=== PATIENT | female | born 1935 | race Caucasian/White ===

== ENCOUNTER 2017-05-03 15:22 | Emergency (ER) | payer MEDICARE, OTHER ==
--- NOTE | 2017-05-03 15:25 | EDM.PDOC ---
ED HPI GENERAL MEDICAL PROBLEM - General Chief Complaint: Lower Extremity Injury/Pain Stated Complaint: fall at [facility], lacerations, hematoma Time Seen by Provider: 05/03/17 15:25 Source of Information: Reports: Patient, EMS, Old Records ([facility] EMR. No paper hospital chart available.). Denies: EMS Notes Reviewed (Not available at time of dictation) History Limitations: Reports: No Limitations - History of Present Illness INITIAL COMMENTS - FREE TEXT/NARRATIVE: The patient was brought to the emergency room via ambulance with cloth sander accompaniment with a dressing placed over the right knee with the staff at [facility] already putting a dressing on her left hand. No other treatment in route. The patient was seen out of [facility] in [place] at about 15:00 hours today when she tripped outside resulting in a minor right-sided head contusion, left hand condition, and right knee contusion with secondary large prepatellar laceration. No history of foreign body, eye irritation, paresthesias, neurological deficits, change in mental status, headaches, visual changes, or other complaints or injuries. The patient did bend her glasses at the above accident. Patient thought she had a tetanus booster 5 years ago, however records from [facility] indicate that last TdAP was given on 06/07/00. The patient denies any chest pain/pressure, heart flutter, dizziness, orthostasis, orthopnea , diaphoresis, paresthesias, recent decreased exercise tolerance, or any other anginal-type symptoms. No recent history of abdominal pain, heartburn, nausea, diarrhea, melena, gross hematochezia, or any food intolerance, including fatty foods, etc.. The patient also denies any recent fever, cough, wheezing, dyspnea , etc.. The majority of her discomfort is in her right knee, which she rates at 2/10, with the patient able to ambulate on the knee at the scene and she does use a cane. The patient is a somewhat poor historian Onset: Today, Sudden Onset Date: 05/03/17 Onset Time: 15:00 Duration: Constant Location: Reports: Head, Upper Extremity, Left, Lower Extremity, Right. 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 Denies: Spinal Immobilization Right Anterior Knee Pain Score (Numeric/FACES): 2 - Related Data Allergies Allergy/AdvReac Type Severity Reaction Status Date / Time MARCOS Inhibitors Allergy Unknown unknown Verified 05/03/17 16:57 budesonide [From Pulmicort] Allergy Unknown unknown Verified 05/03/17 16:57 gabapentin Allergy Unknown Diarrhea Verified 05/03/17 16:58 Sulfa (Sulfonamide Allergy Unknown unknown Verified 05/03/17 16:57 Antibiotics) ketorolac [From Toradol] Allergy Rash Verified 05/03/17 16:58 Home Meds: Home Meds Albuterol/Ipratropium [DuoNeb 3.0-0.5 MG/3 ML] 1 applic INH QID 05/03/17 [ History] Budesonide/Formoterol Fumarate [Symbicort 160-4.5 Mcg Inhaler] 2 puff IH BID [History] Fish Oil/[place]-3 Fatty Acids [Fish Oil 1,000 MG] 1 gm PO DAILY 05/03/17 [History ] Furosemide 20 mg PO DAILY 05/03/17 [History] Insulin Detemir [Levemir] 26 unit SUBCUT DAILY 05/03/17 [History] Metoprolol Tartrate 25 mg PO BID 05/03/17 [History] Multivit, Iron, Min #5, Fa [Strovite Forte Caplet] 1 each PO DAILY 05/03/17 [ History] Simvastatin 40 mg PO DAILY 05/03/17 [History] amLODIPine [Norvasc] 5 mg PO DAILY 05/03/17 [History] methylPREDNISolone Acetate [Depo-Medrol] 80 mg IM ASDIRECTED 05/03/17 [History] Past Medical History HEENT History: Reports: Hard of Hearing, Impaired Vision, Other (See Below) Other HEENT History: Patient wears glasses. Mild bilateral presbycusis Cardiovascular History: Reports: CAD, Cardiomyopathy, Heart Failure, High Cholesterol, Hypertension, PVD, Other (See Below) Other Cardiovascular History: Cardiomegaly by chest x-ray with history of CHF and chronic dependent edema Respiratory History: Reports: COPD, Pulmonary Fibrosis Musculoskeletal History: Reports: Back Pain, Chronic, Fracture, Neck Pain, Chronic, Osteoarthritis, Osteoporosis, Other (See Below) Other Musculoskeletal History: Scoliosis with history of vertebral body compression fractures Neurological History: Reports: Neuropathy, Diabetic, Neuropathy, Peripheral Endocrine/Metabolic History: Reports: Diabetes, Type II, IDDM - Past Imaging History Past Imaging History: Reports: MRI (Lumbar spine on 11/04/13) Social & Family History - Tobacco Use Smoking Status *Q: Never Smoker Tobacco Use Within Last Twelve Months: No Used Tobacco, but Quit: No Smoking Cessation Information Provided To Patient: No Second Hand Smoke Exposure: No Second Hand Smoke Education Provided: No - Living Situation & Occupation Living situation: Reports: , with Family Occupation: Retired (Retired [employer] ) Review of Systems - Review of Systems Review Of Systems: ROS reveals no pertinent complaints other than HPI. ED EXAM, GENERAL - Physical Exam Exam: See Below Exam Limited By: No Limitations General Appearance: Alert, WD/WN, No Apparent Distress Eye Exam: Bilateral Eye: EOMI, Normal Fundi, Normal Inspection (Patient wearing glasses, no nystagmus), PERRL Ears: Normal External Exam, Normal Canal, Normal TMs, Hearing Loss (Mild bilateral presbycusis). No: Hearing Grossly Normal Nose: Normal Inspection, Normal Mucosa, No Blood Throat/Mouth: Normal Inspection, Normal Lips, Normal Teeth, Normal Gums, Normal Oropharynx, Normal Voice, No Airway Compromise. No: Dysphagia, Perioral Cyanosis Head: Normocephalic, Facial Swelling (The centimeter area of mild to moderate ecchymosis and swelling in the right superior periorbital region with no crepitation, formerly, sinus fracture, or significant localized tenderness). No : Facial Tenderness, Sinus Tenderness Neck: Normal Inspection, Supple, Non-Tender, Full Range of Motion, Carotid Bruit (Mild bilateral carotid bruits). No: Lymphadenopathy (L), Lymphadenopathy (R), Thyromegaly Respiratory/Chest: No Respiratory Distress, Lungs Clear, Normal Breath Sounds, No Accessory Muscle Use, Chest Non-Tender. No: Pleural Rub, Retractions Cardiovascular: Normal Peripheral Pulses, Regular Rate, Rhythm, No JVD, No Murmur, No Rub. No: No Edema (Stable by history lymphedema of the lower extremities), Gallop/S3, Gallop/S4, Friction Rub Peripheral Pulses: 2+: Radial (L), Radial (R) GI/Abdominal: Normal Bowel Sounds, Soft, Non-Tender, No Organomegaly, No Distention, No Abnormal Bruit, No Mass, Pelvis Stable, Other (Obese). No: Guarding (Female) Exam: Deferred Rectal (Female) Exam: Deferred Back Exam: Full Range of Motion, Other (Scoliosis noted). No: CVA Tenderness (L ), CVA Tenderness (R), Muscle Spasm, Paraspinal Tenderness, Vertebral Tenderness Extremities: Normal Capillary Refill, Pedal Edema (Stable by history mild lymphedema of the lower extremities with knee-high TREVOR hose in place), Joint Swelling (Mild right knee effusion), Arm Pain (0.25 cm in length superficial laceration over the extensor surface fourth finger PIP joint not requiring laceration repair. No joint instability or sign of fracture), Leg Pain (Minimal right knee pain mostly secondary to laceration with no joint instability by limited exam. No evidence of foreign body. Large 12 cm in length somewhat irregular laceration over the prepatellar region), Other (Moderate osteoarthritic and rheumatoid changes). No: Lowell's Sign Neurological: Alert, Oriented, CN II-XII Intact, Normal Cognition, Normal Gait, Normal Reflexes, No Motor/Sensory Deficits Psychiatric: Normal Affect, Normal Mood Skin Exam: Normal Color, No Rash, Ecchymosis (Ecchymosis surrounding laceration site with additional 34 centimeter possibly old area of mild ecchymosis over the distal lateral right femur), Wound/Incision (As above). No: Petechiae Lymphatic: No Adenopathy ED TRAUMA EXTREMITY PROCEDURES - Laceration/Wound Repair Right Middle Anterior Knee Lac/Wound Length In cm: 12 Appearance: Subcutaneous, Irregular, Clean Distal NVT: Neuro & Vascular Intact, No Tendon Injury Anesthetic Type: Local Local Anesthesia - Lidocaine (Xylocaine): 1% Plain Local Anesthetic Volume: Other (20 ml) Skin Prep: Providone-Iodine (Betadine) Saline Irrigation (cc's): 0 Exploration/Debridement/Repair: Wound Explored, In a Bloodless Field, Explored to Base, No Foreign Material Found Closed With: Sutures Suture Size: 4-0 # of Sutures: 20 Suture Type: Nylon, Interrupted, Simple Sterile Dressing Applied: Nurse Tetanus Status Addressed: Yes Complications: No - Splinting Right Lower Extremity Pre-Procedure NV Status: Normal Post-Procedure NV Status: Normal Splint Material: Other (As below) Splint Design: Knee Immobilizer Applied & Form Fitted By: Provider Provider Post-Splint Application NV Check: NV Status Normal, Good Position Complications: No Course - Vital Signs Last Recorded V/S: Last Vital Signs Temp 37.1 C 05/03/17 15:40 Pulse 83 05/03/17 16:54 Resp 18 05/03/17 15:40 BP 161/85 H 05/03/17 16:54 Pulse Ox 99 05/03/17 16:54 Vital Signs - 24 hr 05/03/17 05/03/17 05/03/17 15:40 16:00 16:15 Temperature [ 37.1 C Oral] Pulse, 81 81 80 Peripheral [ Left Pulse Oximetry] Respiratory 18 Rate Blood Pressure 179/79 H 165/82 H 162/80 H [Right Upper Arm] O2 Sat by Pulse 98 99 98 Oximetry 05/03/17 16:54 Temperature [ Oral] Pulse, 83 Peripheral [ Left Pulse Oximetry] Respiratory Rate Blood Pressure 161/85 H [Right Upper Arm] O2 Sat by Pulse 99 Oximetry - Orders/Labs/Meds Orders: Active Orders 24 hr Category Date Time Status Vaccines to be Administered [RC] PER UNIT ROUTINE Care 05/03/17 15:27 Active Knee 3V Rt [CR] Stat Exams 05/03/17 18:25 Ordered Durable Medical Equipment for Discharge [DME for Oth 05/03/17 18:38 Ordered Discharge] [COMM] Routine Obtain Past Medical Record [OM.PC] Routine Oth 05/03/17 15:26 Active Labs: None Meds: Medications Discontinued Medications Generic Name Dose Route Start Last Admin Trade Name Freq PRN Reason Stop Dose Admin Diphtheria/Tetanus/Acell Pertussis 0.5 ml 05/03/17 15:27 Adacel IM 05/03/17 15:28 .ONCE ONE Lidocaine HCl 5 ml 05/03/17 15:27 05/03/17 18:11 Xylocaine-Mpf 1% INJECT 05/03/17 15:28 5 ml ONETIME ONE Administration Lidocaine HCl 5 ml 05/03/17 15:28 05/03/17 18:11 Xylocaine-Mpf 1% INJECT 05/03/17 15:29 5 ml ONETIME ONE Administration Lidocaine HCl 5 ml 05/03/17 15:28 05/03/17 18:11 Xylocaine-Mpf 1% INJECT 05/03/17 15:29 5 ml ONETIME ONE Administration Lidocaine HCl 5 ml 05/03/17 15:28 05/03/17 18:11 Xylocaine-Mpf 1% INJECT 05/03/17 15:29 5 ml ONETIME ONE Administration Neomycin/Polymyxin/Bacitracin 1 each 05/03/17 15:27 05/03/17 18:11 Triple Antibiotic Oint TOP 05/03/17 15:28 1 each ONETIME ONE Administration - Radiology Interpretation Free Text/Narrative:: X-rays of the right knee, 2 views, shows evidence of moderate to severe osteoarthritis and osteoporosis with no evidence of patellar/other fracture, foreign body, dislocation, etc. etc. 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 transplanted heart: [place] heart Associated angina: without angina Qualified Code(s): I25.10 - Atherosclerotic heart disease of [place] coronary artery without angina pectoris - Discharge Information Instructions: Laceration Care, Adult, Contusion, [id number], Stitches, Joy, or Adhesive Wound Closure, [id number] Forms: ED Department Discharge Additional Instructions: 1. Followup with your regular provider in 10-14 days as directed for reevaluation and removal of 20 stitches from your right knee. 2. Tylenol 650 mg by mouth every 4 hours when necessary as directed. 3. Activity as tolerated with continuation of strict fall precautions 4. Antibacterial soap wash/soak with subsequent antibacterial dressing such as Neosporin, etc. as directed 2 times per day until the wound or laceration site completely heals. Keep the area clean and dry with activity restrictions as discussed. 5. BenGay or equivalent, heating pad, and/or ice packs as directed. 6. Use knee immobilizer at all times with exception of bathing and wound care until otherwise directed 7. Continue to have your regular providers watch your blood pressures closely - Problem List & Annotations (1) Laceration SNOMED Code(s): 662515169 Code(s): LBA3597 - Status: Acute Priority: High Onset Date: 05/03/17 Annotation/Comment:: Excellent results with laceration repair. DTaP given. Activity restrictions and wound care were extensively discussed with the patient and her . The patient was placed in a knee immobilizer. Some delay in laceration repair without sequelae secondary to multiple patients in the emergency room (2) Multiple contusions SNOMED Code(s): 882760890 Code(s): T07.XXXA - UNSPECIFIED MULTIPLE INJURIES, INITIAL ENCOUNTER Status : Acute Priority: High Onset Date: 05/03/17 Annotation/Comment:: Otherwise multiple minor contusions as above. Symptomatically as per discharge instructions (3) Right knee pain SNOMED Code(s): 22810363 Code(s): M25.561 - PAIN IN RIGHT KNEE Status: Acute Priority: High Onset Date: 05/03/17 Annotation/Comment:: Majority of knee pain secondary to laceration. Treatment as above. Patient does have a cane at home Qualifiers: Chronicity: acute Qualified Code(s): M25.561 - Pain in right knee (4) Hypertension SNOMED Code(s): 05205669 Code(s): I10 - ESSENTIAL (PRIMARY) HYPERTENSION Status: Chronic Priority : Medium Annotation/Comment:: Her blood pressures were somewhat elevated during emergency room care. Continue to observe closely by regular providers Qualifiers: Hypertension type: essential hypertension Qualified Code(s): I10 - Essential (primary) hypertension (5) COPD (chronic obstructive pulmonary disease) SNOMED Code(s): 64858703 Code(s): J44.9 - CHRONIC OBSTRUCTIVE PULMONARY DISEASE, UNSPECIFIED Status : Chronic Priority: Medium Annotation/Comment:: Stable by history with no recent fever or bronchitic type symptoms Qualifiers: COPD type: emphysema Emphysema type: panlobular Qualified Code(s): J43.1 - Panlobular emphysema (6) Coronary artery disease SNOMED Code(s): 81507241 Code(s): I25.10 - ATHSCL HEART DISEASE OF [place] CORONARY ARTERY W/O ANG PCTRS Status: Chronic Priority: Medium Annotation/Comment:: Stable by history with no recent chest pain or anginal type symptoms Qualifiers: Coronary Disease-Associated Artery/Lesion type: [place] artery [place] vs. 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 Status: Chronic Priority: Medium Annotation/Comment:: Stable by patient history with history of diabetic neuropathy (8) Osteoarthritis SNOMED Code(s): 196093100 Code(s): M19.90 - UNSPECIFIED OSTEOARTHRITIS, UNSPECIFIED SITE Status: Chronic Priority: Medium Annotation/Comment:: Otherwise stable by history Qualifiers: Osteoarthritis location: multiple joints Osteoarthritis type: primary Qualified Code(s): M15.0 - Primary generalized (osteo)arthritis - Problem List Review Problem List Initiated/Reviewed/Updated: Yes - My Orders Last 24 Hours: My Active Orders 05/03/17 15:26 Obtain Past Medical Record [OM.PC] Routine 05/03/17 15:27 Vaccines to be Administered [RC] PER UNIT ROUTINE 05/03/17 18:25 Knee 3V Rt [CR] Stat 05/03/17 18:38 Durable Medical Equipment for Discharge [DME for Discharge] [COMM] Routine - Assessment/Plan Last 24 Hours: My Active Orders 05/03/17 15:26 Obtain Past Medical Record [OM.PC] Routine 05/03/17 15:27 Vaccines to be Administered [RC] PER UNIT ROUTINE 05/03/17 18:25 Knee 3V Rt [CR] Stat 05/03/17 18:38 Durable Medical Equipment for Discharge [DME for Discharge] [COMM] Routine Assessment:: As above Plan: As above. Extensive precautions were given to the patient and her , who are in agreement with the treatment plan. See Patient Instructions for further treatment and plan.
[2017-05-03] MEDS ORDERED: Bacitracin/Neomycin/Polymyxin B Oint 0.9 GM U/D Packet TOP ONE (15:27)
[2017-05-03] MEDS ORDERED: Diphtheria,Pertussis(Acell),Tetanus Vaccine 0.5 ML SDV IM ONE (15:27)
== END 2017-05-03 19:50 | disposition home or self-care (01) ==
LOC: LL.ED 15:22
DX: S81.011A Laceration without foreign body, right knee, initial encounter (principal); S61.215A Laceration without foreign body of left ring finger without damage to nail, initial encounter; S70.11XA Contusion of right thigh, initial encounter; E11.9 Type 2 diabetes mellitus without complications; I11.0 Hypertensive heart disease with heart failure; I50.9 Heart failure, unspecified; J43.1 Panlobular emphysema; I25.10 Atherosclerotic heart disease of native coronary artery without angina pectoris; M15.0 Primary generalized (osteo)arthritis; E78.00 Pure hypercholesterolemia, unspecified; Z88.2 Allergy status to sulfonamides; Z88.6 Allergy status to analgesic agent; Z88.8 Allergy status to other drugs, medicaments and biological substances; Z79.4 Long term (current) use of insulin; Z23 Encounter for immunization; W01.0XXA Fall on same level from slipping, tripping and stumbling without subsequent striking against object, initial encounter
CPT/HCPCS: 12004; 73560-RT; 90471; 90715; 99283; 99284

== ENCOUNTER 2017-05-14 12:09 | Inpatient (IN) | payer MEDICARE, OTHER ==
[2017-05-14 12:30] LABS: CHLORIDE,CL 104 mmol/L (98-107); SODIUM,NA 138 mmol/L (136-145)
[2017-05-14] MEDS ORDERED: Acetaminophen/HYDROcodone 325-5 MG Tab PO PRN (13:00)
[2017-05-14] MEDS ORDERED: Albuterol 90 MCG/6.7 GM Inhaler INH PRN (13:14)
[2017-05-14] MEDS ORDERED: Furosemide 40 MG/4 ML VIAL IVPUSH STA (13:20)
[2017-05-14] MEDS ORDERED: Furosemide 40 MG/4 ML VIAL IVPUSH ONE (14:00)
[2017-05-14] MEDS: Albuterol/Ipratropium 3.0-0.5 MG/3 ML Neb Soln INH PRN ×2 (14:45→19:20)
[2017-05-14] MEDS: Enoxaparin 40 MG/0.4 ML Syringe SUBCUT SCH (14:45)
[2017-05-14] MEDS: Sodium Chloride 0.9% 10 ML Syringe FLUSH PRN ×2 (14:46→16:11)
[2017-05-14] MEDS ORDERED: Sodium Chloride 0.9% 250 ML IV SCH ×4 (15:45→17:00)
[2017-05-14] MEDS ORDERED: Albuterol 8 GM Inhaler INH PRN (15:52)
[2017-05-14] MEDS ORDERED: Iopamidol 755 Mg/ML 100 ML Bottle IVPUSH ONE (16:00)
--- NOTE | 2017-05-14 16:32 | PCM.HP ---
H&P History of Present Illness - General Date of Service: 05/14/17 Admit Problem/Dx: Admission Diagnosis/Problem Admission Diagnosis/Problem Cellulitis Source of Information: Patient, EMS Notes Reviewed History Limitations: Reports: No Limitations - History of Present Illness Initial Comments - Free Text/Narative: 05/14/2017 Patient fell outside of [facility] on 05/03/2017 seen in the ER and had stitches placed to her right knee, comes in for follow up at the clinic with significant edema and redness to the right LE. Patient states stopping her Lasix about one month ago. She spends a majority of the day sitting in the recliner. Denies any shortness of breath or chest pain, pain to the RLE about 04/21. Onset of Symptoms: Reports: Gradual Location: Reports: Upper Extremity, Right Quality: Reports: Ache Improves with: Reports: Rest Worsens with: Reports: Movement Context: Reports: Trauma Associated Symptoms: Reports: Malaise, Weakness - Related Data Allergies/Adverse Reactions: Allergies Allergy/AdvReac Type Severity Reaction Status Date / Time MARCOS Inhibitors Allergy Unknown unknown Verified 05/14/17 12:41 budesonide [From Pulmicort] Allergy Unknown unknown Verified 05/14/17 12:41 gabapentin Allergy Unknown Diarrhea Verified 05/14/17 12:41 Sulfa (Sulfonamide Allergy Unknown unknown Verified 05/14/17 12:41 Antibiotics) ketorolac [From Toradol] Allergy Rash Verified 05/14/17 12:41 Home Medications: Home Meds Albuterol/Ipratropium [DuoNeb 3.0-0.5 MG/3 ML] 1 applic INH Q4HR PRN 05/03/17 [ History] Budesonide/Formoterol Fumarate [Symbicort 160-4.5 Mcg Inhaler] 2 puff IH BID [History] Fish Oil/[place]-3 Fatty Acids [Fish Oil 1,000 MG] 1 gm PO DAILY 05/03/17 [History ] Insulin Detemir [Levemir] 26 unit SUBCUT DAILY 05/03/17 [History] Metoprolol Tartrate 25 mg PO BID 05/03/17 [History] Multivit, Iron, Min #5, Fa [Strovite Forte Caplet] 1 each PO DAILY 05/03/17 [ History] Simvastatin 20 mg PO BEDTIME 05/03/17 [History] amLODIPine [Norvasc] 5 mg PO DAILY 05/03/17 [History] Albuterol [Proventil HFA] 1 - 2 puff INH Q4HR PRN 05/14/17 [History] Past Medical History HEENT History: Reports: Hard of Hearing, Impaired Vision, Other (See Below) Other HEENT History: Patient wears glasses. Mild bilateral presbycusis Cardiovascular History: Reports: CAD, Cardiomyopathy, Heart Failure, High Cholesterol, Hypertension, PVD, Other (See Below) Other Cardiovascular History: Cardiomegaly by chest x-ray with history of CHF and chronic dependent edema Respiratory History: Reports: COPD, Pulmonary Fibrosis Musculoskeletal History: Reports: Back Pain, Chronic, Fracture, Neck Pain, Chronic, Osteoarthritis, Osteoporosis, Other (See Below) Other Musculoskeletal History: Scoliosis with history of vertebral body compression fractures Neurological History: Reports: Neuropathy, Diabetic, Neuropathy, Peripheral Endocrine/Metabolic History: Reports: Diabetes, Type II, IDDM - Past Surgical History Other HEENT Surgeries/Procedures: cataract surgery, both eyes Other Musculoskeletal Surgeries/Procedures:: denies surgical history - Past Imaging History Past Imaging History: Reports: MRI (Lumbar spine on 11/04/13) Social & Family History - Tobacco Use Smoking Status *Q: Never Smoker Used Tobacco, but Quit: No Second Hand Smoke Exposure: No - Living Situation & Occupation Living situation: Reports: , with Family Occupation: Retired (Retired [employer] ) H&P Review of Systems - Review of Systems: Review Of Systems: See Below General: Reports: Fatigue HEENT: Reports: No Symptoms Pulmonary: Reports: Other (COPD wears oxygen at night and throughout the day at times) Cardiovascular: Reports: No Symptoms Gastrointestinal: Reports: No Symptoms Genitourinary: Reports: No Symptoms Musculoskeletal: Reports: Joint Swelling Skin: Reports: Erythema (RLE) Psychiatric: Reports: No Symptoms Neurological: Reports: No Symptoms Hematologic/Lymphatic: Reports: No Symptoms Immunologic: Reports: No Symptoms Exam - Exam Exam: See Below - Vital Signs Vital Signs: Last Vital Signs Temp 97.7 F 05/14/17 16:00 Pulse 89 05/14/17 16:00 Resp 20 05/14/17 12:36 BP 136/57 L 05/14/17 16:00 Pulse Ox 100 05/14/17 16:00 Weight: 162 lb - Exam Quality Assessment: Supplemental Oxygen, DVT Prophylaxis, Skin Breakdown General: Alert, Oriented, Cooperative HEENT: Conjunctiva Clear, EACs Clear, EOMI, Hearing Intact, Mucosa Moist & Erma Neck: Supple, Trachea Midline Lungs: Normal Respiratory Effort, Decreased Breath Sounds Cardiovascular: Regular Rate, Regular Rhythm, Systolic Murmur GI/Abdominal Exam: Normal Bowel Sounds, Soft, Non-Tender, No Organomegaly, No Distention Extremities: Other (negative seng's sign to LE bilat, 4+edeam noted to right LE , 2+noted to left LE, ) Peripheral Pulses: 1+: Dorsalis Pedis (L), Dorsalis Pedis (R) Skin: Other (Right LE erythematous into the right groin area, small amount of drainage noted over the right knee incision area) Neurological: Cranial Nerves Intact, Reflexes Equal Bilateral Neuro Extensive - Mental Status: Alert, Oriented x3, Normal Mood/Affect, Normal Cognition, Memory Intact Psychiatric: Alert, Normal Affect, Normal Mood - Patient Data Lab Results Last 24 hrs: Laboratory Results - last 24 hr 05/14/17 05/14/17 05/14/17 Range/Units 12:00 13:20 13:20 D-Dimer, Quantitative (0-400) ng/mL Sodium 138 (136-145) mmol/L Potassium 4.8 (3.5-5.1) mmol/L Chloride 104 (98-107) mmol/L Carbon Dioxide 28.8 (21.0-32.0) mmol/L BUN 43 H (7-18) mg/dL Creatinine 1.30 H (0.51-1.17) mg/dL Est Cr Clr Drug Dosing TNP Estimated GFR (MDRD) 39 mL/min Glucose 208 H (74-106) mg/dL Calcium 9.1 (8.5-10.1) mg/dL Total Bilirubin 0.4 (0.2-1.0) mg/dL AST 24 (15-37) U/L ALT 42 (12-78) U/L Alkaline Phosphatase 124 H (46-116) IU/L C-Reactive Protein 2.0 H (<=0.9) mg/dL NT-Pro-B Natriuret Pep 285 H (0-125) pg/mL Total Protein 6.9 (6.4-8.2) g/dL Albumin 3.2 L (3.4-5.0) g/dL TSH, Ultra Sensitive 23.388 H (0.358-3.740) mIU/mL 05/14/17 Range/Units 13:58 D-Dimer, Quantitative 1150 H (0-400) ng/mL Sodium (136-145) mmol/L Potassium (3.5-5.1) mmol/L Chloride (98-107) mmol/L Carbon Dioxide (21.0-32.0) mmol/L BUN (7-18) mg/dL Creatinine (0.51-1.17) mg/dL Est Cr Clr Drug Dosing Estimated GFR (MDRD) mL/min Glucose (74-106) mg/dL Calcium (8.5-10.1) mg/dL Total Bilirubin (0.2-1.0) mg/dL AST (15-37) U/L ALT (12-78) U/L Alkaline Phosphatase (46-116) IU/L C-Reactive Protein (<=0.9) mg/dL NT-Pro-B Natriuret Pep (0-125) pg/mL Total Protein (6.4-8.2) g/dL Albumin (3.4-5.0) g/dL TSH, Ultra Sensitive (0.358-3.740) mIU/mL Result Diagrams: 05/14/17 12:00 *Q Meaningful Use (ADM) - VTE *Q VTE Mechanical Contraindications *Q: At Risk for Falls - VTE Risk Assess *Q Each Risk Factor Represents 3 Points: Age 75 Years or Greater Total Score 3 Point Risk Factors: 3 - Problem List (1) Cellulitis SNOMED Code(s): 925519948 ICD Code: L03.90 - CELLULITIS, UNSPECIFIED Status: Acute Current Visit: Yes Qualifiers: Site of cellulitis: extremity Site of cellulitis of extremity: lower extremity Laterality: right Qualified Code(s): L03.115 - Cellulitis of right lower limb (2) CKD (chronic kidney disease) SNOMED Code(s): 362717963 ICD Code: N18.9 - CHRONIC KIDNEY DISEASE, UNSPECIFIED Status: Acute Current Visit: Yes Qualifiers: Chronic kidney disease stage: unspecified stage Qualified Code(s): N18.9 - Chronic kidney disease, unspecified (3) Diabetes mellitus SNOMED Code(s): 77325122 ICD Code: E11.9 - TYPE 2 DIABETES MELLITUS WITHOUT COMPLICATIONS Status: Acute Current Visit: Yes Qualifiers: Diabetes mellitus type: type 2 Diabetes mellitus complication status: with kidney complications Diabetes mellitus complication detail: with chronic kidney disease Chronic kidney disease stage: unspecified stage (4) Congestive heart failure (CHF) SNOMED Code(s): 56125833 ICD Code: I50.9 - HEART FAILURE, UNSPECIFIED Status: Acute Current Visit : Yes Qualifiers: Heart failure type: unspecified Heart failure chronicity: chronic Qualified Code(s): I50.9 - Heart failure, unspecified (5) COPD (chronic obstructive pulmonary disease) SNOMED Code(s): 99413749 ICD Code: J44.9 - CHRONIC OBSTRUCTIVE PULMONARY DISEASE, UNSPECIFIED Status : Chronic Priority: Medium Current Visit: No Qualifiers: COPD type: emphysema Emphysema type: panlobular Qualified Code(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 DIRECTED Care 05/14/17 13:04 Active Up With Assistance [RC] DAILY Care 05/14/17 13:00 Active VTE/DVT Education [RC] PER UNIT ROUTINE Care 05/14/17 13:00 Active Vital Signs [RC] Q4HR Care 05/14/17 13:00 Active Consult to Case Management [CONS] Routine Cons 05/14/17 13:00 Active PT Evaluation and Treatment [CONS] Routine Cons 05/14/17 13:00 Active Pharmacy Consult [Consult to Pharmacy] [CONS] Routine Cons 05/14/17 13:13 Active [employer] [employer] Diet [DIET] Diet 05/14/17 Dinner Active CTA Chest W WO Contrast [Ang Chest] [CT] Stat Exams 05/14/17 15:18 Ordered Chest 2V [CR] Routine Exams 05/14/17 13:00 Taken Extremity Non Vascular Lt [US] Routine Exams 05/15/17 08:00 Ordered Extremity Non Vascular Rt [US] Routine Exams 05/15/17 08:00 Ordered C-REACTIVE PROTEIN [CHEM] DAILY Lab 05/15/17 05:11 Ordered C-REACTIVE PROTEIN [CHEM] DAILY Lab 05/16/17 05:11 Ordered C-REACTIVE PROTEIN [CHEM] DAILY Lab 05/17/17 05:11 Ordered C-REACTIVE PROTEIN [CHEM] DAILY Lab 05/18/17 05:11 Ordered CBC WITH AUTO DIFF [HEME] DAILY Lab 05/15/17 05:11 Ordered CBC WITH AUTO DIFF [HEME] DAILY Lab 05/16/17 05:11 Ordered CBC WITH AUTO DIFF [HEME] DAILY Lab 05/17/17 05:11 Ordered CBC WITH AUTO DIFF [HEME] DAILY Lab 05/18/17 05:11 Ordered COMPREHENSIVE METABOLIC PN,CMP [CHEM] DAILY Lab 05/15/17 05:11 Ordered COMPREHENSIVE METABOLIC PN,CMP [CHEM] DAILY Lab 05/16/17 05:11 Ordered COMPREHENSIVE METABOLIC PN,CMP [CHEM] DAILY Lab 05/17/17 05:11 Ordered COMPREHENSIVE METABOLIC PN,CMP [CHEM] DAILY Lab 05/18/17 05:11 Ordered CULTURE BLOOD [BC] Stat Lab 05/14/17 13:20 Received CULTURE BLOOD [BC] Stat Lab 05/14/17 13:50 Received CULTURE WOUND [RM] Routine Lab 05/14/17 12:00 Received VANCOMYCIN TROUGH [CHEM] Routine Lab 05/16/17 13:30 Ordered Acetaminophen [Tylenol] Med 05/14/17 13:00 Active 650 mg PO Q4H PRN Acetaminophen/HYDROcodone [[place] 325-5 MG] Med 05/14/17 13:00 Active 1 tab PO Q4H PRN Albuterol [Ventolin HFA] Med 05/14/17 15:52 Active 1 gm INH Q4HR PRN Albuterol/Ipratropium [DuoNeb 3.0-0.5 MG/3 ML] Med 05/14/17 13:14 Active 3 ml INH Q4HR PRN Ampicillin/Sulbactam Na [Unasyn] 3 gm Med 05/14/17 16:00 Active Sodium Chloride 0.9% [Normal Saline] 100 ml IV Q6H Enoxaparin [Lovenox] Med 05/14/17 14:00 Active 40 mg SUBCUT DAILY Furosemide [Lasix] Med 05/15/17 08:00 Active 40 mg IVPUSH DAILY Insulin Detemir [Levemir] Med 05/15/17 08:00 Active 26 unit SUBCUT DAILY Levothyroxine Med 05/15/17 07:30 Active 25 mcg PO ACBREAKFAST Metoprolol Tartrate [Lopressor] Med 05/14/17 18:00 Active 25 mg PO BID Mometasone/Formoterol [Dulera 200-5 MCG] Med 05/14/17 18:00 Active 2 puff IH BID Multivitamins [Tab-A-Stanley] Med 05/15/17 08:00 Active 1 tab PO DAILY Simvastatin [Zocor] Med 05/14/17 20:00 Active 20 mg PO BEDTIME Sodium Chloride 0.9% [Normal Saline] 250 ml Med 05/14/17 15:45 Ordered IV .BOLUS Sodium Chloride 0.9% [Normal Saline] 250 ml Med 05/14/17 17:00 Ordered IV ASDIRECTED Sodium Chloride 0.9% [Saline Flush] Med 05/14/17 13:00 Active 10 ml FLUSH ASDIRECTED PRN Vancomycin 1 gm Med 05/14/17 14:00 Active Sodium Chloride 0.9% [Normal Saline] 250 ml IV Q24H amLODIPine [Norvasc] Med 05/15/17 08:00 Active 5 mg PO DAILY Blood Culture x2 Reflex Set [OM.PC] Stat Oth 05/14/17 13:00 Ordered Peripheral IV Insertion Adult [OM.PC] Routine Oth 05/14/17 13:00 Ordered Resuscitation Status Routine Resus Stat 05/14/17 13:00 Ordered Medication Orders Acetaminophen (Tylenol) 650 mg PO Q4H PRN PRN Reason: Pain (Mild 1-3)/fever Hydrocodone Bitart/Acetaminophen ([place] 325-5 Mg) 1 tab PO Q4H PRN PRN Reason: Pain (moderate 4-6) Albuterol (Ventolin Hfa) 1 gm INH Q4HR PRN PRN Reason: Shortness of Breath Albuterol/Ipratropium (Duoneb 3.0-0.5 Mg/3 Ml) 3 ml INH Q4HR PRN PRN Reason: Shortness of Breath Last Admin: 05/14/17 14:45 Dose: 3 ml Amlodipine Besylate (Norvasc) 5 mg PO DAILY [facility] Enoxaparin Sodium (Lovenox) 40 mg SUBCUT DAILY [facility] Last Admin: 05/14/17 14:45 Dose: 40 mg Furosemide (Lasix) 40 mg IVPUSH DAILY [facility] Ampicillin Sodium/Sulbactam (Sodium 3 gm/ Sodium Chloride) 100 mls @ 100 mls/ hr IV Q6H MAURICIO Vancomycin HCl 1 gm/ Sodium (Chloride) 250 mls @ 165 mls/hr IV Q24H [facility] Last Admin: 05/14/17 14:42 Dose: 165 mls/hr Sodium Chloride (Normal Saline) 250 mls @ 250 mls/hr IV .BOLUS MAURICIO Sodium Chloride (Normal Saline) 250 mls @ 50 mls/hr IV ASDIRECTED [facility] Insulin Detemir (Levemir) 26 unit SUBCUT DAILY [facility] Levothyroxine Sodium (Levothyroxine) 25 mcg PO ACBREAKFAST [facility] Metoprolol Tartrate (Lopressor) 25 mg PO BID [facility] Mometasone Furoate/Formoterol Fumar ([place]ulera 200-5 Mcg) 2 puff IH BID [facility] Multivitamins/Minerals/Vitamin C (Tab-A-Stanley) 1 tab PO DAILY [facility] Simvastatin (Zocor) 20 mg PO BEDTIME [facility] Sodium Chloride (Saline Flush) 10 ml FLUSH ASDIRECTED PRN PRN Reason: Keep Vein Open Last Admin: 05/14/17 16:11 Dose: 10 ml Admin: 05/14/17 14:46 Dose: 10 ml Assessment/Plan Comment:: 05/14/2017 Patient is admitted to inpatient for IV antibiotic treatment of cellulitis to right lower leg after a fall. Patient needing IV lasix for significant lower extremity , monitoring kidney function due to patient's elevated Cr. Elevated D Dimer, rule out DVT/PE and further monitoring of kidney function. Repeat labs in the morning. Patient is hypotensive, will give IV fluids and monitor blood pressures. Patient is NO CODE. Patient agrees to plan of care. Kalee Edwards,JUNIOR DATABASE ADMINISTRATOR
[2017-05-14] MEDS ORDERED: Non-Formulary Medication 1 Each (Budesonide/Formoterol Fumarate [Symbicort 160-4.5 Mcg Inh IH SCH (18:00)
[2017-05-14] MEDS: Ampicillin/Sulbactam Na 3 GM in Sodium Chloride 0.9% 100 ML IV SCH ×2 (18:08→22:38)
[2017-05-14] MEDS: Formoterol/Mometasone 200-5 MCG 8.8 GM Inhaler IH SCH (18:09)
[2017-05-14] MEDS: Metoprolol Tartrate 25 MG Tab PO SCH (18:09)
[2017-05-14] MEDS: Simvastatin 20 MG Tab PO SCH (19:19)
[2017-05-14] MEDS: Acetaminophen 325 MG Tab PO PRN (19:20)
[2017-05-14] MEDS: Sodium Chloride 0.9% 10 ML Syringe FLUSH SCH (20:29)
[2017-05-15] MEDS: Albuterol/Ipratropium 3.0-0.5 MG/3 ML Neb Soln INH PRN ×3 (02:01→18:59)
[2017-05-15] MEDS: Ampicillin/Sulbactam Na 3 GM in Sodium Chloride 0.9% 100 ML IV SCH ×4 (04:21→23:45)
[2017-05-15] MEDS: Acetaminophen 325 MG Tab PO PRN (04:21)
[2017-05-15] MEDS: Sodium Chloride 0.9% 10 ML Syringe FLUSH PRN ×13 (04:22→23:46)
[2017-05-15] MEDS ORDERED: Levothyroxine 25 MCG Tab PO SCH (07:30)
[2017-05-15] MEDS ORDERED: Multivitamin Tab PO SCH (08:00)
[2017-05-15] MEDS ORDERED: Furosemide 40 MG/4 ML VIAL IVPUSH SCH (08:00)
[2017-05-15] MEDS ORDERED: amLODIPine 5 MG Tab PO SCH (08:00)
[2017-05-15] MEDS: Metoprolol Tartrate 25 MG Tab PO SCH ×2 (08:11→17:37)
[2017-05-15] MEDS: Enoxaparin 40 MG/0.4 ML Syringe SUBCUT SCH (08:12)
[2017-05-15] MEDS: Sodium Chloride 0.9% 10 ML Syringe FLUSH SCH ×2 (08:13→19:10)
[2017-05-15] MEDS: Formoterol/Mometasone 200-5 MCG 8.8 GM Inhaler IH SCH ×2 (08:13→17:38)
[2017-05-15] MEDS: Insulin Detemir 100 Units/ML 3 ML Pen SUBCUT SCH (08:15)
[2017-05-15] MEDS: Simvastatin 20 MG Tab PO SCH (18:59)
--- NOTE | 2017-05-15 19:48 | PCM.PN ---
- General Info Date of Service: 05/15/17 Admission Dx/Problem (Free Text): Admission Diagnosis/Problem Admission Diagnosis/Problem Cellulitis Functional Status: Reports: Pain Controlled - Review of Systems General: Reports: No Symptoms HEENT: Reports: No Symptoms Pulmonary: Reports: Shortness of Breath (chronic), Cough (chronic) Cardiovascular: Reports: No Symptoms Gastrointestinal: Reports: No Symptoms Genitourinary: Reports: No Symptoms Musculoskeletal: Reports: Hand Pain (right hand and swelling also) Skin: Reports: Bruising (bilateral missael-orbital, bilateral LE), Other (wound right knee, yellow drainage, starting to dehiesce) Neurological: Reports: Other (rremor) Psychiatric: Reports: No Symptoms - Patient Data Vitals - Most Recent: Last Vital Signs Temp 97.4 F 05/15/17 16:00 Pulse 90 05/15/17 17:37 Resp 18 05/15/17 16:00 BP 138/64 05/15/17 17:37 Pulse Ox 95 05/15/17 16:00 Weight - Most Recent: 160 lb I&O - Last 24 Hours: Intake & Output 05/15/17 05/15/17 05/15/17 06:59 14:59 22:59 Intake Total 615 500 470 Output Total 350 1000 375 Balance 265 -500 95 Lab Results Last 24 Hours: Laboratory Results - last 24 hr 05/15/17 05/15/17 05/15/17 Range/Units 07:10 07:10 07:21 WBC 6.9 (4.0-10.2) K/uL RBC 3.78 (3.77-5.09) M/uL Hgb 11.5 L D (11.7-15.5) g/dL Hct 35.8 (34.0-46.0) % MCV 94.7 (84.0-98.0) fL MCH 30.4 (28.2-33.3) pg MCHC 32.1 (31.7-36.0) g/dL RDW 14.9 H (11.2-14.1) % Plt Count 310 (150-350) K/uL Neut % (Auto) 74.7 (45.0-80.0) % Lymph % (Auto) 13.5 (10.0-50.0) % [place] % (Auto) 10.7 (2.0-14.0) % Eos % (Auto) 0.7 (0.0-5.0) % Baso % (Auto) 0.4 (0.0-2.0) % Neut # (Auto) 5.18 (1.40-7.00) K/uL Lymph # (Auto) 0.94 (0.50-3.50) K/uL [place] # (Auto) 0.74 (0.00-1.00) K/uL Eos # (Auto) 0.05 (0.00-0.50) K/uL Baso # (Auto) 0.03 (0.00-0.20) K/uL Sodium 140 (136-145) mmol/L Potassium 4.4 (3.5-5.1) mmol/L Chloride 105 (98-107) mmol/L Carbon Dioxide 26.9 (21.0-32.0) mmol/L BUN 38 H (7-18) mg/dL Creatinine 1.27 H (0.51-1.17) mg/dL Est Cr Clr Drug Dosing 26.08 mL/min Estimated GFR (MDRD) 40 mL/min Glucose 183 H (74-106) mg/dL POC Glucose 156 H (65-110) mg/dl Calcium 8.5 (8.5-10.1) mg/dL Total Bilirubin 0.4 (0.2-1.0) mg/dL AST 19 (15-37) U/L ALT 33 (12-78) U/L Alkaline Phosphatase 105 (46-116) IU/L C-Reactive Protein 4.4 H (<=0.9) mg/dL Total Protein 5.9 L (6.4-8.2) g/dL Albumin 2.6 L (3.4-5.0) g/dL 05/15/17 05/15/17 Range/Units 12:27 17:27 WBC (4.0-10.2) K/uL RBC (3.77-5.09) M/uL Hgb (11.7-15.5) g/dL Hct (34.0-46.0) % MCV (84.0-98.0) fL MCH (28.2-33.3) pg MCHC (31.7-36.0) g/dL RDW (11.2-14.1) % Plt Count (150-350) K/uL Neut % (Auto) (45.0-80.0) % Lymph % (Auto) (10.0-50.0) % [place] % (Auto) (2.0-14.0) % Eos % (Auto) (0.0-5.0) % Baso % (Auto) (0.0-2.0) % Neut # (Auto) (1.40-7.00) K/uL Lymph # (Auto) (0.50-3.50) K/uL [place] # (Auto) (0.00-1.00) K/uL Eos # (Auto) (0.00-0.50) K/uL Baso # (Auto) (0.00-0.20) K/uL Sodium (136-145) mmol/L Potassium (3.5-5.1) mmol/L Chloride (98-107) mmol/L Carbon Dioxide (21.0-32.0) mmol/L BUN (7-18) mg/dL Creatinine (0.51-1.17) mg/dL Est Cr Clr Drug Dosing mL/min Estimated GFR (MDRD) mL/min Glucose (74-106) mg/dL POC Glucose 72 117 H (65-110) mg/dl Calcium (8.5-10.1) mg/dL Total Bilirubin (0.2-1.0) mg/dL AST (15-37) U/L ALT (12-78) U/L Alkaline Phosphatase (46-116) IU/L C-Reactive Protein (<=0.9) mg/dL Total Protein (6.4-8.2) g/dL Albumin (3.4-5.0) g/dL Shyam Results Last 24 Hours: Microbiology 05/14/17 13:50 Aerobic Blood Culture - Preliminary Blood - Venous - Lab Draw NO GROWTH AFTER 1 DAY Anaerobic Blood Culture - Preliminary NO GROWTH AFTER 1 DAY 05/14/17 13:20 Aerobic Blood Culture - Preliminary Blood - Venous NO GROWTH AFTER 1 DAY Anaerobic Blood Culture - Preliminary NO GROWTH AFTER 1 DAY Med Orders - Current: Current Medications Acetaminophen (Tylenol) 650 mg PO Q4H PRN PRN Reason: Pain (Mild 1-3)/fever Last Admin: 05/15/17 04:21 Dose: 650 mg Hydrocodone Bitart/Acetaminophen ([place] 325-5 Mg) 1 tab PO Q4H PRN PRN Reason: Pain (moderate 4-6) Albuterol (Ventolin Hfa) 1 gm INH Q4HR PRN PRN Reason: Shortness of Breath Albuterol/Ipratropium (Duoneb 3.0-0.5 Mg/3 Ml) 3 ml INH Q4HR PRN PRN Reason: Shortness of Breath Last Admin: 05/15/17 18:59 Dose: 3 ml Amlodipine Besylate (Norvasc) 5 mg PO DAILY [facility] Last Admin: 05/15/17 08:12 Dose: 5 mg Enoxaparin Sodium (Lovenox) 40 mg SUBCUT DAILY [facility] Last Admin: 05/15/17 08:12 Dose: 40 mg Furosemide (Lasix) 40 mg IVPUSH BIDDIURETIC [facility] Ampicillin Sodium/Sulbactam (Sodium 3 gm/ Sodium Chloride) 100 mls @ 100 mls/ hr IV Q6H [facility] Last Admin: 05/15/17 17:37 Dose: 100 mls/hr Vancomycin HCl 1 gm/ Sodium (Chloride) 250 mls @ 165 mls/hr IV Q24H [facility] Last Admin: 05/15/17 14:07 Dose: 165 mls/hr Sodium Chloride (Normal Saline) 250 mls @ 250 mls/hr IV .BOLUS [facility] Last Admin: 05/14/17 16:56 Dose: 250 mls/hr Sodium Chloride (Normal Saline) 250 mls @ 50 mls/hr IV ASDIRECTED [facility] Last Admin: 05/14/17 18:11 Dose: 50 mls/hr Insulin Detemir (Levemir) 26 unit SUBCUT DAILY [facility] Last Admin: 05/15/17 08:15 Dose: 26 unit Levothyroxine Sodium (Synthroid) 50 mcg PO ACBREAKFAST [facility] Methylprednisolone Sodium Succinate (Solu-Medrol) 40 mg IVPUSH ONETIME ONE Stop: 05/15/17 20:01 Metoprolol Tartrate (Lopressor) 25 mg PO BID [facility] Last Admin: 05/15/17 17:37 Dose: 25 mg Mometasone Furoate/Formoterol Fumar (Dulera 200-5 Mcg) 2 puff IH BID [facility] Last Admin: 05/15/17 17:38 Dose: 2 puff Multivitamins/Minerals/Vitamin C (Tab-A-Stanley) 1 tab PO DAILY [facility] Last Admin: 05/15/17 08:12 Dose: 1 tab Simvastatin (Zocor) 20 mg PO BEDTIME [facility] Last Admin: 05/15/17 18:59 Dose: 20 mg Sodium Chloride (Saline Flush) 10 ml FLUSH ASDIRECTED PRN PRN Reason: Keep Vein Open Last Admin: 05/15/17 19:10 Dose: 10 ml Sodium Chloride (Saline Flush) 10 ml FLUSH Q12HR [facility] Last Admin: 05/15/17 19:10 Dose: Not Given Discontinued Medications Albuterol (Proventil Hfa) 1 puff INH Q4HR PRN PRN Reason: Shortness of Breath Furosemide (Lasix) 40 mg IVPUSH NOW STA Stop: 05/14/17 13:21 Last Admin: 05/14/17 14:37 Dose: Not Given Furosemide (Lasix) 40 mg IVPUSH NOW ONE Stop: 05/14/17 14:01 Last Admin: 05/14/17 14:45 Dose: 40 mg Furosemide (Lasix) 40 mg IVPUSH DAILY [facility] Last Admin: 05/15/17 08:13 Dose: 40 mg Sodium Chloride (Normal Saline) 250 mls @ 250 mls/hr IV .BOLUS MAURICIO Sodium Chloride (Normal Saline) 250 mls @ 50 mls/hr IV ASDIRECTED [facility] Iopamidol (Isovue-370 (76%)) 100 ml IVPUSH ONETIME ONE Stop: 05/14/17 16:01 Last Admin: 05/14/17 16:11 Dose: 100 ml Levothyroxine Sodium (Levothyroxine) 25 mcg PO ACBREAKFAST [facility] Last Admin: 05/15/17 08:10 Dose: 25 mcg Non-Formulary Medication (Budesonide/Formoterol Fumarate [Symbicort 160-4.5 Mcg Inhaler]) 2 puff IH BID MAURICIO - Exam Quality Assessment: Supplemental Oxygen, Central Line/PICC (right UE), DVT Prophylaxis General: Alert, Cooperative HEENT: Mucous Membr. Moist/[place] Neck: Trachea Midline, No JVD Lungs: Normal Respiratory Effort, Decreased Breath Sounds Cardiovascular: Regular Rate, Regular Rhythm GI/Abdominal Exam: Soft, Non-Tender, No Distention (Female) Exam: Deferred Back Exam: Normal Inspection Extremities: Pedal Edema (right foot 4+, right leg 3+), Other (BLE marked swelling, redness R>L and eccymonsis) Skin: Ecchymosis Wound/Incisions: Drainage (right knee), Erythema Improving (still quite impressive R>L LE) Neurological: No New Focal Deficit Psy/Mental Status: Alert, Normal Affect, Normal Mood - Problem List & Annotations (1) Posttraumatic wound infection SNOMED Code(s): 281485613 Code(s): T14.8XXA - OTHER INJURY OF UNSPECIFIED BODY REGION, INITIAL ENCOUNTER; L08.9 - LOCAL INFECTION OF THE SKIN AND SUBCUTANEOUS TISSUE, UNSP Status: Acute Priority: High Current Visit: Yes (2) CKD (chronic kidney disease) SNOMED Code(s): 036935129 Code(s): N18.9 - CHRONIC KIDNEY DISEASE, UNSPECIFIED Status: Acute Current Visit: Yes Qualifiers: Chronic kidney disease stage: unspecified stage Qualified Code(s): N18.9 - Chronic kidney disease, unspecified (3) Cellulitis SNOMED Code(s): 490905479 Code(s): L03.90 - CELLULITIS, UNSPECIFIED Status: Acute Current Visit: Yes Qualifiers: Site of cellulitis: extremity Site of cellulitis of extremity: lower extremity Laterality: right Qualified Code(s): L03.115 - Cellulitis of right lower limb (4) Congestive heart failure (CHF) SNOMED Code(s): 82678516 Code(s): I50.9 - HEART FAILURE, UNSPECIFIED Status: Acute Current Visit: Yes Qualifiers: Heart failure type: unspecified Heart failure chronicity: chronic Qualified Code(s): I50.9 - Heart failure, unspecified (5) Diabetes mellitus SNOMED Code(s): 04378180 Code(s): E11.9 - TYPE 2 DIABETES MELLITUS WITHOUT COMPLICATIONS Status: Acute Current Visit: Yes Qualifiers: Diabetes mellitus type: type 2 Diabetes mellitus complication status: with kidney complications Diabetes mellitus complication detail: with chronic kidney disease Chronic kidney disease stage: unspecified stage (6) Laceration SNOMED Code(s): 727727767 Code(s): OVP8053 - Status: Acute Priority: High Current Visit: No Onset Date: 05/03/17 Annotation/Comment:: Excellent results with laceration repair. DTaP given. Activity restrictions and wound care were extensively discussed with the patient and her . The patient was placed in a knee immobilizer. Some delay in laceration repair without sequelae secondary to multiple patients in the emergency room (7) Multiple contusions SNOMED Code(s): 522867048 Code(s): T07.XXXA - UNSPECIFIED MULTIPLE INJURIES, INITIAL ENCOUNTER Status : Acute Priority: High Current Visit: No Onset Date: 05/03/17 Annotation /Comment:: Otherwise multiple minor contusions as above. Symptomatically as per discharge instructions (8) Right knee pain SNOMED Code(s): 12330214 Code(s): M25.561 - PAIN IN RIGHT KNEE Status: Acute Priority: High Current Visit: No Onset Date: 05/03/17 Qualifiers: Chronicity: acute Qualified Code(s): M25.561 - Pain in right knee Annotation/Comment:: Majority of knee pain secondary to laceration. Treatment as above. Patient does have a cane at home (9) COPD (chronic obstructive pulmonary disease) SNOMED Code(s): 37460593 Code(s): J44.9 - CHRONIC OBSTRUCTIVE PULMONARY DISEASE, UNSPECIFIED Status : Chronic Priority: Medium Current Visit: No Qualifiers: COPD type: emphysema Emphysema type: panlobular Qualified Code(s): J43.1 - Panlobular emphysema (10) Coronary artery disease SNOMED Code(s): 35435241 Code(s): I25.10 - ATHSCL HEART DISEASE OF [place] CORONARY ARTERY W/O ANG PCTRS Status: Chronic Priority: Medium Current Visit: No Qualifiers: Coronary Disease-Associated Artery/Lesion type: [place] artery [place] vs. transplanted heart: [place] heart Associated angina: without angina Qualified Code(s): I25.10 - Atherosclerotic heart disease of [place] coronary artery without angina pectoris Annotation/Comment:: Stable by history with no recent chest pain or anginal type symptoms (11) Hypertension SNOMED Code(s): 52459373 Code(s): I10 - ESSENTIAL (PRIMARY) HYPERTENSION Status: Chronic Priority : Medium Current Visit: No Qualifiers: Hypertension type: essential hypertension Qualified Code(s): I10 - Essential (primary) hypertension Annotation/Comment:: Her blood pressures were somewhat elevated during emergency room care. Continue to observe closely by regular providers (12) IDDM (insulin dependent diabetes mellitus) SNOMED Code(s): 82139189 Code(s): E11.9 - TYPE 2 DIABETES MELLITUS WITHOUT COMPLICATIONS; Z79.4 - CARE HOME (CURRENT) USE OF INSULIN Status: Chronic Priority: Medium Current Visit: No Annotation/Comment:: Stable by patient history with history of diabetic neuropathy (13) Osteoarthritis SNOMED Code(s): 434235351 Code(s): M19.90 - UNSPECIFIED OSTEOARTHRITIS, UNSPECIFIED SITE Status: Chronic Priority: Medium Current Visit: No Qualifiers: Osteoarthritis location: multiple joints Osteoarthritis type: primary Qualified Code(s): M15.0 - Primary generalized (osteo)arthritis Annotation/Comment:: Otherwise stable by history - Problem List Review Problem List Initiated/Reviewed/Updated: Yes - My Orders Last 24 Hours: My Active Orders 05/14/17 20:00 Sodium Chloride 0.9% [Saline Flush] 10 ml FLUSH Q12HR 05/15/17 19:37 Communication Order [RC] ROUTINE 05/15/17 20:00 Wound Care [RC] Q12HR Mupirocin Oint [Bactroban Oint] See Dose Instructions TOP Q12HR methylPREDNISolone Sod Succ [Solu-MEDROL] 40 mg IVPUSH ONETIME ONE 05/16/17 05:11 BLOOD GAS VENOUS [BG] Routine SEDIMENTATION RATE AUTO [HEME] Routine 05/16/17 07:30 Levothyroxine [Synthroid] 50 mcg PO ACBREAKFAST 05/16/17 08:00 Furosemide [Lasix] 40 mg IVPUSH BIDDIURETIC - Plan Plan:: 05/14/2017 Patient is admitted to inpatient for IV antibiotic treatment of cellulitis to right lower leg after a fall. Patient needing IV lasix for significant lower extremity , monitoring kidney function due to patient's elevated Cr. Elevated D Dimer, rule out DVT/PE and further monitoring of kidney function. Repeat labs in the morning. Patient is hypotensive, will give IV fluids and monitor blood pressures. Patient is NO CODE. Patient agrees to plan of care. Kalee Edwards CNP 05/15/2017 Sheets Mariano SHERMAN Venous doppler scans negative for DVT. PICC line inserted. RLE impressive redness and edema but actually improved. Wound right knee is starting to dehiesce and significant yellow drainage. Kidney function stable. Continue IV antibiotics, C&S is pending. Increase IV lasix. Right hand swollen and painful. She says this is recurrent. One dose of solu-medrol ordered for inflammatory arthritis.
[2017-05-15] MEDS ORDERED: methylPREDNISolone Sodium Succinate 40 MG/1 ML SDV IVPUSH ONE (20:00)
[2017-05-15] MEDS: Mupirocin Oint 22 GM Tube TOP SCH (21:13)
[2017-05-16] MEDS: Ampicillin/Sulbactam Na 3 GM in Sodium Chloride 0.9% 100 ML IV SCH ×3 (05:06→22:03)
[2017-05-16] MEDS: Sodium Chloride 0.9% 10 ML Syringe FLUSH PRN ×5 (05:06→23:13)
[2017-05-16 07:28] LABS: O2 DELIVERY DEVICE NASAL CANNULA
[2017-05-16 07:43] LABS: BASE EXCESS VENOUS 2 mmol/L ((-2)-3); BICARBONATE,VENOUS 27 mmol/L (23-28); O2 SATURATION VENOUS 81 %; PCO2 VENOUS 45 mmHG (41-51); PH,VENOUS 7.39 (7.31-7.41); PO2 VENOUS 47 mmHG
[2017-05-16] MEDS: amLODIPine 5 MG Tab PO SCH (08:09)
[2017-05-16] MEDS: Levothyroxine 50 MCG Tab PO SCH (08:09)
[2017-05-16] MEDS: Metoprolol Tartrate 25 MG Tab PO SCH ×2 (08:09→17:22)
[2017-05-16] MEDS: Furosemide 40 MG/4 ML VIAL IVPUSH SCH ×2 (08:10→11:16)
[2017-05-16] MEDS: Enoxaparin 40 MG/0.4 ML Syringe SUBCUT SCH (08:10)
[2017-05-16] MEDS: Sodium Chloride 0.9% 10 ML Syringe FLUSH SCH ×2 (08:11→19:52)
[2017-05-16] MEDS: Formoterol/Mometasone 200-5 MCG 8.8 GM Inhaler IH SCH ×2 (08:19→17:22)
[2017-05-16] MEDS: Insulin Detemir 100 Units/ML 3 ML Pen SUBCUT SCH (08:19)
[2017-05-16] MEDS: Mupirocin Oint 22 GM Tube TOP SCH ×2 (08:20→19:53)
[2017-05-16] MEDS: Albuterol/Ipratropium 3.0-0.5 MG/3 ML Neb Soln INH PRN ×2 (08:36→20:16)
[2017-05-16] MEDS: Multivitamin Tab PO SCH (11:16)
[2017-05-16] MEDS ORDERED: Insulin Aspart 100 Units/ML 3 ML Pen SUBCUT ONE ×3 (11:34→18:15)
[2017-05-16] MEDS ORDERED: Insulin Isophane NPH, Human 100 Units/ML 3 ML Pen SUBCUT ONE ×3 (12:00→19:45)
[2017-05-16] MEDS: Simvastatin 20 MG Tab PO SCH (19:52)
--- NOTE | 2017-05-16 22:56 | PCM.PN ---
- General Info Date of Service: 05/16/17 Admission Dx/Problem (Free Text): Admission Diagnosis/Problem Admission Diagnosis/Problem Cellulitis Functional Status: Reports: Pain Controlled, Ambulating - Review of Systems General: Reports: No Symptoms HEENT: Reports: No Symptoms Pulmonary: Reports: Shortness of Breath (chronic) Cardiovascular: Reports: No Symptoms Gastrointestinal: Reports: No Symptoms Genitourinary: Reports: No Symptoms Musculoskeletal: Reports: Hand Pain (right, improved today) Skin: Reports: Bruising Neurological: Reports: No Symptoms Psychiatric: Reports: No Symptoms - Patient Data Vitals - Most Recent: Last Vital Signs Temp 97.7 F 05/16/17 20:00 Pulse 78 05/16/17 20:00 Resp 15 05/16/17 20:00 BP 142/78 H 05/16/17 20:00 Pulse Ox 96 05/16/17 20:00 Weight - Most Recent: 158 lb 12.783 oz I&O - Last 24 Hours: Intake & Output 05/16/17 05/16/17 05/16/17 06:59 14:59 22:59 Intake Total 250 720 279 Output Total 200 600 400 Balance 50 120 -121 Lab Results Last 24 Hours: Laboratory Results - last 24 hr 05/16/17 05/16/17 05/16/17 Range/Units 07:15 07:15 07:15 WBC 6.5 (4.0-10.2) K/uL RBC 3.71 L (3.77-5.09) M/uL Hgb 11.1 L (11.7-15.5) g/dL Hct 35.4 (34.0-46.0) % MCV 95.4 (84.0-98.0) fL MCH 29.9 (28.2-33.3) pg MCHC 31.4 L (31.7-36.0) g/dL RDW 14.9 H (11.2-14.1) % Plt Count 296 (150-350) K/uL Neut % (Auto) 91.3 H (45.0-80.0) % Lymph % (Auto) 7.6 L (10.0-50.0) % [place] % (Auto) 0.8 L (2.0-14.0) % Eos % (Auto) 0.0 (0.0-5.0) % Baso % (Auto) 0.3 (0.0-2.0) % Neut # (Auto) 5.90 (1.40-7.00) K/uL Lymph # (Auto) 0.49 L (0.50-3.50) K/uL [place] # (Auto) 0.05 (0.00-1.00) K/uL Eos # (Auto) 0.00 (0.00-0.50) K/uL Baso # (Auto) 0.02 (0.00-0.20) K/uL ESR 44 H (0-30) mm/hr VBG pH 7.39 (7.31-7.41) VBG pCO2 45 (41-51) mmHG VBG pO2 47 mmHG VBG HCO3 27 (23-28) mmol/L VBG Total CO2 28 mmol/L VBG O2 Saturation 81 % VBG Base Excess 2 ((-2)-3) mmol/L O2 Delivery Device Nasal cannula Sodium 142 (136-145) mmol/L Potassium 4.8 (3.5-5.1) mmol/L Chloride 107 (98-107) mmol/L Carbon Dioxide 27.5 (21.0-32.0) mmol/L BUN 37 H (7-18) mg/dL Creatinine 1.46 H (0.51-1.17) mg/dL Est Cr Clr Drug Dosing 22.69 mL/min Estimated GFR (MDRD) 34 mL/min Glucose 274 H* (74-106) mg/dL POC Glucose (65-110) mg/dl Uric Acid 8.3 H (2.6-7.2) mg/dL Calcium 8.4 L (8.5-10.1) mg/dL Phosphorus 3.5 (2.6-4.7) mg/dL Total Bilirubin 0.3 (0.2-1.0) mg/dL AST 17 (15-37) U/L ALT 28 (12-78) U/L Alkaline Phosphatase 97 (46-116) IU/L Creatine Kinase 38 (26-308) U/L C-Reactive Protein 3.2 H (<=0.9) mg/dL Total Protein 5.8 L (6.4-8.2) g/dL Albumin 2.4 L (3.4-5.0) g/dL Vancomycin Trough (10-20) ug/mL 05/16/17 05/16/17 05/16/17 Range/Units 07:22 11:18 13:40 WBC (4.0-10.2) K/uL RBC (3.77-5.09) M/uL Hgb (11.7-15.5) g/dL Hct (34.0-46.0) % MCV (84.0-98.0) fL MCH (28.2-33.3) pg MCHC (31.7-36.0) g/dL RDW (11.2-14.1) % Plt Count (150-350) K/uL Neut % (Auto) (45.0-80.0) % Lymph % (Auto) (10.0-50.0) % [place] % (Auto) (2.0-14.0) % Eos % (Auto) (0.0-5.0) % Baso % (Auto) (0.0-2.0) % Neut # (Auto) (1.40-7.00) K/uL Lymph # (Auto) (0.50-3.50) K/uL [place] # (Auto) (0.00-1.00) K/uL Eos # (Auto) (0.00-0.50) K/uL Baso # (Auto) (0.00-0.20) K/uL ESR (0-30) mm/hr VBG pH (7.31-7.41) VBG pCO2 (41-51) mmHG VBG pO2 mmHG VBG HCO3 (23-28) mmol/L VBG Total CO2 mmol/L VBG O2 Saturation % VBG Base Excess ((-2)-3) mmol/L O2 Delivery Device Sodium (136-145) mmol/L Potassium (3.5-5.1) mmol/L Chloride (98-107) mmol/L Carbon Dioxide (21.0-32.0) mmol/L BUN (7-18) mg/dL Creatinine (0.51-1.17) mg/dL Est Cr Clr Drug Dosing mL/min Estimated GFR (MDRD) mL/min Glucose (74-106) mg/dL POC Glucose 263 H* 465 H* (65-110) mg/dl Uric Acid (2.6-7.2) mg/dL Calcium (8.5-10.1) mg/dL Phosphorus (2.6-4.7) mg/dL Total Bilirubin (0.2-1.0) mg/dL AST (15-37) U/L ALT (12-78) U/L Alkaline Phosphatase (46-116) IU/L Creatine Kinase (26-308) U/L C-Reactive Protein (<=0.9) mg/dL Total Protein (6.4-8.2) g/dL Albumin (3.4-5.0) g/dL Vancomycin Trough 15.1 (10-20) ug/mL 05/16/17 05/16/17 Range/Units 17:21 19:52 WBC (4.0-10.2) K/uL RBC (3.77-5.09) M/uL Hgb (11.7-15.5) g/dL Hct (34.0-46.0) % MCV (84.0-98.0) fL MCH (28.2-33.3) pg MCHC (31.7-36.0) g/dL RDW (11.2-14.1) % Plt Count (150-350) K/uL Neut % (Auto) (45.0-80.0) % Lymph % (Auto) (10.0-50.0) % [place] % (Auto) (2.0-14.0) % Eos % (Auto) (0.0-5.0) % Baso % (Auto) (0.0-2.0) % Neut # (Auto) (1.40-7.00) K/uL Lymph # (Auto) (0.50-3.50) K/uL [place] # (Auto) (0.00-1.00) K/uL Eos # (Auto) (0.00-0.50) K/uL Baso # (Auto) (0.00-0.20) K/uL ESR (0-30) mm/hr VBG pH (7.31-7.41) VBG pCO2 (41-51) mmHG VBG pO2 mmHG VBG HCO3 (23-28) mmol/L VBG Total CO2 mmol/L VBG O2 Saturation % VBG Base Excess ((-2)-3) mmol/L O2 Delivery Device Sodium (136-145) mmol/L Potassium (3.5-5.1) mmol/L Chloride (98-107) mmol/L Carbon Dioxide (21.0-32.0) mmol/L BUN (7-18) mg/dL Creatinine (0.51-1.17) mg/dL Est Cr Clr Drug Dosing mL/min Estimated GFR (MDRD) mL/min Glucose (74-106) mg/dL POC Glucose 331 H* 375 H* (65-110) mg/dl Uric Acid (2.6-7.2) mg/dL Calcium (8.5-10.1) mg/dL Phosphorus (2.6-4.7) mg/dL Total Bilirubin (0.2-1.0) mg/dL AST (15-37) U/L ALT (12-78) U/L Alkaline Phosphatase (46-116) IU/L Creatine Kinase (26-308) U/L C-Reactive Protein (<=0.9) mg/dL Total Protein (6.4-8.2) g/dL Albumin (3.4-5.0) g/dL Vancomycin Trough (10-20) ug/mL Shyam Results Last 24 Hours: Microbiology 05/14/17 13:50 Aerobic Blood Culture - Preliminary Blood - Venous - Lab Draw NO GROWTH AFTER 2 DAYS Anaerobic Blood Culture - Preliminary NO GROWTH AFTER 2 DAYS 05/14/17 13:20 Aerobic Blood Culture - Preliminary Blood - Venous NO GROWTH AFTER 2 DAYS Anaerobic Blood Culture - Preliminary NO GROWTH AFTER 2 DAYS 05/14/17 12:00 Wound Culture - Final Knee, Right Normal Hal[place] Med Orders - Current: Current Medications Acetaminophen (Tylenol) 650 mg PO Q4H PRN PRN Reason: Pain (Mild 1-3)/fever Last Admin: 05/15/17 04:21 Dose: 650 mg Hydrocodone Bitart/Acetaminophen ([place] 325-5 Mg) 1 tab PO Q4H PRN PRN Reason: Pain (moderate 4-6) Albuterol (Ventolin Hfa) 1 gm INH Q4HR PRN PRN Reason: Shortness of Breath Albuterol/Ipratropium (Duoneb 3.0-0.5 Mg/3 Ml) 3 ml INH Q4HR PRN PRN Reason: Shortness of Breath Last Admin: 05/16/17 20:16 Dose: 3 ml Amlodipine Besylate (Norvasc) 2.5 mg PO DAILY [facility] Last Admin: 05/16/17 08:09 Dose: 2.5 mg Enoxaparin Sodium (Lovenox) 40 mg SUBCUT DAILY [facility] Last Admin: 05/16/17 08:10 Dose: 40 mg Furosemide (Lasix) 40 mg IVPUSH BIDDIURETIC [facility] Last Admin: 05/16/17 11:16 Dose: 40 mg Vancomycin HCl 1 gm/ Sodium (Chloride) 250 mls @ 165 mls/hr IV Q24H [facility] Last Admin: 05/16/17 14:47 Dose: 165 mls/hr Sodium Chloride (Normal Saline) 250 mls @ 250 mls/hr IV .BOLUS [facility] Last Admin: 05/14/17 16:56 Dose: 250 mls/hr Sodium Chloride (Normal Saline) 250 mls @ 50 mls/hr IV ASDIRECTED [facility] Last Admin: 05/14/17 18:11 Dose: 50 mls/hr Ampicillin Sodium/Sulbactam (Sodium 3 gm/ Sodium Chloride) 100 mls @ 100 mls/ hr IV Q12H [facility] Last Admin: 05/16/17 22:03 Dose: 100 mls/hr Insulin Detemir (Levemir) 26 unit SUBCUT DAILY [facility] Last Admin: 05/16/17 08:19 Dose: 26 unit Levothyroxine Sodium (Synthroid) 50 mcg PO ACBREAKFAST [facility] Last Admin: 05/16/17 08:09 Dose: 50 mcg Metoprolol Tartrate (Lopressor) 25 mg PO BID [facility] Last Admin: 05/16/17 17:22 Dose: 25 mg Mometasone Furoate/Formoterol Fumar (Dulera 200-5 Mcg) 2 puff IH BID [facility] Last Admin: 05/16/17 17:22 Dose: 2 puff Multivitamins/Minerals/Vitamin C (Tab-A-Stanley) 1 tab PO DAILY@1200 [facility] Last Admin: 05/16/17 11:16 Dose: 1 tab Mupirocin (Bactroban Oint) 0 gm TOP Q12HR [facility] Last Admin: 05/16/17 19:53 Dose: 1 applic Simvastatin (Zocor) 20 mg PO BEDTIME [facility] Last Admin: 05/16/17 19:52 Dose: 20 mg Sodium Chloride (Saline Flush) 10 ml FLUSH ASDIRECTED PRN PRN Reason: Keep Vein Open Last Admin: 05/16/17 22:05 Dose: 10 ml Sodium Chloride (Saline Flush) 10 ml FLUSH Q12HR [facility] Last Admin: 05/16/17 19:52 Dose: 10 ml Discontinued Medications Albuterol (Proventil Hfa) 1 puff INH Q4HR PRN PRN Reason: Shortness of Breath Amlodipine Besylate (Norvasc) 5 mg PO DAILY [facility] Last Admin: 05/15/17 08:12 Dose: 5 mg Furosemide (Lasix) 40 mg IVPUSH NOW STA Stop: 05/14/17 13:21 Last Admin: 05/14/17 14:37 Dose: Not Given Furosemide (Lasix) 40 mg IVPUSH NOW ONE Stop: 05/14/17 14:01 Last Admin: 05/14/17 14:45 Dose: 40 mg Furosemide (Lasix) 40 mg IVPUSH DAILY [facility] Last Admin: 05/15/17 08:13 Dose: 40 mg Ampicillin Sodium/Sulbactam (Sodium 3 gm/ Sodium Chloride) 100 mls @ 100 mls/ hr IV Q6H [facility] Last Admin: 05/16/17 10:08 Dose: 100 mls/hr Sodium Chloride (Normal Saline) 250 mls @ 250 mls/hr IV .BOLUS [facility] Sodium Chloride (Normal Saline) 250 mls @ 50 mls/hr IV ASDIRECTED [facility] Insulin Aspart (Novolog) 6 unit SUBCUT ONETIME ONE Stop: 05/16/17 11:35 Last Admin: 05/16/17 12:29 Dose: Not Given Insulin Aspart (Novolog) 8 unit SUBCUT ONETIME ONE; Protocol Stop: 05/16/17 11:46 Last Admin: 05/16/17 11:50 Dose: 8 unit Insulin Aspart (Novolog) 6 unit SUBCUT ONETIME ONE; Protocol Stop: 05/16/17 18:16 Last Admin: 05/16/17 19:48 Dose: 6 unit Insulin Human NPH (Humulin N) 20 unit SUBCUT ONETIME ONE Stop: 05/16/17 19:46 Insulin Human NPH (Humulin N) 10 unit SUBCUT ONETIME ONE Stop: 05/16/17 19:46 Insulin Human NPH (Humulin N) 20 unit SUBCUT ONETIME ONE Stop: 05/16/17 12:01 Last Admin: 05/16/17 11:53 Dose: 20 unit Iopamidol (Isovue-370 (76%)) 100 ml IVPUSH ONETIME ONE Stop: 05/14/17 16:01 Last Admin: 05/14/17 16:11 Dose: 100 ml Levothyroxine Sodium (Levothyroxine) 25 mcg PO ACBREAKFAST MAURICIO Last Admin: 05/15/17 08:10 Dose: 25 mcg Methylprednisolone Sodium Succinate (Solu-Medrol) 40 mg IVPUSH ONETIME ONE Stop: 05/15/17 20:01 Last Admin: 05/15/17 21:14 Dose: 40 mg Multivitamins/Minerals/Vitamin C (Tab-A-Stanley) 1 tab PO DAILY MAURICIO Last Admin: 05/15/17 08:12 Dose: 1 tab Non-Formulary Medication (Budesonide/Formoterol Fumarate [Symbicort 160-4.5 Mcg Inhaler]) 2 puff IH BID MAURICIO - Exam Quality Assessment: Supplemental Oxygen, DVT Prophylaxis General: Alert, Cooperative, No Acute Distress HEENT: Mucous Membr. Moist/[place] Neck: Trachea Midline, No JVD Lungs: Normal Respiratory Effort, Decreased Breath Sounds Cardiovascular: Regular Rate, Regular Rhythm GI/Abdominal Exam: Soft, Non-Tender, No Distention (Female) Exam: Deferred Back Exam: Normal Inspection Extremities: Pedal Edema (4+), Other (eccymosis BLE) Skin: Ecchymosis (face, bilateral legs) Wound/Incisions: Drainage, Erythema Improving, Other (right knee wound dehissing ) Neurological: No New Focal Deficit Psy/Mental Status: Alert, Normal Affect, Normal Mood - Problem List & Annotations (1) Posttraumatic wound infection SNOMED Code(s): 798693891 Code(s): T14.8XXA - OTHER INJURY OF UNSPECIFIED BODY REGION, INITIAL ENCOUNTER; L08.9 - LOCAL INFECTION OF THE SKIN AND SUBCUTANEOUS TISSUE, UNSP Status: Acute Priority: High Current Visit: Yes (2) CKD (chronic kidney disease) SNOMED Code(s): 994918764 Code(s): N18.9 - CHRONIC KIDNEY DISEASE, UNSPECIFIED Status: Acute Current Visit: Yes Qualifiers: Chronic kidney disease stage: unspecified stage Qualified Code(s): N18.9 - Chronic kidney disease, unspecified (3) Cellulitis SNOMED Code(s): 304007133 Code(s): L03.90 - CELLULITIS, UNSPECIFIED Status: Acute Current Visit: Yes Qualifiers: Site of cellulitis: extremity Site of cellulitis of extremity: lower extremity Laterality: right Qualified Code(s): L03.115 - Cellulitis of right lower limb (4) Congestive heart failure (CHF) SNOMED Code(s): 00286810 Code(s): I50.9 - HEART FAILURE, UNSPECIFIED Status: Acute Current Visit: Yes Qualifiers: Heart failure type: unspecified Heart failure chronicity: chronic Qualified Code(s): I50.9 - Heart failure, unspecified (5) Diabetes mellitus SNOMED Code(s): 22399345 Code(s): E11.9 - TYPE 2 DIABETES MELLITUS WITHOUT COMPLICATIONS Status: Acute Current Visit: Yes Qualifiers: Diabetes mellitus type: type 2 Diabetes mellitus complication status: with kidney complications Diabetes mellitus complication detail: with chronic kidney disease Chronic kidney disease stage: unspecified stage (6) Laceration SNOMED Code(s): 115908779 Code(s): VNU6617 - Status: Acute Priority: High Current Visit: No Onset Date: 05/03/17 Annotation/Comment:: Excellent results with laceration repair. DTaP given. Activity restrictions and wound care were extensively discussed with the patient and her . The patient was placed in a knee immobilizer. Some delay in laceration repair without sequelae secondary to multiple patients in the emergency room (7) Multiple contusions SNOMED Code(s): 887004550 Code(s): T07.XXXA - UNSPECIFIED MULTIPLE INJURIES, INITIAL ENCOUNTER Status : Acute Priority: High Current Visit: No Onset Date: 05/03/17 Annotation /Comment:: Otherwise multiple minor contusions as above. Symptomatically as per discharge instructions (8) Right knee pain SNOMED Code(s): 94881707 Code(s): M25.561 - PAIN IN RIGHT KNEE Status: Acute Priority: High Current Visit: No Onset Date: 05/03/17 Qualifiers: Chronicity: acute Qualified Code(s): M25.561 - Pain in right knee Annotation/Comment:: Majority of knee pain secondary to laceration. Treatment as above. Patient does have a cane at home (9) COPD (chronic obstructive pulmonary disease) SNOMED Code(s): 63906142 Code(s): J44.9 - CHRONIC OBSTRUCTIVE PULMONARY DISEASE, UNSPECIFIED Status : Chronic Priority: Medium Current Visit: No Qualifiers: COPD type: emphysema Emphysema type: panlobular Qualified Code(s): J43.1 - Panlobular emphysema (10) Coronary artery disease SNOMED Code(s): 76446521 Code(s): I25.10 - ATHSCL HEART DISEASE OF [place] CORONARY ARTERY W/O ANG PCTRS Status: Chronic Priority: Medium Current Visit: No Qualifiers: Coronary Disease-Associated Artery/Lesion type: [place] artery [place] vs. transplanted heart: [place] heart Associated angina: without angina Qualified Code(s): I25.10 - Atherosclerotic heart disease of [place] coronary artery without angina pectoris Annotation/Comment:: Stable by history with no recent chest pain or anginal type symptoms (11) Hypertension SNOMED Code(s): 90115689 Code(s): I10 - ESSENTIAL (PRIMARY) HYPERTENSION Status: Chronic Priority : Medium Current Visit: No Qualifiers: Hypertension type: essential hypertension Qualified Code(s): I10 - Essential (primary) hypertension Annotation/Comment:: Her blood pressures were somewhat elevated during emergency room care. 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 Status: Chronic Priority: Medium Current Visit: No Annotation/Comment:: Stable by patient history with history of diabetic neuropathy (13) Osteoarthritis SNOMED Code(s): 136665093 Code(s): M19.90 - UNSPECIFIED OSTEOARTHRITIS, UNSPECIFIED SITE Status: Chronic Priority: Medium Current Visit: No Qualifiers: Osteoarthritis location: multiple joints Osteoarthritis type: primary Qualified Code(s): M15.0 - Primary generalized (osteo)arthritis Annotation/Comment:: Otherwise stable by history - Problem List Review Problem List Initiated/Reviewed/Updated: Yes - My Orders Last 24 Hours: My Active Orders 05/16/17 07:30 Levothyroxine [Synthroid] 50 mcg PO ACBREAKFAST 05/16/17 08:00 Furosemide [Lasix] 40 mg IVPUSH BIDDIURETIC amLODIPine [Norvasc] 2.5 mg PO DAILY 05/16/17 12:00 Multivitamins [Tab-A-Stanley] 1 tab PO DAILY@1200 05/16/17 17:08 CULTURE WOUND + SMEAR [RM] Routine 05/18/17 13:30 VANCOMYCIN TROUGH [CHEM] Routine - Plan Plan:: 05/14/2017 Patient is admitted to inpatient for IV antibiotic treatment of cellulitis to right lower leg after a fall. Patient needing IV lasix for significant lower extremity , monitoring kidney function due to patient's elevated Cr. Elevated D Dimer, rule out DVT/PE and further monitoring of kidney function. Repeat labs in the morning. Patient is hypotensive, will give IV fluids and monitor blood pressures. Patient is NO CODE. Patient agrees to plan of care. Kalee Edwards,CRYPTOLOGIC SUPERVISOR 05/15/2017 Rosie Quintana MD Venous doppler scans negative for DVT. PICC line inserted. RLE impressive redness and edema but actually improved. Wound right knee is starting to dehiesce and significant yellow drainage. Kidney function stable. Continue IV antibiotics, C&S is pending. Increase IV lasix. Right hand swollen and painful. She says this is recurrent. One dose of solu-medrol ordered for inflammatory arthritis. 05/16/17 Rosie Quintana MD Wound right knee with continued yellow drainage and dehissing. Redness of the right leg is decreasing. Kidney function continues to decrease. Antibiotic doses adjusted. C&S normal halina. Will re-culture. Right hand swelling has decreased and less pain in hand after solumedrol. Blood sugars markedly elevated and insulins adjusted.
[2017-05-17] MEDS: Levothyroxine 50 MCG Tab PO SCH (07:33)
[2017-05-17] MEDS: Metoprolol Tartrate 25 MG Tab PO SCH ×2 (07:33→19:58)
[2017-05-17] MEDS: amLODIPine 5 MG Tab PO SCH (07:34)
[2017-05-17] MEDS: Enoxaparin 40 MG/0.4 ML Syringe SUBCUT SCH (07:35)
[2017-05-17] MEDS: Insulin Detemir 100 Units/ML 3 ML Pen SUBCUT SCH (07:35)
[2017-05-17] MEDS: Furosemide 40 MG/4 ML VIAL IVPUSH SCH ×2 (07:35→12:12)
[2017-05-17] MEDS: Mupirocin Oint 22 GM Tube TOP SCH ×2 (07:36→19:58)
[2017-05-17] MEDS: Formoterol/Mometasone 200-5 MCG 8.8 GM Inhaler IH SCH ×2 (07:36→17:16)
[2017-05-17] MEDS: Sodium Chloride 0.9% 10 ML Syringe FLUSH SCH ×2 (07:39→22:39)
[2017-05-17] MEDS: Sodium Chloride 0.9% 10 ML Syringe FLUSH PRN ×3 (10:30→13:58)
[2017-05-17] MEDS: Ampicillin/Sulbactam Na 3 GM in Sodium Chloride 0.9% 100 ML IV SCH ×2 (10:30→22:39)
[2017-05-17] MEDS: Multivitamin Tab PO SCH (12:12)
[2017-05-17] MEDS: Albuterol/Ipratropium 3.0-0.5 MG/3 ML Neb Soln INH PRN ×2 (12:17→23:49)
[2017-05-17] MEDS: Simvastatin 20 MG Tab PO SCH (19:58)
--- NOTE | 2017-05-17 23:43 | PCM.PN ---
- General Info Date of Service: 05/17/17 Admission Dx/Problem (Free Text): Admission Diagnosis/Problem Admission Diagnosis/Problem Cellulitis Functional Status: Reports: Pain Controlled, Tolerating Diet, Ambulating - Review of Systems General: Reports: Weakness HEENT: Reports: No Symptoms, Other (eccymosis bilateral periorbital R>L) Pulmonary: Reports: Shortness of Breath, Cough Cardiovascular: Reports: No Symptoms Gastrointestinal: Reports: No Symptoms Genitourinary: Reports: No Symptoms Musculoskeletal: Reports: Hand Pain, Joint Swelling (right hand and fingers) Skin: Reports: Bruising Neurological: Reports: Weakness Psychiatric: Reports: No Symptoms - Patient Data Vitals - Most Recent: Last Vital Signs Temp 98.0 F 05/17/17 19:05 Pulse 83 05/17/17 19:58 Resp 18 05/17/17 19:05 BP 152/66 H 05/17/17 19:58 Pulse Ox 97 05/17/17 19:05 Weight - Most Recent: 159 lb 12.8 oz I&O - Last 24 Hours: Intake & Output 05/17/17 05/17/17 05/18/17 14:59 22:59 06:59 Intake Total 480 220 Output Total 400 1050 Balance 80 -830 Lab Results Last 24 Hours: Laboratory Results - last 24 hr 05/17/17 05/17/17 05/17/17 Range/Units 07:50 07:50 07:58 WBC 9.7 (4.0-10.2) K/uL RBC 3.80 (3.77-5.09) M/uL Hgb 11.3 L (11.7-15.5) g/dL Hct 36.3 (34.0-46.0) % MCV 95.5 (84.0-98.0) fL MCH 29.7 (28.2-33.3) pg MCHC 31.1 L (31.7-36.0) g/dL RDW 14.9 H (11.2-14.1) % Plt Count 329 (150-350) K/uL Neut % (Auto) 74.7 (45.0-80.0) % Lymph % (Auto) 16.0 (10.0-50.0) % [place] % (Auto) 8.6 (2.0-14.0) % Eos % (Auto) 0.3 (0.0-5.0) % Baso % (Auto) 0.4 (0.0-2.0) % Neut # (Auto) 7.27 H (1.40-7.00) K/uL Lymph # (Auto) 1.56 (0.50-3.50) K/uL [place] # (Auto) 0.84 (0.00-1.00) K/uL Eos # (Auto) 0.03 (0.00-0.50) K/uL Baso # (Auto) 0.04 (0.00-0.20) K/uL Sodium 142 (136-145) mmol/L Potassium 4.3 (3.5-5.1) mmol/L Chloride 105 (98-107) mmol/L Carbon Dioxide 29.7 (21.0-32.0) mmol/L BUN 45 H (7-18) mg/dL Creatinine 1.73 H (0.51-1.17) mg/dL Est Cr Clr Drug Dosing 18.98 mL/min Estimated GFR (MDRD) 28 mL/min Glucose 163 H (74-106) mg/dL POC Glucose 161 H (65-110) mg/dl Calcium 8.3 L (8.5-10.1) mg/dL Total Bilirubin 0.4 (0.2-1.0) mg/dL AST 23 (15-37) U/L ALT 32 (12-78) U/L Alkaline Phosphatase 100 (46-116) IU/L C-Reactive Protein 1.7 H (<=0.9) mg/dL Total Protein 6.2 L (6.4-8.2) g/dL Albumin 2.7 L (3.4-5.0) g/dL 05/17/17 05/17/17 Range/Units 12:43 17:14 WBC (4.0-10.2) K/uL RBC (3.77-5.09) M/uL Hgb (11.7-15.5) g/dL Hct (34.0-46.0) % MCV (84.0-98.0) fL MCH (28.2-33.3) pg MCHC (31.7-36.0) g/dL RDW (11.2-14.1) % Plt Count (150-350) K/uL Neut % (Auto) (45.0-80.0) % Lymph % (Auto) (10.0-50.0) % [place] % (Auto) (2.0-14.0) % Eos % (Auto) (0.0-5.0) % Baso % (Auto) (0.0-2.0) % Neut # (Auto) (1.40-7.00) K/uL Lymph # (Auto) (0.50-3.50) K/uL [place] # (Auto) (0.00-1.00) K/uL Eos # (Auto) (0.00-0.50) K/uL Baso # (Auto) (0.00-0.20) K/uL Sodium (136-145) mmol/L Potassium (3.5-5.1) mmol/L Chloride (98-107) mmol/L Carbon Dioxide (21.0-32.0) mmol/L BUN (7-18) mg/dL Creatinine (0.51-1.17) mg/dL Est Cr Clr Drug Dosing mL/min Estimated GFR (MDRD) mL/min Glucose (74-106) mg/dL POC Glucose 231 H 200 H (65-110) mg/dl Calcium (8.5-10.1) mg/dL Total Bilirubin (0.2-1.0) mg/dL AST (15-37) U/L ALT (12-78) U/L Alkaline Phosphatase (46-116) IU/L C-Reactive Protein (<=0.9) mg/dL Total Protein (6.4-8.2) g/dL Albumin (3.4-5.0) g/dL Shyam Results Last 24 Hours: Microbiology 05/14/17 13:50 Aerobic Blood Culture - Preliminary Blood - Venous - Lab Draw NO GROWTH AFTER 3 DAYS Anaerobic Blood Culture - Preliminary NO GROWTH AFTER 3 DAYS 05/14/17 13:20 Aerobic Blood Culture - Preliminary Blood - Venous NO GROWTH AFTER 3 DAYS Anaerobic Blood Culture - Preliminary NO GROWTH AFTER 3 DAYS 05/16/17 17:08 Gram Stain - Final Knee, Right Wound Culture - Preliminary NO GROWTH AFTER 1 DAY Med Orders - Current: Current Medications Acetaminophen (Tylenol) 650 mg PO Q4H PRN PRN Reason: Pain (Mild 1-3)/fever Last Admin: 05/15/17 04:21 Dose: 650 mg Hydrocodone Bitart/Acetaminophen (Yeso 325-5 Mg) 1 tab PO Q4H PRN PRN Reason: Pain (moderate 4-6) Albuterol (Ventolin Hfa) 1 gm INH Q4HR PRN PRN Reason: Shortness of Breath Albuterol/Ipratropium (Duoneb 3.0-0.5 Mg/3 Ml) 3 ml INH Q4HR PRN PRN Reason: Shortness of Breath Last Admin: 05/17/17 12:17 Dose: 3 ml Amlodipine Besylate (Norvasc) 2.5 mg PO DAILY [facility] Last Admin: 05/17/17 07:34 Dose: 2.5 mg Enoxaparin Sodium (Lovenox) 30 mg SUBCUT DAILY [facility] Furosemide (Lasix) 40 mg IVPUSH DAILY [facility] Vancomycin HCl 1 gm/ Sodium (Chloride) 250 mls @ 165 mls/hr IV Q24H [facility] Last Admin: 05/17/17 13:54 Dose: 165 mls/hr Sodium Chloride (Normal Saline) 250 mls @ 250 mls/hr IV .BOLUS [facility] Last Admin: 05/14/17 16:56 Dose: 250 mls/hr Sodium Chloride (Normal Saline) 250 mls @ 50 mls/hr IV ASDIRECTED [facility] Last Admin: 05/14/17 18:11 Dose: 50 mls/hr Ampicillin Sodium/Sulbactam (Sodium 3 gm/ Sodium Chloride) 100 mls @ 100 mls/ hr IV Q12H [facility] Last Admin: 05/17/17 22:39 Dose: 100 mls/hr Insulin Detemir (Levemir) 26 unit SUBCUT DAILY [facility] Last Admin: 05/17/17 07:35 Dose: 26 unit Levothyroxine Sodium (Synthroid) 50 mcg PO ACBREAKFAST [facility] Last Admin: 05/17/17 07:33 Dose: 50 mcg Metoprolol Tartrate (Lopressor) 25 mg PO Q12HR [facility] Last Admin: 05/17/17 19:58 Dose: 25 mg Mometasone Furoate/Formoterol Fumar (Dulera 200-5 Mcg) 2 puff IH BID [facility] Last Admin: 05/17/17 17:16 Dose: 2 puff Multivitamins/Minerals/Vitamin C (Tab-A-Stanley) 1 tab PO DAILY@1200 [facility] Last Admin: 05/17/17 12:12 Dose: 1 tab Mupirocin (Bactroban Oint) 0 gm TOP Q12HR [facility] Last Admin: 05/17/17 19:58 Dose: 1 applic Simvastatin (Zocor) 20 mg PO BEDTIME [facility] Last Admin: 05/17/17 19:58 Dose: 20 mg Sodium Chloride (Saline Flush) 10 ml FLUSH ASDIRECTED PRN PRN Reason: Keep Vein Open Last Admin: 05/17/17 13:58 Dose: 10 ml Sodium Chloride (Saline Flush) 10 ml FLUSH Q12HR [facility] Last Admin: 05/17/17 22:39 Dose: 10 ml Discontinued Medications Albuterol (Proventil Hfa) 1 puff INH Q4HR PRN PRN Reason: Shortness of Breath Amlodipine Besylate (Norvasc) 5 mg PO DAILY [facility] Last Admin: 05/15/17 08:12 Dose: 5 mg Enoxaparin Sodium (Lovenox) 40 mg SUBCUT DAILY [facility] Last Admin: 05/17/17 07:35 Dose: 40 mg Furosemide (Lasix) 40 mg IVPUSH NOW STA Stop: 05/14/17 13:21 Last Admin: 05/14/17 14:37 Dose: Not Given Furosemide (Lasix) 40 mg IVPUSH NOW ONE Stop: 05/14/17 14:01 Last Admin: 05/14/17 14:45 Dose: 40 mg Furosemide (Lasix) 40 mg IVPUSH DAILY [facility] Last Admin: 05/15/17 08:13 Dose: 40 mg Furosemide (Lasix) 40 mg IVPUSH BIDDIURETIC [facility] Last Admin: 05/17/17 12:12 Dose: 40 mg Ampicillin Sodium/Sulbactam (Sodium 3 gm/ Sodium Chloride) 100 mls @ 100 mls/ hr IV Q6H [facility] Last Admin: 05/16/17 10:08 Dose: 100 mls/hr Sodium Chloride (Normal Saline) 250 mls @ 250 mls/hr IV .BOLUS [facility] Sodium Chloride (Normal Saline) 250 mls @ 50 mls/hr IV ASDIRECTED [facility] Insulin Aspart (Novolog) 6 unit SUBCUT ONETIME ONE Stop: 05/16/17 11:35 Last Admin: 05/16/17 12:29 Dose: Not Given Insulin Aspart (Novolog) 8 unit SUBCUT ONETIME ONE; Protocol Stop: 05/16/17 11:46 Last Admin: 05/16/17 11:50 Dose: 8 unit Insulin Aspart (Novolog) 6 unit SUBCUT ONETIME ONE; Protocol Stop: 05/16/17 18:16 Last Admin: 05/16/17 19:48 Dose: 6 unit Insulin Human NPH (Humulin N) 20 unit SUBCUT ONETIME ONE Stop: 05/16/17 19:46 Insulin Human NPH (Humulin N) 10 unit SUBCUT ONETIME ONE Stop: 05/16/17 19:46 Insulin Human NPH (Humulin N) 20 unit SUBCUT ONETIME ONE Stop: 05/16/17 12:01 Last Admin: 05/16/17 11:53 Dose: 20 unit Iopamidol (Isovue-370 (76%)) 100 ml IVPUSH ONETIME ONE Stop: 05/14/17 16:01 Last Admin: 05/14/17 16:11 Dose: 100 ml Levothyroxine Sodium (Levothyroxine) 25 mcg PO ACBREAKFAST [facility] Last Admin: 05/15/17 08:10 Dose: 25 mcg Methylprednisolone Sodium Succinate (Solu-Medrol) 40 mg IVPUSH ONETIME ONE Stop: 05/15/17 20:01 Last Admin: 05/15/17 21:14 Dose: 40 mg Metoprolol Tartrate (Lopressor) 25 mg PO BID [facility] Last Admin: 05/16/17 17:22 Dose: 25 mg Multivitamins/Minerals/Vitamin C (Tab-A-Stanley) 1 tab PO DAILY [facility] Last Admin: 05/15/17 08:12 Dose: 1 tab Non-Formulary Medication (Budesonide/Formoterol Fumarate [Symbicort 160-4.5 Mcg Inhaler]) 2 puff IH BID [facility] - Exam Quality Assessment: Supplemental Oxygen, Central Line/PICC General: Alert, Cooperative, Mild Distress HEENT: Mucous Membr. Moist/[place] Neck: Trachea Midline, No JVD Lungs: Normal Respiratory Effort, Decreased Breath Sounds, Rhonchi Cardiovascular: Regular Rate, Regular Rhythm, Murmurs GI/Abdominal Exam: Soft, Non-Tender, No Distention (Female) Exam: Deferred Back Exam: Normal Inspection Extremities: Pedal Edema, Increased Warmth (improving), Redness (improving) Skin: Warm, Dry, Intact, Ecchymosis Wound/Incisions: Drainage, Erythema Improving, Other (right knee) Neurological: No New Focal Deficit Psy/Mental Status: Alert, Normal Affect, Normal Mood - Problem List & Annotations (1) Posttraumatic wound infection SNOMED Code(s): 357136291 Code(s): T14.8XXA - OTHER INJURY OF UNSPECIFIED BODY REGION, INITIAL ENCOUNTER; L08.9 - LOCAL INFECTION OF THE SKIN AND SUBCUTANEOUS TISSUE, UNSP Status: Acute Priority: High Current Visit: Yes (2) CKD (chronic kidney disease) SNOMED Code(s): 302975336 Code(s): N18.9 - CHRONIC KIDNEY DISEASE, UNSPECIFIED Status: Acute Current Visit: Yes Qualifiers: Chronic kidney disease stage: unspecified stage Qualified Code(s): N18.9 - Chronic kidney disease, unspecified (3) Cellulitis SNOMED Code(s): 531263617 Code(s): L03.90 - CELLULITIS, UNSPECIFIED Status: Acute Current Visit: Yes Qualifiers: Site of cellulitis: extremity Site of cellulitis of extremity: lower extremity Laterality: right Qualified Code(s): L03.115 - Cellulitis of right lower limb (4) Congestive heart failure (CHF) SNOMED Code(s): 51595399 Code(s): I50.9 - HEART FAILURE, UNSPECIFIED Status: Acute Current Visit: Yes Qualifiers: Heart failure type: unspecified Heart failure chronicity: chronic Qualified Code(s): I50.9 - Heart failure, unspecified (5) Diabetes mellitus SNOMED Code(s): 57855744 Code(s): E11.9 - TYPE 2 DIABETES MELLITUS WITHOUT COMPLICATIONS Status: Acute Current Visit: Yes Qualifiers: Diabetes mellitus type: type 2 Diabetes mellitus complication status: with kidney complications Diabetes mellitus complication detail: with chronic kidney disease Chronic kidney disease stage: unspecified stage (6) Laceration SNOMED Code(s): 643913271 Code(s): PCP7915 - Status: Acute Priority: High Current Visit: No Onset Date: 05/03/17 Annotation/Comment:: Excellent results with laceration repair. DTaP given. Activity restrictions and wound care were extensively discussed with the patient and her . The patient was placed in a knee immobilizer. Some delay in laceration repair without sequelae secondary to multiple patients in the emergency room (7) Multiple contusions SNOMED Code(s): 312537357 Code(s): T07.XXXA - UNSPECIFIED MULTIPLE INJURIES, INITIAL ENCOUNTER Status : Acute Priority: High Current Visit: No Onset Date: 05/03/17 Annotation /Comment:: Otherwise multiple minor contusions as above. Symptomatically as per discharge instructions (8) Right knee pain SNOMED Code(s): 06342828 Code(s): M25.561 - PAIN IN RIGHT KNEE Status: Acute Priority: High Current Visit: No Onset Date: 05/03/17 Qualifiers: Chronicity: acute Qualified Code(s): M25.561 - Pain in right knee Annotation/Comment:: Majority of knee pain secondary to laceration. Treatment as above. Patient does have a cane at home (9) COPD (chronic obstructive pulmonary disease) SNOMED Code(s): 07008827 Code(s): J44.9 - CHRONIC OBSTRUCTIVE PULMONARY DISEASE, UNSPECIFIED Status : Chronic Priority: Medium Current Visit: No Qualifiers: COPD type: emphysema Emphysema type: panlobular Qualified Code(s): J43.1 - Panlobular emphysema (10) Coronary artery disease SNOMED Code(s): 76549680 Code(s): I25.10 - ATHSCL HEART DISEASE OF [place] CORONARY ARTERY W/O ANG PCTRS Status: Chronic Priority: Medium Current Visit: No Qualifiers: Coronary Disease-Associated Artery/Lesion type: [place] artery [place] vs. transplanted heart: [place] heart Associated angina: without angina Qualified Code(s): I25.10 - Atherosclerotic heart disease of [place] coronary artery without angina pectoris Annotation/Comment:: Stable by history with no recent chest pain or anginal type symptoms (11) Hypertension SNOMED Code(s): 08639310 Code(s): I10 - ESSENTIAL (PRIMARY) HYPERTENSION Status: Chronic Priority : Medium Current Visit: No Qualifiers: Hypertension type: essential hypertension Qualified Code(s): I10 - Essential (primary) hypertension Annotation/Comment:: Her blood pressures were somewhat elevated during emergency room care. Continue to observe closely by regular providers (12) IDDM (insulin dependent diabetes mellitus) SNOMED Code(s): 53420446 Code(s): E11.9 - TYPE 2 DIABETES MELLITUS WITHOUT COMPLICATIONS; Z79.4 - RESIDENTIAL (CURRENT) USE OF INSULIN Status: Chronic Priority: Medium Current Visit: No Annotation/Comment:: Stable by patient history with history of diabetic neuropathy (13) Osteoarthritis SNOMED Code(s): 498880043 Code(s): M19.90 - UNSPECIFIED OSTEOARTHRITIS, UNSPECIFIED SITE Status: Chronic Priority: Medium Current Visit: No Qualifiers: Osteoarthritis location: multiple joints Osteoarthritis type: primary Qualified Code(s): M15.0 - Primary generalized (osteo)arthritis Annotation/Comment:: Otherwise stable by history - Problem List Review Problem List Initiated/Reviewed/Updated: Yes - My Orders Last 24 Hours: My Active Orders 05/17/17 08:00 Metoprolol Tartrate [Lopressor] 25 mg PO Q12HR 05/18/17 08:00 Enoxaparin [Lovenox] 30 mg SUBCUT DAILY Furosemide [Lasix] 40 mg IVPUSH DAILY 05/18/17 13:30 VANCOMYCIN TROUGH [CHEM] Routine - Plan Plan:: 05/14/2017 Patient is admitted to inpatient for IV antibiotic treatment of cellulitis to right lower leg after a fall. Patient needing IV lasix for significant lower extremity , monitoring kidney function due to patient's elevated Cr. Elevated D Dimer, rule out DVT/PE and further monitoring of kidney function. Repeat labs in the morning. Patient is hypotensive, will give IV fluids and monitor blood pressures. Patient is NO CODE. Patient agrees to plan of care. Kalee Edwards,SKIN [employer]VER 05/15/2017 Rosie Quintana MD Venous doppler scans negative for DVT. PICC line inserted. RLE impressive redness and edema but actually improved. Wound right knee is starting to dehiesce and significant yellow drainage. Kidney function stable. Continue IV antibiotics, C&S is pending. Increase IV lasix. Right hand swollen and painful. She says this is recurrent. One dose of solu-medrol ordered for inflammatory arthritis. 05/16/17 Rosie Quintana MD Wound right knee with continued yellow drainage and dehissing. Redness of the right leg is decreasing. Kidney function continues to decrease. Antibiotic doses adjusted. C&S normal halina. Will re-culture. Right hand swelling has decreased and less pain in hand after solumedrol. Blood sugars markedly elevated and insulins adjusted. 05/17/17 Rosie Quintana MD Wound right knee continues to improve. Less drainage, less redness, less swelling. Continue IV antibiotics and awaiting 2nd culture results.
[2017-05-18] MEDS ORDERED: Enoxaparin 30 MG/0.3 ML Syringe SUBCUT SCH (08:00)
[2017-05-18] MEDS ORDERED: Furosemide 40 MG/4 ML VIAL IVPUSH SCH (08:00)
[2017-05-18] MEDS: Levothyroxine 50 MCG Tab PO SCH (08:59)
[2017-05-18] MEDS: Formoterol/Mometasone 200-5 MCG 8.8 GM Inhaler IH SCH (08:59)
[2017-05-18] MEDS: amLODIPine 5 MG Tab PO SCH (09:00)
[2017-05-18] MEDS: Metoprolol Tartrate 25 MG Tab PO SCH (09:00)
[2017-05-18] MEDS: Sodium Chloride 0.9% 10 ML Syringe FLUSH SCH (09:01)
[2017-05-18] MEDS: Mupirocin Oint 22 GM Tube TOP SCH (09:01)
[2017-05-18] MEDS: Insulin Detemir 100 Units/ML 3 ML Pen SUBCUT SCH (09:11)
[2017-05-18] MEDS: Ampicillin/Sulbactam Na 3 GM in Sodium Chloride 0.9% 100 ML IV SCH (09:12)
[2017-05-18] MEDS: Albuterol/Ipratropium 3.0-0.5 MG/3 ML Neb Soln INH PRN (09:25)
[2017-05-18] MEDS: Multivitamin Tab PO SCH (11:47)
--- NOTE | 2017-05-18 23:55 | PCM.PN ---
- General Info Date of Service: 05/18/17 Admission Dx/Problem (Free Text): Admission Diagnosis/Problem Admission Diagnosis/Problem Cellulitis Functional Status: Reports: Pain Controlled - Review of Systems General: Reports: No Symptoms HEENT: Reports: No Symptoms Pulmonary: Reports: Shortness of Breath, Cough Cardiovascular: Reports: No Symptoms Gastrointestinal: Reports: No Symptoms Genitourinary: Reports: No Symptoms Musculoskeletal: Reports: No Symptoms Skin: Reports: Bruising Neurological: Reports: Weakness Psychiatric: Reports: No Symptoms - Patient Data Vitals - Most Recent: Last Vital Signs Temp 97.3 F 05/18/17 11:26 Pulse 71 05/18/17 11:26 Resp 17 05/18/17 11:26 BP 144/76 H 05/18/17 11:26 Pulse Ox 98 05/18/17 11:26 Weight - Most Recent: 157 lb 4.8 oz I&O - Last 24 Hours: Intake & Output 05/18/17 05/18/17 05/19/17 14:59 22:59 06:59 Intake Total 240 Balance 240 Lab Results Last 24 Hours: Laboratory Results - last 24 hr 05/18/17 05/18/17 Range/Units 07:17 11:02 POC Glucose 179 H 279 H* (65-110) mg/dl Shyam Results Last 24 Hours: Microbiology 05/14/17 13:50 Aerobic Blood Culture - Preliminary Blood - Venous - Lab Draw NO GROWTH AFTER 4 DAYS Anaerobic Blood Culture - Preliminary NO GROWTH AFTER 4 DAYS 05/14/17 13:20 Aerobic Blood Culture - Preliminary Blood - Venous NO GROWTH AFTER 4 DAYS Anaerobic Blood Culture - Preliminary NO GROWTH AFTER 4 DAYS Med Orders - Current: Current Medications Discontinued Medications Acetaminophen (Tylenol) 650 mg PO Q4H PRN PRN Reason: Pain (Mild 1-3)/fever Last Admin: 05/15/17 04:21 Dose: 650 mg Hydrocodone Bitart/Acetaminophen ([place] 325-5 Mg) 1 tab PO Q4H PRN PRN Reason: Pain (moderate 4-6) Albuterol (Proventil Hfa) 1 puff INH Q4HR PRN PRN Reason: Shortness of Breath Albuterol (Ventolin Hfa) 1 gm INH Q4HR PRN PRN Reason: Shortness of Breath Albuterol/Ipratropium (Duoneb 3.0-0.5 Mg/3 Ml) 3 ml INH Q4HR PRN PRN Reason: Shortness of Breath Last Admin: 05/18/17 09:25 Dose: 3 ml Amlodipine Besylate (Norvasc) 5 mg PO DAILY [facility] Last Admin: 05/15/17 08:12 Dose: 5 mg Amlodipine Besylate (Norvasc) 2.5 mg PO DAILY [facility] Last Admin: 05/18/17 09:00 Dose: 2.5 mg Enoxaparin Sodium (Lovenox) 40 mg SUBCUT DAILY [facility] Last Admin: 05/17/17 07:35 Dose: 40 mg Enoxaparin Sodium (Lovenox) 30 mg SUBCUT DAILY [facility] Last Admin: 05/18/17 09:00 Dose: 30 mg Furosemide (Lasix) 40 mg IVPUSH NOW STA Stop: 05/14/17 13:21 Last Admin: 05/14/17 14:37 Dose: Not Given Furosemide (Lasix) 40 mg IVPUSH NOW ONE Stop: 05/14/17 14:01 Last Admin: 05/14/17 14:45 Dose: 40 mg Furosemide (Lasix) 40 mg IVPUSH DAILY [facility] Last Admin: 05/15/17 08:13 Dose: 40 mg Furosemide (Lasix) 40 mg IVPUSH BIDDIURETIC [facility] Last Admin: 05/17/17 12:12 Dose: 40 mg Furosemide (Lasix) 40 mg IVPUSH DAILY [facility] Last Admin: 05/18/17 08:59 Dose: 40 mg Ampicillin Sodium/Sulbactam (Sodium 3 gm/ Sodium Chloride) 100 mls @ 100 mls/ hr IV Q6H [facility] Last Admin: 05/16/17 10:08 Dose: 100 mls/hr Vancomycin HCl 1 gm/ Sodium (Chloride) 250 mls @ 165 mls/hr IV Q24H [facility] Last Admin: 05/17/17 13:54 Dose: 165 mls/hr Sodium Chloride (Normal Saline) 250 mls @ 250 mls/hr IV .BOLUS [facility] Sodium Chloride (Normal Saline) 250 mls @ 50 mls/hr IV ASDIRECTED [facility] Sodium Chloride (Normal Saline) 250 mls @ 250 mls/hr IV .BOLUS [facility] Last Admin: 05/14/17 16:56 Dose: 250 mls/hr Sodium Chloride (Normal Saline) 250 mls @ 50 mls/hr IV ASDIRECTED [facility] Last Admin: 05/14/17 18:11 Dose: 50 mls/hr Ampicillin Sodium/Sulbactam (Sodium 3 gm/ Sodium Chloride) 100 mls @ 100 mls/ hr IV Q12H [facility] Last Admin: 05/18/17 09:12 Dose: 100 mls/hr Insulin Aspart (Novolog) 6 unit SUBCUT ONETIME ONE Stop: 05/16/17 11:35 Last Admin: 05/16/17 12:29 Dose: Not Given Insulin Aspart (Novolog) 8 unit SUBCUT ONETIME ONE; Protocol Stop: 05/16/17 11:46 Last Admin: 05/16/17 11:50 Dose: 8 unit Insulin Aspart (Novolog) 6 unit SUBCUT ONETIME ONE; Protocol Stop: 05/16/17 18:16 Last Admin: 05/16/17 19:48 Dose: 6 unit Insulin Detemir (Levemir) 26 unit SUBCUT DAILY [facility] Last Admin: 05/18/17 09:11 Dose: 26 unit Insulin Human NPH (Humulin N) 20 unit SUBCUT ONETIME ONE Stop: 05/16/17 19:46 Insulin Human NPH (Humulin N) 10 unit SUBCUT ONETIME ONE Stop: 05/16/17 19:46 Insulin Human NPH (Humulin N) 20 unit SUBCUT ONETIME ONE Stop: 05/16/17 12:01 Last Admin: 05/16/17 11:53 Dose: 20 unit Iopamidol (Isovue-370 (76%)) 100 ml IVPUSH ONETIME ONE Stop: 05/14/17 16:01 Last Admin: 05/14/17 16:11 Dose: 100 ml Levothyroxine Sodium (Levothyroxine) 25 mcg PO ACBREAKFAST [facility] Last Admin: 05/15/17 08:10 Dose: 25 mcg Levothyroxine Sodium (Synthroid) 50 mcg PO ACBREAKFAST [facility] Last Admin: 05/18/17 08:59 Dose: 50 mcg Methylprednisolone Sodium Succinate (Solu-Medrol) 40 mg IVPUSH ONETIME ONE Stop: 05/15/17 20:01 Last Admin: 05/15/17 21:14 Dose: 40 mg Metoprolol Tartrate (Lopressor) 25 mg PO BID [facility] Last Admin: 05/16/17 17:22 Dose: 25 mg Metoprolol Tartrate (Lopressor) 25 mg PO Q12HR [facility] Last Admin: 05/18/17 09:00 Dose: 25 mg Mometasone Furoate/Formoterol Fumar (Dulera 200-5 Mcg) 2 puff IH BID [facility] Last Admin: 05/18/17 08:59 Dose: 2 puff Multivitamins/Minerals/Vitamin C (Tab-A-Stanley) 1 tab PO DAILY [facility] Last Admin: 05/15/17 08:12 Dose: 1 tab Multivitamins/Minerals/Vitamin C (Tab-A-Stanley) 1 tab PO DAILY@1200 [facility] Last Admin: 05/18/17 11:47 Dose: 1 tab Mupirocin (Bactroban Oint) 0 gm TOP Q12HR [facility] Last Admin: 05/18/17 09:01 Dose: 1 applic Non-Formulary Medication (Budesonide/Formoterol Fumarate [Symbicort 160-4.5 Mcg Inhaler]) 2 puff IH BID [facility] Simvastatin (Zocor) 20 mg PO BEDTIME [facility] Last Admin: 05/17/17 19:58 Dose: 20 mg Sodium Chloride (Saline Flush) 10 ml FLUSH ASDIRECTED PRN PRN Reason: Keep Vein Open Last Admin: 05/17/17 13:58 Dose: 10 ml Sodium Chloride (Saline Flush) 10 ml FLUSH Q12HR [facility] Last Admin: 05/18/17 09:01 Dose: 10 ml - Exam Quality Assessment: Supplemental Oxygen, Central Line/PICC General: Alert, Oriented HEENT: Pupils Equal, Pupils Reactive, Mucous Membr. Moist/[place] Neck: Trachea Midline, No JVD Lungs: Normal Respiratory Effort, Decreased Breath Sounds Cardiovascular: Regular Rate, Regular Rhythm GI/Abdominal Exam: Soft, Non-Tender, No Distention (Female) Exam: Deferred Back Exam: Normal Inspection Extremities: Pedal Edema, Redness Skin: Warm, Dry, Intact, Ecchymosis Wound/Incisions: Healing Well, No Drainage, Erythema Improving Neurological: No New Focal Deficit Psy/Mental Status: Alert, Normal Affect, Normal Mood - Problem List & Annotations (1) Posttraumatic wound infection SNOMED Code(s): 061803359 Code(s): T14.8XXA - OTHER INJURY OF UNSPECIFIED BODY REGION, INITIAL ENCOUNTER; L08.9 - LOCAL INFECTION OF THE SKIN AND SUBCUTANEOUS TISSUE, UNSP Status: Acute Priority: High (2) CKD (chronic kidney disease) SNOMED Code(s): 151002644 Code(s): N18.9 - CHRONIC KIDNEY DISEASE, UNSPECIFIED Status: Acute Qualifiers: Chronic kidney disease stage: unspecified stage Qualified Code(s): N18.9 - Chronic kidney disease, unspecified (3) Cellulitis SNOMED Code(s): 011640062 Code(s): L03.90 - CELLULITIS, UNSPECIFIED Status: Acute Qualifiers: Site of cellulitis: extremity Site of cellulitis of extremity: lower extremity Laterality: right Qualified Code(s): L03.115 - Cellulitis of right lower limb (4) Congestive heart failure (CHF) SNOMED Code(s): 87905003 Code(s): I50.9 - HEART FAILURE, UNSPECIFIED Status: Acute Qualifiers: Heart failure type: unspecified Heart failure chronicity: chronic Qualified Code(s): I50.9 - Heart failure, unspecified (5) Diabetes mellitus SNOMED Code(s): 49091660 Code(s): E11.9 - TYPE 2 DIABETES MELLITUS WITHOUT COMPLICATIONS Status: Acute Qualifiers: Diabetes mellitus type: type 2 Diabetes mellitus complication status: with kidney complications Diabetes mellitus complication detail: with chronic kidney disease Chronic kidney disease stage: unspecified stage (6) Laceration SNOMED Code(s): 367203669 Code(s): TRG6901 - Status: Acute Priority: High Onset Date: 05/03/17 Annotation/Comment:: Excellent results with laceration repair. DTaP given. Activity restrictions and wound care were extensively discussed with the patient and her . The patient was placed in a knee immobilizer. Some delay in laceration repair without sequelae secondary to multiple patients in the emergency room (7) Multiple contusions SNOMED Code(s): 101701731 Code(s): T07.XXXA - UNSPECIFIED MULTIPLE INJURIES, INITIAL ENCOUNTER Status : Acute Priority: High Onset Date: 05/03/17 Annotation/Comment:: Otherwise multiple minor contusions as above. Symptomatically as per discharge instructions (8) Right knee pain SNOMED Code(s): 07025724 Code(s): M25.561 - PAIN IN RIGHT KNEE Status: Acute Priority: High Onset Date: 05/03/17 Qualifiers: Chronicity: acute Qualified Code(s): M25.561 - Pain in right knee Annotation/Comment:: Majority of knee pain secondary to laceration. Treatment as above. Patient does have a cane at home (9) COPD (chronic obstructive pulmonary disease) SNOMED Code(s): 66972576 Code(s): J44.9 - CHRONIC OBSTRUCTIVE PULMONARY DISEASE, UNSPECIFIED Status : Chronic Priority: Medium Qualifiers: COPD type: emphysema Emphysema type: panlobular Qualified Code(s): J43.1 - Panlobular emphysema (10) Coronary artery disease SNOMED Code(s): 89295861 Code(s): I25.10 - ATHSCL HEART DISEASE OF [place] CORONARY ARTERY W/O ANG PCTRS Status: Chronic Priority: Medium Qualifiers: Coronary Disease-Associated Artery/Lesion type: [place] artery [place] vs. transplanted heart: [place] heart Associated angina: without angina Qualified Code(s): I25.10 - Atherosclerotic heart disease of [place] coronary artery without angina pectoris Annotation/Comment:: Stable by history with no recent chest pain or anginal type symptoms (11) Hypertension SNOMED Code(s): 61224624 Code(s): I10 - ESSENTIAL (PRIMARY) HYPERTENSION Status: Chronic Priority : Medium Qualifiers: Hypertension type: essential hypertension Qualified Code(s): I10 - Essential (primary) hypertension Annotation/Comment:: Her blood pressures were somewhat elevated during emergency room care. Continue to observe closely by regular providers (12) IDDM (insulin dependent diabetes mellitus) SNOMED Code(s): 27588415 Code(s): E11.9 - TYPE 2 DIABETES MELLITUS WITHOUT COMPLICATIONS; Z79.4 - MCC (CURRENT) USE OF INSULIN Status: Chronic Priority: Medium Annotation/Comment:: Stable by patient history with history of diabetic neuropathy (13) Osteoarthritis SNOMED Code(s): 047354026 Code(s): M19.90 - UNSPECIFIED OSTEOARTHRITIS, UNSPECIFIED SITE Status: Chronic Priority: Medium Qualifiers: Osteoarthritis location: multiple joints Osteoarthritis type: primary Qualified Code(s): M15.0 - Primary generalized (osteo)arthritis Annotation/Comment:: Otherwise stable by history - Problem List Review Problem List Initiated/Reviewed/Updated: Yes - My Orders Last 24 Hours: My Active Orders 05/18/17 13:33 Ready for Discharge [RC] PER UNIT ROUTINE - Plan Plan:: 05/14/2017 Patient is admitted to inpatient for IV antibiotic treatment of cellulitis to right lower leg after a fall. Patient needing IV lasix for significant lower extremity , monitoring kidney function due to patient's elevated Cr. Elevated D Dimer, rule out DVT/PE and further monitoring of kidney function. Repeat labs in the morning. Patient is hypotensive, will give IV fluids and monitor blood pressures. Patient is NO CODE. Patient agrees to plan of care. Kaleechelsie Edwards,[employer]ER 05/15/2017 Rosie Quintana MD Venous doppler scans negative for DVT. PICC line inserted. RLE impressive redness and edema but actually improved. Wound right knee is starting to dehiesce and significant yellow drainage. Kidney function stable. Continue IV antibiotics, C&S is pending. Increase IV lasix. Right hand swollen and painful. She says this is recurrent. One dose of solu-medrol ordered for inflammatory arthritis. 05/16/17 Rosie Quintana MD Wound right knee with continued yellow drainage and dehissing. Redness of the right leg is decreasing. Kidney function continues to decrease. Antibiotic doses adjusted. C&S normal halina. Will re-culture. Right hand swelling has decreased and less pain in hand after solumedrol. Blood sugars markedly elevated and insulins adjusted. 05/17/17 Rosie Quintana MD Wound right knee continues to improve. Less drainage, less redness, less swelling. Continue IV antibiotics and awaiting 2nd culture results. 05/18/17 Rosie Quintana MD Improving. Stable for transfer into swing bed to continue IV antibiotics, IV lasix, PT-OT.
--- NOTE | 2017-05-18 23:56 | PCM.DCSUM1 ---
Discharge Summary - Discharge Data Discharge Date: 05/18/17 Discharge Disposition: DC/Tfer W/I Hosp To [facility] Condition: Good - Discharge Diagnosis/Problem(s) (1) Posttraumatic wound infection SNOMED Code(s): 290859309 ICD Code: T14.8XXA - OTHER INJURY OF UNSPECIFIED BODY REGION, INITIAL ENCOUNTER; L08.9 - LOCAL INFECTION OF THE SKIN AND SUBCUTANEOUS TISSUE, UNSP Status: Acute Priority: High (2) CKD (chronic kidney disease) SNOMED Code(s): 840893478 ICD Code: N18.9 - CHRONIC KIDNEY DISEASE, UNSPECIFIED Status: Acute Qualifiers: Chronic kidney disease stage: unspecified stage Qualified Code(s): N18.9 - Chronic kidney disease, unspecified (3) Cellulitis SNOMED Code(s): 484785626 ICD Code: L03.90 - CELLULITIS, UNSPECIFIED Status: Acute Qualifiers: Site of cellulitis: extremity Site of cellulitis of extremity: lower extremity Laterality: right Qualified Code(s): L03.115 - Cellulitis of right lower limb (4) Congestive heart failure (CHF) SNOMED Code(s): 06980128 ICD Code: I50.9 - HEART FAILURE, UNSPECIFIED Status: Acute Qualifiers: Heart failure type: unspecified Heart failure chronicity: chronic Qualified Code(s): I50.9 - Heart failure, unspecified (5) Diabetes mellitus SNOMED Code(s): 84080947 ICD Code: E11.9 - TYPE 2 DIABETES MELLITUS WITHOUT COMPLICATIONS Status: Acute Qualifiers: Diabetes mellitus type: type 2 Diabetes mellitus complication status: with kidney complications Diabetes mellitus complication detail: with chronic kidney disease Chronic kidney disease stage: unspecified stage (6) Laceration SNOMED Code(s): 546752371 ICD Code: [id number] - Status: Acute Priority: High Onset Date: 05/03/17 Problem Details: Excellent results with laceration repair. DTaP given. Activity restrictions and wound care were extensively discussed with the patient and her . The patient was placed in a knee immobilizer. Some delay in laceration repair without sequelae secondary to multiple patients in the emergency room (7) Multiple contusions SNOMED Code(s): 420865511 ICD Code: T07.XXXA - UNSPECIFIED MULTIPLE INJURIES, INITIAL ENCOUNTER Status: Acute Priority: High Onset Date: 05/03/17 Problem Details: Otherwise multiple minor contusions as above. Symptomatically as per discharge instructions (8) Right knee pain SNOMED Code(s): 45764749 ICD Code: M25.561 - PAIN IN RIGHT KNEE Status: Acute Priority: High Onset Date: 05/03/17 Problem Details: Majority of knee pain secondary to laceration. Treatment as above. 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 transplanted heart: [place] heart Associated angina: without angina Qualified Code(s): I25.10 - Atherosclerotic heart disease of [place] coronary artery without angina pectoris (11) Hypertension SNOMED Code(s): 35698220 ICD Code: I10 - ESSENTIAL (PRIMARY) HYPERTENSION Status: Chronic Priority : Medium Problem Details: Her blood pressures were somewhat elevated during emergency room care. Continue to observe closely by regular providers Qualifiers: Hypertension type: essential hypertension Qualified Code(s): I10 - Essential (primary) hypertension (12) IDDM (insulin dependent diabetes mellitus) SNOMED Code(s): 99799845 ICD Code: E11.9 - TYPE 2 DIABETES MELLITUS WITHOUT COMPLICATIONS; Z79.4 - [facility] (CURRENT) USE OF INSULIN Status: Chronic Priority: Medium Problem Details: Stable by patient history with history of diabetic neuropathy (13) Osteoarthritis SNOMED Code(s): 932231217 ICD Code: M19.90 - UNSPECIFIED OSTEOARTHRITIS, UNSPECIFIED SITE Status: Chronic Priority: Medium Problem Details: Otherwise stable by history Qualifiers: Osteoarthritis location: multiple joints Osteoarthritis type: primary Qualified Code(s): M15.0 - Primary generalized (osteo)arthritis - Patient Summary/Data Consults: Consultations 05/14/17 13:00 Consult to Case Management [CONS] Routine PT Evaluation and Treatment [CONS] Routine 05/14/17 13:13 Pharmacy Consult [Consult to Pharmacy] [CONS] Routine - Discharge Plan Home Medications: Home Meds Albuterol/Ipratropium [DuoNeb 3.0-0.5 MG/3 ML] 1 applic INH Q4HR PRN 05/03/17 [ History] Budesonide/Formoterol Fumarate [Symbicort 160-4.5 Mcg Inhaler] 2 puff IH BID [History] Fish Oil/[place]-3 Fatty Acids [Fish Oil 1,000 MG] 1 gm PO DAILY 05/03/17 [History ] Insulin Detemir [Levemir] 26 unit SUBCUT DAILY 05/03/17 [History] Metoprolol Tartrate 25 mg PO BID 05/03/17 [History] Multivit, Iron, Min #5, Fa [Strovite Forte Caplet] 1 each PO DAILY 05/03/17 [ History] Simvastatin 20 mg PO BEDTIME 05/03/17 [History] amLODIPine [Norvasc] 5 mg PO DAILY 05/03/17 [History] Albuterol [Proventil HFA] 1 - 2 puff INH Q4HR PRN 05/14/17 [History] Patient Handouts: Cellulitis, Adult, Ampicillin; Sulbactam injection, PICC Insertion, Vancomycin injection - Discharge Summary/Plan Comment DC Time >30 min.: No - Patient Data Vitals - Most Recent: Last Vital Signs Temp 97.3 F 05/18/17 11:26 Pulse 71 05/18/17 11:26 Resp 17 05/18/17 11:26 BP 144/76 H 05/18/17 11:26 Pulse Ox 98 05/18/17 11:26 Weight - Most Recent: 157 lb 4.8 oz I&O - Last 24 hours: Intake & Output 05/18/17 05/18/17 05/19/17 14:59 22:59 06:59 Intake Total 240 Balance 240 Lab Results - Last 24 hrs: Laboratory Results - last 24 hr 05/18/17 05/18/17 Range/Units 07:17 11:02 POC Glucose 179 H 279 H* (65-110) mg/dl MIN Results - Last 24 hrs: Microbiology 05/14/17 13:50 Aerobic Blood Culture - Preliminary Blood - Venous - Lab Draw NO GROWTH AFTER 4 DAYS Anaerobic Blood Culture - Preliminary NO GROWTH AFTER 4 DAYS 05/14/17 13:20 Aerobic Blood Culture - Preliminary Blood - Venous NO GROWTH AFTER 4 DAYS Anaerobic Blood Culture - Preliminary NO GROWTH AFTER 4 DAYS Med Orders - Current: Current Medications Discontinued Medications Acetaminophen (Tylenol) 650 mg PO Q4H PRN PRN Reason: Pain (Mild 1-3)/fever Last Admin: 05/15/17 04:21 Dose: 650 mg Hydrocodone Bitart/Acetaminophen ([place] 325-5 Mg) 1 tab PO Q4H PRN PRN Reason: Pain (moderate 4-6) Albuterol (Proventil Hfa) 1 puff INH Q4HR PRN PRN Reason: Shortness of Breath Albuterol (Ventolin Hfa) 1 gm INH Q4HR PRN PRN Reason: Shortness of Breath Albuterol/Ipratropium (Duoneb 3.0-0.5 Mg/3 Ml) 3 ml INH Q4HR PRN PRN Reason: Shortness of Breath Last Admin: 05/18/17 09:25 Dose: 3 ml Amlodipine Besylate (Norvasc) 5 mg PO DAILY [facility] Last Admin: 05/15/17 08:12 Dose: 5 mg Amlodipine Besylate (Norvasc) 2.5 mg PO DAILY [facility] Last Admin: 05/18/17 09:00 Dose: 2.5 mg Enoxaparin Sodium (Lovenox) 40 mg SUBCUT DAILY [facility] Last Admin: 05/17/17 07:35 Dose: 40 mg Enoxaparin Sodium (Lovenox) 30 mg SUBCUT DAILY [facility] Last Admin: 05/18/17 09:00 Dose: 30 mg Furosemide (Lasix) 40 mg IVPUSH NOW STA Stop: 05/14/17 13:21 Last Admin: 05/14/17 14:37 Dose: Not Given Furosemide (Lasix) 40 mg IVPUSH NOW ONE Stop: 05/14/17 14:01 Last Admin: 05/14/17 14:45 Dose: 40 mg Furosemide (Lasix) 40 mg IVPUSH DAILY [facility] Last Admin: 05/15/17 08:13 Dose: 40 mg Furosemide (Lasix) 40 mg IVPUSH BIDDIURETIC [facility] Last Admin: 05/17/17 12:12 Dose: 40 mg Furosemide (Lasix) 40 mg IVPUSH DAILY [facility] Last Admin: 05/18/17 08:59 Dose: 40 mg Ampicillin Sodium/Sulbactam (Sodium 3 gm/ Sodium Chloride) 100 mls @ 100 mls/ hr IV Q6H [facility] Last Admin: 05/16/17 10:08 Dose: 100 mls/hr Vancomycin HCl 1 gm/ Sodium (Chloride) 250 mls @ 165 mls/hr IV Q24H [facility] Last Admin: 05/17/17 13:54 Dose: 165 mls/hr Sodium Chloride (Normal Saline) 250 mls @ 250 mls/hr IV .BOLUS [facility] Sodium Chloride (Normal Saline) 250 mls @ 50 mls/hr IV ASDIRECTED [facility] Sodium Chloride (Normal Saline) 250 mls @ 250 mls/hr IV .BOLUS [facility] Last Admin: 05/14/17 16:56 Dose: 250 mls/hr Sodium Chloride (Normal Saline) 250 mls @ 50 mls/hr IV ASDIRECTED [facility] Last Admin: 05/14/17 18:11 Dose: 50 mls/hr Ampicillin Sodium/Sulbactam (Sodium 3 gm/ Sodium Chloride) 100 mls @ 100 mls/ hr IV Q12H [facility] Last Admin: 05/18/17 09:12 Dose: 100 mls/hr Insulin Aspart (Novolog) 6 unit SUBCUT ONETIME ONE Stop: 05/16/17 11:35 Last Admin: 05/16/17 12:29 Dose: Not Given Insulin Aspart (Novolog) 8 unit SUBCUT ONETIME ONE; Protocol Stop: 05/16/17 11:46 Last Admin: 05/16/17 11:50 Dose: 8 unit Insulin Aspart (Novolog) 6 unit SUBCUT ONETIME ONE; Protocol Stop: 05/16/17 18:16 Last Admin: 05/16/17 19:48 Dose: 6 unit Insulin Detemir (Levemir) 26 unit SUBCUT DAILY [facility] Last Admin: 05/18/17 09:11 Dose: 26 unit Insulin Human NPH (Humulin N) 20 unit SUBCUT ONETIME ONE Stop: 05/16/17 19:46 Insulin Human NPH (Humulin N) 10 unit SUBCUT ONETIME ONE Stop: 05/16/17 19:46 Insulin Human NPH (Humulin N) 20 unit SUBCUT ONETIME ONE Stop: 05/16/17 12:01 Last Admin: 05/16/17 11:53 Dose: 20 unit Iopamidol (Isovue-370 (76%)) 100 ml IVPUSH ONETIME ONE Stop: 05/14/17 16:01 Last Admin: 05/14/17 16:11 Dose: 100 ml Levothyroxine Sodium (Levothyroxine) 25 mcg PO ACBREAKFAST [facility] Last Admin: 05/15/17 08:10 Dose: 25 mcg Levothyroxine Sodium (Synthroid) 50 mcg PO ACBREAKFAST [facility] Last Admin: 05/18/17 08:59 Dose: 50 mcg Methylprednisolone Sodium Succinate (Solu-Medrol) 40 mg IVPUSH ONETIME ONE Stop: 05/15/17 20:01 Last Admin: 05/15/17 21:14 Dose: 40 mg Metoprolol Tartrate (Lopressor) 25 mg PO BID [facility] Last Admin: 05/16/17 17:22 Dose: 25 mg Metoprolol Tartrate (Lopressor) 25 mg PO Q12HR [facility] Last Admin: 05/18/17 09:00 Dose: 25 mg Mometasone Furoate/Formoterol Fumar (Dulera 200-5 Mcg) 2 puff IH BID [facility] Last Admin: 05/18/17 08:59 Dose: 2 puff Multivitamins/Minerals/Vitamin C (Tab-A-[place]) 1 tab PO DAILY [facility] Last Admin: 05/15/17 08:12 Dose: 1 tab Multivitamins/Minerals/Vitamin C (Tab-A-[place]) 1 tab PO DAILY@1200 [facility] Last Admin: 05/18/17 11:47 Dose: 1 tab Mupirocin (Bactroban Oint) 0 gm TOP Q12HR [facility] Last Admin: 05/18/17 09:01 Dose: 1 applic Non-Formulary Medication (Budesonide/Formoterol Fumarate [Symbicort 160-4.5 Mcg Inhaler]) 2 puff IH BID [facility] Simvastatin (Zocor) 20 mg PO BEDTIME [facility] Last Admin: 05/17/17 19:58 Dose: 20 mg Sodium Chloride (Saline Flush) 10 ml FLUSH ASDIRECTED PRN PRN Reason: Keep Vein Open Last Admin: 05/17/17 13:58 Dose: 10 ml Sodium Chloride (Saline Flush) 10 ml FLUSH Q12HR [facility] Last Admin: 05/18/17 09:01 Dose: 10 ml *Q Meaningful Use (DIS) - VTE *Q VTE Mechanical Contraindications *Q: At Risk for Falls
== END 2017-05-18 13:35 | disposition swing bed (61) | DRG 863 ==
LOC: LL.MS 12:33
PROVIDERS: ADMIT Nurse Practitioner Family; ATTEND Family Medicine
DX: T81.4XXA Infection following a procedure, initial encounter (principal); L03.113 Cellulitis of right upper limb; I42.9 Cardiomyopathy, unspecified; I13.0 Hypertensive heart and chronic kidney disease with heart failure and stage 1 through stage 4 chronic kidney disease, or unspecified chronic kidney disease; T81.31XA Disruption of external operation (surgical) wound, not elsewhere classified, initial encounter; Z66 Do not resuscitate; J43.1 Panlobular emphysema; Y83.8 Other surgical procedures as the cause of abnormal reaction of the patient, or of later complication, without mention of misadventure at the time of the procedure; I25.10 Atherosclerotic heart disease of native coronary artery without angina pectoris; M15.9 Polyosteoarthritis, unspecified; M25.561 Pain in right knee; R53.81 Other malaise; R53.1 Weakness; H91.90 Unspecified hearing loss, unspecified ear; H54.7 Unspecified visual loss; H91.13 Presbycusis, bilateral; E78.00 Pure hypercholesterolemia, unspecified; J84.10 Pulmonary fibrosis, unspecified; G89.29 Other chronic pain; M81.0 Age-related osteoporosis without current pathological fracture; M41.9 Scoliosis, unspecified; E11.42 Type 2 diabetes mellitus with diabetic polyneuropathy; E11.22 Type 2 diabetes mellitus with diabetic chronic kidney disease; N18.9 Chronic kidney disease, unspecified; I50.9 Heart failure, unspecified; R01.1 Cardiac murmur, unspecified; I95.9 Hypotension, unspecified; M79.89 Other specified soft tissue disorders; Z88.2 Allergy status to sulfonamides; Z99.81 Dependence on supplemental oxygen; Z88.8 Allergy status to other drugs, medicaments and biological substances; Z79.4 Long term (current) use of insulin; Z79.899 Other long term (current) drug therapy
CPT/HCPCS: 36415; 36569; 71046; 71275; 80053; 80202; 82550; 82803; 82962; 83880; 84100; 84443; 84550; 85025; 85379; 85652; 86140; 87040; 87070; 87205; 93970; 94640; 94664; A9270-GY; J0295; J1650; J1815; J1815-GY; J1940; J2920; J3370; J7050; Q9967

== ENCOUNTER 2017-05-18 13:20 | Inpatient (IN) | payer MEDICARE, OTHER ==
[2017-05-18] MEDS ORDERED: Sodium Chloride 0.9% 10 ML Syringe FLUSH PRN (13:34)
[2017-05-18] MEDS ORDERED: Sodium Chloride 0.9% 250 ML IV SCH ×2 (13:34)
[2017-05-18] MEDS ORDERED: Albuterol 8 GM Inhaler INH PRN (13:34)
[2017-05-18] MEDS ORDERED: Acetaminophen 325 MG Tab PO PRN (14:00)
[2017-05-18 14:02] LABS: CHLORIDE,CL 103 mmol/L (98-107); SODIUM,NA 143 mmol/L (136-145)
[2017-05-18] MEDS: Albuterol/Ipratropium 3.0-0.5 MG/3 ML Neb Soln INH PRN (16:58)
[2017-05-18] MEDS: Formoterol/Mometasone 200-5 MCG 8.8 GM Inhaler IH SCH (16:59)
[2017-05-18] MEDS: Simvastatin 20 MG Tab PO SCH (20:05)
[2017-05-18] MEDS: Metoprolol Tartrate 25 MG Tab PO SCH (20:05)
[2017-05-18] MEDS: Mupirocin Oint 22 GM Tube TOP SCH (20:05)
[2017-05-18] MEDS: Sodium Chloride 0.9% 10 ML Syringe FLUSH SCH (20:06)
[2017-05-18] MEDS: Ampicillin/Sulbactam Na 3 GM in Sodium Chloride 0.9% 100 ML IV SCH (21:23)
--- NOTE | 2017-05-18 23:46 | PCM.HP ---
H&P History of Present Illness - General Date of Service: 05/18/17 Admit Problem/Dx: Admission Diagnosis/Problem Admission Diagnosis/Problem Cellulitis Source of Information: Patient, Old Records History Limitations: Reports: No Limitations - History of Present Illness Location: Reports: Lower Extremity, Right Context: Reports: Trauma (fall at [employer]) Associated Symptoms: Reports: Weakness - Related Data Allergies/Adverse Reactions: Allergies Allergy/AdvReac Type Severity Reaction Status Date / Time MARCOS Inhibitors Allergy Unknown unknown Verified 05/14/17 12:41 budesonide [From Pulmicort] Allergy Unknown unknown Verified 05/14/17 12:41 gabapentin Allergy Unknown Diarrhea Verified 05/14/17 12:41 Sulfa (Sulfonamide Allergy Unknown unknown Verified 05/14/17 12:41 Antibiotics) ketorolac [From Toradol] Allergy Rash Verified 05/14/17 12:41 Home Medications: Home Meds Albuterol/Ipratropium [DuoNeb 3.0-0.5 MG/3 ML] 1 applic INH Q4HR PRN 05/03/17 [ History] Budesonide/Formoterol Fumarate [Symbicort 160-4.5 Mcg Inhaler] 2 puff IH BID [History] Fish Oil/[place]-3 Fatty Acids [Fish Oil 1,000 MG] 1 gm PO DAILY 05/03/17 [History ] Insulin Detemir [Levemir] 26 unit SUBCUT DAILY 05/03/17 [History] Metoprolol Tartrate 25 mg PO BID 05/03/17 [History] Multivit, Iron, Min #5, Fa [Strovite Forte Caplet] 1 each PO DAILY 05/03/17 [ History] Simvastatin 20 mg PO BEDTIME 05/03/17 [History] amLODIPine [Norvasc] 5 mg PO DAILY 05/03/17 [History] Albuterol [Proventil HFA] 1 - 2 puff INH Q4HR PRN 05/14/17 [History] Past Medical History HEENT History: Reports: Hard of Hearing, Impaired Vision, Other (See Below) Other HEENT History: Patient wears glasses. Mild bilateral presbycusis Cardiovascular History: Reports: CAD, Cardiomyopathy, Heart Failure, High Cholesterol, Hypertension, PVD, Other (See Below) Other Cardiovascular History: Cardiomegaly by chest x-ray with history of CHF and chronic dependent edema Respiratory History: Reports: COPD, Pulmonary Fibrosis Musculoskeletal History: Reports: Back Pain, Chronic, Fracture, Neck Pain, Chronic, Osteoarthritis, Osteoporosis, Other (See Below) Other Musculoskeletal History: Scoliosis with history of vertebral body compression fractures Neurological History: Reports: Neuropathy, Diabetic, Neuropathy, Peripheral Endocrine/Metabolic History: Reports: Diabetes, Type II, IDDM - Past Surgical History Other HEENT Surgeries/Procedures: cataract surgery, both eyes Other Musculoskeletal Surgeries/Procedures:: denies surgical history - Past Imaging History Past Imaging History: Reports: MRI (Lumbar spine on 11/04/13) Social & Family History - Tobacco Use Smoking Status *Q: Never Smoker Used Tobacco, but Quit: No Second Hand Smoke Exposure: No - Caffeine Use Caffeine Use: Reports: Coffee - Recreational Drug Use Recreational Drug Use: No - Living Situation & Occupation Living situation: Reports: , with Family Occupation: Retired (Retired [employer] ) H&P Review of Systems - Review of Systems: Review Of Systems: See Below General: Reports: No Symptoms HEENT: Reports: No Symptoms Pulmonary: Reports: No Symptoms Cardiovascular: Reports: No Symptoms Gastrointestinal: Reports: No Symptoms Genitourinary: Reports: No Symptoms Musculoskeletal: Reports: No Symptoms, Joint Swelling (right hand) Skin: Reports: Bruising, Wound Psychiatric: Reports: No Symptoms Neurological: Reports: No Symptoms Hematologic/Lymphatic: Reports: No Symptoms Immunologic: Reports: No Symptoms Exam - Exam Exam: See Below - Vital Signs Vital Signs: Last Vital Signs Temp 98 F 05/18/17 20:00 Pulse 77 05/18/17 20:05 Resp 20 05/18/17 20:00 BP 144/79 H 05/18/17 20:05 Pulse Ox 97 05/18/17 20:00 Weight: 157 lb 4.8 oz - Exam Quality Assessment: Supplemental Oxygen, Central Line/PICC General: Alert, Cooperative HEENT: Mucosa Moist & [place], Pupils Equal, Pupils Reactive Neck: Trachea Midline Lungs: Normal Respiratory Effort, Decreased Breath Sounds Cardiovascular: Regular Rate, Regular Rhythm GI/Abdominal Exam: Soft, Non-Tender, No Distention (Female) Exam: Deferred Rectal (Female) Exam: Deferred Back Exam: Normal Inspection Extremities: Pedal Edema (bilateral R>L improving) Skin: Ecchymosis Neurological: Normal Speech Neuro Extensive - Mental Status: Alert, Normal Mood/Affect, Normal Cognition Neuro Extensive - Motor, Sensory, Reflexes: Normal Gait Psychiatric: Alert, Normal Affect, Normal Mood - Patient Data Lab Results Last 24 hrs: Laboratory Results - last 24 hr 05/18/17 05/18/17 05/18/17 Range/Units 13:40 13:40 17:10 WBC 8.5 (4.0-10.2) K/uL RBC 3.85 (3.77-5.09) M/uL Hgb 11.6 L (11.7-15.5) g/dL Hct 37.3 (34.0-46.0) % MCV 96.9 (84.0-98.0) fL MCH 30.1 (28.2-33.3) pg MCHC 31.1 L (31.7-36.0) g/dL RDW 14.9 H (11.2-14.1) % Plt Count 301 (150-350) K/uL Neut % (Auto) 76.6 (45.0-80.0) % Lymph % (Auto) 13.6 (10.0-50.0) % [place] % (Auto) 8.4 (2.0-14.0) % Eos % (Auto) 0.9 (0.0-5.0) % Baso % (Auto) 0.5 (0.0-2.0) % Neut # (Auto) 6.54 (1.40-7.00) K/uL Lymph # (Auto) 1.16 (0.50-3.50) K/uL [place] # (Auto) 0.72 (0.00-1.00) K/uL Eos # (Auto) 0.08 (0.00-0.50) K/uL Baso # (Auto) 0.04 (0.00-0.20) K/uL Sodium 143 (136-145) mmol/L Potassium 3.7 (3.5-5.1) mmol/L Chloride 103 (98-107) mmol/L Carbon Dioxide 32.1 H (21.0-32.0) mmol/L BUN 43 H (7-18) mg/dL Creatinine 1.83 H (0.51-1.17) mg/dL Est Cr Clr Drug Dosing TNP Estimated GFR (MDRD) 26 mL/min Glucose 374 H* (74-106) mg/dL POC Glucose 325 H* (65-110) mg/dl Calcium 8.2 L (8.5-10.1) mg/dL Total Bilirubin 0.3 (0.2-1.0) mg/dL AST 46 H (15-37) U/L ALT 60 (12-78) U/L Alkaline Phosphatase 109 (46-116) IU/L C-Reactive Protein 0.5 (<=0.9) mg/dL Total Protein 6.2 L (6.4-8.2) g/dL Albumin 2.7 L (3.4-5.0) g/dL Vancomycin Trough 25.3 H (10-20) ug/mL Result Diagrams: 05/18/17 13:40 05/18/17 13:40 *Q Meaningful Use (ADM) - VTE *Q VTE Mechanical Contraindications *Q: Bilateral Lower Edema - Problem List (1) Wound dehiscence SNOMED Code(s): 494962647 ICD Code: T81.30XA - DISRUPTION OF WOUND, UNSPECIFIED, INITIAL ENCOUNTER Status: Acute Priority: High Current Visit: Yes (2) CKD (chronic kidney disease) SNOMED Code(s): 087875634 ICD Code: N18.9 - CHRONIC KIDNEY DISEASE, UNSPECIFIED Status: Acute Current Visit: No Qualifiers: Chronic kidney disease stage: unspecified stage Qualified Code(s): N18.9 - Chronic kidney disease, unspecified (3) Cellulitis SNOMED Code(s): 015691090 ICD Code: L03.90 - CELLULITIS, UNSPECIFIED Status: Acute Current Visit: No Qualifiers: Site of cellulitis: extremity Site of cellulitis of extremity: lower extremity Laterality: right Qualified Code(s): L03.115 - Cellulitis of right lower limb (4) Congestive heart failure (CHF) SNOMED Code(s): 96196259 ICD Code: I50.9 - HEART FAILURE, UNSPECIFIED Status: Acute Current Visit : No Qualifiers: Heart failure type: unspecified Heart failure chronicity: chronic Qualified Code(s): I50.9 - Heart failure, unspecified (5) Diabetes mellitus SNOMED Code(s): 04396309 ICD Code: E11.9 - TYPE 2 DIABETES MELLITUS WITHOUT COMPLICATIONS Status: Acute Current Visit: No Qualifiers: Diabetes mellitus type: type 2 Diabetes mellitus complication status: with kidney complications Diabetes mellitus complication detail: with chronic kidney disease Chronic kidney disease stage: unspecified stage (6) Laceration SNOMED Code(s): 779319945 ICD Code: [id number] - Status: Acute Priority: High Current Visit: No Onset Date: 05/03/17 Problem Details: Excellent results with laceration repair. DTaP given. Activity restrictions and wound care were extensively discussed with the patient and her . The patient was placed in a knee immobilizer. Some delay in laceration repair without sequelae secondary to multiple patients in the emergency room (7) Multiple contusions SNOMED Code(s): 823443261 ICD Code: T07.XXXA - UNSPECIFIED MULTIPLE INJURIES, INITIAL ENCOUNTER Status: Acute Priority: High Current Visit: No Onset Date: 05/03/17 Problem Details: Otherwise multiple minor contusions as above. Symptomatically as per discharge instructions (8) Posttraumatic wound infection SNOMED Code(s): 615573360 ICD Code: T14.8XXA - OTHER INJURY OF UNSPECIFIED BODY REGION, INITIAL ENCOUNTER; L08.9 - LOCAL INFECTION OF THE SKIN AND SUBCUTANEOUS TISSUE, UNSP Status: Acute Priority: High Current Visit: No (9) COPD (chronic obstructive pulmonary disease) SNOMED Code(s): 66648479 ICD Code: J44.9 - CHRONIC OBSTRUCTIVE PULMONARY DISEASE, UNSPECIFIED Status : Chronic Priority: Medium Current Visit: No Qualifiers: COPD type: emphysema Emphysema type: panlobular Qualified Code(s): J43.1 - Panlobular emphysema (10) Coronary artery disease SNOMED Code(s): 71137317 ICD Code: I25.10 - ATHSCL HEART DISEASE OF [place] CORONARY ARTERY W/O ANG PCTRS Status: Chronic Priority: Medium Current Visit: No Problem Details : Stable by history with no recent chest pain or anginal type symptoms Qualifiers: Coronary Disease-Associated Artery/Lesion type: [place] artery [place] vs. transplanted heart: [place] heart Associated angina: without angina Qualified Code(s): I25.10 - Atherosclerotic heart disease of [place] coronary artery without angina pectoris (11) Hypertension SNOMED Code(s): 73963504 ICD Code: I10 - ESSENTIAL (PRIMARY) HYPERTENSION Status: Chronic Priority : Medium Current Visit: No Problem Details: Her blood pressures were somewhat elevated during emergency room care. Continue to observe closely by regular providers Qualifiers: Hypertension type: essential hypertension Qualified Code(s): I10 - Essential (primary) hypertension (12) IDDM (insulin dependent diabetes mellitus) SNOMED Code(s): 24480926 ICD Code: E11.9 - TYPE 2 DIABETES MELLITUS WITHOUT COMPLICATIONS; Z79.4 - QUESTIONED DOCUMENTS EXAMINER (CURRENT) USE OF INSULIN Status: Chronic Priority: Medium Current Visit: No Problem Details: Stable by patient history with history of diabetic neuropathy (13) Osteoarthritis SNOMED Code(s): 157255518 ICD Code: M19.90 - UNSPECIFIED OSTEOARTHRITIS, UNSPECIFIED SITE Status: Chronic Priority: Medium Current Visit: No Problem Details: Otherwise stable by history Qualifiers: Osteoarthritis location: multiple joints Osteoarthritis type: primary Qualified Code(s): M15.0 - Primary generalized (osteo)arthritis Problem List Initiated/Reviewed/Updated: Yes Orders Last 24hrs: Active Orders 24 hr Category Date Time Status Admission Status [Patient Status] [ADT] Routine ADT 05/18/17 13:40 Active Blood Glucose Check, Bedside [RC] TIDMEALS Care 05/18/17 13:34 Active Communication Order [RC] ROUTINE Care 05/18/17 13:34 Active Communication Order [RC] ROUTINE Care 05/18/17 13:45 Active Height and Weight [RC] DAILY Care 05/18/17 13:34 Active Intake and Output [RC] QSHIFT Care 05/18/17 13:34 Active May Shower [RC] ASDIRECTED Care 05/18/17 13:34 Active Oxygen Therapy [RC] PRN Care 05/18/17 13:34 Active Peripheral IV Care [RC] . DIRECTED Care 05/18/17 13:34 Active RT Aerosol Therapy [RC] .PRN Care 05/18/17 13:34 Active RT Post Treatment Assessment [RC] Click to Edit Care 05/18/17 13:34 Active RT Pre-Treatment Assessment [RC] Click to Edit Care 05/18/17 13:34 Active Up With Assistance [RC] ASDIRECTED Care 05/18/17 13:34 Active VTE/DVT Education [RC] .PRN Care 05/18/17 13:34 Active Wound Care [RC] Q12HR Care 05/18/17 13:34 Active Consult to Case Management [CONS] Routine Cons 05/18/17 13:34 Active Consult to Occupational Therapy [OT Evaluation and Cons 05/18/17 13:42 Active Treatment] [CONS] Routine PT Evaluation and Treatment [CONS] Routine Cons 05/18/17 13:34 Active Pharmacy Consult [Consult to Pharmacy] [CONS] Routine Cons 05/18/17 13:34 Active [employer] Diet [DIET] Diet 05/18/17 Dinner Active BASIC METABOLIC PANEL,BMP [CHEM] Routine Lab 05/19/17 13:30 Ordered CRP [C-REACTIVE PROTEIN] [CHEM] Routine Lab 05/19/17 13:30 Ordered VANCOMYCIN RANDOM [CHEM] Routine Lab 05/19/17 13:30 Ordered Acetaminophen [Tylenol] Med 05/18/17 14:00 Active 650 mg PO Q4H PRN Acetaminophen/HYDROcodone [[place] 325-5 MG] Med 05/18/17 14:00 Active 1 tab PO Q4H PRN Albuterol [Ventolin HFA] Med 05/18/17 13:34 Active 1 gm INH Q4HR PRN Albuterol/Ipratropium [DuoNeb 3.0-0.5 MG/3 ML] Med 05/18/17 13:34 Active 3 ml INH Q4HR PRN Ampicillin/Sulbactam Na [Unasyn] 3 gm Med 05/18/17 22:00 Active Sodium Chloride 0.9% [Normal Saline] 100 ml IV Q12H Enoxaparin [Lovenox] Med 05/19/17 08:00 Active 30 mg SUBCUT DAILY Furosemide [Lasix] Med 05/19/17 08:00 Active 40 mg IVPUSH DAILY Insulin Detemir [Levemir] Med 05/19/17 08:00 Active 26 unit SUBCUT DAILY Levothyroxine [Synthroid] Med 05/19/17 07:30 Active 50 mcg PO ACBREAKFAST Metoprolol Tartrate [Lopressor] Med 05/18/17 20:00 Active 25 mg PO Q12HR Mometasone/Formoterol [Dulera 200-5 MCG] Med 05/18/17 18:00 Active 2 puff IH BID Multivitamins [Tab-A-[place]] Med 05/19/17 12:00 Active 1 tab PO DAILY@1200 Mupirocin Oint [Bactroban Oint] Med 05/18/17 20:00 Active See Dose Instructions TOP Q12HR Simvastatin [Zocor] Med 05/18/17 20:00 Active 20 mg PO BEDTIME Sodium Chloride 0.9% [Saline Flush] Med 05/18/17 13:34 Active 10 ml FLUSH ASDIRECTED PRN Sodium Chloride 0.9% [Saline Flush] Med 05/18/17 20:00 Active 10 ml FLUSH Q12HR Vancomycin 1 gm Med 05/18/17 14:00 Pending Sodium Chloride 0.9% [Normal Saline] 250 ml IV Q24H amLODIPine [Norvasc] Med 05/19/17 08:00 Active 2.5 mg PO DAILY Peripheral IV Insertion Adult [OM.PC] Routine Oth 05/18/17 13:34 Ordered Code Status [Resuscitation Status] Routine Resus Stat 05/18/17 13:38 Ordered Medication Orders Acetaminophen (Tylenol) 650 mg PO Q4H PRN PRN Reason: Pain (Mild 1-3)/fever Hydrocodone Bitart/Acetaminophen ([place] 325-5 Mg) 1 tab PO Q4H PRN PRN Reason: Pain (moderate 4-6) Albuterol (Ventolin Hfa) 1 gm INH Q4HR PRN PRN Reason: Shortness of Breath Albuterol/Ipratropium (Duoneb 3.0-0.5 Mg/3 Ml) 3 ml INH Q4HR PRN PRN Reason: Shortness of Breath Last Admin: 05/18/17 16:58 Dose: 3 ml Amlodipine Besylate (Norvasc) 2.5 mg PO DAILY [facility] Enoxaparin Sodium (Lovenox) 30 mg SUBCUT DAILY [facility] Furosemide (Lasix) 40 mg IVPUSH DAILY [facility] Ampicillin Sodium/Sulbactam (Sodium 3 gm/ Sodium Chloride) 100 mls @ 100 mls/ hr IV Q12H [facility] Last Admin: 05/18/17 21:23 Dose: 100 mls/hr Vancomycin HCl 1 gm/ Sodium (Chloride) 250 mls @ 165 mls/hr IV Q24H [facility] Insulin Detemir (Levemir) 26 unit SUBCUT DAILY [facility] Levothyroxine Sodium (Synthroid) 50 mcg PO ACBREAKFAST [facility] Metoprolol Tartrate (Lopressor) 25 mg PO Q12HR [facility] Last Admin: 05/18/17 20:05 Dose: 25 mg Mometasone Furoate/Formoterol Fumar (Dulera 200-5 Mcg) 2 puff IH BID [facility] Last Admin: 05/18/17 16:59 Dose: 2 puff Multivitamins/Minerals/Vitamin C (Tab-A-[place]) 1 tab PO DAILY@1200 [facility] Mupirocin (Bactroban Oint) 0 gm TOP Q12HR [facility] Last Admin: 05/18/17 20:05 Dose: 1 dose Simvastatin (Zocor) 20 mg PO BEDTIME [facility] Last Admin: 05/18/17 20:05 Dose: 20 mg Sodium Chloride (Saline Flush) 10 ml FLUSH Q12HR [facility] Last Admin: 05/18/17 20:06 Dose: 10 ml Sodium Chloride (Saline Flush) 10 ml FLUSH ASDIRECTED PRN PRN Reason: Keep Vein Open Assessment/Plan Comment:: 05/18/17 Rosie Quintana MD Leg edema, right wound improving. Stable for transfer into swing bed for continued IV antibiotics, IV lasix, PT-OT.
[2017-05-19] MEDS: amLODIPine 5 MG Tab PO SCH (07:57)
[2017-05-19] MEDS: Metoprolol Tartrate 25 MG Tab PO SCH ×2 (08:00→20:17)
[2017-05-19] MEDS: Furosemide 40 MG/4 ML VIAL IVPUSH SCH (08:00)
[2017-05-19] MEDS: Mupirocin Oint 22 GM Tube TOP SCH ×2 (08:01→20:18)
[2017-05-19] MEDS: Formoterol/Mometasone 200-5 MCG 8.8 GM Inhaler IH SCH ×2 (08:02→18:20)
[2017-05-19] MEDS: Insulin Detemir 100 Units/ML 3 ML Pen SUBCUT SCH (08:03)
[2017-05-19] MEDS: Enoxaparin 30 MG/0.3 ML Syringe SUBCUT SCH (08:05)
[2017-05-19] MEDS: Sodium Chloride 0.9% 10 ML Syringe FLUSH SCH ×2 (08:24→21:54)
[2017-05-19] MEDS: Levothyroxine 50 MCG Tab PO SCH (08:29)
[2017-05-19] MEDS: Ampicillin/Sulbactam Na 3 GM in Sodium Chloride 0.9% 100 ML IV SCH ×2 (10:31→21:54)
[2017-05-19] MEDS: Multivitamin Tab PO SCH (11:22)
[2017-05-19] MEDS: Albuterol/Ipratropium 3.0-0.5 MG/3 ML Neb Soln INH PRN (13:19)
[2017-05-19] MEDS: Sodium Chloride 0.9% 10 ML Syringe FLUSH PRN ×2 (15:11→17:00)
[2017-05-19] MEDS: Simvastatin 20 MG Tab PO SCH (20:17)
[2017-05-20] MEDS: Levothyroxine 50 MCG Tab PO SCH (07:21)
[2017-05-20] MEDS: amLODIPine 5 MG Tab PO SCH (07:21)
[2017-05-20] MEDS: Metoprolol Tartrate 25 MG Tab PO SCH ×2 (07:21→20:30)
[2017-05-20] MEDS: Sodium Chloride 0.9% 10 ML Syringe FLUSH SCH ×2 (07:22→20:30)
[2017-05-20] MEDS: Furosemide 40 MG/4 ML VIAL IVPUSH SCH (07:22)
[2017-05-20] MEDS: Enoxaparin 30 MG/0.3 ML Syringe SUBCUT SCH (07:22)
[2017-05-20] MEDS: Formoterol/Mometasone 200-5 MCG 8.8 GM Inhaler IH SCH ×2 (07:23→17:50)
[2017-05-20] MEDS: Mupirocin Oint 22 GM Tube TOP SCH ×2 (07:23→20:31)
[2017-05-20] MEDS: Insulin Detemir 100 Units/ML 3 ML Pen SUBCUT SCH (07:23)
[2017-05-20] MEDS: Ampicillin/Sulbactam Na 3 GM in Sodium Chloride 0.9% 100 ML IV SCH ×2 (10:39→21:48)
[2017-05-20] MEDS: Sodium Chloride 0.9% 10 ML Syringe FLUSH PRN ×2 (10:40→11:41)
[2017-05-20] MEDS: Albuterol/Ipratropium 3.0-0.5 MG/3 ML Neb Soln INH PRN (10:43)
[2017-05-20] MEDS: Multivitamin Tab PO SCH (11:38)
[2017-05-20] MEDS: Simvastatin 20 MG Tab PO SCH (20:30)
[2017-05-21] MEDS: Metoprolol Tartrate 25 MG Tab PO SCH ×2 (08:00→20:23)
[2017-05-21] MEDS: Formoterol/Mometasone 200-5 MCG 8.8 GM Inhaler IH SCH ×2 (08:01→17:43)
[2017-05-21] MEDS: Sodium Chloride 0.9% 10 ML Syringe FLUSH SCH ×2 (08:01→20:24)
[2017-05-21] MEDS: Furosemide 40 MG/4 ML VIAL IVPUSH SCH (08:01)
[2017-05-21] MEDS: Levothyroxine 50 MCG Tab PO SCH (08:02)
[2017-05-21] MEDS: amLODIPine 5 MG Tab PO SCH (08:02)
[2017-05-21] MEDS: Mupirocin Oint 22 GM Tube TOP SCH ×2 (08:03→20:23)
[2017-05-21] MEDS: Enoxaparin 30 MG/0.3 ML Syringe SUBCUT SCH (08:05)
[2017-05-21] MEDS: Insulin Detemir 100 Units/ML 3 ML Pen SUBCUT SCH (08:05)
[2017-05-21] MEDS: Ampicillin/Sulbactam Na 3 GM in Sodium Chloride 0.9% 100 ML IV SCH ×2 (10:59→22:25)
[2017-05-21] MEDS: Sodium Chloride 0.9% 10 ML Syringe FLUSH PRN ×4 (10:59→22:25)
[2017-05-21] MEDS: Multivitamin Tab PO SCH (11:30)
[2017-05-21] MEDS: Albuterol/Ipratropium 3.0-0.5 MG/3 ML Neb Soln INH PRN (14:07)
[2017-05-21] MEDS: Simvastatin 20 MG Tab PO SCH (20:24)
[2017-05-21] MEDS: Acetaminophen/HYDROcodone 325-5 MG Tab PO PRN (23:01)
[2017-05-22] MEDS: Insulin Detemir 100 Units/ML 3 ML Pen SUBCUT SCH (07:22)
[2017-05-22] MEDS: Furosemide 40 MG/4 ML VIAL IVPUSH SCH (07:23)
[2017-05-22] MEDS: amLODIPine 5 MG Tab PO SCH (07:23)
[2017-05-22] MEDS: Levothyroxine 50 MCG Tab PO SCH (07:23)
[2017-05-22] MEDS: Metoprolol Tartrate 25 MG Tab PO SCH ×2 (07:24→21:14)
[2017-05-22] MEDS: Sodium Chloride 0.9% 10 ML Syringe FLUSH SCH ×2 (07:25→21:15)
[2017-05-22] MEDS: Formoterol/Mometasone 200-5 MCG 8.8 GM Inhaler IH SCH ×2 (07:25→17:04)
[2017-05-22] MEDS: Sodium Chloride 0.9% 10 ML Syringe FLUSH PRN ×2 (07:26→11:37)
[2017-05-22] MEDS: Mupirocin Oint 22 GM Tube TOP SCH ×2 (07:31→21:16)
[2017-05-22] MEDS: Ampicillin/Sulbactam Na 3 GM in Sodium Chloride 0.9% 100 ML IV SCH ×2 (10:14→21:17)
[2017-05-22] MEDS: Multivitamin Tab PO SCH (11:03)
[2017-05-22] MEDS: Simvastatin 20 MG Tab PO SCH (21:13)
[2017-05-23] MEDS: amLODIPine 5 MG Tab PO SCH (07:47)
[2017-05-23] MEDS: Levothyroxine 50 MCG Tab PO SCH (07:48)
[2017-05-23] MEDS: Metoprolol Tartrate 25 MG Tab PO SCH ×2 (07:48→19:08)
[2017-05-23] MEDS: Insulin Detemir 100 Units/ML 3 ML Pen SUBCUT SCH (07:49)
[2017-05-23] MEDS: Mupirocin Oint 22 GM Tube TOP SCH ×2 (07:50→19:07)
[2017-05-23] MEDS: Formoterol/Mometasone 200-5 MCG 8.8 GM Inhaler IH SCH ×2 (07:50→17:00)
[2017-05-23] MEDS: Sodium Chloride 0.9% 10 ML Syringe FLUSH SCH ×2 (07:51→19:08)
[2017-05-23] MEDS: Furosemide 40 MG/4 ML VIAL IVPUSH SCH (07:51)
[2017-05-23] MEDS: Ampicillin/Sulbactam Na 3 GM in Sodium Chloride 0.9% 100 ML IV SCH ×2 (11:09→21:43)
[2017-05-23] MEDS: Multivitamin Tab PO SCH (11:09)
[2017-05-23] MEDS: Sodium Chloride 0.9% 10 ML Syringe FLUSH PRN ×3 (11:10→21:43)
[2017-05-23] MEDS: Simvastatin 20 MG Tab PO SCH (19:08)
[2017-05-23] MEDS: Albuterol/Ipratropium 3.0-0.5 MG/3 ML Neb Soln INH PRN (22:44)
[2017-05-24] MEDS: Metoprolol Tartrate 25 MG Tab PO SCH ×2 (07:48→20:04)
[2017-05-24] MEDS: amLODIPine 5 MG Tab PO SCH (07:49)
[2017-05-24] MEDS: Levothyroxine 50 MCG Tab PO SCH (07:49)
[2017-05-24] MEDS: Mupirocin Oint 22 GM Tube TOP SCH ×2 (07:49→20:05)
[2017-05-24] MEDS: Formoterol/Mometasone 200-5 MCG 8.8 GM Inhaler IH SCH ×2 (07:49→17:49)
[2017-05-24] MEDS: Insulin Detemir 100 Units/ML 3 ML Pen SUBCUT SCH (07:50)
[2017-05-24] MEDS: Furosemide 40 MG/4 ML VIAL IVPUSH SCH (07:50)
[2017-05-24] MEDS: Sodium Chloride 0.9% 10 ML Syringe FLUSH SCH ×2 (07:51→20:05)
[2017-05-24] MEDS: Ampicillin/Sulbactam Na 3 GM in Sodium Chloride 0.9% 100 ML IV SCH ×2 (09:56→21:38)
[2017-05-24] MEDS: Sodium Chloride 0.9% 10 ML Syringe FLUSH PRN ×2 (09:57→21:38)
[2017-05-24] MEDS: Multivitamin Tab PO SCH (11:21)
[2017-05-24] MEDS: Simvastatin 20 MG Tab PO SCH (20:05)
[2017-05-24] MEDS: Albuterol/Ipratropium 3.0-0.5 MG/3 ML Neb Soln INH PRN (20:11)
[2017-05-25] MEDS: Mupirocin Oint 22 GM Tube TOP SCH ×2 (07:20→20:27)
[2017-05-25] MEDS: Formoterol/Mometasone 200-5 MCG 8.8 GM Inhaler IH SCH ×2 (07:20→17:13)
[2017-05-25] MEDS: Levothyroxine 50 MCG Tab PO SCH (07:21)
[2017-05-25] MEDS: Furosemide 40 MG/4 ML VIAL IVPUSH SCH ×2 (07:23→12:26)
[2017-05-25] MEDS: Metoprolol Tartrate 25 MG Tab PO SCH ×2 (07:27→20:32)
[2017-05-25] MEDS: amLODIPine 5 MG Tab PO SCH (07:28)
[2017-05-25] MEDS: Insulin Detemir 100 Units/ML 3 ML Pen SUBCUT SCH (07:29)
[2017-05-25] MEDS: Sodium Chloride 0.9% 10 ML Syringe FLUSH SCH ×2 (07:33→20:29)
[2017-05-25] MEDS: Multivitamin Tab PO SCH (11:03)
[2017-05-25] MEDS: Sodium Chloride 0.9% 10 ML Syringe FLUSH PRN ×7 (11:03→22:34)
[2017-05-25] MEDS: Ampicillin/Sulbactam Na 3 GM in Sodium Chloride 0.9% 100 ML IV SCH ×2 (11:03→21:28)
[2017-05-25] MEDS: Simvastatin 20 MG Tab PO SCH (20:28)
--- NOTE | 2017-05-25 23:17 | PCM.SN ---
- Free Text/Narrative Note: 05/25/17 Rosie Quintana MD Wound still with drainage and dehiscence. Need to extend antibiotics. Also increased ankle edema so increase IV lasix. Still need close monitoring of kidney status due to CKD.
[2017-05-26] MEDS: Furosemide 40 MG/4 ML VIAL IVPUSH SCH ×2 (07:58→11:23)
[2017-05-26] MEDS: Levothyroxine 50 MCG Tab PO SCH (07:59)
[2017-05-26] MEDS: Metoprolol Tartrate 25 MG Tab PO SCH ×2 (07:59→20:26)
[2017-05-26] MEDS: Sodium Chloride 0.9% 10 ML Syringe FLUSH SCH ×2 (08:00→20:28)
[2017-05-26] MEDS: Formoterol/Mometasone 200-5 MCG 8.8 GM Inhaler IH SCH ×2 (08:00→17:25)
[2017-05-26] MEDS: Mupirocin Oint 22 GM Tube TOP SCH ×2 (08:00→20:27)
[2017-05-26] MEDS: amLODIPine 5 MG Tab PO SCH (08:02)
[2017-05-26] MEDS: Insulin Detemir 100 Units/ML 3 ML Pen SUBCUT SCH (08:02)
[2017-05-26] MEDS: Sodium Chloride 0.9% 10 ML Syringe FLUSH PRN ×6 (08:05→22:18)
[2017-05-26] MEDS: Ampicillin/Sulbactam Na 3 GM in Sodium Chloride 0.9% 100 ML IV SCH ×2 (09:41→22:18)
--- NOTE | 2017-05-26 11:00 | PCM.PN ---
- General Info Date of Service: 05/26/17 Admission Dx/Problem (Free Text): Admission Diagnosis/Problem Admission Diagnosis/Problem Cellulitis Functional Status: Reports: Pain Controlled, Tolerating Diet - Review of Systems General: Reports: Weakness HEENT: Reports: No Symptoms Pulmonary: Reports: No Symptoms Cardiovascular: Reports: No Symptoms Gastrointestinal: Reports: No Symptoms Genitourinary: Reports: No Symptoms Musculoskeletal: Reports: Joint Swelling (right knee) Skin: Reports: No Symptoms Neurological: Reports: No Symptoms Psychiatric: Reports: No Symptoms - Patient Data Vitals - Most Recent: Last Vital Signs Temp 97.9 F 05/26/17 08:00 Pulse 84 05/26/17 08:00 Resp 15 05/25/17 08:00 BP 119/76 05/26/17 08:00 Pulse Ox 95 05/26/17 08:00 Weight - Most Recent: 146 lb 1.6 oz I&O - Last 24 Hours: Intake & Output 05/25/17 05/26/17 05/26/17 22:59 06:59 14:59 Intake Total 345 240 Output Total 600 700 Balance -255 -460 Lab Results Last 24 Hours: Laboratory Results - last 24 hr 05/25/17 05/25/17 05/26/17 Range/Units 11:22 16:35 07:34 POC Glucose 298 H* 239 H 191 H (65-110) mg/dl Med Orders - Current: Current Medications Acetaminophen (Tylenol) 650 mg PO Q4H PRN PRN Reason: Pain (Mild 1-3)/fever Hydrocodone Bitart/Acetaminophen ([place] 325-5 Mg) 1 tab PO Q4H PRN PRN Reason: Pain (moderate 4-6) Last Admin: 05/21/17 23:01 Dose: 1 tab Albuterol (Ventolin Hfa) 1 gm INH Q4HR PRN PRN Reason: Shortness of Breath Albuterol/Ipratropium (Duoneb 3.0-0.5 Mg/3 Ml) 3 ml INH Q4HR PRN PRN Reason: Shortness of Breath Last Admin: 05/24/17 20:11 Dose: 3 ml Amlodipine Besylate (Norvasc) 2.5 mg PO DAILY [facility] Last Admin: 05/26/17 08:02 Dose: 2.5 mg Furosemide (Lasix) 40 mg IVPUSH BIDDIURETIC [facility] Last Admin: 05/26/17 07:58 Dose: 40 mg Ampicillin Sodium/Sulbactam (Sodium 3 gm/ Sodium Chloride) 100 mls @ 100 mls/ hr IV Q12H [facility] Stop: 05/28/17 22:01 Last Admin: 05/26/17 09:41 Dose: 100 mls/hr Vancomycin HCl 1 gm/ Sodium (Chloride) 250 mls @ 165 mls/hr IV Q48H [facility] Last Admin: 05/25/17 14:49 Dose: 165 mls/hr Insulin Detemir (Levemir) 26 unit SUBCUT DAILY [facility] Last Admin: 05/26/17 08:02 Dose: 26 units Levothyroxine Sodium (Synthroid) 50 mcg PO ACBREAKFAST [facility] Last Admin: 05/26/17 07:59 Dose: 50 mcg Metoprolol Tartrate (Lopressor) 25 mg PO Q12HR [facility] Last Admin: 05/26/17 07:59 Dose: 25 mg Mometasone Furoate/Formoterol Fumar (Dulera 200-5 Mcg) 2 puff IH BID [facility] Last Admin: 05/26/17 08:00 Dose: 2 puff Multivitamins/Minerals/Vitamin C (Tab-A-[place]) 1 tab PO DAILY@1200 [facility] Last Admin: 05/25/17 11:03 Dose: 1 tab Mupirocin (Bactroban Oint) 0 gm TOP Q12HR [facility] Last Admin: 05/26/17 08:00 Dose: 1 applic Simvastatin (Zocor) 20 mg PO BEDTIME [facility] Last Admin: 05/25/17 20:28 Dose: 20 mg Sodium Chloride (Saline Flush) 10 ml FLUSH Q12HR [facility] Last Admin: 05/26/17 08:00 Dose: 10 ml Sodium Chloride (Saline Flush) 10 ml FLUSH ASDIRECTED PRN PRN Reason: Keep Vein Open Last Admin: 05/26/17 10:47 Dose: 10 ml Discontinued Medications Enoxaparin Sodium (Lovenox) 30 mg SUBCUT DAILY [facility] Last Admin: 05/21/17 08:05 Dose: 30 mg Furosemide (Lasix) 40 mg IVPUSH DAILY [facility] Last Admin: 05/25/17 07:23 Dose: 40 mg Vancomycin HCl 1 gm/ Sodium (Chloride) 250 mls @ 165 mls/hr IV Q48H [facility] Last Admin: 05/19/17 15:21 Dose: Not Given Sodium Chloride (Saline Flush) 10 ml FLUSH ASDIRECTED PRN PRN Reason: Keep Vein Open - Exam Quality Assessment: Supplemental Oxygen, Skin Breakdown General: Alert, Oriented, Cooperative HEENT: Pupils Equal, Pupils Reactive, EOMI, Mucous Membr. Moist/[place] Neck: Supple Lungs: Decreased Breath Sounds Cardiovascular: Regular Rate, Regular Rhythm, Murmurs GI/Abdominal Exam: Normal Bowel Sounds, Soft Back Exam: Normal Inspection Extremities: Normal Inspection Peripheral Pulses: 1+: Dorsalis Pedis (L), Dorsalis Pedis (R) Skin: Warm, Dry, Intact Wound/Incisions: Healing Well, No Drainage Neurological: No New Focal Deficit Psy/Mental Status: Alert, Normal Affect, Normal Mood - Problem List Review Problem List Initiated/Reviewed/Updated: Yes - Plan Plan:: 05/18/17 Rosie Quintana MD Leg edema, right wound improving. Stable for transfer into swing bed for continued IV antibiotics, IV lasix, PT-OT. 05/26/2017 Patient is getting stronger, still receiving IV antibiotics due to cellulitis in the right leg. Right leg is still red and swollen, incision site on right knee debrided the eschar area with scalpel at the bedside. Patient tolerated well, nurse redressed the right knee incision area. Patient continues to need swingbed for IV antibiotics. Kalee Edwards,CHAIRMAN & CHIEF EXECUTIVE OFFICER
[2017-05-26] MEDS: Multivitamin Tab PO SCH (11:23)
[2017-05-26] MEDS: Simvastatin 20 MG Tab PO SCH (20:27)
[2017-05-27] MEDS: Levothyroxine 50 MCG Tab PO SCH (07:45)
[2017-05-27] MEDS: Formoterol/Mometasone 200-5 MCG 8.8 GM Inhaler IH SCH ×2 (07:45→17:53)
[2017-05-27] MEDS: amLODIPine 5 MG Tab PO SCH (07:45)
[2017-05-27] MEDS: Mupirocin Oint 22 GM Tube TOP SCH ×2 (07:46→20:46)
[2017-05-27] MEDS: Metoprolol Tartrate 25 MG Tab PO SCH ×2 (07:46→20:44)
[2017-05-27] MEDS: Furosemide 40 MG/4 ML VIAL IVPUSH SCH ×2 (07:47→11:21)
[2017-05-27] MEDS: Insulin Detemir 100 Units/ML 3 ML Pen SUBCUT SCH (07:48)
[2017-05-27] MEDS: Sodium Chloride 0.9% 10 ML Syringe FLUSH SCH ×2 (07:50→22:07)
[2017-05-27] MEDS: Sodium Chloride 0.9% 10 ML Syringe FLUSH PRN ×7 (07:50→22:11)
--- NOTE | 2017-05-27 08:45 | PCM.SN ---
- Free Text/Narrative Note: 05/27/2017 Blood sugars reviewed, patient is on Levemir and states she did use some Novolog with her meals at home at noon and sometimes breakfast time. Patient has been running high blood sugars around 1600 in 250 to 290 range. Will start Novolog 4 units with noon meal and monitor blood sugars. Ordered hgb Alc for the morning and bedtime accu check for tonight. Kalee Edwards,FEED MILL SUPERVISOR
[2017-05-27] MEDS: Ampicillin/Sulbactam Na 3 GM in Sodium Chloride 0.9% 100 ML IV SCH ×2 (09:22→22:06)
[2017-05-27] MEDS: Insulin Aspart 100 Units/ML 3 ML Pen SUBCUT SCH (11:20)
[2017-05-27] MEDS: Multivitamin Tab PO SCH (11:21)
[2017-05-27] MEDS: Albuterol/Ipratropium 3.0-0.5 MG/3 ML Neb Soln INH PRN (14:10)
[2017-05-27] MEDS: Simvastatin 20 MG Tab PO SCH (20:44)
[2017-05-27] MEDS: Acetaminophen/HYDROcodone 325-5 MG Tab PO PRN (22:57)
[2017-05-28] MEDS: Levothyroxine 50 MCG Tab PO SCH (08:17)
[2017-05-28] MEDS: Metoprolol Tartrate 25 MG Tab PO SCH ×2 (08:17→20:15)
[2017-05-28] MEDS: amLODIPine 5 MG Tab PO SCH (08:18)
[2017-05-28] MEDS: Mupirocin Oint 22 GM Tube TOP SCH ×2 (08:18→20:15)
[2017-05-28] MEDS: Formoterol/Mometasone 200-5 MCG 8.8 GM Inhaler IH SCH ×2 (08:19→18:47)
[2017-05-28] MEDS: Furosemide 40 MG/4 ML VIAL IVPUSH SCH ×2 (08:19→12:26)
[2017-05-28] MEDS: Insulin Detemir 100 Units/ML 3 ML Pen SUBCUT SCH (08:19)
[2017-05-28] MEDS: Sodium Chloride 0.9% 10 ML Syringe FLUSH SCH ×2 (08:20→20:18)
[2017-05-28] MEDS: Ampicillin/Sulbactam Na 3 GM in Sodium Chloride 0.9% 100 ML IV SCH ×2 (11:04→21:34)
[2017-05-28] MEDS: Sodium Chloride 0.9% 10 ML Syringe FLUSH PRN ×3 (11:04→21:34)
[2017-05-28] MEDS: Insulin Aspart 100 Units/ML 3 ML Pen SUBCUT SCH (12:26)
[2017-05-28] MEDS: Multivitamin Tab PO SCH (12:26)
[2017-05-28] MEDS: Albuterol/Ipratropium 3.0-0.5 MG/3 ML Neb Soln INH PRN (20:14)
[2017-05-28] MEDS: Simvastatin 20 MG Tab PO SCH (20:15)
[2017-05-29] MEDS: Metoprolol Tartrate 25 MG Tab PO SCH ×2 (07:12→21:11)
[2017-05-29] MEDS: Levothyroxine 50 MCG Tab PO SCH (07:12)
[2017-05-29] MEDS: Acetaminophen/HYDROcodone 325-5 MG Tab PO PRN (07:12)
[2017-05-29] MEDS: amLODIPine 5 MG Tab PO SCH (07:12)
[2017-05-29] MEDS: Insulin Detemir 100 Units/ML 3 ML Pen SUBCUT SCH (07:13)
[2017-05-29] MEDS: Furosemide 40 MG/4 ML VIAL IVPUSH SCH ×2 (07:14→11:28)
[2017-05-29] MEDS: Formoterol/Mometasone 200-5 MCG 8.8 GM Inhaler IH SCH ×2 (07:14→17:24)
[2017-05-29] MEDS: Mupirocin Oint 22 GM Tube TOP SCH ×2 (07:15→21:10)
[2017-05-29] MEDS: Sodium Chloride 0.9% 10 ML Syringe FLUSH SCH ×2 (07:15→21:12)
[2017-05-29] MEDS: Insulin Aspart 100 Units/ML 3 ML Pen SUBCUT SCH (11:28)
[2017-05-29] MEDS: Multivitamin Tab PO SCH (11:29)
[2017-05-29] MEDS: Sodium Chloride 0.9% 10 ML Syringe FLUSH PRN ×3 (11:30→21:12)
--- NOTE | 2017-05-29 18:51 | PCM.PN ---
- General Info Date of Service: 05/29/17 Admission Dx/Problem (Free Text): Admission Diagnosis/Problem Admission Diagnosis/Problem Cellulitis Functional Status: Reports: Pain Controlled, Ambulating - Review of Systems General: Reports: No Symptoms HEENT: Reports: No Symptoms Pulmonary: Reports: Shortness of Breath (chronic) Cardiovascular: Reports: No Symptoms Gastrointestinal: Reports: No Symptoms Genitourinary: Reports: No Symptoms Musculoskeletal: Reports: No Symptoms Skin: Reports: No Symptoms, Bruising (face, bilateral LE), Other (wound right knee) Neurological: Reports: No Symptoms Psychiatric: Reports: No Symptoms - Patient Data Vitals - Most Recent: Last Vital Signs Temp 98.2 F 05/29/17 08:00 Pulse 100 05/29/17 08:00 Resp 17 05/29/17 08:00 BP 114/83 05/29/17 08:00 Pulse Ox 94 L 05/29/17 08:00 Weight - Most Recent: 144 lb I&O - Last 24 Hours: Intake & Output 05/29/17 05/29/17 05/29/17 06:59 14:59 22:59 Intake Total 100 840 Output Total 1100 1100 Balance -1000 -260 Lab Results Last 24 Hours: Laboratory Results - last 24 hr 05/28/17 05/29/17 05/29/17 Range/Units 23:06 07:11 10:52 POC Glucose 245 H 194 H 295 H* (65-110) mg/dl 05/29/17 Range/Units 16:33 POC Glucose 217 H (65-110) mg/dl Med Orders - Current: Current Medications Acetaminophen (Tylenol) 650 mg PO Q4H PRN PRN Reason: Pain (Mild 1-3)/fever Hydrocodone Bitart/Acetaminophen ([place] 325-5 Mg) 1 tab PO Q4H PRN PRN Reason: Pain (moderate 4-6) Last Admin: 05/29/17 07:12 Dose: 1 tab Albuterol (Ventolin Hfa) 1 gm INH Q4HR PRN PRN Reason: Shortness of Breath Albuterol/Ipratropium (Duoneb 3.0-0.5 Mg/3 Ml) 3 ml INH Q4HR PRN PRN Reason: Shortness of Breath Last Admin: 05/28/17 20:14 Dose: 3 ml Amlodipine Besylate (Norvasc) 2.5 mg PO DAILY [facility] Last Admin: 05/29/17 07:12 Dose: 2.5 mg Furosemide (Lasix) 40 mg IVPUSH BIDDIURETIC [facility] Last Admin: 05/29/17 11:28 Dose: 40 mg Vancomycin HCl 1 gm/ Sodium (Chloride) 250 mls @ 165 mls/hr IV Q48H [facility] Last Admin: 05/29/17 13:22 Dose: 165 mls/hr Insulin Aspart (Novolog) 4 unit SUBCUT DAILY@1200 [facility] Last Admin: 05/29/17 11:28 Dose: 4 units Insulin Detemir (Levemir) 26 unit SUBCUT DAILY [facility] Last Admin: 05/29/17 07:13 Dose: 26 units Levothyroxine Sodium (Synthroid) 50 mcg PO ACBREAKFAST [facility] Last Admin: 05/29/17 07:12 Dose: 50 mcg Metoprolol Tartrate (Lopressor) 25 mg PO Q12HR [facility] Last Admin: 05/29/17 07:12 Dose: 25 mg Mometasone Furoate/Formoterol Fumar (Dulera 200-5 Mcg) 2 puff IH BID [facility] Last Admin: 05/29/17 17:24 Dose: 2 puff Multivitamins/Minerals/Vitamin C (Tab-A-Stanley) 1 tab PO DAILY@1200 [facility] Last Admin: 05/29/17 11:29 Dose: 1 tab Mupirocin (Bactroban Oint) 0 gm TOP Q12HR [facility] Last Admin: 05/29/17 07:15 Dose: 1 applic Simvastatin (Zocor) 20 mg PO BEDTIME [facility] Last Admin: 05/28/17 20:15 Dose: 20 mg Sodium Chloride (Saline Flush) 10 ml FLUSH Q12HR [facility] Last Admin: 05/29/17 07:15 Dose: 10 ml Sodium Chloride (Saline Flush) 10 ml FLUSH ASDIRECTED PRN PRN Reason: Keep Vein Open Last Admin: 05/29/17 13:23 Dose: 10 ml Discontinued Medications Enoxaparin Sodium (Lovenox) 30 mg SUBCUT DAILY [facility] Last Admin: 05/21/17 08:05 Dose: 30 mg Furosemide (Lasix) 40 mg IVPUSH DAILY [facility] Last Admin: 05/25/17 07:23 Dose: 40 mg Ampicillin Sodium/Sulbactam (Sodium 3 gm/ Sodium Chloride) 100 mls @ 100 mls/ hr IV Q12H [facility] Stop: 05/28/17 22:01 Last Admin: 05/28/17 21:34 Dose: 100 mls/hr Vancomycin HCl 1 gm/ Sodium (Chloride) 250 mls @ 165 mls/hr IV Q48H [facility] Last Admin: 05/19/17 15:21 Dose: Not Given Sodium Chloride (Saline Flush) 10 ml FLUSH ASDIRECTED PRN PRN Reason: Keep Vein Open - Exam Quality Assessment: Supplemental Oxygen General: Alert, Cooperative, No Acute Distress HEENT: Pupils Equal, Pupils Reactive, EOMI, Mucous Membr. Moist/[place] Neck: Trachea Midline, No JVD Lungs: Normal Respiratory Effort, Decreased Breath Sounds Cardiovascular: Regular Rate, Regular Rhythm GI/Abdominal Exam: Soft, Non-Tender, No Distention (Female) Exam: Deferred Back Exam: Normal Inspection Extremities: Non-Tender, Pedal Edema (L>R but markedly improved) Skin: Warm, Dry, Intact, Ecchymosis Wound/Incisions: Healing Well, No Drainage, Erythema Improving, Other (edges still laterally, mild redness surrounding wound but improved) Neurological: No New Focal Deficit - Problem List & Annotations (1) Wound dehiscence SNOMED Code(s): 618153895 Code(s): T81.30XA - DISRUPTION OF WOUND, UNSPECIFIED, INITIAL ENCOUNTER Status: Acute Priority: High Current Visit: Yes (2) CKD (chronic kidney disease) SNOMED Code(s): 144292049 Code(s): N18.9 - CHRONIC KIDNEY DISEASE, UNSPECIFIED Status: Acute Current Visit: No Qualifiers: Chronic kidney disease stage: unspecified stage Qualified Code(s): N18.9 - Chronic kidney disease, unspecified (3) Cellulitis SNOMED Code(s): 103115688 Code(s): L03.90 - CELLULITIS, UNSPECIFIED Status: Acute Current Visit: No Qualifiers: Site of cellulitis: extremity Site of cellulitis of extremity: lower extremity Laterality: right Qualified Code(s): L03.115 - Cellulitis of right lower limb (4) Congestive heart failure (CHF) SNOMED Code(s): 85233440 Code(s): I50.9 - HEART FAILURE, UNSPECIFIED Status: Acute Current Visit: No Qualifiers: Heart failure type: unspecified Heart failure chronicity: chronic Qualified Code(s): I50.9 - Heart failure, unspecified (5) Diabetes mellitus SNOMED Code(s): 58862948 Code(s): E11.9 - TYPE 2 DIABETES MELLITUS WITHOUT COMPLICATIONS Status: Acute Current Visit: No Qualifiers: Diabetes mellitus type: type 2 Diabetes mellitus complication status: with kidney complications Diabetes mellitus complication detail: with chronic kidney disease Chronic kidney disease stage: unspecified stage (6) Laceration SNOMED Code(s): 910882956 Code(s): XFG5101 - Status: Acute Priority: High Current Visit: No Onset Date: 05/03/17 Annotation/Comment:: Excellent results with laceration repair. DTaP given. Activity restrictions and wound care were extensively discussed with the patient and her . The patient was placed in a knee immobilizer. Some delay in laceration repair without sequelae secondary to multiple patients in the emergency room (7) Multiple contusions SNOMED Code(s): 406897299 Code(s): T07.XXXA - UNSPECIFIED MULTIPLE INJURIES, INITIAL ENCOUNTER Status : Acute Priority: High Current Visit: No Onset Date: 05/03/17 Annotation /Comment:: Otherwise multiple minor contusions as above. Symptomatically as per discharge instructions (8) Posttraumatic wound infection SNOMED Code(s): 096480714 Code(s): T14.8XXA - OTHER INJURY OF UNSPECIFIED BODY REGION, INITIAL ENCOUNTER; L08.9 - LOCAL INFECTION OF THE SKIN AND SUBCUTANEOUS TISSUE, UNSP Status: Acute Priority: High Current Visit: No (9) COPD (chronic obstructive pulmonary disease) SNOMED Code(s): 21668596 Code(s): J44.9 - CHRONIC OBSTRUCTIVE PULMONARY DISEASE, UNSPECIFIED Status : Chronic Priority: Medium Current Visit: No Qualifiers: COPD type: emphysema Emphysema type: panlobular Qualified Code(s): J43.1 - Panlobular emphysema (10) Coronary artery disease SNOMED Code(s): 40040603 Code(s): I25.10 - ATHSCL HEART DISEASE OF [place] CORONARY ARTERY W/O ANG PCTRS Status: Chronic Priority: Medium Current Visit: No Qualifiers: Coronary Disease-Associated Artery/Lesion type: [place] artery [place] vs. transplanted heart: [place] heart Associated angina: without angina Qualified Code(s): I25.10 - Atherosclerotic heart disease of [place] coronary artery without angina pectoris Annotation/Comment:: Stable by history with no recent chest pain or anginal type symptoms (11) Hypertension SNOMED Code(s): 42765836 Code(s): I10 - ESSENTIAL (PRIMARY) HYPERTENSION Status: Chronic Priority : Medium Current Visit: No Qualifiers: Hypertension type: essential hypertension Qualified Code(s): I10 - Essential (primary) hypertension Annotation/Comment:: Her blood pressures were somewhat elevated during emergency room care. Continue to observe closely by regular providers (12) IDDM (insulin dependent diabetes mellitus) SNOMED Code(s): 25336673 Code(s): E11.9 - TYPE 2 DIABETES MELLITUS WITHOUT COMPLICATIONS; Z79.4 - TRANSITION MGR (CURRENT) USE OF INSULIN Status: Chronic Priority: Medium Current Visit: No Annotation/Comment:: Stable by patient history with history of diabetic neuropathy (13) Osteoarthritis SNOMED Code(s): 868411235 Code(s): M19.90 - UNSPECIFIED OSTEOARTHRITIS, UNSPECIFIED SITE Status: Chronic Priority: Medium Current Visit: No Qualifiers: Osteoarthritis location: multiple joints Osteoarthritis type: primary Qualified Code(s): M15.0 - Primary generalized (osteo)arthritis Annotation/Comment:: Otherwise stable by history (14) Palliative care patient SNOMED Code(s): 198315115 Code(s): Z51.5 - ENCOUNTER FOR PALLIATIVE CARE Status: Acute Priority: High Current Visit: Yes (15) Comfort measures only status SNOMED Code(s): 20847007735805 Code(s): Z51.5 - ENCOUNTER FOR PALLIATIVE CARE Status: Acute Priority: High Current Visit: Yes - Problem List Review Problem List Initiated/Reviewed/Updated: Yes - Plan Plan:: 05/18/17 Rosie Quintana MD Leg edema, right wound improving. Stable for transfer into swing bed for continued IV antibiotics, IV lasix, PT-OT. 05/26/2017 Patient is getting stronger, still receiving IV antibiotics due to cellulitis in the right leg. Right leg is still red and swollen, incision site on right knee debrided the eschar area with scalpel at the bedside. Patient tolerated well, nurse redressed the right knee incision area. Patient continues to need swingbed for IV antibiotics. Kalee Edwards,HVAC TECHNICIAN 05/29/17 Rosie Quintana MD Wound right knee healing well. Edges laterally at both ends still not approximated but healing. No drainage at this time. Healed well in the middle of wound. Receiving IV vancomycin at this time. Discharge plans discussed including discussion on home health and options.
[2017-05-29] MEDS: Simvastatin 20 MG Tab PO SCH (21:11)
[2017-05-30] MEDS: Albuterol/Ipratropium 3.0-0.5 MG/3 ML Neb Soln INH PRN (08:17)
[2017-05-30] MEDS: Levothyroxine 50 MCG Tab PO SCH (08:18)
[2017-05-30] MEDS: Mupirocin Oint 22 GM Tube TOP SCH (08:18)
[2017-05-30] MEDS: Furosemide 40 MG/4 ML VIAL IVPUSH SCH ×2 (08:19→11:26)
[2017-05-30] MEDS: Insulin Detemir 100 Units/ML 3 ML Pen SUBCUT SCH (08:19)
[2017-05-30] MEDS: Formoterol/Mometasone 200-5 MCG 8.8 GM Inhaler IH SCH (08:19)
[2017-05-30] MEDS: Metoprolol Tartrate 25 MG Tab PO SCH (08:21)
[2017-05-30] MEDS: amLODIPine 5 MG Tab PO SCH (08:23)
[2017-05-30] MEDS: Sodium Chloride 0.9% 10 ML Syringe FLUSH SCH (08:25)
[2017-05-30] MEDS: Sodium Chloride 0.9% 10 ML Syringe FLUSH PRN ×6 (08:32→11:39)
[2017-05-30] MEDS ORDERED: methylPREDNISolone Sodium Succinate 40 MG/1 ML SDV IVPUSH ONE (09:00)
[2017-05-30] MEDS: Insulin Aspart 100 Units/ML 3 ML Pen SUBCUT SCH (11:27)
[2017-05-30] MEDS: Multivitamin Tab PO SCH (11:28)
--- NOTE | 2017-05-30 15:33 | PCM.PN ---
- General Info Date of Service: 05/30/17 Admission Dx/Problem (Free Text): Admission Diagnosis/Problem Admission Diagnosis/Problem Cellulitis Functional Status: Reports: Pain Controlled, Tolerating Diet, Ambulating - Review of Systems General: Reports: Other (over night right elbow swelled up and red and hot) HEENT: Reports: No Symptoms Pulmonary: Reports: Shortness of Breath (chronic) Cardiovascular: Reports: No Symptoms Gastrointestinal: Reports: No Symptoms Genitourinary: Reports: No Symptoms Musculoskeletal: Reports: Joint Swelling (right elbow) Skin: Reports: No Symptoms Neurological: Reports: No Symptoms Psychiatric: Reports: No Symptoms - Patient Data Vitals - Most Recent: Last Vital Signs Temp 98.7 F 05/30/17 08:00 Pulse 97 05/30/17 08:21 Resp 16 05/30/17 08:00 BP 124/68 05/30/17 08:23 Pulse Ox 90 L 05/30/17 08:00 Weight - Most Recent: 144 lb I&O - Last 24 Hours: Intake & Output 05/30/17 05/30/17 05/30/17 06:59 14:59 22:59 Intake Total 100 840 Output Total 200 800 Balance -100 40 Lab Results Last 24 Hours: Laboratory Results - last 24 hr 05/29/17 05/29/17 05/30/17 Range/Units 16:33 23:59 07:10 WBC 10.7 H (4.0-10.2) K/uL RBC 3.28 L (3.77-5.09) M/uL Hgb 9.8 L (11.7-15.5) g/dL Hct 31.8 L (34.0-46.0) % MCV 97.0 (84.0-98.0) fL MCH 29.9 (28.2-33.3) pg MCHC 30.8 L (31.7-36.0) g/dL RDW 14.9 H (11.2-14.1) % Plt Count 328 (150-350) K/uL Neut % (Auto) 73.4 (45.0-80.0) % Lymph % (Auto) 12.6 (10.0-50.0) % [place] % (Auto) 12.5 (2.0-14.0) % Eos % (Auto) 0.6 (0.0-5.0) % Baso % (Auto) 0.9 (0.0-2.0) % Neut # (Auto) 7.82 H (1.40-7.00) K/uL Lymph # (Auto) 1.34 (0.50-3.50) K/uL [place] # (Auto) 1.33 H (0.00-1.00) K/uL Eos # (Auto) 0.06 (0.00-0.50) K/uL Baso # (Auto) 0.10 (0.00-0.20) K/uL Sodium (136-145) mmol/L Potassium (3.5-5.1) mmol/L Chloride (98-107) mmol/L Carbon Dioxide (21.0-32.0) mmol/L BUN (7-18) mg/dL Creatinine (0.51-1.17) mg/dL Est Cr Clr Drug Dosing mL/min Estimated GFR (MDRD) mL/min Glucose (74-106) mg/dL POC Glucose 217 H 195 H (65-110) mg/dl Calcium (8.5-10.1) mg/dL Total Bilirubin (0.2-1.0) mg/dL AST (15-37) U/L ALT (12-78) U/L Alkaline Phosphatase (46-116) IU/L C-Reactive Protein (<=0.9) mg/dL Total Protein (6.4-8.2) g/dL Albumin (3.4-5.0) g/dL 05/30/17 05/30/17 05/30/17 Range/Units 07:10 07:15 11:06 WBC (4.0-10.2) K/uL RBC (3.77-5.09) M/uL Hgb (11.7-15.5) g/dL Hct (34.0-46.0) % MCV (84.0-98.0) fL MCH (28.2-33.3) pg MCHC (31.7-36.0) g/dL RDW (11.2-14.1) % Plt Count (150-350) K/uL Neut % (Auto) (45.0-80.0) % Lymph % (Auto) (10.0-50.0) % [place] % (Auto) (2.0-14.0) % Eos % (Auto) (0.0-5.0) % Baso % (Auto) (0.0-2.0) % Neut # (Auto) (1.40-7.00) K/uL Lymph # (Auto) (0.50-3.50) K/uL [place] # (Auto) (0.00-1.00) K/uL Eos # (Auto) (0.00-0.50) K/uL Baso # (Auto) (0.00-0.20) K/uL Sodium 140 (136-145) mmol/L Potassium 3.5 (3.5-5.1) mmol/L Chloride 102 (98-107) mmol/L Carbon Dioxide 33.8 H (21.0-32.0) mmol/L BUN 39 H (7-18) mg/dL Creatinine 1.47 H (0.51-1.17) mg/dL Est Cr Clr Drug Dosing 21.52 mL/min Estimated GFR (MDRD) 34 mL/min Glucose 194 H (74-106) mg/dL POC Glucose 176 H 285 H* (65-110) mg/dl Calcium 8.8 (8.5-10.1) mg/dL Total Bilirubin 0.4 (0.2-1.0) mg/dL AST 13 L (15-37) U/L ALT 20 (12-78) U/L Alkaline Phosphatase 87 (46-116) IU/L C-Reactive Protein 12.4 H (<=0.9) mg/dL Total Protein 6.1 L (6.4-8.2) g/dL Albumin 2.2 L (3.4-5.0) g/dL Med Orders - Current: Current Medications Acetaminophen (Tylenol) 650 mg PO Q4H PRN PRN Reason: Pain (Mild 1-3)/fever Hydrocodone Bitart/Acetaminophen ([place] 325-5 Mg) 1 tab PO Q4H PRN PRN Reason: Pain (moderate 4-6) Last Admin: 05/29/17 07:12 Dose: 1 tab Albuterol (Ventolin Hfa) 1 gm INH Q4HR PRN PRN Reason: Shortness of Breath Albuterol/Ipratropium (Duoneb 3.0-0.5 Mg/3 Ml) 3 ml INH Q4HR PRN PRN Reason: Shortness of Breath Last Admin: 05/30/17 08:17 Dose: 3 ml Amlodipine Besylate (Norvasc) 2.5 mg PO DAILY [facility] Last Admin: 05/30/17 08:23 Dose: 2.5 mg Furosemide (Lasix) 40 mg IVPUSH BIDDIURETIC [facility] Last Admin: 05/30/17 11:26 Dose: 40 mg Vancomycin HCl 1 gm/ Sodium (Chloride) 250 mls @ 165 mls/hr IV Q48H [facility] Last Admin: 05/29/17 13:22 Dose: 165 mls/hr Insulin Aspart (Novolog) 4 unit SUBCUT DAILY@1200 [facility] Last Admin: 05/30/17 11:27 Dose: 4 units Insulin Detemir (Levemir) 26 unit SUBCUT DAILY [facility] Last Admin: 05/30/17 08:19 Dose: 26 units Levothyroxine Sodium (Synthroid) 50 mcg PO ACBREAKFAST [facility] Last Admin: 05/30/17 08:18 Dose: 50 mcg Metoprolol Tartrate (Lopressor) 25 mg PO Q12HR [facility] Last Admin: 05/30/17 08:21 Dose: 25 mg Mometasone Furoate/Formoterol Fumar (Dulera 200-5 Mcg) 2 puff IH BID [facility] Last Admin: 05/30/17 08:19 Dose: 2 puff Multivitamins/Minerals/Vitamin C (Tab-A-Stanley) 1 tab PO DAILY@1200 [facility] Last Admin: 05/30/17 11:28 Dose: 1 tab Mupirocin (Bactroban Oint) 0 gm TOP Q12HR [facility] Last Admin: 05/30/17 08:18 Dose: 1 applic Simvastatin (Zocor) 20 mg PO BEDTIME [facility] Last Admin: 05/29/17 21:11 Dose: 20 mg Sodium Chloride (Saline Flush) 10 ml FLUSH Q12HR [facility] Last Admin: 05/30/17 08:25 Dose: 10 ml Sodium Chloride (Saline Flush) 10 ml FLUSH ASDIRECTED PRN PRN Reason: Keep Vein Open Last Admin: 05/30/17 11:39 Dose: 10 ml Discontinued Medications Enoxaparin Sodium (Lovenox) 30 mg SUBCUT DAILY [facility] Last Admin: 05/21/17 08:05 Dose: 30 mg Furosemide (Lasix) 40 mg IVPUSH DAILY [facility] Last Admin: 05/25/17 07:23 Dose: 40 mg Ampicillin Sodium/Sulbactam (Sodium 3 gm/ Sodium Chloride) 100 mls @ 100 mls/ hr IV Q12H [facility] Stop: 05/28/17 22:01 Last Admin: 05/28/17 21:34 Dose: 100 mls/hr Vancomycin HCl 1 gm/ Sodium (Chloride) 250 mls @ 165 mls/hr IV Q48H [facility] Last Admin: 05/19/17 15:21 Dose: Not Given Methylprednisolone Sodium Succinate (Solu-Medrol) 40 mg IVPUSH ONETIME ONE Stop: 05/30/17 09:01 Last Admin: 05/30/17 10:00 Dose: 40 mg Sodium Chloride (Saline Flush) 10 ml FLUSH ASDIRECTED PRN PRN Reason: Keep Vein Open - Exam Quality Assessment: Supplemental Oxygen General: Alert, Cooperative, No Acute Distress HEENT: Pupils Equal, Pupils Reactive, EOMI, Mucous Membr. Moist/[place] Neck: Trachea Midline, No JVD Lungs: Normal Respiratory Effort, Decreased Breath Sounds Cardiovascular: Regular Rate, Regular Rhythm GI/Abdominal Exam: Soft, Non-Tender, No Distention (Female) Exam: Deferred Back Exam: Normal Inspection Extremities: Non-Tender, Pedal Edema (L>R marked improvement), Joint Swelling ( right elbow swollen, red, hot) Skin: Warm, Dry, Intact, Ecchymosis Wound/Incisions: Healing Well, Drainage (scant), Erythema Improving Neurological: No New Focal Deficit Psy/Mental Status: Alert, Normal Affect, Normal Mood - Problem List & Annotations (1) Wound dehiscence SNOMED Code(s): 613635030 Code(s): T81.30XA - DISRUPTION OF WOUND, UNSPECIFIED, INITIAL ENCOUNTER Status: Acute Priority: High Current Visit: Yes (2) CKD (chronic kidney disease) SNOMED Code(s): 293065210 Code(s): N18.9 - CHRONIC KIDNEY DISEASE, UNSPECIFIED Status: Acute Current Visit: No Qualifiers: Chronic kidney disease stage: unspecified stage Qualified Code(s): N18.9 - Chronic kidney disease, unspecified (3) Cellulitis SNOMED Code(s): 766368383 Code(s): L03.90 - CELLULITIS, UNSPECIFIED Status: Acute Current Visit: No Qualifiers: Site of cellulitis: extremity Site of cellulitis of extremity: lower extremity Laterality: right Qualified Code(s): L03.115 - Cellulitis of right lower limb (4) Congestive heart failure (CHF) SNOMED Code(s): 41625863 Code(s): I50.9 - HEART FAILURE, UNSPECIFIED Status: Acute Current Visit: No Qualifiers: Heart failure type: unspecified Heart failure chronicity: chronic Qualified Code(s): I50.9 - Heart failure, unspecified (5) Diabetes mellitus SNOMED Code(s): 85971535 Code(s): E11.9 - TYPE 2 DIABETES MELLITUS WITHOUT COMPLICATIONS Status: Acute Current Visit: No Qualifiers: Diabetes mellitus type: type 2 Diabetes mellitus complication status: with kidney complications Diabetes mellitus complication detail: with chronic kidney disease Chronic kidney disease stage: unspecified stage (6) Laceration SNOMED Code(s): 868926591 Code(s): ZDY0335 - Status: Acute Priority: High Current Visit: No Onset Date: 05/03/17 Annotation/Comment:: Excellent results with laceration repair. DTaP given. Activity restrictions and wound care were extensively discussed with the patient and her . The patient was placed in a knee immobilizer. Some delay in laceration repair without sequelae secondary to multiple patients in the emergency room (7) Multiple contusions SNOMED Code(s): 345163049 Code(s): T07.XXXA - UNSPECIFIED MULTIPLE INJURIES, INITIAL ENCOUNTER Status : Acute Priority: High Current Visit: No Onset Date: 05/03/17 Annotation /Comment:: Otherwise multiple minor contusions as above. Symptomatically as per discharge instructions (8) Posttraumatic wound infection SNOMED Code(s): 114427655 Code(s): T14.8XXA - OTHER INJURY OF UNSPECIFIED BODY REGION, INITIAL ENCOUNTER; L08.9 - LOCAL INFECTION OF THE SKIN AND SUBCUTANEOUS TISSUE, UNSP Status: Acute Priority: High Current Visit: No (9) COPD (chronic obstructive pulmonary disease) SNOMED Code(s): 77371370 Code(s): J44.9 - CHRONIC OBSTRUCTIVE PULMONARY DISEASE, UNSPECIFIED Status : Chronic Priority: Medium Current Visit: No Qualifiers: COPD type: emphysema Emphysema type: panlobular Qualified Code(s): J43.1 - Panlobular emphysema (10) Coronary artery disease SNOMED Code(s): 97506082 Code(s): I25.10 - ATHSCL HEART DISEASE OF [place] CORONARY ARTERY W/O ANG PCTRS Status: Chronic Priority: Medium Current Visit: No Qualifiers: Coronary Disease-Associated Artery/Lesion type: [place] artery [place] vs. transplanted heart: [place] heart Associated angina: without angina Qualified Code(s): I25.10 - Atherosclerotic heart disease of [place] coronary artery without angina pectoris Annotation/Comment:: Stable by history with no recent chest pain or anginal type symptoms (11) Hypertension SNOMED Code(s): 15949425 Code(s): I10 - ESSENTIAL (PRIMARY) HYPERTENSION Status: Chronic Priority : Medium Current Visit: No Qualifiers: Hypertension type: essential hypertension Qualified Code(s): I10 - Essential (primary) hypertension Annotation/Comment:: Her blood pressures were somewhat elevated during emergency room care. Continue to observe closely by regular providers (12) IDDM (insulin dependent diabetes mellitus) SNOMED Code(s): 61466156 Code(s): E11.9 - TYPE 2 DIABETES MELLITUS WITHOUT COMPLICATIONS; Z79.4 - SENIOR LIVING (CURRENT) USE OF INSULIN Status: Chronic Priority: Medium Current Visit: No Annotation/Comment:: Stable by patient history with history of diabetic neuropathy (13) Osteoarthritis SNOMED Code(s): 662514826 Code(s): M19.90 - UNSPECIFIED OSTEOARTHRITIS, UNSPECIFIED SITE Status: Chronic Priority: Medium Current Visit: No Qualifiers: Osteoarthritis location: multiple joints Osteoarthritis type: primary Qualified Code(s): M15.0 - Primary generalized (osteo)arthritis Annotation/Comment:: Otherwise stable by history (14) Palliative care patient SNOMED Code(s): 030169585 Code(s): Z51.5 - ENCOUNTER FOR PALLIATIVE CARE Status: Acute Priority: High Current Visit: Yes (15) Comfort measures only status SNOMED Code(s): 31018132734969 Code(s): Z51.5 - ENCOUNTER FOR PALLIATIVE CARE Status: Acute Priority: High Current Visit: Yes (16) Olecranon bursitis, right elbow SNOMED Code(s): 088774967 Code(s): M70.21 - OLECRANON BURSITIS, RIGHT ELBOW Status: Acute Priority : High Current Visit: Yes - Problem List Review Problem List Initiated/Reviewed/Updated: Yes - My Orders Last 24 Hours: My Active Orders 05/30/17 09:00 Chest 2V [CR] Routine 05/30/17 15:07 Central Line PICC Discontinue [OM.PC] Routine 05/30/17 15:23 Ready for Discharge [RC] PER UNIT ROUTINE - Plan Plan:: 05/18/17 Rosie Quintana MD Leg edema, right wound improving. Stable for transfer into swing bed for continued IV antibiotics, IV lasix, PT-OT. 05/26/2017 Patient is getting stronger, still receiving IV antibiotics due to cellulitis in the right leg. Right leg is still red and swollen, incision site on right knee debrided the eschar area with scalpel at the bedside. Patient tolerated well, nurse redressed the right knee incision area. Patient continues to need swingbed for IV antibiotics. Kalee Edwards,ENVIRONMENTAL EMERGENCIES ASSISTANT 05/29/17 Rosie Quintana MD Wound right knee healing well. Edges laterally at both ends still not approximated but healing. No drainage at this time. Healed well in the middle of wound. Receiving IV vancomycin at this time. Discharge plans discussed including discussion on home health and options. 05/30/17 Rosie Quintana MD Last night developed red hot swollen right elbow-- over the olecranon. IV solumedrol and elbow swelling redness warmth is already slightly improved. She denies pain. Also O2 sats 88% on RA did increase to ~95% on her oxygen. Right knee continues to heal. She has home oxygen set up for her known emphysema. She does want to go home. Will treat right olecranon bursitis with oral prednisone.
--- NOTE | 2017-05-30 15:36 | PCM.DCSUM1 ---
Discharge Summary - Discharge Data Discharge Date: 05/30/17 Discharge Disposition: Home, W Home Health Agency 06 Condition: Good - Discharge Diagnosis/Problem(s) (1) Wound dehiscence SNOMED Code(s): 097460459 ICD Code: T81.30XA - DISRUPTION OF WOUND, UNSPECIFIED, INITIAL ENCOUNTER Status: Acute Priority: High Current Visit: Yes (2) CKD (chronic kidney disease) SNOMED Code(s): 945138946 ICD Code: N18.9 - CHRONIC KIDNEY DISEASE, UNSPECIFIED Status: Acute Current Visit: No Qualifiers: Chronic kidney disease stage: unspecified stage Qualified Code(s): N18.9 - Chronic kidney disease, unspecified (3) Cellulitis SNOMED Code(s): 152237766 ICD Code: L03.90 - CELLULITIS, UNSPECIFIED Status: Acute Current Visit: No Qualifiers: Site of cellulitis: extremity Site of cellulitis of extremity: lower extremity Laterality: right Qualified Code(s): L03.115 - Cellulitis of right lower limb (4) Congestive heart failure (CHF) SNOMED Code(s): 80484795 ICD Code: I50.9 - HEART FAILURE, UNSPECIFIED Status: Acute Current Visit : No Qualifiers: Heart failure type: unspecified Heart failure chronicity: chronic Qualified Code(s): I50.9 - Heart failure, unspecified (5) Diabetes mellitus SNOMED Code(s): 16161155 ICD Code: E11.9 - TYPE 2 DIABETES MELLITUS WITHOUT COMPLICATIONS Status: Acute Current Visit: No Qualifiers: Diabetes mellitus type: type 2 Diabetes mellitus complication status: with kidney complications Diabetes mellitus complication detail: with chronic kidney disease Chronic kidney disease stage: unspecified stage (6) Laceration SNOMED Code(s): 629233518 ICD Code: [id number] - Status: Acute Priority: High Current Visit: No Onset Date: 05/03/17 Problem Details: Excellent results with laceration repair. DTaP given. Activity restrictions and wound care were extensively discussed with the patient and her . The patient was placed in a knee immobilizer. Some delay in laceration repair without sequelae secondary to multiple patients in the emergency room (7) Multiple contusions SNOMED Code(s): 026426415 ICD Code: T07.XXXA - UNSPECIFIED MULTIPLE INJURIES, INITIAL ENCOUNTER Status: Acute Priority: High Current Visit: No Onset Date: 05/03/17 Problem Details: Otherwise multiple minor contusions as above. Symptomatically as per discharge instructions (8) Posttraumatic wound infection SNOMED Code(s): 885568723 ICD Code: T14.8XXA - OTHER INJURY OF UNSPECIFIED BODY REGION, INITIAL ENCOUNTER; L08.9 - LOCAL INFECTION OF THE SKIN AND SUBCUTANEOUS TISSUE, UNSP Status: Acute Priority: High Current Visit: No (9) COPD (chronic obstructive pulmonary disease) SNOMED Code(s): 09728421 ICD Code: J44.9 - CHRONIC OBSTRUCTIVE PULMONARY DISEASE, UNSPECIFIED Status : Chronic Priority: Medium Current Visit: No Qualifiers: COPD type: emphysema Emphysema type: panlobular Qualified Code(s): J43.1 - Panlobular emphysema (10) Coronary artery disease SNOMED Code(s): 91263339 ICD Code: I25.10 - ATHSCL HEART DISEASE OF [place] CORONARY ARTERY W/O ANG PCTRS Status: Chronic Priority: Medium Current Visit: No Problem Details : Stable by history with no recent chest pain or anginal type symptoms Qualifiers: Coronary Disease-Associated Artery/Lesion type: [place] artery [place] vs. transplanted heart: [place] heart Associated angina: without angina Qualified Code(s): I25.10 - Atherosclerotic heart disease of [place] coronary artery without angina pectoris (11) Hypertension SNOMED Code(s): 46035227 ICD Code: I10 - ESSENTIAL (PRIMARY) HYPERTENSION Status: Chronic Priority : Medium Current Visit: No Problem Details: Her blood pressures were somewhat elevated during emergency room care. Continue to observe closely by regular providers Qualifiers: Hypertension type: essential hypertension Qualified Code(s): I10 - Essential (primary) hypertension (12) IDDM (insulin dependent diabetes mellitus) SNOMED Code(s): 81475595 ICD Code: E11.9 - TYPE 2 DIABETES MELLITUS WITHOUT COMPLICATIONS; Z79.4 - BOTTOM BLEACHER (CURRENT) USE OF INSULIN Status: Chronic Priority: Medium Current Visit: No Problem Details: Stable by patient history with history of diabetic neuropathy (13) Osteoarthritis SNOMED Code(s): 514921718 ICD Code: M19.90 - UNSPECIFIED OSTEOARTHRITIS, UNSPECIFIED SITE Status: Chronic Priority: Medium Current Visit: No Problem Details: Otherwise stable by history Qualifiers: Osteoarthritis location: multiple joints Osteoarthritis type: primary Qualified Code(s): M15.0 - Primary generalized (osteo)arthritis (14) Palliative care patient SNOMED Code(s): 700583399 ICD Code: Z51.5 - ENCOUNTER FOR PALLIATIVE CARE Status: Acute Priority: High Current Visit: Yes (15) Comfort measures only status SNOMED Code(s): 58999694962870 ICD Code: Z51.5 - ENCOUNTER FOR PALLIATIVE CARE Status: Acute Priority: High Current Visit: Yes (16) Olecranon bursitis, right elbow SNOMED Code(s): 873367502 ICD Code: M70.21 - OLECRANON BURSITIS, RIGHT ELBOW Status: Acute Priority : High Current Visit: Yes (17) Hypothyroidism SNOMED Code(s): 29711736 ICD Code: E03.9 - HYPOTHYROIDISM, UNSPECIFIED Status: Acute Priority: High Current Visit: Yes Qualifiers: Hypothyroidism type: acquired Qualified Code(s): E03.9 - Hypothyroidism, unspecified - Patient Summary/Data Consults: Consultations 05/18/17 13:34 Consult to Case Management [CONS] Routine PT Evaluation and Treatment [CONS] Routine Pharmacy Consult [Consult to Pharmacy] [CONS] Routine 05/18/17 13:42 Consult to Occupational Therapy [OT Evaluation and Treatment] [CONS] Routine - Patient Instructions Diet: Diabetic Diet Activity: As Tolerated Driving: Do Not Drive Showering/Bathing: May Shower Wound/Incision Care: Change Dressing Daily (Home health nurse will change dressing daily.) Notify Provider of: Fever, Increased Pain, Swelling and Redness, Drainage Other/Special Instructions: Use home O2 as you have been doing. Follow up at [facility] as needed. You will need a TSH blood test in 2-3 months. - Discharge Plan Prescriptions/Med Rec: Bumetanide [Bumex] 1 mg PO BID@0800,1200 #180 tab Levothyroxine [Synthroid] 50 mcg PO ACBREAKFAST #90 tablet Mupirocin Oint [Bactroban Oint] 1 serving TOP DAILY #1 tube Prednisone [IJD: predniSONE] 20 mg PO WITHBREAKFAST #5 tab Home Medications: Home Meds Albuterol/Ipratropium [DuoNeb 3.0-0.5 MG/3 ML] 1 applic INH Q4HR PRN 05/03/17 [ History] Budesonide/Formoterol Fumarate [Symbicort 160-4.5 Mcg Inhaler] 2 puff IH BID [History] Fish Oil/[place]-3 Fatty Acids [Fish Oil 1,000 MG] 1 gm PO DAILY 05/03/17 [History ] Insulin Detemir [Levemir] 26 unit SUBCUT DAILY 05/03/17 [History] Metoprolol Tartrate 25 mg PO BID 05/03/17 [History] Multivit, Iron, Min #5, Fa [Strovite Forte Caplet] 1 each PO DAILY 05/03/17 [ History] Simvastatin 20 mg PO BEDTIME 05/03/17 [History] amLODIPine [Norvasc] 5 mg PO DAILY 05/03/17 [History] Albuterol [Proventil HFA] 1 - 2 puff INH Q4HR PRN 05/14/17 [History] Bumetanide [Bumex] 1 mg PO BID@0800,1200 #180 tab 05/30/17 [Rx] Levothyroxine [Synthroid] 50 mcg PO ACBREAKFAST #90 tablet 05/30/17 [Rx] Mupirocin Oint [Bactroban Oint] 1 serving TOP DAILY #1 tube 05/30/17 [Rx] Prednisone [IJD: predniSONE] 20 mg PO WITHBREAKFAST #5 tab 05/30/17 [Rx] - Discharge Summary/Plan Comment DC Time >30 min.: No - Patient Data Vitals - Most Recent: Last Vital Signs Temp 98.7 F 05/30/17 08:00 Pulse 97 05/30/17 08:21 Resp 16 05/30/17 08:00 BP 124/68 05/30/17 08:23 Pulse Ox 90 L 05/30/17 08:00 Weight - Most Recent: 144 lb I&O - Last 24 hours: Intake & Output 05/30/17 05/30/17 05/30/17 06:59 14:59 22:59 Intake Total 100 840 Output Total 200 800 Balance -100 40 Lab Results - Last 24 hrs: Laboratory Results - last 24 hr 05/29/17 05/29/17 05/30/17 Range/Units 16:33 23:59 07:10 WBC 10.7 H (4.0-10.2) K/uL RBC 3.28 L (3.77-5.09) M/uL Hgb 9.8 L (11.7-15.5) g/dL Hct 31.8 L (34.0-46.0) % MCV 97.0 (84.0-98.0) fL MCH 29.9 (28.2-33.3) pg MCHC 30.8 L (31.7-36.0) g/dL RDW 14.9 H (11.2-14.1) % Plt Count 328 (150-350) K/uL Neut % (Auto) 73.4 (45.0-80.0) % Lymph % (Auto) 12.6 (10.0-50.0) % Jack % (Auto) 12.5 (2.0-14.0) % Eos % (Auto) 0.6 (0.0-5.0) % Baso % (Auto) 0.9 (0.0-2.0) % Neut # (Auto) 7.82 H (1.40-7.00) K/uL Lymph # (Auto) 1.34 (0.50-3.50) K/uL Jack # (Auto) 1.33 H (0.00-1.00) K/uL Eos # (Auto) 0.06 (0.00-0.50) K/uL Baso # (Auto) 0.10 (0.00-0.20) K/uL Sodium (136-145) mmol/L Potassium (3.5-5.1) mmol/L Chloride (98-107) mmol/L Carbon Dioxide (21.0-32.0) mmol/L BUN (7-18) mg/dL Creatinine (0.51-1.17) mg/dL Est Cr Clr Drug Dosing mL/min Estimated GFR (MDRD) mL/min Glucose (74-106) mg/dL POC Glucose 217 H 195 H (65-110) mg/dl Calcium (8.5-10.1) mg/dL Total Bilirubin (0.2-1.0) mg/dL AST (15-37) U/L ALT (12-78) U/L Alkaline Phosphatase (46-116) IU/L C-Reactive Protein (<=0.9) mg/dL Total Protein (6.4-8.2) g/dL Albumin (3.4-5.0) g/dL 05/30/17 05/30/17 05/30/17 Range/Units 07:10 07:15 11:06 WBC (4.0-10.2) K/uL RBC (3.77-5.09) M/uL Hgb (11.7-15.5) g/dL Hct (34.0-46.0) % MCV (84.0-98.0) fL MCH (28.2-33.3) pg MCHC (31.7-36.0) g/dL RDW (11.2-14.1) % Plt Count (150-350) K/uL Neut % (Auto) (45.0-80.0) % Lymph % (Auto) (10.0-50.0) % Jack % (Auto) (2.0-14.0) % Eos % (Auto) (0.0-5.0) % Baso % (Auto) (0.0-2.0) % Neut # (Auto) (1.40-7.00) K/uL Lymph # (Auto) (0.50-3.50) K/uL Jack # (Auto) (0.00-1.00) K/uL Eos # (Auto) (0.00-0.50) K/uL Baso # (Auto) (0.00-0.20) K/uL Sodium 140 (136-145) mmol/L Potassium 3.5 (3.5-5.1) mmol/L Chloride 102 (98-107) mmol/L Carbon Dioxide 33.8 H (21.0-32.0) mmol/L BUN 39 H (7-18) mg/dL Creatinine 1.47 H (0.51-1.17) mg/dL Est Cr Clr Drug Dosing 21.52 mL/min Estimated GFR (MDRD) 34 mL/min Glucose 194 H (74-106) mg/dL POC Glucose 176 H 285 H* (65-110) mg/dl Calcium 8.8 (8.5-10.1) mg/dL Total Bilirubin 0.4 (0.2-1.0) mg/dL AST 13 L (15-37) U/L ALT 20 (12-78) U/L Alkaline Phosphatase 87 (46-116) IU/L C-Reactive Protein 12.4 H (<=0.9) mg/dL Total Protein 6.1 L (6.4-8.2) g/dL Albumin 2.2 L (3.4-5.0) g/dL Med Orders - Current: Current Medications Acetaminophen (Tylenol) 650 mg PO Q4H PRN PRN Reason: Pain (Mild 1-3)/fever Hydrocodone Bitart/Acetaminophen ([place] 325-5 Mg) 1 tab PO Q4H PRN PRN Reason: Pain (moderate 4-6) Last Admin: 05/29/17 07:12 Dose: 1 tab Albuterol (Ventolin Hfa) 1 gm INH Q4HR PRN PRN Reason: Shortness of Breath Albuterol/Ipratropium (Duoneb 3.0-0.5 Mg/3 Ml) 3 ml INH Q4HR PRN PRN Reason: Shortness of Breath Last Admin: 05/30/17 08:17 Dose: 3 ml Amlodipine Besylate (Norvasc) 2.5 mg PO DAILY [facility] Last Admin: 05/30/17 08:23 Dose: 2.5 mg Furosemide (Lasix) 40 mg IVPUSH BIDDIURETIC [facility] Last Admin: 05/30/17 11:26 Dose: 40 mg Vancomycin HCl 1 gm/ Sodium (Chloride) 250 mls @ 165 mls/hr IV Q48H [facility] Last Admin: 05/29/17 13:22 Dose: 165 mls/hr Insulin Aspart (Novolog) 4 unit SUBCUT DAILY@1200 [facility] Last Admin: 05/30/17 11:27 Dose: 4 units Insulin Detemir (Levemir) 26 unit SUBCUT DAILY [facility] Last Admin: 05/30/17 08:19 Dose: 26 units Levothyroxine Sodium (Synthroid) 50 mcg PO ACBREAKFAST [facility] Last Admin: 05/30/17 08:18 Dose: 50 mcg Metoprolol Tartrate (Lopressor) 25 mg PO Q12HR [facility] Last Admin: 05/30/17 08:21 Dose: 25 mg Mometasone Furoate/Formoterol Fumar (Dulera 200-5 Mcg) 2 puff IH BID [facility] Last Admin: 05/30/17 08:19 Dose: 2 puff Multivitamins/Minerals/Vitamin C (Tab-A-Stan[place]) 1 tab PO DAILY@1200 [facility] Last Admin: 05/30/17 11:28 Dose: 1 tab Mupirocin (Bactroban Oint) 0 gm TOP Q12HR [facility] Last Admin: 05/30/17 08:18 Dose: 1 applic Simvastatin (Zocor) 20 mg PO BEDTIME [facility] Last Admin: 05/29/17 21:11 Dose: 20 mg Sodium Chloride (Saline Flush) 10 ml FLUSH Q12HR [facility] Last Admin: 05/30/17 08:25 Dose: 10 ml Sodium Chloride (Saline Flush) 10 ml FLUSH ASDIRECTED PRN PRN Reason: Keep Vein Open Last Admin: 05/30/17 11:39 Dose: 10 ml Discontinued Medications Enoxaparin Sodium (Lovenox) 30 mg SUBCUT DAILY [facility] Last Admin: 05/21/17 08:05 Dose: 30 mg Furosemide (Lasix) 40 mg IVPUSH DAILY [facility] Last Admin: 05/25/17 07:23 Dose: 40 mg Ampicillin Sodium/Sulbactam (Sodium 3 gm/ Sodium Chloride) 100 mls @ 100 mls/ hr IV Q12H [facility] Stop: 05/28/17 22:01 Last Admin: 05/28/17 21:34 Dose: 100 mls/hr Vancomycin HCl 1 gm/ Sodium (Chloride) 250 mls @ 165 mls/hr IV Q48H [facility] Last Admin: 05/19/17 15:21 Dose: Not Given Methylprednisolone Sodium Succinate (Solu-Medrol) 40 mg IVPUSH ONETIME ONE Stop: 05/30/17 09:01 Last Admin: 05/30/17 10:00 Dose: 40 mg Sodium Chloride (Saline Flush) 10 ml FLUSH ASDIRECTED PRN PRN Reason: Keep Vein Open *Q Meaningful Use (DIS) - VTE *Q VTE Mechanical Contraindications *Q: Bilateral Lower Edema
== END 2017-05-30 16:54 | disposition home health service (06) | DRG 863 ==
LOC: EDSTATUS 14:21 → LL.MS 14:36
PROVIDERS: ADMIT Family Medicine; ATTEND Family Medicine
DX: T81.4XXA Infection following a procedure, initial encounter (principal); L03.115 Cellulitis of right lower limb; I42.9 Cardiomyopathy, unspecified; I13.0 Hypertensive heart and chronic kidney disease with heart failure and stage 1 through stage 4 chronic kidney disease, or unspecified chronic kidney disease; T81.30XA Disruption of wound, unspecified, initial encounter; Y83.8 Other surgical procedures as the cause of abnormal reaction of the patient, or of later complication, without mention of misadventure at the time of the procedure; Z51.5 Encounter for palliative care; R53.1 Weakness; I25.10 Atherosclerotic heart disease of native coronary artery without angina pectoris; I50.9 Heart failure, unspecified; E78.00 Pure hypercholesterolemia, unspecified; J84.10 Pulmonary fibrosis, unspecified; E11.42 Type 2 diabetes mellitus with diabetic polyneuropathy; E11.22 Type 2 diabetes mellitus with diabetic chronic kidney disease; N18.9 Chronic kidney disease, unspecified; M15.9 Polyosteoarthritis, unspecified; M70.21 Olecranon bursitis, right elbow; E03.9 Hypothyroidism, unspecified; T14.8XXA Other injury of unspecified body region, initial encounter; J43.1 Panlobular emphysema; G89.29 Other chronic pain; M81.0 Age-related osteoporosis without current pathological fracture; M54.2 Cervicalgia; M41.9 Scoliosis, unspecified; H91.90 Unspecified hearing loss, unspecified ear; H54.7 Unspecified visual loss; H91.13 Presbycusis, bilateral; Z79.4 Long term (current) use of insulin; Z88.2 Allergy status to sulfonamides; Z88.8 Allergy status to other drugs, medicaments and biological substances; Z79.899 Other long term (current) drug therapy; Z79.52 Long term (current) use of systemic steroids
CPT/HCPCS: 36415; 71046; 80048; 80053; 80202; 82962; 83036; 83735; 85025; 85610; 85730; 86140; 94640; 94664; 97110-GO; 97110-GP; 97116-GP; 97161-GP; 97165-GO; 97530-GO; 97530-GP; A9270-GY; J0295; J1650; J1815-GY; J1940; J2920; J3370; J7050

== ENCOUNTER 2017-11-10 10:55 | Emergency (ER) | payer MEDICARE, OTHER ==
--- NOTE | 2017-11-10 11:24 | EDM.PDOC ---
ED HPI GENERAL MEDICAL PROBLEM - General Chief Complaint: General Stated Complaint: Confusion, Hypertension Time Seen by Provider: 11/10/17 11:00 Source of Information: Reports: EMS Notes Reviewed History Limitations: Reports: No Limitations - History of Present Illness INITIAL COMMENTS - FREE TEXT/NARRATIVE: Patient is a 82-year-old female who was brought from home secondary to patient being confused and disoriented at home on arrival the paramedics did check her blood glucose which was 56 at that time they gave her bread with peanut butter on arrival her blood sugar had improved to 60 patient was alert and oriented to time and place. Onset: Today, Sudden Duration: Hour(s):, Improving Location: Reports: Generalized Severity: Mild Improves with: Reports: Eating Worsens with: Reports: None Context: Reports: Other (Hypoglycemia) Associated Symptoms: Reports: Confusion Treatments FRAME BANDER: Reports: Home Treatments (Patient ate peanut butter sandwich) - Related Data Allergies Allergy/AdvReac Type Severity Reaction Status Date / Time MARCOS Inhibitors Allergy Unknown unknown Verified 05/14/17 12:41 budesonide [From Pulmicort] Allergy Unknown unknown Verified 05/14/17 12:41 gabapentin Allergy Unknown Diarrhea Verified 05/14/17 12:41 Sulfa (Sulfonamide Allergy Unknown unknown Verified 05/14/17 12:41 Antibiotics) ketorolac [From Toradol] Allergy Rash Verified 05/14/17 12:41 Home Meds: Home Meds Albuterol/Ipratropium [DuoNeb 3.0-0.5 MG/3 ML] 1 applic INH Q4HR PRN 05/03/17 [ History] Budesonide/Formoterol Fumarate [Symbicort 160-4.5 Mcg Inhaler] 2 puff IH BID [History] Fish Oil/[place]-3 Fatty Acids [Fish Oil 1,000 MG] 1 gm PO DAILY 05/03/17 [History ] Insulin Detemir [Levemir] 26 unit SUBCUT DAILY 05/03/17 [History] Metoprolol Tartrate 25 mg PO BID 05/03/17 [History] Multivit,Iron,Min 5/Folic Acid [Strovite Forte Caplet] 1 each PO DAILY 05/03/17 [History] Simvastatin 20 mg PO BEDTIME 05/03/17 [History] amLODIPine [Norvasc] 5 mg PO DAILY 05/03/17 [History] Albuterol [Proventil HFA] 1 - 2 puff INH Q4HR PRN 05/14/17 [History] Bumetanide [Bumex] 1 mg PO BID@0800,1200 #180 tab 05/30/17 [Rx] Levothyroxine [Synthroid] 50 mcg PO ACBREAKFAST #90 tablet 05/30/17 [Rx] Mupirocin Oint [Bactroban Oint] 1 serving TOP DAILY #1 tube 05/30/17 [Rx] Prednisone [IJD: predniSONE] 20 mg PO WITHBREAKFAST #5 tab 05/30/17 [Rx] Past Medical History HEENT History: Reports: Hard of Hearing, Impaired Vision, Other (See Below) Other HEENT History: Patient wears glasses. Mild bilateral presbycusis Cardiovascular History: Reports: CAD, Cardiomyopathy, Heart Failure, High Cholesterol, Hypertension, PVD, Other (See Below) Other Cardiovascular History: Cardiomegaly by chest x-ray with history of CHF and chronic dependent edema Respiratory History: Reports: COPD, Pulmonary Fibrosis Musculoskeletal History: Reports: Back Pain, Chronic, Fracture, Neck Pain, Chronic, Osteoarthritis, Osteoporosis, Other (See Below) Other Musculoskeletal History: Scoliosis with history of vertebral body compression fractures Neurological History: Reports: Neuropathy, Diabetic, Neuropathy, Peripheral Endocrine/Metabolic History: Reports: Diabetes, Type II, IDDM - Past Surgical History Other HEENT Surgeries/Procedures: cataract surgery, both eyes Other Musculoskeletal Surgeries/Procedures:: denies surgical history - Past Imaging History Past Imaging History: Reports: MRI (Lumbar spine on 11/04/13) Social & Family History - Caffeine Use Caffeine Use: Reports: Coffee - Living Situation & Occupation Living situation: Reports: , with Family Occupation: Retired (Retired [employer] ) ED ROS GENERAL - Review of Systems Review Of Systems: ROS reveals no pertinent complaints other than HPI. ED EXAM, GENERAL - Physical Exam Exam: See Below Exam Limited By: No Limitations General Appearance: Alert, WD/WN, No Apparent Distress Ears: Normal External Exam, Normal Canal, Hearing Grossly Normal, Normal TMs Ear Exam: Bilateral Ear: Auricle Normal, Canal Normal, TM normal Nose: Normal Inspection, Normal Mucosa, No Blood Throat/Mouth: Normal Inspection, Normal Lips, Normal Teeth, Normal Gums, Normal Oropharynx, Normal Voice, No Airway Compromise Head: Atraumatic, Normocephalic Neck: Normal Inspection, Supple, Non-Tender, Full Range of Motion Respiratory/Chest: No Respiratory Distress, Lungs Clear, Normal Breath Sounds, No Accessory Muscle Use, Chest Non-Tender Cardiovascular: Normal Peripheral Pulses, Regular Rate, Rhythm, No Edema, No Gallop, No JVD, No Murmur, No Rub GI/Abdominal: Normal Bowel Sounds, Soft, Non-Tender, No Organomegaly, No Distention, No Abnormal Bruit, No Mass (Female) Exam: Deferred Rectal (Female) Exam: Deferred Extremities: Normal Inspection, Normal Range of Motion, Non-Tender, No Pedal Edema, Normal Capillary Refill, Other (Bilateral hand tremors) Neurological: Other ( upper extremity tremors) Course - Orders/Labs/Meds Orders: Active Orders 24 hr Category Date Time Status CBC WITH AUTO DIFF [HEME] Stat Lab 11/10/17 11:17 Ordered CMP [COMPREHENSIVE METABOLIC PN,CMP] [CHEM] Stat Lab 11/10/17 11:17 Ordered Departure - Departure Time of Disposition: 11:56 Disposition: Home, Self-Care 01 Condition: Good Clinical Impression: Hypoglycemia - Discharge Information Referrals: Kalee Edwards SOAP WORKER [Primary Care Provider] - Care Plan Goals: Patient will be sent home she is to monitor her blood sugar twice a day reduce her Levemir at night to 20 units at at bedtime follow-up with primary as needed - My Orders Last 24 Hours: My Active Orders 11/10/17 11:17 CBC WITH AUTO DIFF [HEME] Stat CMP [COMPREHENSIVE METABOLIC PN,CMP] [CHEM] Stat - Assessment/Plan Last 24 Hours: My Active Orders 11/10/17 11:17 CBC WITH AUTO DIFF [HEME] Stat CMP [COMPREHENSIVE METABOLIC PN,CMP] [CHEM] Stat
[2017-11-10] MEDS ORDERED: Sodium Chloride 0.9% 10 ML Syringe FLUSH PRN (11:26)
[2017-11-10 11:43] LABS: CHLORIDE,CL 105 mmol/L (98-107); SODIUM,NA 145 mmol/L (136-145)
== END 2017-11-10 12:15 | disposition home or self-care (01) ==
LOC: LL.ED 10:55
DX: E11.649 Type 2 diabetes mellitus with hypoglycemia without coma (principal); E11.40 Type 2 diabetes mellitus with diabetic neuropathy, unspecified; I11.0 Hypertensive heart disease with heart failure; I50.9 Heart failure, unspecified; Z88.2 Allergy status to sulfonamides; Z79.4 Long term (current) use of insulin; Z79.899 Other long term (current) drug therapy; Z88.8 Allergy status to other drugs, medicaments and biological substances
CPT/HCPCS: 36000; 36415; 80053; 85025; 99283; 99285

== ENCOUNTER 2018-11-06 09:55 | Emergency (ER) | payer MEDICARE, OTHER ==
--- NOTE | 2018-11-06 10:12 | EDM.PDOC ---
ED HPI GENERAL MEDICAL PROBLEM - General Chief Complaint: General Stated Complaint: dizzy, SOB, lightheaded Time Seen by Provider: 11/06/18 10:10 Source of Information: Reports: Patient, EMS, Old Records ([facility] chart/EMR). Denies: EMS Notes Reviewed (Not available at dictation) History Limitations: Reports: No Limitations - History of Present Illness INITIAL COMMENTS - FREE TEXT/NARRATIVE: The patient was brought to the emergency room via ambulance with transcriptionist accompaniment for evaluation of sudden onset dyspnea and dizziness at about 09: 12 AM with no treatment in route. No history of fall, injury, etc. with a.m. Accu-Cheks of 89 mg percent at the [facility] today. The patient has been having problems with extremely labile blood sugars during the last 3-4 weeks with recent decrease of her NovoLog therapy secondary to recent hypoglycemic episode. She did have breakfast and take her morning medications today. The patient denies any chest pain/pressure, heart flutter, orthostasis, orthopnea, diaphoresis, paresthesias, recent decreased exercise tolerance, or any other anginal-type symptoms. No recent history of abdominal pain, heartburn, nausea, diarrhea, melena, gross hematochezia, or any food intolerance, including fatty foods, etc.. She denies gross hematuria, colic, or other UTI symptoms. The patient also denies any recent fever, cough, wheezing, etc.. No history of recent headaches, visual changes, diplopia, change in mental status, or other change in neurological status. She denies any current pain or discomfort. Onset: Today, Sudden Onset Date: 11/06/18 Onset Time: 09:12 Duration: Constant Location: Reports: Other (No pain) Quality: Reports: Same as Previous Episode Severity: Moderate Improves with: Reports: None Worsens with: Reports: None Context: Reports: Other (As above). Denies: Sick Contact, Trauma Associated Symptoms: Reports: Shortness of Breath. Denies: Confusion, Chest Pain, Cough, Diaphoresis, Fever/Chills, Headaches, Loss of Appetite, Malaise, Nausea/Vomiting, Rash, Seizure, Syncope, Weakness Treatments DIRECTOR HEDIS: Reports: Other (see below) (None) - Related Data Allergies Allergy/AdvReac Type Severity Reaction Status Date / Time MARCOS Inhibitors Allergy Unknown unknown Verified 11/06/18 10:16 budesonide [From Pulmicort] Allergy Unknown unknown Verified 11/06/18 10:16 gabapentin Allergy Unknown Diarrhea Verified 11/06/18 10:16 Sulfa (Sulfonamide Allergy Unknown unknown Verified 11/06/18 10:16 Antibiotics) ketorolac [From Toradol] Allergy Rash Verified 11/06/18 10:16 Home Meds: Home Meds Albuterol/Ipratropium [DuoNeb 3.0-0.5 MG/3 ML] 1 applic INH Q4HR PRN 05/03/17 [ History] Budesonide/Formoterol Fumarate [Symbicort 160-4.5 Mcg Inhaler] 2 puff IH BID [History] Fish Oil/[place]-3 Fatty Acids [Fish Oil 1,000 MG] 1 gm PO DAILY 05/03/17 [History ] Metoprolol Tartrate 25 mg PO BID 05/03/17 [History] Simvastatin 20 mg PO BEDTIME 05/03/17 [History] amLODIPine [Norvasc] 5 mg PO DAILY 05/03/17 [History] Albuterol [Proventil HFA] 1 - 2 puff INH Q4HR PRN 05/14/17 [History] Albuterol/Ipratropium [DuoNeb 3.0-0.5 MG/3 ML] 3 ml INH QID 11/06/18 [History] Bumetanide [Bumex] 0.5 mg PO DAILY@12 11/06/18 [History] Bumetanide [Bumex] 1 mg PO DAILY 11/06/18 [History] Insulin Aspart [NovoLOG] 5 unit SQ DAILY@ #1 vial 11/06/18 [Rx] Insulin Detemir [Levemir] 20 unit SUBCUT DAILY #1 pen 11/06/18 [Rx] Levothyroxine Sodium [Synthroid] 75 mcg PO ACBREAKFAST #30 tab 11/06/18 [Rx] Multivitamin [Multi-Day Vitamins] 1 each PO DAILY 11/06/18 [History] Polymyxin B/Trimethoprim [PolyTrim Ophth Soln] 1 drop EYELF BID 11/06/18 [ History] Past Medical History HEENT History: Reports: Cataract, Hard of Hearing, Impaired Vision, Other (See Below). Denies: Allergic Rhinitis, Glaucoma, Macular Degeneration, Otitis Media , Sinusitis Other HEENT History: Patient wears glasses. Mild bilateral presbycusis with no current therapy. Recurrent nasal polyps requiring surgery as below. Cardiovascular History: Reports: CAD, Cardiomyopathy, Heart Failure, High Cholesterol, Hypertension, PVD, Other (See Below). Denies: Afib, Aneurysm, Arrhythmia, Blood Clots/VTE/DVT, IN, PTCA, Syncope Other Cardiovascular History: Cardiomegaly by chest x-ray with history of CHF and chronic dependent edema. Dyslipidemia. Aortic Valve calcification. Borderline left ventricular enlargement/hypertrophy. Respiratory History: Reports: Bronchitis, Recurrent, COPD, Intubation, Previous , Pneumonia, Recurrent, Pulmonary Fibrosis. Denies: Asthma, Intubation, Difficult, PE, Pneumothorax, Sleep Apnea Gastrointestinal History: Reports: Diverticulosis. Denies: Celiac Disease, Cholelithiasis, Chronic Constipation, Chronic Diarrhea, Gastritis, GERD, GI Bleed, Hepatitis, Helicobacter Pylori, Hiatal Hernia, Irritable Bowel Syndrome, Jaundice, Pancreatitis, PUD Genitourinary History: Reports: Chronic Renal Insuffiency, Diabetic Nephropathy , Retention, Urinary. Denies: Acute Renal Failure, Renal Calculus, STD, Urinary Incontinence, UTI, Recurrent PINION [employer] WHEEL [employer]UER History: Reports: . Denies: Dysfunctional Uterine Bleeding, Endometriosis, Spontaneous , Therapeutic : 2 Para: 2 LMP (Approximate): Other (See Below) Other [employer] WHEEL [employer]ER History: Menopause in her 50s. One delivery at about 34 weeks gestation with otherwise normal spontaneous delivery without complications. Musculoskeletal History: Reports: Arthritis, Back Pain, Chronic, Fracture, Neck Pain, Chronic, Osteoarthritis, Osteoporosis, Other (See Below). Denies: Gout, RA, SLE Other Musculoskeletal History: Scoliosis with history of multiple thoracic vertebral body compression fractures Neurological History: Reports: Neuropathy, Diabetic, Neuropathy, Peripheral, Other (See Below). Denies: Alzheimers Disease, Cerebral Aneurysms, Concussion, CVA, Headaches, Chronic, Head Trauma, Migraines, MS, Parkinson's, Seizure, TIA, Vertigo Other Neuro History: Postherpetic neuralgia. Benign familial resting tremor. Psychiatric History: Reports: Anxiety, Depression. Denies: Abuse, Victim of, ADD, ADHD, Addiction, Psych Hospitalization(s), Psychosis, PTSD, Suicide Attempt , Suicidal Ideation Endocrine/Metabolic History: Reports: Diabetes, Type II, Hypothyroidism, IDDM, Osteopenia, Osteoporosis, Other (See Below). Denies: Diabetes, Gestational, Diabetes, Type I, Diabetes Mellitus, Type 3c Other Endocrine/Metabolic History: Hyponatremia. Hematologic History: Reports: None. Denies: Anemia, Blood Transfusion(s), Iron Deficiency Immunologic History: Reports: None. Denies: AIDS, HIV, SLE Oncologic (Cancer) History: Reports: None. Denies: Basal Cell Carcinoma, Breast , Cervix, Colon, Hodgkin's Lymphoma, Leukemia, Lymphoma, Malignant Melanoma, Non -Hodgkin's Lymphoma, Ovarian, Squamous Cell Carcinoma, Uterine Dermatologic History: Reports: Seborrheic Dermatitis. Denies: Eczema, Psoriasis , Venous Stasis Dermatitis - Infectious Disease History Infectious Disease History: Reports: Chicken Pox, Measles, Shingles (Left cervical region). Denies: C-Difficile, Meningitis, Mononucleosis, MRSA, Mumps, Pertussis (Whooping Cough), Rheumatic Fever, Rubella, Scarlet Fever, TB, VRE - Past Surgical History Head Surgeries/Procedures: Reports: None HEENT Surgical History: Reports: Cataract Surgery, Oral Surgery. Denies: Adenoidectomy, Eye Surgery, Laser Surgery, LASIK, Myringotomy w Tube(s), Naso- Sinus Surgery, Tonsillectomy Other HEENT Surgeries/Procedures: 3 previous surgeries for excision of nasal polyps. Bilateral cataract surgery in about 2004. Multiple teeth extractions. Cardiovascular Surgical History: Reports: None. Denies: Varicose Respiratory Surgical History: Reports: None. Denies: Thoracentesis GI Surgical History: Reports: None, Hernia, Inguinal, Other (See Below). Denies : Appendectomy, Cholecystectomy, Colonoscopy, EGD, Hernia Repair/Other, Polypectomy Other GI Surgeries/Procedures: Right inguinal hernia repair in her 20s. Female Surgical History: Reports: None. Denies: Section, D&C, Hysterectomy, Salpingo-Oophorectomy, Tubal Ligation Endocrine Surgical History: Reports: None Neurological Surgical History: Reports: Discectomy, Lumbar Spine, Other (See Below). Denies: C-Spine, Intracranial, Laminectomy, Sacral Spine, Spinal Fusion , Thoracic Spine, Vertebroplasty Other Neurological Surgeries/Procedures: L3-L5 decompression in the early 1999s Musculoskeletal Surgical History: Reports: None. Denies: Arthroscopic Procedure , Carpal Tunnel, Ganglion Cyst, Joint Replacement, ORIF, Shoulder Surgery Oncologic Surgical History: Reports: None Dermatological Surgical History: Reports: None - Past Imaging History Past Imaging History: Reports: Cardiac Echo (11/03/11 with findings as above and ejection fraction of 50%.), CAT Scan (Negative CTA of the chest on 05/14/17.), MRI (Lumbar spine on 11/04/13), Venous Doppler (Negative venous Doppler studies of the lower extremities on 10/15/17.) Social & Family History - Family History Cardiac: Reports: CAD, IN, Other (See Below) Other Cardiac Family History: Mother with fatal IN at age 52. Brother with fatal IN at age 68. Respiratory: Reports: Asthma, Other (See Below) Other Respiratory Family Hisory: Father and daughter with asthma. Endocrine/Metabolic: Reports: Diabetes, type II, Other (See Below) Other Endocrine/Metabolic Family History: Multiple paternal family members with apparent AODM per previous medical records, however patient is not aware of this today. Oncologic: Reports: Lung, Other (See Below). Denies: Breast, Colon, Hodgkin's Lymphoma, Leukemia, Lymphoma, Non-Hodgkin's Lymphoma, Ovarian, Skin, Uterine Other Oncologic Family History: Daughter with fatal lung cancer at age 50 with no history of tobacco use. - Tobacco Use Smoking Status *Q: Never Smoker Tobacco Use Within Last Twelve Months: No Used Tobacco, but Quit: No Smoking Cessation Information Provided To Patient: No Second Hand Smoke Exposure: No Second Hand Smoke Education Provided: No - Caffeine Use Caffeine Use: Reports: Coffee - Living Situation & Occupation Living situation: Reports: (December 2017.), Extended Care Facility ( [facility] assisted living facility) Occupation: Retired (Retired [employer] ) ED ROS GENERAL - Review of Systems Review Of Systems: ROS reveals no pertinent complaints other than HPI. ED EXAM, GENERAL - Physical Exam Exam: See Below Exam Limited By: No Limitations General Appearance: Alert, WD/WN, No Apparent Distress Eye Exam: Bilateral Eye: EOMI, Normal Fundi, Normal Inspection (Patient wearing glasses. No nystagmus), PERRL Ears: Normal Canal (Moderate left-sided cerumen), Normal TMs, Hearing Loss ( Mild bilateral presbycusis). No: Hearing Grossly Normal Nose: Normal Inspection, Normal Mucosa, No Blood Throat/Mouth: Normal Inspection, Normal Lips, Normal Teeth (Multiple missing teeth), Normal Gums, Normal Oropharynx, Normal Voice, No Airway Compromise. No : Dysphagia, Perioral Cyanosis Head: Atraumatic, Normocephalic. No: Facial Swelling, Facial Tenderness, Sinus Tenderness Neck: Supple, Non-Tender, Full Range of Motion, Carotid Bruit (Mild bilateral carotid bruits). No: Lymphadenopathy (L), Lymphadenopathy (R), Thyromegaly Respiratory/Chest: No Respiratory Distress, Lungs Clear, Normal Breath Sounds, No Accessory Muscle Use, Chest Non-Tender. No: Pleural Rub, Retractions Cardiovascular: Normal Peripheral Pulses, Regular Rate, Rhythm, No Gallop, No JVD, No Murmur, No Rub. No: No Edema (Dependent edema as below), Gallop/S3, Gallop/S4, Extra Beats (No extrasystoles at time of exam), Friction Rub Peripheral Pulses: 2+: Radial (L), Radial (R), Dorsalis Pedis (L), Dorsalis Pedis (R) GI/Abdominal: Normal Bowel Sounds, Soft, Non-Tender, No Organomegaly, No Distention, No Abnormal Bruit, No Mass, Pelvis Stable. No: Guarding (Female) Exam: Deferred Rectal (Female) Exam: Deferred Back Exam: Full Range of Motion, Other (Kyphoscoliosismild). No: CVA Tenderness (L), CVA Tenderness (R), Muscle Spasm, Paraspinal Tenderness, Vertebral Tenderness Extremities: Normal Range of Motion, Non-Tender, Normal Capillary Refill, Pedal Edema (Stable mild lymphedema of the lower extremities bilaterally with TREVOR hose in place). No: No Pedal Edema, Lowell's Sign Neurological: Alert, Oriented, CN II-XII Intact, Normal Cognition, Normal Gait, Normal Reflexes (Negative Babinski's), No Motor/Sensory Deficits Psychiatric: Normal Affect, Normal Mood Skin Exam: Warm, Dry, Intact, Normal Color, No Rash, Other (Diffuse seborrheic keratosis). No: Diaphoretic, Wound/Incision Lymphatic: No Adenopathy EKG INTERPRETATION EKG Date: 11/06/18 Time: 10:21 Rhythm: Other (Occasional PVCs with otherwise normal sinus rhythm) Rate (Beats/Min): 70 [place]: Normal (Left) P-Wave: Present (Mild diffuse biphasic with poor R-wave progression in the anterior leads) QRS: Wide (0.10 seconds representing an incomplete right bundle branch block with T-wave inversion in lead V1) ST-T: Normal QT: Normal OK/PQ Interval: 0.15 seconds Comparison: NA - No Prior EKG EKG Interpretation Comments: 1. No acute ischemic changes 2. PVCs versus PACs with aberrant conduction 3. Incomplete right bundle branch block Course - Vital Signs Last Recorded V/S: Last Vital Signs Temp 36.4 C 11/06/18 10:08 Pulse 83 11/06/18 15:45 Resp 22 H 11/06/18 15:45 BP 166/76 H 11/06/18 15:45 Pulse Ox 97 11/06/18 15:45 Vital Signs - 24 hr 11/06/18 11/06/18 11/06/18 10:08 10:25 10:53 Temperature [ 36.4 C Temporal] Pulse, 73 76 74 Peripheral [ Pulse Oximetry] Respiratory 25 H 24 H 23 H Rate Blood Pressure 177/82 H 165/78 H 157/79 H [Left Upper Arm ] O2 Sat by Pulse 99 100 99 Oximetry 11/06/18 11/06/18 11/06/18 11:07 11:23 12:10 Temperature [ Temporal] Pulse, 76 78 79 Peripheral [ Pulse Oximetry] Respiratory 24 H 24 H 23 H Rate Blood Pressure 155/83 H 162/85 H 157/75 H [Left Upper Arm ] O2 Sat by Pulse 98 97 99 Oximetry 11/06/18 11/06/18 11/06/18 12:45 13:15 15:00 Temperature [ Temporal] Pulse, 81 83 84 Peripheral [ Pulse Oximetry] Respiratory 24 H 23 H 18 Rate Blood Pressure 154/72 H 146/83 H 157/75 H [Left Upper Arm ] O2 Sat by Pulse 99 94 L 96 Oximetry 11/06/18 11/06/18 15:15 15:45 Temperature [ Temporal] Pulse, 85 83 Peripheral [ Pulse Oximetry] Respiratory 20 22 H Rate Blood Pressure 148/79 H 166/76 H [Left Upper Arm ] O2 Sat by Pulse 96 97 Oximetry - Orders/Labs/Meds Orders: Active Orders 24 hr Category Date Time Status Blood Glucose Check, Bedside [] STAT Care 11/06/18 09:57 Active Blood Glucose Check, Bedside [] STAT Care 11/06/18 10:23 Active Blood Glucose Check, Bedside [RC] STAT Care 11/06/18 11:15 Active Blood Glucose Check, Bedside [RC] STAT Care 11/06/18 12:46 Active Cardiac Monitoring [RC] . DIRECTED Care 11/06/18 10:13 Active EKG Documentation Completion [RC] ASDIRECTED Care 11/06/18 10:13 Active Oxygen Therapy, ED [RC] PRN Care 11/06/18 10:13 Active Peripheral IV Care [RC] . DIRECTED Care 11/06/18 10:13 Active Pulse Oximetry [RC] CONTINUOUS Care 11/06/18 10:13 Active RT Aerosol Therapy [RC] ASDIRECTED Care 11/06/18 13:35 Active Up With Assistance [RC] PFP Care 11/06/18 10:13 Active Vital Signs [RC] PFP Care 11/06/18 10:13 Active Chest 1V Frontal [CR] Stat Exams 11/06/18 10:13 Taken Chest PE [Ang Chest] [CT] Stat Exams 11/06/18 11:00 Taken Venous Doppler Lwr Ext Bi [US] Urgent Exams 11/06/18 12:40 Taken Obtain Past Medical Record [OM.PC] Urgent Oth 11/06/18 10:13 Active Peripheral IV Insertion Adult [OM.PC] Stat Oth 11/06/18 10:13 Ordered Resuscitation Status Stat Resus Stat 11/06/18 10:13 Ordered Labs: Laboratory Tests 11/06/18 11/06/18 11/06/18 Range/Units 10:23 10:27 10:27 WBC 8.8 (4.0-10.2) K/uL RBC 4.69 (3.77-5.09) M/uL Hgb 13.8 (11.7-15.5) g/dL Hct 43.5 (34.0-46.0) % MCV 92.8 (84.0-98.0) fL MCH 29.4 (28.2-33.3) pg MCHC 31.7 (31.7-36.0) g/dL RDW 15.0 H (11.2-14.1) % Plt Count 329 D (150-350) K/uL Neut % (Auto) 68.6 (45.0-80.0) % Lymph % (Auto) 18.1 (10.0-50.0) % [place] % (Auto) 10.9 (2.0-14.0) % Eos % (Auto) 1.8 (0.0-5.0) % Baso % (Auto) 0.6 (0.0-2.0) % Neut # (Auto) 6.02 (1.40-7.00) K/uL Lymph # (Auto) 1.59 (0.50-3.50) K/uL [place] # (Auto) 0.96 (0.00-1.00) K/uL Eos # (Auto) 0.16 (0.00-0.50) K/uL Baso # (Auto) 0.05 (0.00-0.20) K/uL PT 10.7 (9.5-12.0) SEC INR 1.0 APTT 26.2 (21.0-31.3) SEC D-Dimer, Quantitative (0-400) ng/mL Sodium (136-145) mmol/L Potassium (3.5-5.1) mmol/L Chloride (98-107) mmol/L Carbon Dioxide (21.0-32.0) mmol/L BUN (7-18) mg/dL Creatinine (0.51-1.17) mg/dL Est Cr Clr Drug Dosing mL/min Estimated GFR (MDRD) mL/min Glucose (74-106) mg/dL POC Glucose 66 (65-110) mg/dl Lactic Acid (0.4-2.0) mmol/L Uric Acid (2.6-7.2) mg/dL Calcium (8.5-10.1) mg/dL Magnesium (1.8-2.4) mg/dL Total Bilirubin (0.2-1.0) mg/dL AST (15-37) U/L ALT (12-78) U/L Alkaline Phosphatase (46-116) IU/L Creatine Kinase (26-308) U/L Creatine Kinase Index (0.0-2.5) % CK-MB (CK-2) (0.00-3.60) ng/mL Troponin I (0.000-0.056) ng/mL NT-Pro-B Natriuret Pep (0-125) pg/mL Total Protein (6.4-8.2) g/dL Albumin (3.4-5.0) g/dL TSH, Ultra Sensitive (0.358-3.740) mIU/mL 11/06/18 11/06/18 11/06/18 Range/Units 10:27 10:27 10:27 WBC (4.0-10.2) K/uL RBC (3.77-5.09) M/uL Hgb (11.7-15.5) g/dL Hct (34.0-46.0) % MCV (84.0-98.0) fL MCH (28.2-33.3) pg MCHC (31.7-36.0) g/dL RDW (11.2-14.1) % Plt Count (150-350) K/uL Neut % (Auto) (45.0-80.0) % Lymph % (Auto) (10.0-50.0) % [place] % (Auto) (2.0-14.0) % Eos % (Auto) (0.0-5.0) % Baso % (Auto) (0.0-2.0) % Neut # (Auto) (1.40-7.00) K/uL Lymph # (Auto) (0.50-3.50) K/uL [place] # (Auto) (0.00-1.00) K/uL Eos # (Auto) (0.00-0.50) K/uL Baso # (Auto) (0.00-0.20) K/uL PT (9.5-12.0) SEC INR APTT (21.0-31.3) SEC D-Dimer, Quantitative 1180 H (0-400) ng/mL Sodium 145 (136-145) mmol/L Potassium 4.1 (3.5-5.1) mmol/L Chloride 105 (98-107) mmol/L Carbon Dioxide 30.7 (21.0-32.0) mmol/L BUN 44 H (7-18) mg/dL Creatinine 1.22 H (0.51-1.17) mg/dL Est Cr Clr Drug Dosing 30.34 mL/min Estimated GFR (MDRD) 42 mL/min Glucose 57 L (74-106) mg/dL POC Glucose (65-110) mg/dl Lactic Acid 0.9 (0.4-2.0) mmol/L Uric Acid 10.3 H (2.6-7.2) mg/dL Calcium 9.7 (8.5-10.1) mg/dL Magnesium 2.3 (1.8-2.4) mg/dL Total Bilirubin 0.4 (0.2-1.0) mg/dL AST 20 (15-37) U/L ALT 25 (12-78) U/L Alkaline Phosphatase 96 (46-116) IU/L Creatine Kinase 55 (26-308) U/L Creatine Kinase Index 3.5 H (0.0-2.5) % CK-MB (CK-2) 1.90 (0.00-3.60) ng/mL Troponin I 0.000 (0.000-0.056) ng/mL NT-Pro-B Natriuret Pep 253 H (0-125) pg/mL Total Protein 7.0 (6.4-8.2) g/dL Albumin 3.3 L (3.4-5.0) g/dL TSH, Ultra Sensitive 8.603 H (0.358-3.740) mIU/mL 11/06/18 11/06/18 Range/Units 11:18 12:52 WBC (4.0-10.2) K/uL RBC (3.77-5.09) M/uL Hgb (11.7-15.5) g/dL Hct (34.0-46.0) % MCV (84.0-98.0) fL MCH (28.2-33.3) pg MCHC (31.7-36.0) g/dL RDW (11.2-14.1) % Plt Count (150-350) K/uL Neut % (Auto) (45.0-80.0) % Lymph % (Auto) (10.0-50.0) % [place] % (Auto) (2.0-14.0) % Eos % (Auto) (0.0-5.0) % Baso % (Auto) (0.0-2.0) % Neut # (Auto) (1.40-7.00) K/uL Lymph # (Auto) (0.50-3.50) K/uL [place] # (Auto) (0.00-1.00) K/uL Eos # (Auto) (0.00-0.50) K/uL Baso # (Auto) (0.00-0.20) K/uL PT (9.5-12.0) SEC INR APTT (21.0-31.3) SEC D-Dimer, Quantitative (0-400) ng/mL Sodium (136-145) mmol/L Potassium (3.5-5.1) mmol/L Chloride (98-107) mmol/L Carbon Dioxide (21.0-32.0) mmol/L BUN (7-18) mg/dL Creatinine (0.51-1.17) mg/dL Est Cr Clr Drug Dosing mL/min Estimated GFR (MDRD) mL/min Glucose (74-106) mg/dL POC Glucose 125 H 205 H (65-110) mg/dl Lactic Acid (0.4-2.0) mmol/L Uric Acid (2.6-7.2) mg/dL Calcium (8.5-10.1) mg/dL Magnesium (1.8-2.4) mg/dL Total Bilirubin (0.2-1.0) mg/dL AST (15-37) U/L ALT (12-78) U/L Alkaline Phosphatase (46-116) IU/L Creatine Kinase (26-308) U/L Creatine Kinase Index (0.0-2.5) % CK-MB (CK-2) (0.00-3.60) ng/mL Troponin I (0.000-0.056) ng/mL NT-Pro-B Natriuret Pep (0-125) pg/mL Total Protein (6.4-8.2) g/dL Albumin (3.4-5.0) g/dL TSH, Ultra Sensitive (0.358-3.740) mIU/mL Meds: Medications Discontinued Medications Generic Name Dose Route Start Last Admin Trade Name Freq PRN Reason Stop Dose Admin Albuterol/Ipratropium 3 ml 11/06/18 13:35 11/06/18 13:42 Duoneb 3.0-0.5 Mg/3 Ml NEB 11/06/18 13:36 3 ml ONETIME ONE Administration Iopamidol 100 ml 11/06/18 11:11 11/06/18 11:56 Isovue-370 (76%) IVPUSH 11/06/18 11:12 100 ml ONETIME ONE Administration Iopamidol Confirm 11/06/18 11:20 Isovue-370 (76%) Administered 11/06/18 11:21 Dose 100 ml .ROUTE .STK-MED ONE Sodium Chloride 10 ml 11/06/18 10:13 11/06/18 11:56 Saline Flush FLUSH 10 ml ASDIRECTED PRN Administration Keep Vein Open - Radiology Interpretation Free Text/Narrative:: threat monitoring analyst shows very occasional PVCs with otherwise normal sinus rhythm with average heart rate in the 70-80s with no other significant ectopy or arrhythmia. Chest x-ray, portable, shows moderate increased prominence of the proximal aortic arch with mild aortic valve calcification, however no significant cardiomegaly, CHF, pulmonary infiltrates, pneumothorax, etc. Moderate COPD and pulmonary fibrotic changes. Telephone consultation at 13:59 hours with the radiology department at [facility] in [place]. Preliminary verbal report of CTA of the chest using PE protocol was negative for PE, etc. Official final written report was received prior to patient leaving the emergency room. Verbal consultation with Nasima ultra sound technician, at 14:50 hours, with preliminary verbal report of venous Doppler studies of the lower extremities, which was negative for DVT. Note incidental 4 cm right Mendoza's cyst. CT Results Date: 11/06/18 CT Results Time: 13:59 Departure - Departure Time of Disposition: 16:20 Disposition: Home, Self-Care 01 Condition: Fair Clinical Impression: D-dimer, elevated, Hypoalbuminemia, Hyperuricemia, PVCs (premature ventricular contractions), Incomplete right bundle branch block, Mixed anxiety depressive disorder, Mendoza's cyst of knee - Discharge Information *PRESCRIPTION DRUG MONITORING PROGRAM REVIEWED*: Not Applicable *COPY OF PRESCRIPTION DRUG MONITORING REPORT IN PATIENT PATRICIO: Not Applicable Prescriptions: Insulin Aspart [NovoLOG] 5 unit SQ DAILY@, #1 vial Insulin Detemir [Levemir] 20 unit SUBCUT DAILY #1 pen Levothyroxine Sodium [Synthroid] 75 mcg PO ACBREAKFAST #30 tab Referrals: Kalee Edwards NP [Primary Care Provider] - Forms: ED Department Discharge Additional Instructions: 1. Increase Accu-Cheks to 4 times per day, i.e., before each meal and at bedtime. 2. Additional Accu-Cheks at 3 AM on 11/07 and 11/08 3. Update [facility] on 11/08 with above Accu-Chek results and for further instructions 4. Decreased of her regularly scheduled insulin today and increase of her thyroid supplementation as above with [facility] to be updated about these changes 5. High protein Glucerna supplements twice a day as snacks 6. Recommend dietary change to 2000-calorie ADA, 2000 mL fluid restricted, heart healthy and diverticulosis diet with approval from [facility] 7. Recommend repeat uric acid level and TSH in 4 weeks 8. Immediately after this visit verify that your cellular telephone's voicemail has been activated and is empty. Also verify that your home telephone 's answering machine is operating properly and has space to receive messages. Note that it is sometimes necessary for us to be able to contact you at a later date to discuss your medical care. 9. Please remember that we are ALWAYS here for you and want to answer any questions you may have. Feel free to call the hospital any time and we call you back IMELDA. - Problem List & Annotations (1) IDDM (insulin dependent diabetes mellitus) SNOMED Code(s): 60269556 Code(s): E11.9 - TYPE 2 DIABETES MELLITUS WITHOUT COMPLICATIONS; Z79.4 - HALFWAY (CURRENT) USE OF INSULIN Status: Chronic Priority: High Annotation/Comment:: Recent labile IDDM despite decreased insulin therapy with additional hypoglycemic episode today. Patient responded well to oral orange juice, toast, peanut butter, etc. in the emergency room with serial Accu-Cheks taken as above. No sequelae from her hypoglycemic episode. Adjustment of medical therapy with close follow-up by her regular provider, including increased regular scheduled Accu-Cheks, etc. Accu-Cheks are currently only taken on a twice a day basis by patient history. The patient was given a noon meal, including fluid restriction, etc. (2) Hypoglycemia SNOMED Code(s): 017829580 Code(s): E16.2 - HYPOGLYCEMIA, UNSPECIFIED Status: Acute Priority: High Onset Date: 11/06/18 Annotation/Comment:: As above (3) Coronary artery disease SNOMED Code(s): 91595233 Code(s): I25.10 - ATHSCL HEART DISEASE OF [place] CORONARY ARTERY W/O ANG PCTRS Status: Chronic Priority: Medium Annotation/Comment:: Stable by history with no recent chest pain or anginal type symptoms. Only mildly elevated BNP with no significant clinical evidence of CHF but by physical exam and today's chest x-ray. EKG shows no acute ischemic changes with newly diagnosed PVCs and incomplete right bundle branch block. Cardiac enzymes are normal with exception of artifactually elevated CK index secondary to low baseline CK. Continue to observe closely by patient's regular provider. Note current Bumex therapy. Qualifiers: Coronary Disease-Associated Artery/Lesion type: [place] artery [place] vs. transplanted heart: [place] heart Associated angina: without angina Qualified Code(s): I25.10 - Atherosclerotic heart disease of [place] coronary artery without angina pectoris (4) D-dimer, elevated SNOMED Code(s): 614584809 Code(s): R79.89 - OTHER SPECIFIED ABNORMAL FINDINGS OF BLOOD CHEMISTRY Status: Acute Priority: Medium Onset Date: 11/06/18 Annotation/Comment:: CTA of the chest and venous Doppler study results as above. No clinical evidence of DVT or PE. Observe for now. (5) Osteoarthritis SNOMED Code(s): 108293670 Code(s): M19.90 - UNSPECIFIED OSTEOARTHRITIS, UNSPECIFIED SITE Status: Chronic Priority: Medium Annotation/Comment:: No history of fall, etc. secondary to hypoglycemic episode with otherwise stable arthritis by history. Qualifiers: Osteoarthritis location: multiple joints Osteoarthritis type: primary Qualified Code(s): M15.0 - Primary generalized (osteo)arthritis (6) COPD (chronic obstructive pulmonary disease) SNOMED Code(s): 37533242 Code(s): J44.9 - CHRONIC OBSTRUCTIVE PULMONARY DISEASE, UNSPECIFIED Status : Chronic Priority: Medium Annotation/Comment:: No recent fever or bronchitic type symptoms. She did have a nonspecific episode of mild dyspnea at end of her emergency room evaluation with DuoNeb nebulizer treatment given with overall good results. No evidence of pneumonia or bronchitis by today's chest x- ray. Qualifiers: COPD type: emphysema Emphysema type: panlobular Qualified Code(s): J43.1 - Panlobular emphysema (7) Hypertension SNOMED Code(s): 10065763 Code(s): I10 - ESSENTIAL (PRIMARY) HYPERTENSION Status: Chronic Priority : Medium Annotation/Comment:: Her blood pressures were relatively stable during emergency room care, although somewhat elevated.. Continue to observe closely by regular providers. Qualifiers: Hypertension type: essential hypertension Qualified Code(s): I10 - Essential (primary) hypertension (8) Hypothyroidism SNOMED Code(s): 93146841 Code(s): E03.9 - HYPOTHYROIDISM, UNSPECIFIED Status: Acute Priority: Medium Annotation/Comment:: TSH somewhat elevated today. Increase thyroid supplementation with repeat TSH recommended in about 4 weeks. Qualifiers: Hypothyroidism type: acquired Qualified Code(s): E03.9 - Hypothyroidism, unspecified (9) CKD (chronic kidney disease) SNOMED Code(s): 641736105 Code(s): N18.9 - CHRONIC KIDNEY DISEASE, UNSPECIFIED Status: Acute Annotation/Comment:: Mild diabetic nephropathy. Continue to observe closely by regular provider. Qualifiers: Chronic kidney disease stage: unspecified stage Qualified Code(s): N18.9 - Chronic kidney disease, unspecified (10) Hypoalbuminemia SNOMED Code(s): 080460074 Code(s): E88.09 - OTH DISORDERS OF PLASMA-PROTEIN METABOLISM, NEC Status: Acute Priority: Medium Onset Date: 11/06/18 Annotation/Comment:: Initiate high-protein Glucerna supplements on a twice a day basis as snacks secondary to her hypoglycemic episodes. Otherwise close follow-up by her regular provider. (11) Hyperuricemia SNOMED Code(s): 54840761 Code(s): E79.0 - HYPERURICEMIA W/O SIGNS OF INFLAM ARTHRIT AND TOPHACEOUS DIS Status: Acute Priority: Medium Onset Date: 11/06/18 Annotation/ Comment:: Mild to moderately elevated uric acid level today with no gout type symptoms. Observe for now. Note Bumex therapy as above. (12) Incomplete right bundle branch block SNOMED Code(s): 315853631 Code(s): I45.10 - UNSPECIFIED RIGHT BUNDLE-BRANCH BLOCK Status: Acute Priority: Medium Onset Date: 11/06/18 Annotation/Comment:: Observe for now as above. (13) PVCs (premature ventricular contractions) SNOMED Code(s): 90620132 Code(s): I49.3 - VENTRICULAR PREMATURE DEPOLARIZATION Status: Acute Priority: Medium Onset Date: 11/06/18 Annotation/Comment:: Observe for now as above. (14) Mixed anxiety depressive disorder SNOMED Code(s): 237209979 Code(s): F41.8 - OTHER SPECIFIED ANXIETY DISORDERS Status: Chronic Priority: Medium Annotation/Comment:: Stable by history. Continue to observe closely by regular provider. 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 Observe for now. Qualifiers: Laterality: right Qualified Code(s): M71.21 - Synovial cyst of popliteal space [Mendoza], right knee - Problem List Review Problem List Initiated/Reviewed/Updated: Yes - My Orders Last 24 Hours: My Active Orders 11/06/18 09:57 Blood Glucose Check, Bedside [RC] STAT 11/06/18 10:13 Cardiac Monitoring [RC] . DIRECTED EKG Documentation Completion [RC] ASDIRECTED Oxygen Therapy, ED [RC] PRN Peripheral IV Care [RC] . DIRECTED Pulse Oximetry [RC] CONTINUOUS Up With Assistance [RC] PFP Vital Signs [RC] PFP Chest 1V Frontal [CR] Stat Obtain Past Medical Record [OM.PC] Urgent Peripheral IV Insertion Adult [OM.PC] Stat Resuscitation Status Stat 11/06/18 10:23 Blood Glucose Check, Bedside [RC] STAT 11/06/18 11:00 Chest PE [Ang Chest] [CT] Stat 11/06/18 11:15 Blood Glucose Check, Bedside [RC] STAT 11/06/18 12:40 Venous Doppler Lwr Ext Bi [US] Urgent 11/06/18 12:46 Blood Glucose Check, Bedside [RC] STAT 11/06/18 13:35 RT Aerosol Therapy [RC] ASDIRECTED - Assessment/Plan Last 24 Hours: My Active Orders 11/06/18 09:57 Blood Glucose Check, Bedside [RC] STAT 11/06/18 10:13 Cardiac Monitoring [RC] . DIRECTED EKG Documentation Completion [RC] ASDIRECTED Oxygen Therapy, ED [RC] PRN Peripheral IV Care [RC] . DIRECTED Pulse Oximetry [RC] CONTINUOUS Up With Assistance [RC] PFP Vital Signs [RC] PFP Chest 1V Frontal [CR] Stat Obtain Past Medical Record [OM.PC] Urgent Peripheral IV Insertion Adult [OM.PC] Stat Resuscitation Status Stat 11/06/18 10:23 Blood Glucose Check, Bedside [RC] STAT 11/06/18 11:00 Chest PE [Ang Chest] [CT] Stat 11/06/18 11:15 Blood Glucose Check, Bedside [RC] STAT 11/06/18 12:40 Venous Doppler Lwr Ext Bi [US] Urgent 11/06/18 12:46 Blood Glucose Check, Bedside [RC] STAT 11/06/18 13:35 RT Aerosol Therapy [RC] ASDIRECTED Assessment:: As above Plan: As above. Extensive precautions were given to the patient and her son, who are in agreement with the treatment plan. See Patient Instructions for further treatment and plan.
[2018-11-06] MEDS ORDERED: Iopamidol 755 Mg/ML 100 ML Bottle ONE (11:20)
[2018-11-06] MEDS: Sodium Chloride 0.9% 10 ML Syringe FLUSH PRN (11:56)
[2018-11-06] MEDS: Iopamidol 755 Mg/ML 100 ML Bottle IVPUSH ONE (11:56)
[2018-11-06] MEDS: Albuterol/Ipratropium 3.0-0.5 MG/3 ML Neb Soln NEB ONE (13:42)
== END 2018-11-06 16:20 | disposition home or self-care (01) ==
LOC: LL.ED 09:55
DX: I49.3 Ventricular premature depolarization (principal); I45.10 Unspecified right bundle-branch block; M71.21 Synovial cyst of popliteal space [Baker], right knee; E88.09 Other disorders of plasma-protein metabolism, not elsewhere classified; E79.0 Hyperuricemia without signs of inflammatory arthritis and tophaceous disease; F41.8 Other specified anxiety disorders; E03.9 Hypothyroidism, unspecified; I13.0 Hypertensive heart and chronic kidney disease with heart failure and stage 1 through stage 4 chronic kidney disease, or unspecified chronic kidney disease; I50.9 Heart failure, unspecified; N18.9 Chronic kidney disease, unspecified; J44.9 Chronic obstructive pulmonary disease, unspecified; E11.22 Type 2 diabetes mellitus with diabetic chronic kidney disease; M19.90 Unspecified osteoarthritis, unspecified site; E11.40 Type 2 diabetes mellitus with diabetic neuropathy, unspecified; I25.10 Atherosclerotic heart disease of native coronary artery without angina pectoris; Z98.49 Cataract extraction status, unspecified eye; Z98.890 Other specified postprocedural states; Z88.2 Allergy status to sulfonamides; Z88.6 Allergy status to analgesic agent; Z79.899 Other long term (current) drug therapy
CPT/HCPCS: 36415; 71045; 71275; 80053; 82550; 82553; 82962; 83605; 83735; 83880; 84443; 84484; 84550; 85025; 85379; 85610; 85730; 93005; 93970; 94640; 99285-25; J7620-GY; Q9967

== ENCOUNTER 2018-11-25 16:53 | Inpatient (IN) | payer MEDICARE, OTHER ==
[2018-11-25] MEDS ORDERED: Sodium Chloride 0.9% 10 ML Syringe FLUSH PRN (17:22)
--- NOTE | 2018-11-25 17:22 | EDM.PDOC ---
ED HPI GENERAL MEDICAL PROBLEM - General Chief Complaint: Respiratory Problem Stated Complaint: SHORTNESS OF BREATHE Time Seen by Provider: 11/25/18 17:20 Source of Information: Reports: Patient, EMS, EMS Notes Reviewed (Not available at time of dictation), Old Records ([facility] chart/ EMR) History Limitations: Reports: No Limitations - History of Present Illness INITIAL COMMENTS - FREE TEXT/NARRATIVE: The patient was brought to the emergency room via ambulance with rf technician accompaniment for evaluation of progressive dyspnea, wheezing, and possible hypoxia with symptoms progressing since about 9 AM this morning. The patient did have an O2 sat on 89-90% on 3 L/m by oxygen concentrator and nasal cannula at time of arrival of the paramedics. Note that the patient had restarted her oxygen this afternoon. She has had to use her DuoNeb treatments more frequently during the last couple of days with stable chronic clear productive cough with no history of fever, known exposure to infection, etc. She did get her influenza and pneumonia boosters this past month. The patient denies any chest pain/pressure, heart flutter, dizziness, orthostasis, orthopnea, diaphoresis, paresthesias, recent decreased exercise tolerance, or any other anginal-type symptoms. Her dependent edema has also been stable. Note that the paramedics did increase her oxygen to 6 L/m by nasal cannula prior to arrival. No recent history of abdominal pain, heartburn, nausea, diarrhea, melena, gross hematochezia, or any food intolerance, including fatty foods, etc. with normal bowel movement shortly prior to arrival. She denies any gross hematuria, colic, or other UTI symptoms. Onset: Today, Gradual Onset Date: 11/25/18 Onset Time: 09:00 Duration: Constant, Getting Worse Location: Reports: Other (No pain) Quality: Reports: Same as Previous Episode Severity: Moderate Improves with: Reports: Movement Worsens with: Reports: Rest Context: Reports: Other (As above). Denies: Sick Contact, Trauma Associated Symptoms: Reports: Cough, cough w sputum (Stable chronic as above), Shortness of Breath. 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) - Related Data Allergies Allergy/AdvReac Type Severity Reaction Status Date / Time MARCOS Inhibitors Allergy Unknown unknown Verified 11/25/18 17:20 budesonide [From Pulmicort] Allergy Unknown unknown Verified 11/25/18 17:20 gabapentin Allergy Unknown Diarrhea Verified 11/25/18 17:20 Sulfa (Sulfonamide Allergy Unknown unknown Verified 11/25/18 17:20 Antibiotics) ketorolac [From Toradol] Allergy Rash Verified 11/25/18 17:20 Home Meds: Home Meds Albuterol/Ipratropium [DuoNeb 3.0-0.5 MG/3 ML] 1 applic INH QID 05/03/17 [ History] Fish Oil/Wilson-3 Fatty Acids [Fish Oil 1,000 MG] 1 gm PO DAILY 05/03/17 [History ] Metoprolol Tartrate 25 mg PO BID 05/03/17 [History] Simvastatin 20 mg PO BEDTIME 05/03/17 [History] Albuterol [Proventil HFA] 1 - 2 puff INH Q4HR PRN 05/14/17 [History] Bumetanide [Bumex] 0.5 mg PO DAILY@12 11/06/18 [History] Bumetanide [Bumex] 1 mg PO DAILY 11/06/18 [History] Insulin Aspart [NovoLOG] 5 unit SQ DAILY@,12 #1 vial 11/06/18 [Rx] Levothyroxine Sodium [Synthroid] 75 mcg PO ACBREAKFAST #30 tab 11/06/18 [Rx] Multivitamin [Multi-Day Vitamins] 1 each PO DAILY 11/06/18 [History] Polymyxin B/Trimethoprim [PolyTrim Ophth Soln] 1 drop EYELF BID 11/06/18 [ History] Budesonide/Formoterol Fumarate [Symbicort 160-4.5 Mcg Inhaler] 2 inh IH BID PRN 11/25/18 [History] Insulin Detemir [Levemir] 20 unit SUBCUT BEDTIME 11/25/18 [History] amLODIPine [Norvasc] 5 mg PO DAILY 11/25/18 [History] Past Medical History HEENT History: Reports: Cataract, Hard of Hearing, Impaired Vision, Other (See Below). Denies: Allergic Rhinitis, Glaucoma, Macular Degeneration, Otitis Media , Sinusitis Other HEENT History: Patient wears glasses. Mild bilateral presbycusis with no current therapy. Recurrent nasal polyps requiring surgery as below. Cardiovascular History: Reports: Arrhythmia, CAD, Cardiomyopathy, Heart Failure , High Cholesterol, Hypertension, PVD, Other (See Below). Denies: Afib, Aneurysm, Blood Clots/VTE/DVT, Heart Murmur, ND, PTCA, Syncope Other Cardiovascular History: Cardiomegaly by chest x-ray with history of CHF and chronic dependent edema. Dyslipidemia. Aortic Valve calcification. Borderline left ventricular enlargement/hypertrophy. PACs versus PACs with apparent conduction and mild incomplete right bundle branch block diagnosed by EKG on 11/06/18. History of d-dimer elevation on 11/06/18 with negative workup as below. Respiratory History: Reports: Bronchitis, Recurrent, COPD, Intubation, Previous , Pneumonia, Recurrent, Pulmonary Fibrosis. Denies: Asthma, Intubation, Difficult, PE, Pneumothorax, Sleep Apnea, TB Gastrointestinal History: Reports: Diverticulosis. Denies: Celiac Disease, Cholelithiasis, Chronic Constipation, Chronic Diarrhea, Gastritis, GERD, GI Bleed, Hepatitis, Helicobacter Pylori, Hiatal Hernia, Irritable Bowel Syndrome, Jaundice, Pancreatitis, PUD Genitourinary History: Reports: Chronic Renal Insuffiency, Diabetic Nephropathy , Retention, Urinary. Denies: Acute Renal Failure, Renal Calculus, STD, Urinary Incontinence, UTI, Recurrent PROCTOLOGIST History: Reports: . Denies: Dysfunctional Uterine Bleeding, Endometriosis, Spontaneous , Therapeutic : 2 Para: 2 Other PROCTOLOGIST History: Menopause in her 50s. One delivery at about 34 weeks gestation with otherwise normal spontaneous delivery without complications. Musculoskeletal History: Reports: Arthritis, Back Pain, Chronic, Fracture, Gout , Neck Pain, Chronic, Osteoarthritis, Osteoporosis, Other (See Below). Denies: Amputation, Fibromyalgia, RA, SLE Other Musculoskeletal History: Scoliosis with history of multiple thoracic vertebral body compression fractures. 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 Neurological History: Reports: Neuropathy, Diabetic, Neuropathy, Peripheral, Other (See Below). Denies: Alzheimers Disease, Cerebral Aneurysms, Concussion, CVA, Headaches, Chronic, Head Trauma, Migraines, MS, Parkinson's, Seizure, TIA, Vertigo Other Neuro History: Postherpetic neuralgia. Benign familial resting tremor. Psychiatric History: Reports: Anxiety, Depression. Denies: Abuse, Victim of, ADD, ADHD, Addiction, Psych Hospitalization(s), Psychosis, PTSD, Suicide Attempt , Suicidal Ideation Endocrine/Metabolic History: Reports: Diabetes, Type II, Hypothyroidism, IDDM, Osteopenia, Osteoporosis, Other (See Below). Denies: Diabetes, Gestational, Diabetes, Type I, Diabetes Mellitus, Type 3c Other Endocrine/Metabolic History: Recurrent hypoglycemic episodes. Hypoalbuminemia. Hyponatremia possibly secondary to chronic CHF. Hematologic History: Reports: None. Denies: Anemia, Blood Transfusion(s), Iron Deficiency Immunologic History: Reports: None. Denies: AIDS, HIV, SLE Oncologic (Cancer) History: Reports: None. Denies: Basal Cell Carcinoma, Breast , Cervix, Colon, Hodgkin's Lymphoma, Leukemia, Lymphoma, Malignant Melanoma, Non -Hodgkin's Lymphoma, Ovarian, Squamous Cell Carcinoma, Uterine Dermatologic History: Reports: Seborrheic Dermatitis. Denies: Eczema, Psoriasis , Venous Stasis Dermatitis - Infectious Disease History Infectious Disease History: Reports: Chicken Pox, Measles, Shingles (Left cervical region). Denies: C-Difficile, Meningitis, Mononucleosis, MRSA, Mumps, Pertussis (Whooping Cough), Rheumatic Fever, Rubella, Scarlet Fever, TB, VRE - Past Surgical History Head Surgeries/Procedures: Reports: None HEENT Surgical History: Reports: Cataract Surgery, Oral Surgery. Denies: Adenoidectomy, Eye Surgery, Laser Surgery, LASIK, Myringotomy w Tube(s), Naso- Sinus Surgery, Tonsillectomy Other HEENT Surgeries/Procedures: 3 previous surgeries for excision of nasal polyps. Bilateral cataract surgery in about 2004. Multiple teeth extractions. Cardiovascular Surgical History: Reports: None. Denies: Varicose Respiratory Surgical History: Reports: None. Denies: Thoracentesis GI Surgical History: Reports: None, Hernia, Inguinal, Other (See Below). Denies : Appendectomy, Cholecystectomy, Colonoscopy, EGD, Hernia Repair/Other, Polypectomy Other GI Surgeries/Procedures: Right inguinal hernia repair in her 20s. Female Surgical History: Reports: None. Denies: Section, D&C, Hysterectomy, Salpingo-Oophorectomy, Tubal Ligation Endocrine Surgical History: Reports: None Neurological Surgical History: Reports: Discectomy, Lumbar Spine, Other (See Below). Denies: C-Spine, Intracranial, Laminectomy, Sacral Spine, Spinal Fusion , Thoracic Spine, Vertebroplasty Other Neurological Surgeries/Procedures: L3-L5 decompression in the early Musculoskeletal Surgical History: Reports: None. Denies: Arthroscopic Procedure , Carpal Tunnel, Ganglion Cyst, Joint Replacement, ORIF, Shoulder Surgery Oncologic Surgical History: Reports: None Dermatological Surgical History: Reports: None - Past Imaging History Past Imaging History: Reports: Cardiac Echo (11/03/11 with findings as above and ejection fraction of 50%.), CAT Scan (Negative CTA of the chest on 11/06/18 and .), MRI (Lumbar spine on 11/04/13), Venous Doppler (Negative venous Doppler studies of the lower extremities on 11/06/18 and 10/15/17.) Social & Family History - Family History HEENT: Reports: None. Denies: Glaucoma, Macular Degeneration, Retinal Detachment Cardiac: Reports: CAD, Heart Failure, ND, Other (See Below). Denies: Afib, Aneurysm, Arrhythmia, Blood Clots/VTE/DVT, High Cholesterol, Hypertension, PVD/ COD, Syncope Other Cardiac Family History: Mother with recurrent ND initially in her late 50s with CHF and fatal ND at age 62. Brother with fatal ND at age 68. Respiratory: Reports: Asthma, Other (See Below). Denies: COPD, PE, Pneumothorax , Sleep Apnea Other Respiratory Family Hisory: Father and daughter with asthma. GI: Reports: None. Denies: Celiac Disease, Cholelithiasis, Colon Polyps, GI bleed, Inflammatory Bowel Disease, Irritable Bowel Syndrome, PUD : Reports: None. Denies: Renal Calculus, Renal Disease/Insufficiency OBGYN: Reports: None. Denies: Endometriosis, Recurrent Spontaneous Musculoskeletal: Reports: None. Denies: Arthritis, Osteoarthritis, RA, SLE Neurological: Reports: Alzheimers Disease. Denies: Cerebral Aneurysms, CVA, Dementia, Migraines, MS, Parkinson's, Seizure, TIA Psychiatric: Denies: Abuse, Victim of, ADD, ADHD, Anxiety, Depression, Psych Hospitalization(s), PTSD, Suicide Attempt Endocrine/Metabolic: Reports: Diabetes, type II, Other (See Below). Denies: Diabetes, Type I, Hypothyroidism, IDDM Other Endocrine/Metabolic Family History: Multiple paternal family members with apparent AODM per previous medical records, however patient is not aware of this today. Hematologic: Reports: Anemia, Other (See Below) Other Hematologic Family History: Father with anemia of unknown etiology history of blood transfusions without problems. Immunologic: Reports: None. Denies: AIDS, HIV, SLE Dermatologic: Reports: None. Denies: Eczema, Psoriasis Oncologic: Reports: Lung, Other (See Below). Denies: Breast, Cervix, Colon, Hodgkin's Lymphoma, Leukemia, Lymphoma, Non-Hodgkin's Lymphoma, Ovarian, Skin, Uterine Other Oncologic Family History: Daughter with fatal lung cancer at age 50 with no history of tobacco use. - Tobacco Use Smoking Status *Q: Never Smoker Tobacco Use Within Last Twelve Months: No Used Tobacco, but Quit: No Smoking Cessation Information Provided To Patient: No Second Hand Smoke Exposure: No Second Hand Smoke Education Provided: No - Caffeine Use Caffeine Use: Reports: Coffee (1/2 cup per day). Denies: Energy Drinks, Soda, Tea - Alcohol Use Alcohol Use History: No Days Per Week of Alcohol Use: 0 Number of Drinks Per Day: 0 Number of Drinks Per Day Comment: No previous DWIs, problems with alcohol abuse , etc. Total Drinks Per Week: 0 Alcohol Use in Last Twelve Months: No - Recreational Drug Use Recreational Drug Use: No Drug Use in Last 12 Months: No Recreational Drug Type: Denies: Amphetamines (Speed), Heroin, Inhalants (Glues, Solvents, Aerosols), LSD (Acid), Marijuana/Hashish, Methamphetamine, Morphine, Oxycodone - Living Situation & Occupation Living situation: Reports: (December 2017.), Extended Care Facility ( [facility]) Occupation: Retired (Retired [employer] ) ED ROS GENERAL - Review of Systems Review Of Systems: ROS reveals no pertinent complaints other than HPI. ED EXAM, GENERAL - Physical Exam Exam: See Below Exam Limited By: No Limitations General Appearance: Alert, WD/WN, No Apparent Distress Eye Exam: Bilateral Eye: EOMI, Normal Inspection (No nystagmus. Patient wearing glasses), PERRL Ears: Normal External Exam, Normal Canal (Although moderate bilateral cerumen), Normal TMs, Hearing Loss (Mild bilateral presbycusis) Nose: Normal Inspection, Normal Mucosa, No Blood Throat/Mouth: Normal Inspection, Normal Lips, Normal Teeth (Multiple missing teeth), Normal Gums, Normal Oropharynx, Normal Voice, No Airway Compromise. No : Dysphagia, Perioral Cyanosis Head: Atraumatic, Normocephalic. No: Facial Swelling, Facial Tenderness, Sinus Tenderness Neck: Supple, Non-Tender, Full Range of Motion, Carotid Bruit (Bilateral carotid bruitsmild). No: Lymphadenopathy (L), Lymphadenopathy (R), Thyromegaly Respiratory/Chest: No Respiratory Distress, No Accessory Muscle Use, Chest Non- Tender, Rales (Mild diffuse bilateral), Rhonchi (Mild diffuse bilateral), Wheezing (Mild diffuse bilateral). No: Pleural Rub, Retractions Cardiovascular: Normal Peripheral Pulses, Regular Rate, Rhythm, No Edema, No Gallop, No JVD, No Murmur, No Rub. No: Gallop/S3, Gallop/S4, Friction Rub Peripheral Pulses: 2+: Radial (L), Radial (R), Dorsalis Pedis (L), Dorsalis Pedis (R) GI/Abdominal: Normal Bowel Sounds, Soft, Non-Tender, No Organomegaly, No Distention, No Abnormal Bruit, No Mass, Pelvis Stable. No: Guarding (Female) Exam: Deferred Rectal (Female) Exam: Deferred Back Exam: Full Range of Motion, Other (Mild kyphoscoliosis). No: CVA Tenderness (L), CVA Tenderness (R), Muscle Spasm Extremities: Normal Range of Motion, Non-Tender, Normal Capillary Refill, Pedal Edema (Moderate +2 pedal/pretibial edema versus beginning mild lymphedema), Other (Knee-high TREVOR hose). No: Lowell's Sign Neurological: Alert, Oriented, CN II-XII Intact, Normal Cognition, Normal Gait, Normal Reflexes (Negative Babinski's), No Motor/Sensory Deficits Psychiatric: Normal Affect, Normal Mood Skin Exam: Warm, Dry, Intact, Normal Color, No Rash. No: Diaphoretic, Ecchymosis, Petechiae, Wound/Incision Lymphatic: No Adenopathy EKG INTERPRETATION EKG Date: 11/25/18 Time: 17:27 Rhythm: NSR Rate (Beats/Min): 91 George: Normal (Neutral cardiac axis change from previous left cardiac axis) P-Wave: Enlarged (Mild diffuse biphasic P waves) QRS: RBBB (QRS interval of 0.10 seconds representing an incomplete right bundle branch block with normal T-wave inversion in lead V1) ST-T: Normal QT: Normal CO/PQ Interval: 0.14 seconds with no delta waves noted. Poor R-wave progression in the anterior leads Comparison: Change From Previous EKG (As above since 11/06/18) EKG Interpretation Comments: 1. No acute ischemic changes 2. Left atrial enlargement 3. Incomplete right bundle branch block 4. History of PVCs versus PACs with aberrant conduction Course - Vital Signs Last Recorded V/S: Last Vital Signs Temp 36.4 C 11/25/18 16:54 Pulse 92 11/25/18 19:00 Resp 27 H 11/25/18 19:00 BP 152/85 H 11/25/18 19:00 Pulse Ox 94 L 11/25/18 19:00 Vital Signs - 24 hr 11/25/18 11/25/18 11/25/18 16:54 17:20 17:45 Temperature [ 36.4 C Temporal] Pulse, 92 91 92 Peripheral [ Pulse Oximetry] Respiratory 18 26 H 25 H Rate Blood Pressure 159/90 H 149/61 H 159/89 H [Left Upper Arm ] O2 Sat by Pulse 100 96 96 Oximetry 11/25/18 11/25/18 11/25/18 18:00 18:15 18:45 Temperature [ Temporal] Pulse, 91 90 90 Peripheral [ Pulse Oximetry] Respiratory 25 H 24 H 25 H Rate Blood Pressure 157/88 H 147/85 H 160/85 H [Left Upper Arm ] O2 Sat by Pulse 95 95 94 L Oximetry - Orders/Labs/Meds Orders: Active Orders 24 hr Category Date Time Status Cardiac Monitoring [RC] . DIRECTED Care 11/25/18 17:22 Active EKG Documentation Completion [RC] ASDIRECTED Care 11/25/18 17:22 Active Oxygen Therapy, ED [RC] PRN Care 11/25/18 17:22 Active Peripheral IV Care [RC] . DIRECTED Care 11/25/18 17:22 Active Pulse Oximetry [RC] CONTINUOUS Care 11/25/18 17:22 Active Up With Assistance [RC] PFP Care 11/25/18 17:22 Active Vital Signs [RC] PFP Care 11/25/18 17:22 Active Nothing per Oral Now Diet [DIET] Diet 11/25/18 Breakfast Active Chest 1V Frontal [CR] Stat Exams 11/25/18 17:22 Taken Sodium Chloride 0.9% [Saline Flush] Med 11/25/18 17:22 Active 10 ml FLUSH ASDIRECTED PRN Obtain Past Medical Record [OM.PC] Urgent Oth 11/25/18 17:22 Active Peripheral IV Insertion Adult [OM.PC] Stat Oth 11/25/18 17:22 Ordered Resuscitation Status Stat Resus Stat 11/25/18 17:22 Ordered Medication Orders Sodium Chloride (Saline Flush) 10 ml FLUSH ASDIRECTED PRN PRN Reason: Keep Vein Open Labs: Laboratory Tests 11/25/18 11/25/18 11/25/18 Range/Units 17:35 17:35 17:35 WBC 8.7 (4.0-10.2) K/uL RBC 4.75 (3.77-5.09) M/uL Hgb 13.7 (11.7-15.5) g/dL Hct 43.9 (34.0-46.0) % MCV 92.4 (84.0-98.0) fL MCH 28.8 (28.2-33.3) pg MCHC 31.2 L (31.7-36.0) g/dL RDW 15.4 H (11.2-14.1) % Plt Count 309 (150-350) K/uL Neut % (Auto) 62.0 (45.0-80.0) % Lymph % (Auto) 23.7 (10.0-50.0) % [place] % (Auto) 10.3 (2.0-14.0) % Eos % (Auto) 3.5 (0.0-5.0) % Baso % (Auto) 0.5 (0.0-2.0) % Neut # (Auto) 5.42 (1.40-7.00) K/uL Lymph # (Auto) 2.07 (0.50-3.50) K/uL [place] # (Auto) 0.90 (0.00-1.00) K/uL Eos # (Auto) 0.31 (0.00-0.50) K/uL Baso # (Auto) 0.04 (0.00-0.20) K/uL PT 10.8 (9.5-12.0) SEC INR 1.0 APTT 26.2 (21.0-31.3) SEC D-Dimer, Quantitative 1070 H (0-400) ng/mL Sodium (136-145) mmol/L Potassium (3.5-5.1) mmol/L Chloride (98-107) mmol/L Carbon Dioxide (21.0-32.0) mmol/L BUN (7-18) mg/dL Creatinine (0.51-1.17) mg/dL Est Cr Clr Drug Dosing mL/min Estimated GFR (MDRD) mL/min Glucose (74-106) mg/dL Lactic Acid (0.4-2.0) mmol/L Uric Acid (2.6-7.2) mg/dL Calcium (8.5-10.1) mg/dL Magnesium (1.8-2.4) mg/dL Total Bilirubin (0.2-1.0) mg/dL AST (15-37) U/L ALT (12-78) U/L Alkaline Phosphatase (46-116) IU/L Creatine Kinase (26-308) U/L Creatine Kinase Index (0.0-2.5) % CK-MB (CK-2) (0.00-3.60) ng/mL Troponin I (0.000-0.056) ng/mL NT-Pro-B Natriuret Pep (0-125) pg/mL Total Protein (6.4-8.2) g/dL Albumin (3.4-5.0) g/dL TSH, Ultra Sensitive (0.358-3.740) mIU/mL 11/25/18 11/25/18 Range/Units 17:35 17:35 WBC (4.0-10.2) K/uL RBC (3.77-5.09) M/uL Hgb (11.7-15.5) g/dL Hct (34.0-46.0) % MCV (84.0-98.0) fL MCH (28.2-33.3) pg MCHC (31.7-36.0) g/dL RDW (11.2-14.1) % Plt Count (150-350) K/uL Neut % (Auto) (45.0-80.0) % Lymph % (Auto) (10.0-50.0) % [place] % (Auto) (2.0-14.0) % Eos % (Auto) (0.0-5.0) % Baso % (Auto) (0.0-2.0) % Neut # (Auto) (1.40-7.00) K/uL Lymph # (Auto) (0.50-3.50) K/uL [place] # (Auto) (0.00-1.00) K/uL Eos # (Auto) (0.00-0.50) K/uL Baso # (Auto) (0.00-0.20) K/uL PT (9.5-12.0) SEC INR APTT (21.0-31.3) SEC D-Dimer, Quantitative (0-400) ng/mL Sodium 145 (136-145) mmol/L Potassium 4.4 (3.5-5.1) mmol/L Chloride 103 (98-107) mmol/L Carbon Dioxide 31.2 (21.0-32.0) mmol/L BUN 52 H (7-18) mg/dL Creatinine 1.55 H (0.51-1.17) mg/dL Est Cr Clr Drug Dosing 20.99 mL/min Estimated GFR (MDRD) 32 mL/min Glucose 131 H (74-106) mg/dL Lactic Acid 1.3 (0.4-2.0) mmol/L Uric Acid 10.8 H (2.6-7.2) mg/dL Calcium 9.5 (8.5-10.1) mg/dL Magnesium 2.5 H (1.8-2.4) mg/dL Total Bilirubin 0.3 (0.2-1.0) mg/dL AST 23 (15-37) U/L ALT 33 (12-78) U/L Alkaline Phosphatase 116 (46-116) IU/L Creatine Kinase 52 (26-308) U/L Creatine Kinase Index 0.4 (0.0-2.5) % CK-MB (CK-2) 0.20 (0.00-3.60) ng/mL Troponin I 0.000 (0.000-0.056) ng/mL NT-Pro-B Natriuret Pep 311 H (0-125) pg/mL Total Protein 7.5 (6.4-8.2) g/dL Albumin 3.7 (3.4-5.0) g/dL TSH, Ultra Sensitive 5.441 H (0.358-3.740) mIU/mL Meds: Medications Generic Name Dose Route Start Last Admin Trade Name Freq PRN Reason Stop Dose Admin Sodium Chloride 10 ml 11/25/18 17:22 Saline Flush FLUSH ASDIRECTED PRN Keep Vein Open - Radiology Interpretation Free Text/Narrative:: 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 Note mild to moderate prominence of the proximal aortic arch with moderate aortic valve calcification and evidence of mild centralized CHF and central pulmonary hypertension, however no cardiomegaly Departure - Departure Time of Disposition: 19:05 Disposition: Admitted As Inpatient 64 Condition: Good Clinical Impression: IDDM (insulin dependent diabetes mellitus), Mixed anxiety depressive disorder, PVCs (premature ventricular contractions), Palliative care patient, Hyperuricemia, Hypermagnesemia COPD (chronic obstructive pulmonary disease) Qualifiers: COPD type: emphysema Emphysema type: panlobular Qualified Code(s): J43.1 - Panlobular emphysema Coronary artery disease Qualifiers: Coronary Disease-Associated Artery/Lesion type: [place] artery [place] vs. transplanted heart: [place]q heart Associated angina: without angina Qualified Code(s): I25.10 - Atherosclerotic heart disease of [place]q coronary artery without angina pectoris Hypertension Qualifiers: Hypertension type: essential hypertension Qualified Code(s): I10 - Essential ( primary) hypertension Osteoarthritis Qualifiers: Osteoarthritis location: multiple joints Osteoarthritis type: primary Qualified Code(s): M15.0 - Primary generalized (osteo)arthritis Hypothyroidism Qualifiers: Hypothyroidism type: acquired Qualified Code(s): E03.9 - Hypothyroidism, unspecified CKD (chronic kidney disease) Qualifiers: Chronic kidney disease stage: unspecified stage Qualified Code(s): N18.9 - Chronic kidney disease, unspecified - Discharge Information - Problem List & Annotations (1) Congestive heart failure (CHF) SNOMED Code(s): 64458545 Code(s): I50.9 - HEART FAILURE, UNSPECIFIED Status: Acute Priority: High Current Visit: No Onset Date: ~11/23/18 Annotation/Comment:: Likely progressive CHF with cardiac asthma during the last couple of days. Note NO CODE STATUS with no further echocardiogram, etc. secondary to her comfort care only. Note that she is allergic to MARCOS inhibitors. May consider possible angiotensin II receptor blockers, however. Cardiology consultation depending on her clinical course. No chest pain or anginal type symptoms with chest pain protocol not initiated in the emergency room, however initiate standard rule out ND orders. Mild BNP elevation and centralized CHF by chest x-ray as above. [facility] assumes care in the a.m. Qualifiers: Heart failure type: unspecified Heart failure chronicity: chronic Qualified Code(s): I50.9 - Heart failure, unspecified (2) CKD (chronic kidney disease) SNOMED Code(s): 493916861 Code(s): N18.9 - CHRONIC KIDNEY DISEASE, UNSPECIFIED Status: Acute Current Visit: No Annotation/Comment:: Mild diabetic nephropathy. Continue to observe closely especially in light of IV Lasix therapy. Qualifiers: Chronic kidney disease stage: unspecified stage Qualified Code(s): N18.9 - Chronic kidney disease, unspecified (3) Comfort measures only status SNOMED Code(s): 81480339620309 Code(s): Z51.5 - ENCOUNTER FOR PALLIATIVE CARE Status: Acute Priority: High Current Visit: No Annotation/Comment:: No code/no transfer status confirmed with the patient today. (4) D-dimer, elevated SNOMED Code(s): 216906923 Code(s): R79.89 - OTHER SPECIFIED ABNORMAL FINDINGS OF BLOOD CHEMISTRY Status: Acute Priority: Medium Current Visit: No Onset Date: 11/06/18 Annotation/Comment:: History of d-dimer elevation with negative workup on as above. D-dimer elevation stable at this time. No clinical evidence of DVT or PE. Observe for now. (5) Diabetes mellitus SNOMED Code(s): 68830307 Code(s): E11.9 - TYPE 2 DIABETES MELLITUS WITHOUT COMPLICATIONS Status: Chronic Priority: Medium Current Visit: No Annotation/Comment:: Stable by history. Glycosylated hemoglobin and lipid profile in the a.m. Qualifiers: Diabetes mellitus type: type 2 Diabetes mellitus chcf insulin use: with computer terminal operator use Diabetes mellitus complication status: with kidney complications Diabetes mellitus complication detail: with chronic kidney disease Chronic kidney disease stage: unspecified stage Qualified Code(s): E11.22 - Type 2 diabetes mellitus with diabetic chronic kidney disease; Z79.4 - terminal supervisor (current) use of insulin (6) Hyperuricemia SNOMED Code(s): 02883716 Code(s): E79.0 - HYPERURICEMIA W/O SIGNS OF INFLAM ARTHRIT AND TOPHACEOUS DIS Status: Acute Priority: Medium Current Visit: No Onset Date: Annotation/Comment:: Mild to moderately elevated uric acid level today with no gout type symptoms. Observe for now. Note Bumex therapy prior to admission with initiation of IV Lasix with caution as above. (7) Hypothyroidism SNOMED Code(s): 52993035 Code(s): E03.9 - HYPOTHYROIDISM, UNSPECIFIED Status: Acute Priority: Medium Current Visit: No Annotation/Comment:: TSH somewhat elevated on with her Synthroid supplementation increased at that time. TSH still elevated today. Consider further medication adjustments by admitting physician. Qualifiers: Hypothyroidism type: acquired Qualified Code(s): E03.9 - Hypothyroidism, unspecified (8) PVCs (premature ventricular contractions) SNOMED Code(s): 60506851 Code(s): I49.3 - VENTRICULAR PREMATURE DEPOLARIZATION Status: Acute Priority: Medium Current Visit: No Onset Date: 11/06/18 Annotation/Comment :: Observe for now as above. (9) Palliative care patient SNOMED Code(s): 142098560 Code(s): Z51.5 - ENCOUNTER FOR PALLIATIVE CARE Status: Chronic Priority: Medium Current Visit: No Annotation/Comment:: As above (10) COPD (chronic obstructive pulmonary disease) SNOMED Code(s): 50650044 Code(s): J44.9 - CHRONIC OBSTRUCTIVE PULMONARY DISEASE, UNSPECIFIED Status : Chronic Priority: Medium Current Visit: No Annotation/Comment:: No recent fever or bronchitic type symptoms. DuoNeb nebulizer treatment taken by the patient on her own prior to paramedics arrival as above. No WBC elevation, fever, etc. at this time. No evidence of pneumonia or bronchitis by today's chest x-ray. Qualifiers: COPD type: emphysema Emphysema type: panlobular Qualified Code(s): J43.1 - Panlobular emphysema (11) Coronary artery disease SNOMED Code(s): 95562472 Code(s): I25.10 - ATHSCL HEART DISEASE OF [place] CORONARY ARTERY W/O ANG PCTRS Status: Chronic Priority: Medium Current Visit: No Annotation/ Comment:: Stable by history with no recent chest pain or anginal type symptoms. Only mildly elevated BNP with no significant clinical evidence of CHF but by physical exam and today's chest x-ray. EKG shows no acute ischemic changes with newly diagnosed PVCs and incomplete right bundle branch block. Cardiac enzymes are normal with exception of artifactually elevated CK index secondary to low baseline CK. Continue to observe closely by patient's regular provider. Note current Bumex therapy. Qualifiers: Coronary Disease-Associated Artery/Lesion type: [place] artery [place] vs. transplanted heart: [place] heart Associated angina: without angina Qualified Code(s): I25.10 - Atherosclerotic heart disease of [place] coronary artery without angina pectoris (12) Hypertension SNOMED Code(s): 44008695 Code(s): I10 - ESSENTIAL (PRIMARY) HYPERTENSION Status: Chronic Priority : Medium Current Visit: No Annotation/Comment:: Her blood pressures were relatively stable during emergency room care, although somewhat elevated.. Continue to observe closely during this hospitalization with medication adjustments, including possible angiotensin II receptor melvina as above. Qualifiers: Hypertension type: essential hypertension Qualified Code(s): I10 - Essential (primary) hypertension (13) Mixed anxiety depressive disorder SNOMED Code(s): 065608609 Code(s): F41.8 - OTHER SPECIFIED ANXIETY DISORDERS Status: Chronic Priority: Medium Current Visit: No Annotation/Comment:: Stable by history. Continue to observe closely by regular provider. (14) Osteoarthritis SNOMED Code(s): 900900295 Code(s): M19.90 - UNSPECIFIED OSTEOARTHRITIS, UNSPECIFIED SITE Status: Chronic Priority: Medium Current Visit: No Annotation/Comment:: Stable by history with history of hyperuricemia as above. Qualifiers: Osteoarthritis location: multiple joints Osteoarthritis type: primary Qualified Code(s): M15.0 - Primary generalized (osteo)arthritis (15) Hypermagnesemia SNOMED Code(s): 74621140 Code(s): E83.41 - HYPERMAGNESEMIA Status: Acute Priority: Medium Current Visit: No Onset Date: 11/25/18 Annotation/Comment:: Initiate IV Lasix as above. Observe for now. - Problem List Review Problem List Initiated/Reviewed/Updated: Yes - My Orders Last 24 Hours: My Active Orders 11/25/18 17:22 Cardiac Monitoring [RC] . DIRECTED EKG Documentation Completion [RC] ASDIRECTED Oxygen Therapy, ED [RC] PRN Peripheral IV Care [RC] . DIRECTED Pulse Oximetry [RC] CONTINUOUS Up With Assistance [RC] PFP Vital Signs [RC] PFP Chest 1V Frontal [CR] Stat Sodium Chloride 0.9% [Saline Flush] 10 ml FLUSH ASDIRECTED PRN Obtain Past Medical Record [OM.PC] Urgent Peripheral IV Insertion Adult [OM.PC] Stat Resuscitation Status Stat 11/25/18 Breakfast Nothing per Oral Now Diet [DIET] - Assessment/Plan Admission H&P: Please use this note as an admission H&P Last 24 Hours: My Active Orders 11/25/18 17:22 Cardiac Monitoring [RC] . DIRECTED EKG Documentation Completion [RC] ASDIRECTED Oxygen Therapy, ED [RC] PRN Peripheral IV Care [RC] . DIRECTED Pulse Oximetry [RC] CONTINUOUS Up With Assistance [RC] PFP Vital Signs [RC] PFP Chest 1V Frontal [CR] Stat Sodium Chloride 0.9% [Saline Flush] 10 ml FLUSH ASDIRECTED PRN Obtain Past Medical Record [OM.PC] Urgent Peripheral IV Insertion Adult [OM.PC] Stat Resuscitation Status Stat 11/25/18 Breakfast Nothing per Oral Now Diet [DIET] Assessment:: As above Plan: As above. Extensive precautions were given to the patient, who is in agreement with the treatment plan. [facility] assumes care in the a.m. The patient will require about 3-4 days of inpatient/acute care secondary to multiple health problems as above.
[2018-11-25] MEDS ORDERED: Acetaminophen 325 MG Tab PO PRN (20:14)
[2018-11-25] MEDS: Albuterol/Ipratropium 3.0-0.5 MG/3 ML Neb Soln NEB PRN (20:29)
[2018-11-25] MEDS: Temazepam 15 MG Cap PO PRN (20:50)
[2018-11-25] MEDS: Enoxaparin 30 MG/0.3 ML Syringe SUBCUT SCH (20:52)
[2018-11-25] MEDS: Furosemide 40 MG/4 ML VIAL IVPUSH SCH (20:52)
[2018-11-25] MEDS: Sodium Chloride 0.9% 10 ML Syringe FLUSH PRN (20:54)
[2018-11-25] MEDS: Simvastatin 20 MG Tab PO SCH (22:39)
[2018-11-25] MEDS: Albuterol 0.083% 2.5 MG/3 ML Neb Soln INH PRN (23:57)
[2018-11-26] MEDS: Simvastatin 20 MG Tab PO SCH ×2 (00:12→20:05)
[2018-11-26] MEDS: Albuterol/Ipratropium 3.0-0.5 MG/3 ML Neb Soln NEB SCH ×4 (02:01→20:03)
[2018-11-26] MEDS: Furosemide 40 MG/4 ML VIAL IVPUSH SCH ×4 (04:15→20:04)
[2018-11-26] MEDS: Sodium Chloride 0.9% 10 ML Syringe FLUSH PRN ×3 (04:16→20:04)
[2018-11-26] MEDS ORDERED: Insulin Lispro 100 Units/ML 3 ML Vial SUBCUT SCH (07:30)
[2018-11-26 07:33] LABS: HEMOGLOBIN A1C 7.9 % (4.3-5.7)
[2018-11-26] MEDS: Potassium Chloride 20 MEQ Tab.ER PO SCH ×3 (07:41→17:25)
[2018-11-26] MEDS: Metoprolol Tartrate 25 MG Tab PO SCH ×2 (07:41→17:25)
[2018-11-26] MEDS: Levothyroxine 75 MCG Tab PO SCH (07:41)
[2018-11-26] MEDS: amLODIPine 5 MG Tab PO SCH (07:43)
[2018-11-26] MEDS: Insulin Lispro 100 Units/ML 3 ML Vial SUBCUT SCH ×2 (09:41→19:15)
[2018-11-26] MEDS: Albuterol 0.083% 2.5 MG/3 ML Neb Soln INH PRN ×2 (10:53→22:50)
[2018-11-26] MEDS: Albuterol/Ipratropium 3.0-0.5 MG/3 ML Neb Soln NEB PRN (17:25)
[2018-11-26] MEDS: Enoxaparin 30 MG/0.3 ML Syringe SUBCUT SCH (20:05)
[2018-11-26] MEDS: INSULIN DETEMIR 20 UNIT SUBCUT SCH (20:18)
--- NOTE | 2018-11-26 20:49 | PCM.PN ---
- General Info Date of Service: 11/26/18 Functional Status: Reports: Tolerating Diet - Review of Systems General: Reports: Weakness HEENT: Reports: No Symptoms Pulmonary: Reports: Shortness of Breath Cardiovascular: Reports: No Symptoms Gastrointestinal: Reports: No Symptoms Genitourinary: Reports: No Symptoms Musculoskeletal: Reports: No Symptoms Skin: Reports: No Symptoms Neurological: Reports: Weakness Psychiatric: Reports: No Symptoms - Patient Data Vitals - Most Recent: Last Vital Signs Temp 98.7 F 11/26/18 19:50 Pulse 87 11/26/18 19:50 Resp 20 11/26/18 19:50 BP 140/70 11/26/18 19:50 Pulse Ox 96 11/26/18 19:50 Weight - Most Recent: 131 lb 7.986 oz I&O - Last 24 Hours: Intake & Output 11/26/18 11/26/18 11/26/18 06:59 14:59 22:59 Intake Total 250 150 Output Total 500 1100 Balance -500 -850 150 Lab Results Last 24 Hours: Laboratory Results - last 24 hr 11/26/18 11/26/18 11/26/18 Range/Units 07:05 07:05 07:05 WBC 8.1 (4.0-10.2) K/uL RBC 4.52 (3.77-5.09) M/uL Hgb 13.2 (11.7-15.5) g/dL Hct 42.5 (34.0-46.0) % MCV 94.0 (84.0-98.0) fL MCH 29.2 (28.2-33.3) pg MCHC 31.1 L (31.7-36.0) g/dL RDW 15.7 H (11.2-14.1) % Plt Count 298 (150-350) K/uL Neut % (Auto) 61.0 (45.0-80.0) % Lymph % (Auto) 22.1 (10.0-50.0) % [place] % (Auto) 12.5 (2.0-14.0) % Eos % (Auto) 3.5 (0.0-5.0) % Baso % (Auto) 0.9 (0.0-2.0) % Neut # (Auto) 4.93 (1.40-7.00) K/uL Lymph # (Auto) 1.78 (0.50-3.50) K/uL [place] # (Auto) 1.01 H (0.00-1.00) K/uL Eos # (Auto) 0.28 (0.00-0.50) K/uL Baso # (Auto) 0.07 (0.00-0.20) K/uL Sodium 145 (136-145) mmol/L Potassium 4.3 (3.5-5.1) mmol/L Chloride 104 (98-107) mmol/L Carbon Dioxide 31.0 (21.0-32.0) mmol/L BUN 56 H (7-18) mg/dL Creatinine 1.55 H (0.51-1.17) mg/dL Est Cr Clr Drug Dosing 20.99 mL/min Estimated GFR (MDRD) 32 mL/min Glucose 180 H (74-106) mg/dL POC Glucose (65-110) mg/dl Hemoglobin A1c 7.9 H (4.3-5.7) % Calcium 9.3 (8.5-10.1) mg/dL Total Bilirubin 0.4 (0.2-1.0) mg/dL AST 24 (15-37) U/L ALT 33 (12-78) U/L Alkaline Phosphatase 110 (46-116) IU/L Creatine Kinase 50 (26-308) U/L Creatine Kinase Index 5.0 H (0.0-2.5) % CK-MB (CK-2) 2.50 (0.00-3.60) ng/mL Troponin I 0.000 (0.000-0.056) ng/mL NT-Pro-B Natriuret Pep 316 H (0-125) pg/mL Total Protein 7.3 (6.4-8.2) g/dL Albumin 3.5 (3.4-5.0) g/dL Triglycerides 147 (30-150) mg/dL Cholesterol 151 (100-200) mg/dL LDL Cholesterol, Calc 60 (0-100) mg/dL HDL Cholesterol 62 H (40-60) mg/dL 11/26/18 11/26/18 Range/Units 07:22 17:37 WBC (4.0-10.2) K/uL RBC (3.77-5.09) M/uL Hgb (11.7-15.5) g/dL Hct (34.0-46.0) % MCV (84.0-98.0) fL MCH (28.2-33.3) pg MCHC (31.7-36.0) g/dL RDW (11.2-14.1) % Plt Count (150-350) K/uL Neut % (Auto) (45.0-80.0) % Lymph % (Auto) (10.0-50.0) % [place] % (Auto) (2.0-14.0) % Eos % (Auto) (0.0-5.0) % Baso % (Auto) (0.0-2.0) % Neut # (Auto) (1.40-7.00) K/uL Lymph # (Auto) (0.50-3.50) K/uL [place] # (Auto) (0.00-1.00) K/uL Eos # (Auto) (0.00-0.50) K/uL Baso # (Auto) (0.00-0.20) K/uL Sodium (136-145) mmol/L Potassium (3.5-5.1) mmol/L Chloride (98-107) mmol/L Carbon Dioxide (21.0-32.0) mmol/L BUN (7-18) mg/dL Creatinine (0.51-1.17) mg/dL Est Cr Clr Drug Dosing mL/min Estimated GFR (MDRD) mL/min Glucose (74-106) mg/dL POC Glucose 171 H 135 H (65-110) mg/dl Hemoglobin A1c (4.3-5.7) % Calcium (8.5-10.1) mg/dL Total Bilirubin (0.2-1.0) mg/dL AST (15-37) U/L ALT (12-78) U/L Alkaline Phosphatase (46-116) IU/L Creatine Kinase (26-308) U/L Creatine Kinase Index (0.0-2.5) % CK-MB (CK-2) (0.00-3.60) ng/mL Troponin I (0.000-0.056) ng/mL NT-Pro-B Natriuret Pep (0-125) pg/mL Total Protein (6.4-8.2) g/dL Albumin (3.4-5.0) g/dL Triglycerides (30-150) mg/dL Cholesterol (100-200) mg/dL LDL Cholesterol, Calc (0-100) mg/dL HDL Cholesterol (40-60) mg/dL Med Orders - Current: Current Medications Acetaminophen (Tylenol) 650 mg PO Q4H PRN PRN Reason: Pain Albuterol (Proventil Neb Soln) 2.5 mg INH Q2H PRN PRN Reason: SHORTNESS OF BREATH Last Admin: 11/26/18 10:53 Dose: 2.5 mg Albuterol/Ipratropium (Duoneb 3.0-0.5 Mg/3 Ml) 3 ml NEB Q4HRRT PRN PRN Reason: Dyspnea Last Admin: 11/26/18 17:25 Dose: 3 ml Albuterol/Ipratropium (Duoneb 3.0-0.5 Mg/3 Ml) 3 ml NEB Q6HRRT MAURICIO Last Admin: 11/26/18 20:03 Dose: 3 ml Amlodipine Besylate (Norvasc) 5 mg PO DAILY ON LICENSE OF [facility] Last Admin: 11/26/18 07:43 Dose: 5 mg Enoxaparin Sodium (Lovenox) 30 mg SUBCUT Q24H ON LICENSE OF [facility] Last Admin: 11/26/18 20:05 Dose: 30 mg Insulin Human Lispro (Humalog) 0 unit SUBCUT BIDAC ON LICENSE OF [facility]; Protocol Last Admin: 11/26/18 19:15 Dose: Not Given Levothyroxine Sodium (Levothyroxine) 75 mcg PO ACBREAKFAST ON LICENSE OF [facility] Last Admin: 11/26/18 07:41 Dose: 75 mcg Metoprolol Tartrate (Lopressor) 25 mg PO Q12HR ON LICENSE OF [facility] Insulin Detemir [ Levemir] 20 Unit # Patients Own Med# 20 unit SUBCUT BEDTIME ON LICENSE OF [facility] Last Admin: 11/26/18 20:18 Dose: 20 unit Simvastatin (Zocor) 20 mg PO BEDTIME ON LICENSE OF [facility] Last Admin: 11/26/18 20:05 Dose: 20 mg Sodium Chloride (Saline Flush) 10 ml FLUSH Q12HR MAURICIO Sodium Chloride (Saline Flush) 10 ml FLUSH ASDIRECTED PRN PRN Reason: Keep Vein Open Temazepam (Restoril) 15 mg PO BEDTIME PRN PRN Reason: Insomnia Last Admin: 11/25/18 20:50 Dose: 15 mg Discontinued Medications Furosemide (Lasix) 40 mg IVPUSH Q8H ON LICENSE OF [facility] Last Admin: 11/26/18 20:04 Dose: 40 mg Insulin Human Lispro (Humalog) 0 unit SUBCUT BIDAC ON LICENSE OF [facility]; Protocol Metoprolol Tartrate (Lopressor) 25 mg PO BID ON LICENSE OF [facility] Last Admin: 11/26/18 17:25 Dose: 25 mg Potassium Chloride (Klor-Con M20) 20 meq PO TID ON LICENSE OF [facility] Last Admin: 11/26/18 17:25 Dose: 20 meq Sodium Chloride (Saline Flush) 10 ml FLUSH ASDIRECTED PRN PRN Reason: Keep Vein Open Sodium Chloride (Saline Flush) 10 ml FLUSH Q12HR PRN PRN Reason: Keep Vein Open Last Admin: 11/26/18 20:04 Dose: 10 ml - Exam Quality Assessment: Supplemental Oxygen, DVT Prophylaxis General: Alert, Cooperative, Mild Distress HEENT: Mucous Membr. Moist/[place] Neck: Trachea Midline, No JVD Lungs: Decreased Breath Sounds, Rhonchi, Wheezing Cardiovascular: Regular Rate, Regular Rhythm GI/Abdominal Exam: Soft, Non-Tender, No Distention (Female) Exam: Deferred Back Exam: Other (kyphosis) Extremities: Non-Tender, Pedal Edema Skin: Warm, Dry, Intact, Ecchymosis Neurological: No New Focal Deficit, Other (generalized weakness) Psy/Mental Status: Alert, Normal Affect, Anxious - Problem List & Annotations (1) CKD (chronic kidney disease) SNOMED Code(s): 709172275 Code(s): N18.9 - CHRONIC KIDNEY DISEASE, UNSPECIFIED Status: Acute Current Visit: No Qualifiers: Chronic kidney disease stage: unspecified stage Qualified Code(s): N18.9 - Chronic kidney disease, unspecified (2) Comfort measures only status SNOMED Code(s): 52355742339197 Code(s): Z51.5 - ENCOUNTER FOR PALLIATIVE CARE Status: Acute Priority: High Current Visit: No Annotation/Comment:: No code/no transfer status confirmed with the patient today. 11/26/18 She confirms she is DNR/DNI/Comfort Measures and she says absolutely NO when asked if she wants to be transferred to [place]. I told her family members want her transferred to [facility] and she says absolutely NO. (3) Congestive heart failure (CHF) SNOMED Code(s): 05028687 Code(s): I50.9 - HEART FAILURE, UNSPECIFIED Status: Acute Priority: High Current Visit: No Onset Date: ~11/23/18 Qualifiers: Heart failure type: unspecified Heart failure chronicity: chronic Qualified Code(s): I50.9 - Heart failure, unspecified (4) D-dimer, elevated SNOMED Code(s): 372596460 Code(s): R79.89 - OTHER SPECIFIED ABNORMAL FINDINGS OF BLOOD CHEMISTRY Status: Acute Priority: Medium Current Visit: No Onset Date: 11/06/18 Annotation/Comment:: History of d-dimer elevation with negative workup on as above. D-dimer elevation stable at this time. No clinical evidence of DVT or PE. Observe for now. (5) Hypermagnesemia SNOMED Code(s): 33783478 Code(s): E83.41 - HYPERMAGNESEMIA Status: Acute Priority: Medium Current Visit: No Onset Date: 11/25/18 Annotation/Comment:: Initiate IV Lasix as above. Observe for now. (6) Hyperuricemia SNOMED Code(s): 20506138 Code(s): E79.0 - HYPERURICEMIA W/O SIGNS OF INFLAM ARTHRIT AND TOPHACEOUS DIS Status: Acute Priority: Medium Current Visit: No Onset Date: Annotation/Comment:: Mild to moderately elevated uric acid level today with no gout type symptoms. Observe for now. Note Bumex therapy prior to admission with initiation of IV Lasix with caution as above. (7) Hypoalbuminemia SNOMED Code(s): 028863496 Code(s): E88.09 - OTH DISORDERS OF PLASMA-PROTEIN METABOLISM, NEC Status: Acute Priority: Medium Current Visit: No Onset Date: 11/06/18 Annotation /Comment:: Initiate high-protein Glucerna supplements on a twice a day basis as snacks secondary to her hypoglycemic episodes. Otherwise close follow-up by her regular provider. (8) Hypothyroidism SNOMED Code(s): 12051095 Code(s): E03.9 - HYPOTHYROIDISM, UNSPECIFIED Status: Acute Priority: Medium Current Visit: No Qualifiers: Hypothyroidism type: acquired Qualified Code(s): E03.9 - Hypothyroidism, unspecified Annotation/Comment:: TSH somewhat elevated on 11/06/18 with her Synthroid supplementation increased at that time. TSH still elevated today. Consider further medication adjustments by admitting physician. (9) COPD (chronic obstructive pulmonary disease) SNOMED Code(s): 53831691 Code(s): J44.9 - CHRONIC OBSTRUCTIVE PULMONARY DISEASE, UNSPECIFIED Status : Chronic Priority: Medium Current Visit: No Qualifiers: COPD type: emphysema Emphysema type: panlobular Qualified Code(s): J43.1 - Panlobular emphysema Annotation/Comment:: No recent fever or bronchitic type symptoms. DuoNeb nebulizer treatment taken by the patient on her own prior to paramedics arrival as above. No WBC elevation, fever, etc. at this time. No evidence of pneumonia or bronchitis by today's chest x-ray. (10) Coronary artery disease SNOMED Code(s): 04208663 Code(s): I25.10 - ATHSCL HEART DISEASE OF [place] CORONARY ARTERY W/O ANG PCTRS Status: Chronic Priority: Medium Current Visit: No Qualifiers: Coronary Disease-Associated Artery/Lesion type: [place] artery [place] vs. transplanted heart: [place] heart Associated angina: without angina Qualified Code(s): I25.10 - Atherosclerotic heart disease of [place] coronary artery without angina pectoris (11) Hypertension SNOMED Code(s): 11151665 Code(s): I10 - ESSENTIAL (PRIMARY) HYPERTENSION Status: Chronic Priority : Medium Current Visit: No Qualifiers: Hypertension type: essential hypertension Qualified Code(s): I10 - Essential (primary) hypertension (12) IDDM (insulin dependent diabetes mellitus) SNOMED Code(s): 57397513 Code(s): E11.9 - TYPE 2 DIABETES MELLITUS WITHOUT COMPLICATIONS; Z79.4 - SKILLED NURSING (CURRENT) USE OF INSULIN Status: Chronic Priority: High Current Visit: No (13) Mixed anxiety depressive disorder SNOMED Code(s): 602162264 Code(s): F41.8 - OTHER SPECIFIED ANXIETY DISORDERS Status: Chronic Priority: Medium Current Visit: No Annotation/Comment:: Stable by history. Continue to observe closely by regular provider. (14) Osteoarthritis SNOMED Code(s): 818957699 Code(s): M19.90 - UNSPECIFIED OSTEOARTHRITIS, UNSPECIFIED SITE Status: Chronic Priority: Medium Current Visit: No Qualifiers: Osteoarthritis location: multiple joints Osteoarthritis type: primary Qualified Code(s): M15.0 - Primary generalized (osteo)arthritis Annotation/Comment:: Stable by history with history of hyperuricemia as above. (15) Palliative care patient SNOMED Code(s): 147886957 Code(s): Z51.5 - ENCOUNTER FOR PALLIATIVE CARE Status: Chronic Priority: Medium Current Visit: No Annotation/Comment:: As above - Problem List Review Problem List Initiated/Reviewed/Updated: Yes - My Orders Last 24 Hours: My Active Orders 11/26/18 20:32 CRP [C-REACTIVE PROTEIN] [CHEM] Routine 11/26/18 20:34 Discontinue Telemetry Monitoring [Cardiac Monitoring Discontinue] [RC] Click to Edit 11/26/18 20:38 Sodium Chloride 0.9% [Saline Flush] 10 ml FLUSH ASDIRECTED PRN 11/26/18 [employer] Diet [DIET] 11/27/18 05:11 BLOOD GAS VENOUS [BG] Routine CBC WITH AUTO DIFF [HEME] DAILY CMP [COMPREHENSIVE METABOLIC PN,CMP] [CHEM] DAILY CRP [C-REACTIVE PROTEIN] [CHEM] DAILY 11/27/18 08:00 Metoprolol Tartrate [Lopressor] 25 mg PO Q12HR Sodium Chloride 0.9% [Saline Flush] 10 ml FLUSH Q12HR 11/28/18 05:11 CBC WITH AUTO DIFF [HEME] DAILY CMP [COMPREHENSIVE METABOLIC PN,CMP] [CHEM] DAILY CRP [C-REACTIVE PROTEIN] [CHEM] DAILY 11/29/18 05:11 CBC WITH AUTO DIFF [HEME] DAILY CMP [COMPREHENSIVE METABOLIC PN,CMP] [CHEM] DAILY CRP [C-REACTIVE PROTEIN] [CHEM] DAILY - Plan Plan:: 11/26/18 Rosie Quintana MD Still short of breath. Wanting nebulizer. Son and grand-daughter demanding that she be transferred to [place]. I asked Dayna and she says absolutely NO to transfer to [facility]. Will check CRP.
[2018-11-26] MEDS: cefTRIAXone 1 GM in Sodium Chloride 0.9% 100 ML IV SCH (22:06)
[2018-11-26] MEDS: Azithromycin 500 MG in Sodium Chloride 0.9% 250 ML IV SCH (22:47)
[2018-11-26] MEDS: metroNIDAZOLE/Normal Saline 500 MG in Premix Bag 1 BAG IV SCH (23:48)
[2018-11-27] MEDS: Albuterol/Ipratropium 3.0-0.5 MG/3 ML Neb Soln NEB SCH ×4 (01:37→19:51)
[2018-11-27] MEDS: Albuterol 0.083% 2.5 MG/3 ML Neb Soln INH PRN ×5 (04:13→22:48)
[2018-11-27 07:24] LABS: O2 DELIVERY DEVICE NASAL CANNULA
[2018-11-27 07:30] LABS: BASE EXCESS VENOUS 4 mmol/L ((-2)-3); BICARBONATE,VENOUS 29 mmol/L (23-28); O2 SATURATION VENOUS 93 %; PCO2 VENOUS 46 mmHG (41-51); PO2 VENOUS 68 mmHG
[2018-11-27] MEDS: Insulin Lispro 100 Units/ML 3 ML Vial SUBCUT SCH ×2 (08:04→17:18)
[2018-11-27] MEDS: Levothyroxine 75 MCG Tab PO SCH (08:10)
[2018-11-27] MEDS: amLODIPine 5 MG Tab PO SCH (08:11)
[2018-11-27] MEDS: Metoprolol Tartrate 25 MG Tab PO SCH ×2 (08:11→19:51)
[2018-11-27] MEDS: Sodium Chloride 0.9% 10 ML Syringe FLUSH SCH ×2 (08:13→19:58)
[2018-11-27] MEDS: metroNIDAZOLE/Normal Saline 500 MG in Premix Bag 1 BAG IV SCH ×3 (08:14→23:20)
[2018-11-27] MEDS: Sodium Chloride 0.9% 10 ML Syringe FLUSH PRN ×4 (09:29→22:17)
[2018-11-27] MEDS: DEXAMETH EYELF SCH ×2 (14:42→17:21)
[2018-11-27] MEDS: NEO EYELF SCH ×2 (14:42→17:21)
[2018-11-27] MEDS: POLYMYX B SULF EYELF SCH ×2 (14:42→17:21)
[2018-11-27] MEDS: Enoxaparin 30 MG/0.3 ML Syringe SUBCUT SCH (19:51)
[2018-11-27] MEDS: Simvastatin 20 MG Tab PO SCH (19:51)
[2018-11-27] MEDS: INSULIN DETEMIR 20 UNIT SUBCUT SCH (20:11)
--- NOTE | 2018-11-27 20:37 | PCM.PN ---
- General Info Date of Service: 11/27/18 Functional Status: Reports: Urinating, Other (feels a little better today) - Review of Systems General: Reports: Weakness HEENT: Reports: No Symptoms Pulmonary: Reports: Shortness of Breath, Cough Cardiovascular: Reports: No Symptoms Gastrointestinal: Reports: No Symptoms Genitourinary: Reports: No Symptoms Musculoskeletal: Reports: No Symptoms Skin: Reports: Bruising Neurological: Reports: Weakness Psychiatric: Reports: No Symptoms - Patient Data Vitals - Most Recent: Last Vital Signs Temp 98.5 F 11/27/18 19:31 Pulse 95 11/27/18 19:51 Resp 21 H 11/27/18 19:31 BP 147/73 H 11/27/18 19:51 Pulse Ox 97 11/27/18 19:31 Weight - Most Recent: 130 lb 8 oz I&O - Last 24 Hours: Intake & Output 11/27/18 11/27/18 11/27/18 06:59 14:59 22:59 Intake Total 550 220 340 Output Total 500 Balance 50 220 340 Lab Results Last 24 Hours: Laboratory Results - last 24 hr 11/26/18 11/27/18 11/27/18 Range/Units 07:27 07:12 07:12 WBC 10.0 (4.0-10.2) K/uL RBC 4.31 (3.77-5.09) M/uL Hgb 12.6 (11.7-15.5) g/dL Hct 41.1 (34.0-46.0) % MCV 95.4 (84.0-98.0) fL MCH 29.2 (28.2-33.3) pg MCHC 30.7 L (31.7-36.0) g/dL RDW 15.3 H (11.2-14.1) % Plt Count 296 (150-350) K/uL Neut % (Auto) 75.3 (45.0-80.0) % Lymph % (Auto) 11.8 (10.0-50.0) % Leslie % (Auto) 10.9 (2.0-14.0) % Eos % (Auto) 1.6 (0.0-5.0) % Baso % (Auto) 0.4 (0.0-2.0) % Neut # (Auto) 7.50 H (1.40-7.00) K/uL Lymph # (Auto) 1.18 (0.50-3.50) K/uL Leslie # (Auto) 1.09 H (0.00-1.00) K/uL Eos # (Auto) 0.16 (0.00-0.50) K/uL Baso # (Auto) 0.04 (0.00-0.20) K/uL VBG pH 7.40 (7.31-7.41) VBG pCO2 46 (41-51) mmHG VBG pO2 68 mmHG VBG HCO3 29 H (23-28) mmol/L VBG Total CO2 30 mmol/L VBG O2 Saturation 93 % VBG Base Excess 4 H ((-2)-3) mmol/L O2 Delivery Device Nasal cannula Sodium (136-145) mmol/L Potassium (3.5-5.1) mmol/L Chloride (98-107) mmol/L Carbon Dioxide (21.0-32.0) mmol/L BUN (7-18) mg/dL Creatinine (0.51-1.17) mg/dL Est Cr Clr Drug Dosing mL/min Estimated GFR (MDRD) mL/min Glucose (74-106) mg/dL POC Glucose (65-110) mg/dl Calcium (8.5-10.1) mg/dL Total Bilirubin (0.2-1.0) mg/dL AST (15-37) U/L ALT (12-78) U/L Alkaline Phosphatase (46-116) IU/L C-Reactive Protein 0.6 (<=0.9) mg/dL Total Protein (6.4-8.2) g/dL Albumin (3.4-5.0) g/dL 11/27/18 11/27/18 11/27/18 Range/Units 07:12 07:24 16:40 WBC (4.0-10.2) K/uL RBC (3.77-5.09) M/uL Hgb (11.7-15.5) g/dL Hct (34.0-46.0) % MCV (84.0-98.0) fL MCH (28.2-33.3) pg MCHC (31.7-36.0) g/dL RDW (11.2-14.1) % Plt Count (150-350) K/uL Neut % (Auto) (45.0-80.0) % Lymph % (Auto) (10.0-50.0) % Leslie % (Auto) (2.0-14.0) % Eos % (Auto) (0.0-5.0) % Baso % (Auto) (0.0-2.0) % Neut # (Auto) (1.40-7.00) K/uL Lymph # (Auto) (0.50-3.50) K/uL Leslie # (Auto) (0.00-1.00) K/uL Eos # (Auto) (0.00-0.50) K/uL Baso # (Auto) (0.00-0.20) K/uL VBG pH (7.31-7.41) VBG pCO2 (41-51) mmHG VBG pO2 mmHG VBG HCO3 (23-28) mmol/L VBG Total CO2 mmol/L VBG O2 Saturation % VBG Base Excess ((-2)-3) mmol/L O2 Delivery Device Sodium 147 H (136-145) mmol/L Potassium 4.5 (3.5-5.1) mmol/L Chloride 106 (98-107) mmol/L Carbon Dioxide 28.7 (21.0-32.0) mmol/L BUN 52 H (7-18) mg/dL Creatinine 1.44 H (0.51-1.17) mg/dL Est Cr Clr Drug Dosing 22.39 mL/min Estimated GFR (MDRD) 35 mL/min Glucose 166 H (74-106) mg/dL POC Glucose 178 H 236 H (65-110) mg/dl Calcium 8.9 (8.5-10.1) mg/dL Total Bilirubin 0.4 (0.2-1.0) mg/dL AST 22 (15-37) U/L ALT 29 (12-78) U/L Alkaline Phosphatase 100 (46-116) IU/L C-Reactive Protein 2.3 H (<=0.9) mg/dL Total Protein 6.8 (6.4-8.2) g/dL Albumin 3.1 L (3.4-5.0) g/dL 11/27/18 Range/Units 19:37 WBC (4.0-10.2) K/uL RBC (3.77-5.09) M/uL Hgb (11.7-15.5) g/dL Hct (34.0-46.0) % MCV (84.0-98.0) fL MCH (28.2-33.3) pg MCHC (31.7-36.0) g/dL RDW (11.2-14.1) % Plt Count (150-350) K/uL Neut % (Auto) (45.0-80.0) % Lymph % (Auto) (10.0-50.0) % Leslie % (Auto) (2.0-14.0) % Eos % (Auto) (0.0-5.0) % Baso % (Auto) (0.0-2.0) % Neut # (Auto) (1.40-7.00) K/uL Lymph # (Auto) (0.50-3.50) K/uL Leslie # (Auto) (0.00-1.00) K/uL Eos # (Auto) (0.00-0.50) K/uL Baso # (Auto) (0.00-0.20) K/uL VBG pH (7.31-7.41) VBG pCO2 (41-51) mmHG VBG pO2 mmHG VBG HCO3 (23-28) mmol/L VBG Total CO2 mmol/L VBG O2 Saturation % VBG Base Excess ((-2)-3) mmol/L O2 Delivery Device Sodium (136-145) mmol/L Potassium (3.5-5.1) mmol/L Chloride (98-107) mmol/L Carbon Dioxide (21.0-32.0) mmol/L BUN (7-18) mg/dL Creatinine (0.51-1.17) mg/dL Est Cr Clr Drug Dosing mL/min Estimated GFR (MDRD) mL/min Glucose (74-106) mg/dL POC Glucose 176 H (65-110) mg/dl Calcium (8.5-10.1) mg/dL Total Bilirubin (0.2-1.0) mg/dL AST (15-37) U/L ALT (12-78) U/L Alkaline Phosphatase (46-116) IU/L C-Reactive Protein (<=0.9) mg/dL Total Protein (6.4-8.2) g/dL Albumin (3.4-5.0) g/dL Shyam Results Last 24 Hours: Microbiology 11/25/18 12:26 Stool Occult Blood (SHYAM) - Final Stool / Feces NEGATIVE OCCULT BLOOD REFERENCE RANGE: NEGATIVE Med Orders - Current: Current Medications Acetaminophen (Tylenol) 650 mg PO Q4H PRN PRN Reason: Pain Albuterol (Proventil Neb Soln) 2.5 mg INH Q2H PRN PRN Reason: SHORTNESS OF BREATH Last Admin: 11/27/18 17:24 Dose: 2.5 mg Albuterol/Ipratropium (Duoneb 3.0-0.5 Mg/3 Ml) 3 ml NEB Q4HRRT PRN PRN Reason: Dyspnea Last Admin: 11/26/18 17:25 Dose: 3 ml Albuterol/Ipratropium (Duoneb 3.0-0.5 Mg/3 Ml) [address] [facility] Last Admin: 11/27/18 19:51 Dose: 3 ml Amlodipine Besylate (Norvasc) [address] [facility] Last Admin: 11/27/18 08:11 Dose: 5 mg Enoxaparin Sodium (Lovenox) [address] [facility] Last Admin: 11/27/18 19:51 Dose: 30 mg Azithromycin 500 mg/ Sodium (Chloride) 250 mls @ 250 mls/hr IV Q24H [facility] Stop: 11/28/18 23:59 Last Admin: 11/26/18 22:47 Dose: 250 mls/hr Ceftriaxone Sodium 1 gm/ (Sodium Chloride) 100 mls @ 200 mls/hr IV Q24H [facility] Last Admin: 11/26/18 22:06 Dose: 200 mls/hr Metronidazole 500 mg/ Premix 100 mls @ 100 mls/hr IV Q8H [facility] Last Admin: 11/27/18 16:31 Dose: 100 mls/hr Insulin Human Lispro (Humalog) [address] [facility]; Protocol Last Admin: 11/27/18 17:18 Dose: 4 units Levothyroxine Sodium (Levothyroxine) [address] [facility] Last Admin: 11/27/18 08:10 Dose: 75 mcg Metoprolol Tartrate (Lopressor) [address] [facility] Last Admin: 11/27/18 19:51 Dose: 25 mg Insulin Detemir [ Levemir] 20 Unit # Patients Own Med# [address] [facility] Last Admin: 11/27/18 20:11 Dose: 20 unit Naldo/Polymyx B Sulf/Dexameth [Neomyc- Polym-Dexamet Eye OinOwn Med [address] [facility] Last Admin: 11/27/18 17:21 Dose: 1 applic Simvastatin (Zocor) [address] [facility] Last Admin: 11/27/18 19:51 Dose: 20 mg Sodium Chloride (Saline Flush) [address] [facility] Last Admin: 11/27/18 19:58 Dose: 10 ml Sodium Chloride (Saline Flush) 10 ml FLUSH ASDIRECTED PRN PRN Reason: Keep Vein Open Last Admin: 11/27/18 17:39 Dose: 10 ml Temazepam (Restoril) 15 mg PO BEDTIME PRN PRN Reason: Insomnia Last Admin: 11/25/18 20:50 Dose: 15 mg Discontinued Medications Furosemide (Lasix) [address] [facility] Last Admin: 11/26/18 20:04 Dose: 40 mg Insulin Human Lispro (Humalog) [address] [facility]; Protocol Metoprolol Tartrate (Lopressor) [address] [facility] Last Admin: 11/26/18 17:25 Dose: 25 mg Potassium Chloride (Klor-Con M20) [address] [facility] Last Admin: 11/26/18 17:25 Dose: 20 meq Sodium Chloride (Saline Flush) 10 ml FLUSH ASDIRECTED PRN PRN Reason: Keep Vein Open Sodium Chloride (Saline Flush) 10 ml FLUSH Q12HR PRN PRN Reason: Keep Vein Open Last Admin: 11/26/18 20:04 Dose: 10 ml - Exam Quality Assessment: Supplemental Oxygen, DVT Prophylaxis General: Alert, Cooperative, No Acute Distress HEENT: Mucous Membr. Moist/[place] Neck: Trachea Midline, No JVD Lungs: Normal Respiratory Effort, Decreased Breath Sounds, Rhonchi Cardiovascular: Regular Rate, Regular Rhythm GI/Abdominal Exam: Soft, Non-Tender (Female) Exam: Deferred Back Exam: Other (kyphosis) Extremities: Non-Tender, Pedal Edema (improved today) Skin: Warm, Dry, Intact, Ecchymosis Neurological: No New Focal Deficit Psy/Mental Status: Alert, Normal Affect, Normal Mood - Problem List & Annotations (1) Acute exacerbation of chronic obstructive pulmonary disease (COPD) SNOMED Code(s): 801336594 Code(s): J44.1 - CHRONIC OBSTRUCTIVE PULMONARY DISEASE W (ACUTE) EXACERBATION Status: Acute Priority: High Current Visit: Yes (2) CKD (chronic kidney disease) SNOMED Code(s): 061333709 Code(s): N18.9 - CHRONIC KIDNEY DISEASE, UNSPECIFIED Status: Acute Current Visit: No Qualifiers: Chronic kidney disease stage: unspecified stage Qualified Code(s): N18.9 - Chronic kidney disease, unspecified (3) Comfort measures only status SNOMED Code(s): 32040521933641 Code(s): Z51.5 - ENCOUNTER FOR PALLIATIVE CARE Status: Acute Priority: High Current Visit: No Annotation/Comment:: No code/no transfer status confirmed with the patient today. 11/26/18 She confirms she is DNR/DNI/Comfort Measures and she says absolutely NO when asked if she wants to be transferred to [place]. I told her family members want her transferred to [facility] and she says absolutely NO. (4) Congestive heart failure (CHF) SNOMED Code(s): 72308231 Code(s): I50.9 - HEART FAILURE, UNSPECIFIED Status: Acute Priority: High Current Visit: No Onset Date: ~11/23/18 Qualifiers: Heart failure type: unspecified Heart failure chronicity: chronic Qualified Code(s): I50.9 - Heart failure, unspecified (5) D-dimer, elevated SNOMED Code(s): 844369272 Code(s): R79.89 - OTHER SPECIFIED ABNORMAL FINDINGS OF BLOOD CHEMISTRY Status: Acute Priority: Medium Current Visit: No Onset Date: 11/06/18 Annotation/Comment:: History of d-dimer elevation with negative workup on as above. D-dimer elevation stable at this time. No clinical evidence of DVT or PE. Observe for now. (6) Hypermagnesemia SNOMED Code(s): 08380220 Code(s): E83.41 - HYPERMAGNESEMIA Status: Acute Priority: Medium Current Visit: No Onset Date: 11/25/18 Annotation/Comment:: Initiate IV Lasix as above. Observe for now. (7) Hyperuricemia SNOMED Code(s): 68299193 Code(s): E79.0 - HYPERURICEMIA W/O SIGNS OF INFLAM ARTHRIT AND TOPHACEOUS DIS Status: Acute Priority: Medium Current Visit: No Onset Date: Annotation/Comment:: Mild to moderately elevated uric acid level today with no gout type symptoms. Observe for now. Note Bumex therapy prior to admission with initiation of IV Lasix with caution as above. (8) Hypoalbuminemia SNOMED Code(s): 056732756 Code(s): E88.09 - OTH DISORDERS OF PLASMA-PROTEIN METABOLISM, NEC Status: Acute Priority: Medium Current Visit: No Onset Date: 11/06/18 Annotation /Comment:: Initiate high-protein Glucerna supplements on a twice a day basis as snacks secondary to her hypoglycemic episodes. Otherwise close follow-up by her regular provider. (9) Hypothyroidism SNOMED Code(s): 24562815 Code(s): E03.9 - HYPOTHYROIDISM, UNSPECIFIED Status: Acute Priority: Medium Current Visit: No Qualifiers: Hypothyroidism type: acquired Qualified Code(s): E03.9 - Hypothyroidism, unspecified Annotation/Comment:: TSH somewhat elevated on 11/06/18 with her Synthroid supplementation increased at that time. TSH still elevated today. Consider further medication adjustments by admitting physician. (10) COPD (chronic obstructive pulmonary disease) SNOMED Code(s): 83274275 Code(s): J44.9 - CHRONIC OBSTRUCTIVE PULMONARY DISEASE, UNSPECIFIED Status : Chronic Priority: Medium Current Visit: No Qualifiers: COPD type: emphysema Emphysema type: panlobular Qualified Code(s): J43.1 - Panlobular emphysema Annotation/Comment:: No recent fever or bronchitic type symptoms. DuoNeb nebulizer treatment taken by the patient on her own prior to paramedics arrival as above. No WBC elevation, fever, etc. at this time. No evidence of pneumonia or bronchitis by today's chest x-ray. (11) Coronary artery disease SNOMED Code(s): 38294597 Code(s): I25.10 - ATHSCL HEART DISEASE OF [place] CORONARY ARTERY W/O ANG PCTRS Status: Chronic Priority: Medium Current Visit: No Qualifiers: Coronary Disease-Associated Artery/Lesion type: [place] artery [place] vs. 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 Continue to observe closely by regular provider. (15) Osteoarthritis SNOMED Code(s): 976101309 Code(s): M19.90 - UNSPECIFIED OSTEOARTHRITIS, UNSPECIFIED SITE Status: Chronic Priority: Medium Current Visit: No Qualifiers: Osteoarthritis location: multiple joints Osteoarthritis type: primary Qualified Code(s): M15.0 - Primary generalized (osteo)arthritis Annotation/Comment:: Stable by history with history of hyperuricemia as above. (16) Palliative care patient SNOMED Code(s): 838360032 Code(s): Z51.5 - ENCOUNTER FOR PALLIATIVE CARE Status: Chronic Priority: Medium Current Visit: No Annotation/Comment:: As above - Problem List Review Problem List Initiated/Reviewed/Updated: Yes - My Orders Last 24 Hours: My Active Orders 11/26/18 20:34 Discontinue Telemetry Monitoring [Cardiac Monitoring Discontinue] [RC] Click to Edit 11/26/18 20:38 Sodium Chloride 0.9% [Saline Flush] 10 ml FLUSH ASDIRECTED PRN 11/26/18 22:00 cefTRIAXone [Rocephin] 1 gm Sodium Chloride 0.9% [Normal Saline] 100 ml IV Q24H 11/26/18 23:00 Azithromycin [Zithromax] 500 mg Sodium Chloride 0.9% [Normal Saline] 250 ml IV Q24H 11/27/18 00:00 metroNIDAZOLE/Normal Saline [Flagyl 500 MG in NS 100 ML] 500 mg Premix Bag 1 bag IV Q8H 11/27/18 07:12 MYCOPLASMA IGM RAPID [MREF] Routine 11/27/18 08:00 Metoprolol Tartrate [Lopressor] 25 mg PO Q12HR Sodium Chloride 0.9% [Saline Flush] 10 ml FLUSH Q12HR 11/27/18 14:30 Naldo/Polymyx B Sulf/Dexameth [Cuehmg-Ozmhu-Cxuwopu Eye Ointm] 1 applic EYELF BID 11/28/18 05:11 CBC WITH AUTO DIFF [HEME] DAILY CMP [COMPREHENSIVE METABOLIC PN,CMP] [CHEM] DAILY CRP [C-REACTIVE PROTEIN] [CHEM] DAILY 11/28/18 08:00 Consult to Case Management/Business Economist [CONS] Routine Consult to Occupational Therapy [OT Evaluation and Treatment] [CONS] Routine PT Evaluation and Treatment [CONS] Routine 11/29/18 05:11 CBC WITH AUTO DIFF [HEME] DAILY CMP [COMPREHENSIVE METABOLIC PN,CMP] [CHEM] DAILY CRP [C-REACTIVE PROTEIN] [CHEM] DAILY - Plan Plan:: 11/26/18 Rosie Quintana MD Still short of breath. Wanting nebulizer. Son and grand-daughter demanding that she be transferred to [place]. I asked Dayna and she says absolutely NO to transfer to [place]. Will check CRP. 11/27/18 Rosie Quintana MD She does feel better today. Less short of breath. Continue medical regiment. I did talk to her son Vamshi. Dayna is again saying she does not want to go to [place] ,.
[2018-11-27] MEDS: cefTRIAXone 1 GM in Sodium Chloride 0.9% 100 ML IV SCH (21:29)
[2018-11-27] MEDS: Azithromycin 500 MG in Sodium Chloride 0.9% 250 ML IV SCH (22:09)
[2018-11-27] MEDS: Temazepam 15 MG Cap PO PRN (22:16)
[2018-11-28] MEDS: Albuterol/Ipratropium 3.0-0.5 MG/3 ML Neb Soln NEB SCH ×4 (02:21→20:36)
[2018-11-28] MEDS: Insulin Lispro 100 Units/ML 3 ML Vial SUBCUT SCH ×2 (07:31→18:13)
[2018-11-28] MEDS: Levothyroxine 75 MCG Tab PO SCH (07:34)
[2018-11-28] MEDS: amLODIPine 5 MG Tab PO SCH (07:34)
[2018-11-28] MEDS: metroNIDAZOLE/Normal Saline 500 MG in Premix Bag 1 BAG IV SCH (07:35)
[2018-11-28] MEDS: Metoprolol Tartrate 25 MG Tab PO SCH ×2 (07:35→20:38)
[2018-11-28] MEDS: Sodium Chloride 0.9% 10 ML Syringe FLUSH SCH ×2 (07:35→20:42)
[2018-11-28] MEDS: DEXAMETH EYELF SCH ×2 (07:42→18:15)
[2018-11-28] MEDS: NEO EYELF SCH ×2 (07:42→18:15)
[2018-11-28] MEDS: POLYMYX B SULF EYELF SCH ×2 (07:42→18:15)
[2018-11-28] MEDS: Albuterol/Ipratropium 3.0-0.5 MG/3 ML Neb Soln NEB PRN (10:57)
[2018-11-28] MEDS ORDERED: Furosemide 40 MG/4 ML VIAL IVPUSH STA (11:10)
[2018-11-28] MEDS ORDERED: methylPREDNISolone Sodium Succinate 125 MG/2 ML SDV IVPUSH ONE (11:10)
[2018-11-28] MEDS: Sodium Chloride 0.9% 10 ML Syringe FLUSH PRN ×3 (11:23→22:30)
[2018-11-28] MEDS: Albuterol 0.083% 2.5 MG/3 ML Neb Soln INH PRN ×3 (13:08→23:51)
[2018-11-28] MEDS ORDERED: Insulin Isophane NPH, Human 100 Units/ML 3 ML Vial SQ ONE (19:30)
[2018-11-28] MEDS: Simvastatin 20 MG Tab PO SCH (20:37)
[2018-11-28] MEDS: metroNIDAZOLE 500 MG Tab PO SCH (20:37)
[2018-11-28] MEDS: Enoxaparin 30 MG/0.3 ML Syringe SUBCUT SCH (20:42)
[2018-11-28] MEDS: INSULIN DETEMIR 20 UNIT SUBCUT SCH (20:46)
[2018-11-28] MEDS: cefTRIAXone 1 GM in Sodium Chloride 0.9% 100 ML IV SCH (22:00)
[2018-11-28] MEDS: Azithromycin 500 MG in Sodium Chloride 0.9% 250 ML IV SCH (22:31)
[2018-11-28] MEDS: Temazepam 15 MG Cap PO PRN (23:51)
[2018-11-29] MEDS: Albuterol/Ipratropium 3.0-0.5 MG/3 ML Neb Soln NEB SCH ×4 (02:08→19:53)
[2018-11-29] MEDS: Metoprolol Tartrate 25 MG Tab PO SCH ×2 (09:05→19:54)
[2018-11-29] MEDS: Levothyroxine 75 MCG Tab PO SCH (09:05)
[2018-11-29] MEDS: metroNIDAZOLE 500 MG Tab PO SCH ×3 (09:05→19:53)
[2018-11-29] MEDS: amLODIPine 5 MG Tab PO SCH (09:05)
[2018-11-29] MEDS: Sodium Chloride 0.9% 10 ML Syringe FLUSH SCH ×2 (09:07→21:47)
[2018-11-29] MEDS: Furosemide 40 MG/4 ML VIAL IVPUSH SCH (09:07)
[2018-11-29] MEDS: DEXAMETH EYELF SCH ×2 (09:23→17:51)
[2018-11-29] MEDS: NEO EYELF SCH ×2 (09:23→17:51)
[2018-11-29] MEDS: POLYMYX B SULF EYELF SCH ×2 (09:23→17:51)
[2018-11-29] MEDS: Azithromycin 250 MG Tab PO SCH (12:30)
[2018-11-29] MEDS ORDERED: Insulin Lispro 100 Units/ML 3 ML Vial SUBCUT ONE (16:59)
--- NOTE | 2018-11-29 18:02 | PCM.PN ---
- General Info Date of Service: 11/29/18 Functional Status: Reports: Pain Controlled, Tolerating Diet - Review of Systems General: Reports: Weakness HEENT: Reports: No Symptoms Pulmonary: Reports: Shortness of Breath (improving) Cardiovascular: Reports: No Symptoms Gastrointestinal: Reports: No Symptoms Genitourinary: Reports: No Symptoms Musculoskeletal: Reports: No Symptoms Skin: Reports: No Symptoms Neurological: Reports: Weakness Psychiatric: Reports: No Symptoms - Patient Data Vitals - Most Recent: Last Vital Signs Temp 97.3 F 11/29/18 16:00 Pulse 76 11/29/18 16:00 Resp 18 11/29/18 16:00 BP 139/72 11/29/18 16:00 Pulse Ox 94 L 11/29/18 16:00 Weight - Most Recent: 132 lb 3.2 oz I&O - Last 24 Hours: Intake & Output 11/29/18 11/29/18 11/29/18 06:59 14:59 22:59 Intake Total 350 540 120 Balance 350 540 120 Lab Results Last 24 Hours: Laboratory Results - last 24 hr 11/29/18 11/29/18 11/29/18 Range/Units 06:43 06:43 06:43 WBC 11.0 H (4.0-10.2) K/uL RBC 4.18 (3.77-5.09) M/uL Hgb 12.0 (11.7-15.5) g/dL Hct 39.1 (34.0-46.0) % MCV 93.5 (84.0-98.0) fL MCH 28.7 (28.2-33.3) pg MCHC 30.7 L (31.7-36.0) g/dL RDW 14.9 H (11.2-14.1) % Plt Count 269 (150-350) K/uL Neut % (Auto) 85.6 H (45.0-80.0) % Lymph % (Auto) 6.0 L (10.0-50.0) % Stephens % (Auto) 8.3 (2.0-14.0) % Eos % (Auto) 0.0 (0.0-5.0) % Baso % (Auto) 0.1 (0.0-2.0) % Neut # (Auto) 9.45 H (1.40-7.00) K/uL Lymph # (Auto) 0.66 (0.50-3.50) K/uL Stephens # (Auto) 0.92 (0.00-1.00) K/uL Eos # (Auto) 0.00 (0.00-0.50) K/uL Baso # (Auto) 0.01 (0.00-0.20) K/uL Sodium 145 (136-145) mmol/L Potassium 3.7 (3.5-5.1) mmol/L Chloride 105 (98-107) mmol/L Carbon Dioxide 31.7 (21.0-32.0) mmol/L BUN 44 H (7-18) mg/dL Creatinine 1.13 (0.51-1.17) mg/dL Est Cr Clr Drug Dosing 28.54 mL/min Estimated GFR (MDRD) 46 mL/min Glucose 118 H (74-106) mg/dL POC Glucose 125 H (65-110) mg/dl Calcium 9.5 (8.5-10.1) mg/dL Total Bilirubin 0.3 (0.2-1.0) mg/dL AST 19 (15-37) U/L ALT 28 (12-78) U/L Alkaline Phosphatase 87 (46-116) IU/L C-Reactive Protein 23.0 H (<=0.9) mg/dL Total Protein 6.8 (6.4-8.2) g/dL Albumin 2.8 L (3.4-5.0) g/dL 11/29/18 Range/Units 16:49 WBC (4.0-10.2) K/uL RBC (3.77-5.09) M/uL Hgb (11.7-15.5) g/dL Hct (34.0-46.0) % MCV (84.0-98.0) fL MCH (28.2-33.3) pg MCHC (31.7-36.0) g/dL RDW (11.2-14.1) % Plt Count (150-350) K/uL Neut % (Auto) (45.0-80.0) % Lymph % (Auto) (10.0-50.0) % Stephens % (Auto) (2.0-14.0) % Eos % (Auto) (0.0-5.0) % Baso % (Auto) (0.0-2.0) % Neut # (Auto) (1.40-7.00) K/uL Lymph # (Auto) (0.50-3.50) K/uL Stephens # (Auto) (0.00-1.00) K/uL Eos # (Auto) (0.00-0.50) K/uL Baso # (Auto) (0.00-0.20) K/uL Sodium (136-145) mmol/L Potassium (3.5-5.1) mmol/L Chloride (98-107) mmol/L Carbon Dioxide (21.0-32.0) mmol/L BUN (7-18) mg/dL Creatinine (0.51-1.17) mg/dL Est Cr Clr Drug Dosing mL/min Estimated GFR (MDRD) mL/min Glucose (74-106) mg/dL POC Glucose 408 H* (65-110) mg/dl Calcium (8.5-10.1) mg/dL Total Bilirubin (0.2-1.0) mg/dL AST (15-37) U/L ALT (12-78) U/L Alkaline Phosphatase (46-116) IU/L C-Reactive Protein (<=0.9) mg/dL Total Protein (6.4-8.2) g/dL Albumin (3.4-5.0) g/dL Shyam Results Last 24 Hours: Microbiology 11/27/18 07:12 Mycoplasma Serology - Final Blood Med Orders - Current: Current Medications Acetaminophen (Tylenol) 650 mg PO Q4H PRN PRN Reason: Pain Albuterol (Proventil Neb Soln) 2.5 mg INH Q2H PRN PRN Reason: SHORTNESS OF BREATH Last Admin: 11/28/18 23:51 Dose: 2.5 mg Albuterol/Ipratropium (Duoneb 3.0-0.5 Mg/3 Ml) 3 ml NEB Q4HRRT PRN PRN Reason: Dyspnea Last Admin: 11/28/18 10:57 Dose: 3 ml Albuterol/Ipratropium (Duoneb 3.0-0.5 Mg/3 Ml) 3 ml NEB Q6HRRT MAURICIO Last Admin: 11/29/18 14:56 Dose: 3 ml Amlodipine Besylate (Norvasc) 5 mg PO DAILY [facility] Last Admin: 11/29/18 09:05 Dose: 5 mg Azithromycin (Zithromax) 500 mg PO DAILY [facility] Last Admin: 11/29/18 12:30 Dose: 500 mg Enoxaparin Sodium (Lovenox) 30 mg SUBCUT Q24H [facility] Last Admin: 11/28/18 20:42 Dose: 30 mg Furosemide (Lasix) 40 mg IVPUSH DAILY [facility] Last Admin: 11/29/18 09:07 Dose: 40 mg Ceftriaxone Sodium 1 gm/ (Sodium Chloride) 100 mls @ 200 mls/hr IV Q24H [facility] Last Admin: 11/28/18 22:00 Dose: 200 mls/hr Levothyroxine Sodium (Levothyroxine) 75 mcg PO ACBREAKFAST [facility] Last Admin: 11/29/18 09:05 Dose: 75 mcg Metoprolol Tartrate (Lopressor) 25 mg PO Q12HR [facility] Last Admin: 11/29/18 09:05 Dose: 25 mg Metronidazole (Flagyl) 500 mg PO TID@0800,1400,2000 [facility] Last Admin: 11/29/18 15:41 Dose: 500 mg Insulin Detemir [ Levemir] 20 Unit # Patients Own Med# 20 unit SUBCUT BEDTIME [facility] Last Admin: 11/28/18 20:46 Dose: 20 unit Naldo/Polymyx B Sulf/Dexameth [Neomyc- Polym-Dexamet Eye OinOwn Med 1 applic EYELF BID [facility] Last Admin: 11/29/18 17:51 Dose: 1 applic Simvastatin (Zocor) 20 mg PO BEDTIME [facility] Last Admin: 11/28/18 20:37 Dose: 20 mg Sodium Chloride (Saline Flush) 10 ml FLUSH Q12HR [facility] Last Admin: 11/29/18 09:07 Dose: 10 ml Sodium Chloride (Saline Flush) 10 ml FLUSH ASDIRECTED PRN PRN Reason: Keep Vein Open Last Admin: 11/28/18 22:30 Dose: 10 ml Temazepam (Restoril) 15 mg PO BEDTIME PRN PRN Reason: Insomnia Last Admin: 11/28/18 23:51 Dose: 15 mg Discontinued Medications Furosemide (Lasix) 40 mg IVPUSH Q8H [facility] Last Admin: 11/26/18 20:04 Dose: 40 mg Furosemide (Lasix) 40 mg IVPUSH NOW STA Stop: 11/28/18 11:11 Last Admin: 11/28/18 11:23 Dose: 40 mg Azithromycin 500 mg/ Sodium (Chloride) 250 mls @ 250 mls/hr IV Q24H MAURICIO Stop: 11/28/18 23:59 Last Admin: 11/28/18 22:31 Dose: 250 mls/hr Metronidazole 500 mg/ Premix 100 mls @ 100 mls/hr IV Q8H [facility] Last Admin: 11/28/18 07:35 Dose: 100 mls/hr Insulin Human Lispro (Humalog) 0 unit SUBCUT BIDAC [facility]; Protocol Insulin Human Lispro (Humalog) 0 unit SUBCUT BIDAC MAURICIO; Protocol Last Admin: 11/28/18 18:13 Dose: 8 units Insulin Human Lispro (Humalog) 15 unit SUBCUT ONETIME ONE Stop: 11/29/18 17:00 Last Admin: 11/29/18 17:49 Dose: 15 units Insulin Human NPH (Humulin N) 20 unit SQ ONETIME ONE Stop: 11/28/18 19:31 Last Admin: 11/28/18 20:36 Dose: 20 unit Methylprednisolone Sodium Succinate (Solu-Medrol) 80 mg IVPUSH ONETIME ONE Stop: 11/28/18 11:11 Last Admin: 11/28/18 11:23 Dose: 80 mg Metoprolol Tartrate (Lopressor) 25 mg PO BID [facility] Last Admin: 11/26/18 17:25 Dose: 25 mg Potassium Chloride (Klor-Con M20) 20 meq PO TID [facility] Last Admin: 11/26/18 17:25 Dose: 20 meq Sodium Chloride (Saline Flush) 10 ml FLUSH ASDIRECTED PRN PRN Reason: Keep Vein Open Sodium Chloride (Saline Flush) 10 ml FLUSH Q12HR PRN PRN Reason: Keep Vein Open Last Admin: 11/26/18 20:04 Dose: 10 ml - Exam Quality Assessment: Supplemental Oxygen, DVT Prophylaxis General: Alert, Cooperative, No Acute Distress HEENT: Mucous Membr. Moist/[place] Neck: Trachea Midline, No JVD Lungs: Normal Respiratory Effort, Decreased Breath Sounds, Rhonchi Cardiovascular: Regular Rate, Regular Rhythm GI/Abdominal Exam: Soft, Non-Tender, No Distention (Female) Exam: Deferred Back Exam: Other (kyphosis) Extremities: Non-Tender, No Pedal Edema Skin: Warm, Dry, Intact, Ecchymosis Neurological: No New Focal Deficit Psy/Mental Status: Alert, Normal Affect, Normal Mood - Problem List & Annotations (1) Acute exacerbation of chronic obstructive pulmonary disease (COPD) SNOMED Code(s): 708949910 Code(s): J44.1 - CHRONIC OBSTRUCTIVE PULMONARY DISEASE W (ACUTE) EXACERBATION Status: Acute Priority: High Current Visit: Yes (2) CKD (chronic kidney disease) SNOMED Code(s): 765311412 Code(s): N18.9 - CHRONIC KIDNEY DISEASE, UNSPECIFIED Status: Acute Current Visit: No Qualifiers: Chronic kidney disease stage: unspecified stage Qualified Code(s): N18.9 - Chronic kidney disease, unspecified (3) Comfort measures only status SNOMED Code(s): 62542282756187 Code(s): Z51.5 - ENCOUNTER FOR PALLIATIVE CARE Status: Acute Priority: High Current Visit: No Annotation/Comment:: No code/no transfer status confirmed with the patient today. 11/26/18 She confirms she is DNR/DNI/Comfort Measures and she says absolutely NO when asked if she wants to be transferred to [facility]. I told her family members want her transferred to [facility] and she says absolutely NO. (4) Congestive heart failure (CHF) SNOMED Code(s): 42064525 Code(s): I50.9 - HEART FAILURE, UNSPECIFIED Status: Acute Priority: High Current Visit: No Onset Date: ~11/23/18 Qualifiers: Heart failure type: unspecified Heart failure chronicity: chronic Qualified Code(s): I50.9 - Heart failure, unspecified (5) D-dimer, elevated SNOMED Code(s): 665646550 Code(s): R79.89 - OTHER SPECIFIED ABNORMAL FINDINGS OF BLOOD CHEMISTRY Status: Acute Priority: Medium Current Visit: No Onset Date: 11/06/18 Annotation/Comment:: History of d-dimer elevation with negative workup on as above. D-dimer elevation stable at this time. No clinical evidence of DVT or PE. Observe for now. (6) Hypermagnesemia SNOMED Code(s): 53955401 Code(s): E83.41 - HYPERMAGNESEMIA Status: Acute Priority: Medium Current Visit: No Onset Date: 11/25/18 Annotation/Comment:: Initiate IV Lasix as above. Observe for now. (7) Hyperuricemia SNOMED Code(s): 39700581 Code(s): E79.0 - HYPERURICEMIA W/O SIGNS OF INFLAM ARTHRIT AND TOPHACEOUS DIS Status: Acute Priority: Medium Current Visit: No Onset Date: Annotation/Comment:: Mild to moderately elevated uric acid level today with no gout type symptoms. Observe for now. Note Bumex therapy prior to admission with initiation of IV Lasix with caution as above. (8) Hypoalbuminemia SNOMED Code(s): 231638893 Code(s): E88.09 - OTH DISORDERS OF PLASMA-PROTEIN METABOLISM, NEC Status: Acute Priority: Medium Current Visit: No Onset Date: 11/06/18 Annotation /Comment:: Initiate high-protein Glucerna supplements on a twice a day basis as snacks secondary to her hypoglycemic episodes. Otherwise close follow-up by her regular provider. (9) Hypothyroidism SNOMED Code(s): 95618581 Code(s): E03.9 - HYPOTHYROIDISM, UNSPECIFIED Status: Acute Priority: Medium Current Visit: No Qualifiers: Hypothyroidism type: acquired Qualified Code(s): E03.9 - Hypothyroidism, unspecified Annotation/Comment:: TSH somewhat elevated on 11/06/18 with her Synthroid supplementation increased at that time. TSH still elevated today. Consider further medication adjustments by admitting physician. (10) COPD (chronic obstructive pulmonary disease) SNOMED Code(s): 14724805 Code(s): J44.9 - CHRONIC OBSTRUCTIVE PULMONARY DISEASE, UNSPECIFIED Status : Chronic Priority: Medium Current Visit: No Qualifiers: COPD type: emphysema Emphysema type: panlobular Qualified Code(s): J43.1 - Panlobular emphysema Annotation/Comment:: No recent fever or bronchitic type symptoms. DuoNeb nebulizer treatment taken by the patient on her own prior to paramedics arrival as above. No WBC elevation, fever, etc. at this time. No evidence of pneumonia or bronchitis by today's chest x-ray. (11) Coronary artery disease SNOMED Code(s): 22294774 Code(s): I25.10 - ATHSCL HEART DISEASE OF [place] CORONARY ARTERY W/O ANG PCTRS Status: Chronic Priority: Medium Current Visit: No Qualifiers: Coronary Disease-Associated Artery/Lesion type: [place] artery [place] vs. transplanted heart: [place] heart Associated angina: without angina Qualified Code(s): I25.10 - Atherosclerotic heart disease of [place] coronary artery without angina pectoris (12) Hypertension SNOMED Code(s): 67392239 Code(s): I10 - ESSENTIAL (PRIMARY) HYPERTENSION Status: Chronic Priority : Medium Current Visit: No Qualifiers: Hypertension type: essential hypertension Qualified Code(s): I10 - Essential (primary) hypertension (13) IDDM (insulin dependent diabetes mellitus) SNOMED Code(s): 56757298 Code(s): E11.9 - TYPE 2 DIABETES MELLITUS WITHOUT COMPLICATIONS; Z79.4 - ULTRASOUND TECHNICIAN (CURRENT) USE OF INSULIN Status: Chronic Priority: High Current Visit: No (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 Continue to observe closely by regular provider. (15) Osteoarthritis SNOMED Code(s): 626727690 Code(s): M19.90 - UNSPECIFIED OSTEOARTHRITIS, UNSPECIFIED SITE Status: Chronic Priority: Medium Current Visit: No Qualifiers: Osteoarthritis location: multiple joints Osteoarthritis type: primary Qualified Code(s): M15.0 - Primary generalized (osteo)arthritis Annotation/Comment:: Stable by history with history of hyperuricemia as above. (16) Palliative care patient SNOMED Code(s): 826672506 Code(s): Z51.5 - ENCOUNTER FOR PALLIATIVE CARE Status: Chronic Priority: Medium Current Visit: No Annotation/Comment:: As above - Problem List Review Problem List Initiated/Reviewed/Updated: Yes - My Orders Last 24 Hours: My Active Orders 11/28/18 20:00 metroNIDAZOLE [Flagyl] 500 mg PO TID@0800,1400,199911/29/18 08:00 Furosemide [Lasix] 40 mg IVPUSH DAILY 11/29/18 12:00 Azithromycin [Zithromax] 500 mg PO DAILY 11/30/18 05:11 BASIC METABOLIC PANEL,BMP [CHEM] Routine CBC WITH AUTO DIFF [HEME] Routine CRP [C-REACTIVE PROTEIN] [CHEM] Routine - Plan Plan:: 11/26/18 Rosie Quintana MD Still short of breath. Wanting nebulizer. Son and grand-daughter demanding that she be transferred to [facility]. I asked Dayna and she says absolutely NO to transfer to [facility]. Will check CRP. 11/27/18 Rosie Quintana MD She does feel better today. Less short of breath. Continue medical regiment. I did talk to her son Vamshi. Dayna is again saying she does not want to go to [facility] ,. 11/28/18 (late entry) Rosie Quintana MD Now short of breath and wheezing. IV lasix and IV solumedrol given and prn nebulizers. Continue Rx. 11/29/18 Rosie Quintana MD Feels much better today. No audible wheeze. Good appetite. CRP did increase so she needs continued inpatient status for IV antibiotics and blood sugar monitoring and insulin adjustment.
--- NOTE | 2018-11-29 18:05 | PCM.PN ---
- General Info Date of Service: 11/28/18 Functional Status: Reports: New Symptoms (wheezing) - Review of Systems General: Reports: Weakness HEENT: Reports: No Symptoms Pulmonary: Reports: Shortness of Breath, Cough, Wheezing Cardiovascular: Reports: No Symptoms Gastrointestinal: Reports: No Symptoms Genitourinary: Reports: No Symptoms Musculoskeletal: Reports: Foot Pain Skin: Reports: No Symptoms Neurological: Reports: Weakness Psychiatric: Reports: No Symptoms - Patient Data Vitals - Most Recent: Last Vital Signs Temp 97.3 F 11/29/18 16:00 Pulse 76 11/29/18 16:00 Resp 18 11/29/18 16:00 BP 139/72 11/29/18 16:00 Pulse Ox 94 L 11/29/18 16:00 Weight - Most Recent: 132 lb 3.2 oz I&O - Last 24 Hours: Intake & Output 11/29/18 11/29/18 11/29/18 06:59 14:59 22:59 Intake Total 350 540 120 Balance 350 540 120 Lab Results Last 24 Hours: Laboratory Results - last 24 hr 11/29/18 11/29/18 11/29/18 Range/Units 06:43 06:43 06:43 WBC 11.0 H (4.0-10.2) K/uL RBC 4.18 (3.77-5.09) M/uL Hgb 12.0 (11.7-15.5) g/dL Hct 39.1 (34.0-46.0) % MCV 93.5 (84.0-98.0) fL MCH 28.7 (28.2-33.3) pg MCHC 30.7 L (31.7-36.0) g/dL RDW 14.9 H (11.2-14.1) % Plt Count 269 (150-350) K/uL Neut % (Auto) 85.6 H (45.0-80.0) % Lymph % (Auto) 6.0 L (10.0-50.0) % Lander % (Auto) 8.3 (2.0-14.0) % Eos % (Auto) 0.0 (0.0-5.0) % Baso % (Auto) 0.1 (0.0-2.0) % Neut # (Auto) 9.45 H (1.40-7.00) K/uL Lymph # (Auto) 0.66 (0.50-3.50) K/uL [place]ander # (Auto) 0.92 (0.00-1.00) K/uL Eos # (Auto) 0.00 (0.00-0.50) K/uL Baso # (Auto) 0.01 (0.00-0.20) K/uL Sodium 145 (136-145) mmol/L Potassium 3.7 (3.5-5.1) mmol/L Chloride 105 (98-107) mmol/L Carbon Dioxide 31.7 (21.0-32.0) mmol/L BUN 44 H (7-18) mg/dL Creatinine 1.13 (0.51-1.17) mg/dL Est Cr Clr Drug Dosing 28.54 mL/min Estimated GFR (MDRD) 46 mL/min Glucose 118 H (74-106) mg/dL POC Glucose 125 H (65-110) mg/dl Calcium 9.5 (8.5-10.1) mg/dL Total Bilirubin 0.3 (0.2-1.0) mg/dL AST 19 (15-37) U/L ALT 28 (12-78) U/L Alkaline Phosphatase 87 (46-116) IU/L C-Reactive Protein 23.0 H (<=0.9) mg/dL Total Protein 6.8 (6.4-8.2) g/dL Albumin 2.8 L (3.4-5.0) g/dL 11/29/18 Range/Units 16:49 WBC (4.0-10.2) K/uL RBC (3.77-5.09) M/uL Hgb (11.7-15.5) g/dL Hct (34.0-46.0) % MCV (84.0-98.0) fL MCH (28.2-33.3) pg MCHC (31.7-36.0) g/dL RDW (11.2-14.1) % Plt Count (150-350) K/uL Neut % (Auto) (45.0-80.0) % Lymph % (Auto) (10.0-50.0) % [place] % (Auto) (2.0-14.0) % Eos % (Auto) (0.0-5.0) % Baso % (Auto) (0.0-2.0) % Neut # (Auto) (1.40-7.00) K/uL Lymph # (Auto) (0.50-3.50) K/uL [place]ander # (Auto) (0.00-1.00) K/uL Eos # (Auto) (0.00-0.50) K/uL Baso # (Auto) (0.00-0.20) K/uL Sodium (136-145) mmol/L Potassium (3.5-5.1) mmol/L Chloride (98-107) mmol/L Carbon Dioxide (21.0-32.0) mmol/L BUN (7-18) mg/dL Creatinine (0.51-1.17) mg/dL Est Cr Clr Drug Dosing mL/min Estimated GFR (MDRD) mL/min Glucose (74-106) mg/dL POC Glucose 408 H* (65-110) mg/dl Calcium (8.5-10.1) mg/dL Total Bilirubin (0.2-1.0) mg/dL AST (15-37) U/L ALT (12-78) U/L Alkaline Phosphatase (46-116) IU/L C-Reactive Protein (<=0.9) mg/dL Total Protein (6.4-8.2) g/dL Albumin (3.4-5.0) g/dL Shyam Results Last 24 Hours: Microbiology 11/27/18 07:12 Mycoplasma Serology - Final Blood Med Orders - Current: Current Medications Acetaminophen (Tylenol) 650 mg PO Q4H PRN PRN Reason: Pain Albuterol (Proventil Neb Soln) 2.5 mg INH Q2H PRN PRN Reason: SHORTNESS OF BREATH Last Admin: 11/28/18 23:51 Dose: 2.5 mg Albuterol/Ipratropium (Duoneb 3.0-0.5 Mg/3 Ml) 3 ml NEB Q4HRRT PRN PRN Reason: Dyspnea Last Admin: 11/28/18 10:57 Dose: 3 ml Albuterol/Ipratropium (Duoneb 3.0-0.5 Mg/3 Ml) 3 ml NEB Q6HRRT [facility]URICIO Last Admin: 11/29/18 14:56 Dose: 3 ml Amlodipine Besylate (Norvasc) 5 mg PO DAILY [facility] Last Admin: 11/29/18 09:05 Dose: 5 mg Azithromycin (Zithromax) 500 mg PO DAILY [facility] Last Admin: 11/29/18 12:30 Dose: 500 mg Enoxaparin Sodium (Lovenox) 30 mg SUBCUT Q24H [facility] Last Admin: 11/28/18 20:42 Dose: 30 mg Furosemide (Lasix) 40 mg IVPUSH DAILY [facility] Last Admin: 11/29/18 09:07 Dose: 40 mg Ceftriaxone Sodium 1 gm/ (Sodium Chloride) 100 mls @ 200 mls/hr IV Q24H [facility] Last Admin: 11/28/18 22:00 Dose: 200 mls/hr Levothyroxine Sodium (Levothyroxine) 75 mcg PO ACBREAKFAST [facility] Last Admin: 11/29/18 09:05 Dose: 75 mcg Metoprolol Tartrate (Lopressor) 25 mg PO Q12HR [facility] Last Admin: 11/29/18 09:05 Dose: 25 mg Metronidazole (Flagyl) 500 mg PO TID@0800,1400,2000 [facility] Last Admin: 11/29/18 15:41 Dose: 500 mg Insulin Detemir [ Levemir] 20 Unit # Patients Own Med# 20 unit SUBCUT BEDTIME [facility] Last Admin: 11/28/18 20:46 Dose: 20 unit Naldo/Polymyx B Sulf/Dexameth [Neomyc- Polym-Dexamet Eye OinOwn Med 1 applic EYELF BID [facility] Last Admin: 11/29/18 17:51 Dose: 1 applic Simvastatin (Zocor) 20 mg PO BEDTIME [facility] Last Admin: 11/28/18 20:37 Dose: 20 mg Sodium Chloride (Saline Flush) 10 ml FLUSH Q12HR [facility] Last Admin: 11/29/18 09:07 Dose: 10 ml Sodium Chloride (Saline Flush) 10 ml FLUSH ASDIRECTED PRN PRN Reason: Keep Vein Open Last Admin: 11/28/18 22:30 Dose: 10 ml Temazepam (Restoril) 15 mg PO BEDTIME PRN PRN Reason: Insomnia Last Admin: 11/28/18 23:51 Dose: 15 mg Discontinued Medications Furosemide (Lasix) 40 mg IVPUSH Q8H [facility] Last Admin: 11/26/18 20:04 Dose: 40 mg Furosemide (Lasix) 40 mg IVPUSH NOW STA Stop: 11/28/18 11:11 Last Admin: 11/28/18 11:23 Dose: 40 mg Azithromycin 500 mg/ Sodium (Chloride) 250 mls @ 250 mls/hr IV Q24H [facility] Stop: 11/28/18 23:59 Last Admin: 11/28/18 22:31 Dose: 250 mls/hr Metronidazole 500 mg/ Premix 100 mls @ 100 mls/hr IV Q8H [facility] Last Admin: 11/28/18 07:35 Dose: 100 mls/hr Insulin Human Lispro (Humalog) 0 unit SUBCUT BIDAC [facility]; Protocol Insulin Human Lispro (Humalog) 0 unit SUBCUT BIDAC [facility]; Protocol Last Admin: 11/28/18 18:13 Dose: 8 units Insulin Human Lispro (Humalog) 15 unit SUBCUT ONETIME ONE Stop: 11/29/18 17:00 Last Admin: 11/29/18 17:49 Dose: 15 units Insulin Human NPH (Humulin N) 20 unit SQ ONETIME ONE Stop: 11/28/18 19:31 Last Admin: 11/28/18 20:36 Dose: 20 unit Methylprednisolone Sodium Succinate (Solu-Medrol) 80 mg IVPUSH ONETIME ONE Stop: 11/28/18 11:11 Last Admin: 11/28/18 11:23 Dose: 80 mg Metoprolol Tartrate (Lopressor) 25 mg PO BID [facility] Last Admin: 11/26/18 17:25 Dose: 25 mg Potassium Chloride (Klor-Con M20) 20 meq PO TID [facility] Last Admin: 11/26/18 17:25 Dose: 20 meq Sodium Chloride (Saline Flush) 10 ml FLUSH ASDIRECTED PRN PRN Reason: Keep Vein Open Sodium Chloride (Saline Flush) 10 ml FLUSH Q12HR PRN PRN Reason: Keep Vein Open Last Admin: 11/26/18 20:04 Dose: 10 ml - Exam Quality Assessment: Supplemental Oxygen, DVT Prophylaxis General: Alert, Moderate Distress HEENT: Mucous Membr. Moist/[place] Neck: Trachea Midline, No JVD Lungs: Decreased Breath Sounds, Crackles, Rhonchi, Wheezing Cardiovascular: Regular Rate, Regular Rhythm GI/Abdominal Exam: Soft, Non-Tender, No Distention (Female) Exam: Deferred Back Exam: Other (kyphosis) Extremities: Non-Tender, Pedal Edema Skin: Warm, Dry, Intact, Ecchymosis Neurological: No New Focal Deficit Psy/Mental Status: Alert, Normal Affect, Normal Mood - Problem List & Annotations (1) Acute exacerbation of chronic obstructive pulmonary disease (COPD) SNOMED Code(s): 645512181 Code(s): J44.1 - CHRONIC OBSTRUCTIVE PULMONARY DISEASE W (ACUTE) EXACERBATION Status: Acute Priority: High Current Visit: Yes (2) CKD (chronic kidney disease) SNOMED Code(s): 866670824 Code(s): N18.9 - CHRONIC KIDNEY DISEASE, UNSPECIFIED Status: Acute Current Visit: No Qualifiers: Chronic kidney disease stage: unspecified stage Qualified Code(s): N18.9 - Chronic kidney disease, unspecified (3) Comfort measures only status SNOMED Code(s): 75616930671019 Code(s): Z51.5 - ENCOUNTER FOR PALLIATIVE CARE Status: Acute Priority: High Current Visit: No Annotation/Comment:: No code/no transfer status confirmed with the patient today. 11/26/18 She confirms she is DNR/DNI/Comfort Measures and she says absolutely NO when asked if she wants to be transferred to [place]. I told her family members want her transferred to [facility] and she says absolutely NO. (4) Congestive heart failure (CHF) SNOMED Code(s): 55127394 Code(s): I50.9 - HEART FAILURE, UNSPECIFIED Status: Acute Priority: High Current Visit: No Onset Date: ~11/23/18 Qualifiers: Heart failure type: unspecified Heart failure chronicity: chronic Qualified Code(s): I50.9 - Heart failure, unspecified (5) D-dimer, elevated SNOMED Code(s): 872788783 Code(s): R79.89 - OTHER SPECIFIED ABNORMAL FINDINGS OF BLOOD CHEMISTRY Status: Acute Priority: Medium Current Visit: No Onset Date: 11/06/18 Annotation/Comment:: History of d-dimer elevation with negative workup on as above. D-dimer elevation stable at this time. No clinical evidence of DVT or PE. Observe for now. (6) Hypermagnesemia SNOMED Code(s): 58467262 Code(s): E83.41 - HYPERMAGNESEMIA Status: Acute Priority: Medium Current Visit: No Onset Date: 11/25/18 Annotation/Comment:: Initiate IV Lasix as above. Observe for now. (7) Hyperuricemia SNOMED Code(s): 65358358 Code(s): E79.0 - HYPERURICEMIA W/O SIGNS OF INFLAM ARTHRIT AND TOPHACEOUS DIS Status: Acute Priority: Medium Current Visit: No Onset Date: Annotation/Comment:: Mild to moderately elevated uric acid level today with no gout type symptoms. Observe for now. Note Bumex therapy prior to admission with initiation of IV Lasix with caution as above. (8) Hypoalbuminemia SNOMED Code(s): 664142429 Code(s): E88.09 - OTH DISORDERS OF PLASMA-PROTEIN METABOLISM, NEC Status: Acute Priority: Medium Current Visit: No Onset Date: 11/06/18 Annotation /Comment:: Initiate high-protein Glucerna supplements on a twice a day basis as snacks secondary to her hypoglycemic episodes. Otherwise close follow-up by her regular provider. (9) Hypothyroidism SNOMED Code(s): 75504616 Code(s): E03.9 - HYPOTHYROIDISM, UNSPECIFIED Status: Acute Priority: Medium Current Visit: No Qualifiers: Hypothyroidism type: acquired Qualified Code(s): E03.9 - Hypothyroidism, unspecified Annotation/Comment:: TSH somewhat elevated on 11/06/18 with her Synthroid supplementation increased at that time. TSH still elevated today. Consider further medication adjustments by admitting physician. (10) COPD (chronic obstructive pulmonary disease) SNOMED Code(s): 75714440 Code(s): J44.9 - CHRONIC OBSTRUCTIVE PULMONARY DISEASE, UNSPECIFIED Status : Chronic Priority: Medium Current Visit: No Qualifiers: COPD type: emphysema Emphysema type: panlobular Qualified Code(s): J43.1 - Panlobular emphysema Annotation/Comment:: No recent fever or bronchitic type symptoms. DuoNeb nebulizer treatment taken by the patient on her own prior to paramedics arrival as above. No WBC elevation, fever, etc. at this time. No evidence of pneumonia or bronchitis by today's chest x-ray. (11) Coronary artery disease SNOMED Code(s): 98359968 Code(s): I25.10 - ATHSCL HEART DISEASE OF [place] CORONARY ARTERY W/O ANG PCTRS Status: Chronic Priority: Medium Current Visit: No Qualifiers: Coronary Disease-Associated Artery/Lesion type: [place] artery [place] vs. transplanted heart: [place] heart Associated angina: without angina Qualified Code(s): I25.10 - Atherosclerotic heart disease of [place] coronary artery without angina pectoris (12) Hypertension SNOMED Code(s): 04444762 Code(s): I10 - ESSENTIAL (PRIMARY) HYPERTENSION Status: Chronic Priority : Medium Current Visit: No Qualifiers: Hypertension type: essential hypertension Qualified Code(s): I10 - Essential (primary) hypertension (13) IDDM (insulin dependent diabetes mellitus) SNOMED Code(s): 04634823 Code(s): E11.9 - TYPE 2 DIABETES MELLITUS WITHOUT COMPLICATIONS; Z79.4 - NURSING HOME (CURRENT) USE OF INSULIN Status: Chronic Priority: High Current Visit: No (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 Continue to observe closely by regular provider. (15) Osteoarthritis SNOMED Code(s): 371178539 Code(s): M19.90 - UNSPECIFIED OSTEOARTHRITIS, UNSPECIFIED SITE Status: Chronic Priority: Medium Current Visit: No Qualifiers: Osteoarthritis location: multiple joints Osteoarthritis type: primary Qualified Code(s): M15.0 - Primary generalized (osteo)arthritis Annotation/Comment:: Stable by history with history of hyperuricemia as above. (16) Palliative care patient SNOMED Code(s): 273855149 Code(s): Z51.5 - ENCOUNTER FOR PALLIATIVE CARE Status: Chronic Priority: Medium Current Visit: No Annotation/Comment:: As above - Problem List Review Problem List Initiated/Reviewed/Updated: Yes - My Orders Last 24 Hours: My Active Orders 11/28/18 20:00 metroNIDAZOLE [Flagyl] 500 mg PO TID@0800,1400,199911/29/18 08:00 Furosemide [Lasix] 40 mg IVPUSH DAILY 11/29/18 12:00 Azithromycin [Zithromax] 500 mg PO DAILY 11/30/18 05:11 BASIC METABOLIC PANEL,BMP [CHEM] Routine CBC WITH AUTO DIFF [HEME] Routine CRP [C-REACTIVE PROTEIN] [CHEM] Routine - Plan Plan:: 11/26/18 Rosie Quintana MD Still short of breath. Wanting nebulizer. Son and grand-daughter demanding that she be transferred to [facility]. I asked Dayna and she says absolutely NO to transfer to [facility]. Will check CRP. 11/27/18 Rosie Quintana MD She does feel better today. Less short of breath. Continue medical regiment. I did talk to her son Vamshi. Dayna is again saying she does not want to go to [place] ,. 11/28/18 (late entry) Rosie Quintana MD Now short of breath and wheezing. IV lasix and IV solumedrol given and prn nebulizers. Continue Rx. 11/29/18 Rosie Quintana MD Feels much better today. No audible wheeze. Good appetite. CRP did increase so she needs continued inpatient status for IV antibiotics and blood sugar monitoring and insulin adjustment.
[2018-11-29] MEDS: Simvastatin 20 MG Tab PO SCH (19:53)
[2018-11-29] MEDS: Enoxaparin 30 MG/0.3 ML Syringe SUBCUT SCH (19:54)
[2018-11-29] MEDS: INSULIN DETEMIR 20 UNIT SUBCUT SCH (19:56)
[2018-11-29] MEDS: cefTRIAXone 1 GM in Sodium Chloride 0.9% 100 ML IV SCH (21:47)
[2018-11-30] MEDS: Albuterol 0.083% 2.5 MG/3 ML Neb Soln INH PRN ×3 (00:10→12:34)
[2018-11-30] MEDS: Albuterol/Ipratropium 3.0-0.5 MG/3 ML Neb Soln NEB SCH ×4 (03:06→19:11)
[2018-11-30] MEDS: metroNIDAZOLE 500 MG Tab PO SCH ×2 (08:12→13:42)
[2018-11-30] MEDS: Levothyroxine 75 MCG Tab PO SCH (08:12)
[2018-11-30] MEDS: amLODIPine 5 MG Tab PO SCH (08:13)
[2018-11-30] MEDS: Azithromycin 250 MG Tab PO SCH (08:13)
[2018-11-30] MEDS: Metoprolol Tartrate 25 MG Tab PO SCH ×2 (08:13→19:11)
[2018-11-30] MEDS: Furosemide 40 MG/4 ML VIAL IVPUSH SCH (08:14)
[2018-11-30] MEDS: Sodium Chloride 0.9% 10 ML Syringe FLUSH SCH ×2 (08:14→19:15)
[2018-11-30] MEDS: POLYMYX B SULF EYELF SCH ×2 (08:21→17:05)
[2018-11-30] MEDS: DEXAMETH EYELF SCH ×2 (08:21→17:05)
[2018-11-30] MEDS: NEO EYELF SCH ×2 (08:21→17:05)
--- NOTE | 2018-11-30 15:04 | PCM.PN ---
- General Info Date of Service: 11/30/18 Functional Status: Reports: Tolerating Diet, Ambulating (can only tolerate to bathroom and back) - Review of Systems General: Reports: Weakness HEENT: Reports: No Symptoms Pulmonary: Reports: Shortness of Breath, Cough Cardiovascular: Reports: No Symptoms Gastrointestinal: Reports: No Symptoms Genitourinary: Reports: No Symptoms Musculoskeletal: Reports: No Symptoms Skin: Reports: No Symptoms Neurological: Reports: Weakness Psychiatric: Reports: No Symptoms - Patient Data Vitals - Most Recent: Last Vital Signs Temp 97.8 F 11/30/18 11:34 Pulse 72 11/30/18 11:34 Resp 22 H 11/30/18 11:34 BP 138/79 11/30/18 11:34 Pulse Ox 100 11/30/18 11:34 Weight - Most Recent: 132 lb 1.6 oz I&O - Last 24 Hours: Intake & Output 11/29/18 11/30/18 11/30/18 22:59 06:59 14:59 Intake Total 360 200 360 Balance 360 200 360 Lab Results Last 24 Hours: Laboratory Results - last 24 hr 11/29/18 11/30/18 11/30/18 Range/Units 16:49 02:51 07:16 WBC (4.0-10.2) K/uL RBC (3.77-5.09) M/uL Hgb (11.7-15.5) g/dL Hct (34.0-46.0) % MCV (84.0-98.0) fL MCH (28.2-33.3) pg MCHC (31.7-36.0) g/dL RDW (11.2-14.1) % Plt Count (150-350) K/uL Neut % (Auto) (45.0-80.0) % Lymph % (Auto) (10.0-50.0) % [place] % (Auto) (2.0-14.0) % Eos % (Auto) (0.0-5.0) % Baso % (Auto) (0.0-2.0) % Neut # (Auto) (1.40-7.00) K/uL Lymph # (Auto) (0.50-3.50) K/uL [place] # (Auto) (0.00-1.00) K/uL Eos # (Auto) (0.00-0.50) K/uL Baso # (Auto) (0.00-0.20) K/uL Sodium (136-145) mmol/L Potassium (3.5-5.1) mmol/L Chloride (98-107) mmol/L Carbon Dioxide (21.0-32.0) mmol/L BUN (7-18) mg/dL Creatinine (0.51-1.17) mg/dL Est Cr Clr Drug Dosing mL/min Estimated GFR (MDRD) mL/min Glucose (74-106) mg/dL POC Glucose 408 H* 254 H* 231 H (65-110) mg/dl Calcium (8.5-10.1) mg/dL C-Reactive Protein (<=0.9) mg/dL 11/30/18 11/30/18 Range/Units 07:40 07:40 WBC 11.0 H (4.0-10.2) K/uL RBC 4.56 (3.77-5.09) M/uL Hgb 13.3 (11.7-15.5) g/dL Hct 42.0 (34.0-46.0) % MCV 92.1 (84.0-98.0) fL MCH 29.2 (28.2-33.3) pg MCHC 31.7 (31.7-36.0) g/dL RDW 14.8 H (11.2-14.1) % Plt Count 334 (150-350) K/uL Neut % (Auto) 76.3 (45.0-80.0) % Lymph % (Auto) 14.8 (10.0-50.0) % [place] % (Auto) 7.9 (2.0-14.0) % Eos % (Auto) 0.6 (0.0-5.0) % Baso % (Auto) 0.4 (0.0-2.0) % Neut # (Auto) 8.38 H (1.40-7.00) K/uL Lymph # (Auto) 1.63 (0.50-3.50) K/uL [place] # (Auto) 0.87 (0.00-1.00) K/uL Eos # (Auto) 0.07 (0.00-0.50) K/uL Baso # (Auto) 0.04 (0.00-0.20) K/uL Sodium 142 (136-145) mmol/L Potassium 3.8 (3.5-5.1) mmol/L Chloride 103 (98-107) mmol/L Carbon Dioxide 28.9 (21.0-32.0) mmol/L BUN 45 H (7-18) mg/dL Creatinine 1.02 (0.51-1.17) mg/dL Est Cr Clr Drug Dosing 31.61 mL/min Estimated GFR (MDRD) 52 mL/min Glucose 242 H (74-106) mg/dL POC Glucose (65-110) mg/dl Calcium 9.2 (8.5-10.1) mg/dL C-Reactive Protein 8.5 H (<=0.9) mg/dL Med Orders - Current: Current Medications Acetaminophen (Tylenol) 650 mg PO Q4H PRN PRN Reason: Pain Albuterol (Proventil Neb Soln) 2.5 mg INH Q2H PRN PRN Reason: SHORTNESS OF BREATH Last Admin: 11/30/18 12:34 Dose: 2.5 mg Albuterol/Ipratropium (Duoneb 3.0-0.5 Mg/3 Ml) 3 ml NEB Q4HRRT PRN PRN Reason: Dyspnea Last Admin: 11/28/18 10:57 Dose: 3 ml Albuterol/Ipratropium (Duoneb 3.0-0.5 Mg/3 Ml) 3 ml NEB Q6HRRT [facility] Last Admin: 11/30/18 13:42 Dose: 3 ml Amlodipine Besylate (Norvasc) 5 mg PO DAILY [facility] Last Admin: 11/30/18 08:13 Dose: 5 mg Azithromycin (Zithromax) 500 mg PO DAILY [facility] Last Admin: 11/30/18 08:13 Dose: 500 mg Enoxaparin Sodium (Lovenox) 30 mg SUBCUT Q24H [facility] Last Admin: 11/29/18 19:54 Dose: 30 mg Furosemide (Lasix) 40 mg IVPUSH DAILY [facility] Last Admin: 11/30/18 08:14 Dose: 40 mg Ceftriaxone Sodium 1 gm/ (Sodium Chloride) 100 mls @ 200 mls/hr IV Q24H [facility] Last Admin: 11/29/18 21:47 Dose: 200 mls/hr Levothyroxine Sodium (Levothyroxine) 75 mcg PO ACBREAKFAST [facility] Last Admin: 11/30/18 08:12 Dose: 75 mcg Metoprolol Tartrate (Lopressor) 25 mg PO Q12HR [facility] Last Admin: 11/30/18 08:13 Dose: 25 mg Metronidazole (Flagyl) 500 mg PO TID@0800,1400,2000 [facility] Last Admin: 11/30/18 13:42 Dose: 500 mg Insulin Detemir [ Levemir] 20 Unit # Patients Own Med# 20 unit SUBCUT BEDTIME [facility] Last Admin: 11/29/18 19:56 Dose: 20 unit Naldo/Polymyx B Sulf/Dexameth [Neomyc- Polym-Dexamet Eye OinOwn Med 1 applic EYELF BID [facility] Last Admin: 11/30/18 08:21 Dose: 1 applic Simvastatin (Zocor) 20 mg PO BEDTIME [facility] Last Admin: 11/29/18 19:53 Dose: 20 mg Sodium Chloride (Saline Flush) 10 ml FLUSH Q12HR [facility] Last Admin: 11/30/18 08:14 Dose: 10 ml Sodium Chloride (Saline Flush) 10 ml FLUSH ASDIRECTED PRN PRN Reason: Keep Vein Open Last Admin: 11/28/18 22:30 Dose: 10 ml Temazepam (Restoril) 15 mg PO BEDTIME PRN PRN Reason: Insomnia Last Admin: 11/28/18 23:51 Dose: 15 mg Discontinued Medications Furosemide (Lasix) 40 mg IVPUSH Q8H [facility] Last Admin: 11/26/18 20:04 Dose: 40 mg Furosemide (Lasix) 40 mg IVPUSH NOW STA Stop: 11/28/18 11:11 Last Admin: 11/28/18 11:23 Dose: 40 mg Azithromycin 500 mg/ Sodium (Chloride) 250 mls @ 250 mls/hr IV Q24H MAURICIO Stop: 11/28/18 23:59 Last Admin: 11/28/18 22:31 Dose: 250 mls/hr Metronidazole 500 mg/ Premix 100 mls @ 100 mls/hr IV Q8H [facility] Last Admin: 11/28/18 07:35 Dose: 100 mls/hr Insulin Human Lispro (Humalog) 0 unit SUBCUT BIDAC [facility]; Protocol Insulin Human Lispro (Humalog) 0 unit SUBCUT BIDAC [facility]; Protocol Last Admin: 11/28/18 18:13 Dose: 8 units Insulin Human Lispro (Humalog) 15 unit SUBCUT ONETIME ONE Stop: 11/29/18 17:00 Last Admin: 11/29/18 17:49 Dose: 15 units Insulin Human NPH (Humulin N) 20 unit SQ ONETIME ONE Stop: 11/28/18 19:31 Last Admin: 11/28/18 20:36 Dose: 20 unit Methylprednisolone Sodium Succinate (Solu-Medrol) 80 mg IVPUSH ONETIME ONE Stop: 11/28/18 11:11 Last Admin: 11/28/18 11:23 Dose: 80 mg Metoprolol Tartrate (Lopressor) 25 mg PO BID [facility] Last Admin: 11/26/18 17:25 Dose: 25 mg Potassium Chloride (Klor-Con M20) 20 meq PO TID [facility] Last Admin: 11/26/18 17:25 Dose: 20 meq Sodium Chloride (Saline Flush) 10 ml FLUSH ASDIRECTED PRN PRN Reason: Keep Vein Open Sodium Chloride (Saline Flush) 10 ml FLUSH Q12HR PRN PRN Reason: Keep Vein Open Last Admin: 11/26/18 20:04 Dose: 10 ml - Exam Quality Assessment: Supplemental Oxygen, DVT Prophylaxis General: Alert, Cooperative HEENT: Mucous Membr. Moist/[place] Neck: Trachea Midline, No JVD Lungs: Decreased Breath Sounds, Rhonchi, Wheezing (audible) GI/Abdominal Exam: Soft, Non-Tender, No Distention (Female) Exam: Deferred Back Exam: Other (kyphosis) Extremities: Non-Tender, Pedal Edema (scant) Skin: Warm, Dry, Intact, Ecchymosis Neurological: No New Focal Deficit Psy/Mental Status: Alert, Normal Affect, Normal Mood - Problem List & Annotations (1) Acute exacerbation of chronic obstructive pulmonary disease (COPD) SNOMED Code(s): 915195702 Code(s): J44.1 - CHRONIC OBSTRUCTIVE PULMONARY DISEASE W (ACUTE) EXACERBATION Status: Acute Priority: High Current Visit: Yes (2) CKD (chronic kidney disease) SNOMED Code(s): 030198404 Code(s): N18.9 - CHRONIC KIDNEY DISEASE, UNSPECIFIED Status: Acute Current Visit: No Qualifiers: Chronic kidney disease stage: unspecified stage Qualified Code(s): N18.9 - Chronic kidney disease, unspecified (3) Comfort measures only status SNOMED Code(s): 23564824775858 Code(s): Z51.5 - ENCOUNTER FOR PALLIATIVE CARE Status: Acute Priority: High Current Visit: No Annotation/Comment:: No code/no transfer status confirmed with the patient today. 11/26/18 She confirms she is DNR/DNI/Comfort Measures and she says absolutely NO when asked if she wants to be transferred to [place]. I told her family members want her transferred to [facility] and she says absolutely NO. (4) Congestive heart failure (CHF) SNOMED Code(s): 38411472 Code(s): I50.9 - HEART FAILURE, UNSPECIFIED Status: Acute Priority: High Current Visit: No Onset Date: ~11/23/18 Qualifiers: Heart failure type: unspecified Heart failure chronicity: chronic Qualified Code(s): I50.9 - Heart failure, unspecified (5) D-dimer, elevated SNOMED Code(s): 184077911 Code(s): R79.89 - OTHER SPECIFIED ABNORMAL FINDINGS OF BLOOD CHEMISTRY Status: Acute Priority: Medium Current Visit: No Onset Date: 11/06/18 Annotation/Comment:: History of d-dimer elevation with negative workup on as above. D-dimer elevation stable at this time. No clinical evidence of DVT or PE. Observe for now. (6) Hypermagnesemia SNOMED Code(s): 53568635 Code(s): E83.41 - HYPERMAGNESEMIA Status: Acute Priority: Medium Current Visit: No Onset Date: 11/25/18 Annotation/Comment:: Initiate IV Lasix as above. Observe for now. (7) Hyperuricemia SNOMED Code(s): 61079438 Code(s): E79.0 - HYPERURICEMIA W/O SIGNS OF INFLAM ARTHRIT AND TOPHACEOUS DIS Status: Acute Priority: Medium Current Visit: No Onset Date: Annotation/Comment:: Mild to moderately elevated uric acid level today with no gout type symptoms. Observe for now. Note Bumex therapy prior to admission with initiation of IV Lasix with caution as above. (8) Hypoalbuminemia SNOMED Code(s): 028829990 Code(s): E88.09 - OTH DISORDERS OF PLASMA-PROTEIN METABOLISM, NEC Status: Acute Priority: Medium Current Visit: No Onset Date: 11/06/18 Annotation /Comment:: Initiate high-protein Glucerna supplements on a twice a day basis as snacks secondary to her hypoglycemic episodes. Otherwise close follow-up by her regular provider. (9) Hypothyroidism SNOMED Code(s): 86321646 Code(s): E03.9 - HYPOTHYROIDISM, UNSPECIFIED Status: Acute Priority: Medium Current Visit: No Qualifiers: Hypothyroidism type: acquired Qualified Code(s): E03.9 - Hypothyroidism, unspecified Annotation/Comment:: TSH somewhat elevated on 11/06/18 with her Synthroid supplementation increased at that time. TSH still elevated today. Consider further medication adjustments by admitting physician. (10) COPD (chronic obstructive pulmonary disease) SNOMED Code(s): 42064944 Code(s): J44.9 - CHRONIC OBSTRUCTIVE PULMONARY DISEASE, UNSPECIFIED Status : Chronic Priority: Medium Current Visit: No Qualifiers: COPD type: emphysema Emphysema type: panlobular Qualified Code(s): J43.1 - Panlobular emphysema Annotation/Comment:: No recent fever or bronchitic type symptoms. DuoNeb nebulizer treatment taken by the patient on her own prior to paramedics arrival as above. No WBC elevation, fever, etc. at this time. No evidence of pneumonia or bronchitis by today's chest x-ray. (11) Coronary artery disease SNOMED Code(s): 87362224 Code(s): I25.10 - ATHSCL HEART DISEASE OF [place] CORONARY ARTERY W/O ANG PCTRS Status: Chronic Priority: Medium Current Visit: No Qualifiers: Coronary Disease-Associated Artery/Lesion type: [place] artery [place] vs. transplanted heart: [place] heart Associated angina: without angina Qualified Code(s): I25.10 - Atherosclerotic heart disease of [place] coronary artery without angina pectoris (12) Hypertension SNOMED Code(s): 76854017 Code(s): I10 - ESSENTIAL (PRIMARY) HYPERTENSION Status: Chronic Priority : Medium Current Visit: No Qualifiers: Hypertension type: essential hypertension Qualified Code(s): I10 - Essential (primary) hypertension (13) IDDM (insulin dependent diabetes mellitus) SNOMED Code(s): 10843168 Code(s): E11.9 - TYPE 2 DIABETES MELLITUS WITHOUT COMPLICATIONS; Z79.4 - WATER QUALITY TESTER (CURRENT) USE OF INSULIN Status: Chronic Priority: High Current Visit: No (14) Mixed anxiety depressive disorder SNOMED Code(s): 950320871 Code(s): F41.8 - OTHER SPECIFIED ANXIETY DISORDERS Status: Chronic Priority: Medium Current Visit: No Annotation/Comment:: Stable by history. Continue to observe closely by regular provider. (15) Osteoarthritis SNOMED Code(s): 438836296 Code(s): M19.90 - UNSPECIFIED OSTEOARTHRITIS, UNSPECIFIED SITE Status: Chronic Priority: Medium Current Visit: No Qualifiers: Osteoarthritis location: multiple joints Osteoarthritis type: primary Qualified Code(s): M15.0 - Primary generalized (osteo)arthritis Annotation/Comment:: Stable by history with history of hyperuricemia as above. (16) Palliative care patient SNOMED Code(s): 268471038 Code(s): Z51.5 - ENCOUNTER FOR PALLIATIVE CARE Status: Chronic Priority: Medium Current Visit: No Annotation/Comment:: As above - Problem List Review Problem List Initiated/Reviewed/Updated: Yes - Plan Plan:: 11/26/18 Rosie Quintana MD Still short of breath. Wanting nebulizer. Son and grand-daughter demanding that she be transferred to [place]. I asked Dayna and she says absolutely NO to transfer to [place]. Will check CRP. 11/27/18 Rosie Quintana MD She does feel better today. Less short of breath. Continue medical regiment. I did talk to her son Vamshi. Dayna is again saying she does not want to go to [place] ,. 11/28/18 (late entry) Rosie Quintana MD Now short of breath and wheezing. IV lasix and IV solumedrol given and prn nebulizers. Continue Rx. 11/29/18 Rosie Quintana MD Feels much better today. No audible wheeze. Good appetite. CRP did increase so she needs continued inpatient status for IV antibiotics and blood sugar monitoring and insulin adjustment. 11/30/18 Rosie Quintana MD Doesn't feel as good today. Still weak. Barely able to walk to bathroom and back. Audible wheeze. Loose stools probably from antibiotics. Mycoplasma negative so stop zithromax. CRP decreasing but still elevated. Needs inpatient status to continue IV antibiotics, monitor blood sugars, and improve her strength.
[2018-11-30] MEDS: cefTRIAXone 1 GM in Sodium Chloride 0.9% 100 ML IV SCH (17:05)
[2018-11-30] MEDS: Simvastatin 20 MG Tab PO SCH (19:11)
[2018-11-30] MEDS: INSULIN DETEMIR 20 UNIT SUBCUT SCH (19:12)
[2018-11-30] MEDS: Enoxaparin 30 MG/0.3 ML Syringe SUBCUT SCH (19:15)
[2018-11-30] MEDS: Temazepam 15 MG Cap PO PRN (21:26)
[2018-12-01] MEDS: Albuterol/Ipratropium 3.0-0.5 MG/3 ML Neb Soln NEB SCH ×4 (01:48→19:36)
[2018-12-01] MEDS: Furosemide 40 MG/4 ML VIAL IVPUSH SCH (07:20)
[2018-12-01] MEDS: Metoprolol Tartrate 25 MG Tab PO SCH ×2 (07:20→19:40)
[2018-12-01] MEDS: Sodium Chloride 0.9% 10 ML Syringe FLUSH SCH ×2 (07:21→19:36)
[2018-12-01] MEDS: NEO EYELF SCH ×2 (07:21→17:36)
[2018-12-01] MEDS: amLODIPine 5 MG Tab PO SCH (07:21)
[2018-12-01] MEDS: POLYMYX B SULF EYELF SCH ×2 (07:21→17:36)
[2018-12-01] MEDS: Levothyroxine 75 MCG Tab PO SCH (07:21)
[2018-12-01] MEDS: DEXAMETH EYELF SCH ×2 (07:21→17:36)
[2018-12-01] MEDS: Albuterol 0.083% 2.5 MG/3 ML Neb Soln INH PRN ×2 (12:24→21:25)
--- NOTE | 2018-12-01 16:30 | PCM.PN ---
- General Info Date of Service: 12/01/18 Admission Dx/Problem (Free Text): Patient admitted for treatment of COPD exacerbation/increased SOB. Subjective Update: Patient still feels weak. Unable to perform ADLs without assistance. Functional Status: Reports: Pain Controlled, Tolerating Diet, Ambulating (with assistance), Urinating, Incentive Spirometry. Denies: New Symptoms - Review of Systems General: Reports: Weakness, Fatigue. Denies: Fever, Chills, Night Sweats HEENT: Denies: Headaches, Sinus Congestion, Sore Throat, Rhinitis, Visual Changes Pulmonary: Reports: Shortness of Breath, Cough (mild/non-purulent), Wheezing. Denies: Pleuritic Chest Pain, Hemoptysis Cardiovascular: Reports: Dyspnea on Exertion. Denies: Chest Pain, Orthopnea, Edema, Lightheadedness Gastrointestinal: Denies: Abdominal Pain, Constipation, Diarrhea, Hematochezia, Nausea, Vomiting Genitourinary: Reports: No Symptoms Musculoskeletal: Reports: No Symptoms (no acute changes from baseline) Skin: Reports: No Symptoms Neurological: Reports: Difficulty Walking (weak), Weakness (generalized). Denies: Change in Speech Psychiatric: Reports: No Symptoms - Patient Data Vitals - Most Recent: Last Vital Signs Temp 36.4 C 12/01/18 16:00 Pulse 96 12/01/18 16:00 Resp 20 12/01/18 16:00 BP 157/75 H 12/01/18 16:00 Pulse Ox 100 12/01/18 16:00 Weight - Most Recent: 59.965 kg I&O - Last 24 Hours: Intake & Output 12/01/18 12/01/18 12/01/18 06:59 14:59 22:59 Intake Total 200 480 Output Total 600 Balance -400 480 Lab Results Last 24 Hours: Laboratory Results - last 24 hr 11/30/18 12/01/18 Range/Units 16:37 07:03 POC Glucose 270 H* 143 H (65-110) mg/dl Med Orders - Current: Current Medications Acetaminophen (Tylenol) 650 mg PO Q4H PRN PRN Reason: Pain Albuterol (Proventil Neb Soln) 2.5 mg INH Q2H PRN PRN Reason: SHORTNESS OF BREATH Last Admin: 12/01/18 12:24 Dose: 2.5 mg Albuterol/Ipratropium (Duoneb 3.0-0.5 Mg/3 Ml) 3 ml NEB Q4HRRT PRN PRN Reason: Dyspnea Last Admin: 11/28/18 10:57 Dose: 3 ml Albuterol/Ipratropium (Duoneb 3.0-0.5 Mg/3 Ml) 3 ml NEB Q6HRRT [facility] Last Admin: 12/01/18 13:47 Dose: 3 ml Amlodipine Besylate (Norvasc) 5 mg PO DAILY [facility] Last Admin: 12/01/18 07:21 Dose: 5 mg Enoxaparin Sodium (Lovenox) 30 mg SUBCUT Q24H [facility] Last Admin: 11/30/18 19:15 Dose: 30 mg Furosemide (Lasix) 40 mg IVPUSH DAILY [facility] Last Admin: 12/01/18 07:20 Dose: 40 mg Ceftriaxone Sodium 1 gm/ (Sodium Chloride) 100 mls @ 200 mls/hr IV DAILY@1800 [facility] Last Admin: 11/30/18 17:05 Dose: 200 mls/hr Levothyroxine Sodium (Levothyroxine) 75 mcg PO ACBREAKFAST [facility] Last Admin: 12/01/18 07:21 Dose: 75 mcg Metoprolol Tartrate (Lopressor) 25 mg PO Q12HR [facility] Last Admin: 12/01/18 07:20 Dose: 25 mg Insulin Detemir [ Levemir] 20 Unit # Patients Own Med# 20 unit SUBCUT BEDTIME [facility] Last Admin: 11/30/18 19:12 Dose: 20 unit Naldo/Polymyx B Sulf/Dexameth [Neomyc- Polym-Dexamet Eye OinOwn Med 1 applic EYELF BID [facility] Last Admin: 12/01/18 07:21 Dose: 1 applic Simvastatin (Zocor) 20 mg PO BEDTIME [facility] Last Admin: 11/30/18 19:11 Dose: 20 mg Sodium Chloride (Saline Flush) 10 ml FLUSH Q12HR [facility] Last Admin: 12/01/18 07:21 Dose: 10 ml Sodium Chloride (Saline Flush) 10 ml FLUSH ASDIRECTED PRN PRN Reason: Keep Vein Open Last Admin: 11/28/18 22:30 Dose: 10 ml Temazepam (Restoril) 15 mg PO BEDTIME PRN PRN Reason: Insomnia Last Admin: 11/30/18 21:26 Dose: 15 mg Discontinued Medications Azithromycin (Zithromax) 500 mg PO DAILY [facility] Last Admin: 11/30/18 08:13 Dose: 500 mg Furosemide (Lasix) 40 mg IVPUSH Q8H [facility] Last Admin: 11/26/18 20:04 Dose: 40 mg Furosemide (Lasix) 40 mg IVPUSH NOW STA Stop: 11/28/18 11:11 Last Admin: 11/28/18 11:23 Dose: 40 mg Azithromycin 500 mg/ Sodium (Chloride) 250 mls @ 250 mls/hr IV Q24H [facility] Stop: 11/28/18 23:59 Last Admin: 11/28/18 22:31 Dose: 250 mls/hr Ceftriaxone Sodium 1 gm/ (Sodium Chloride) 100 mls @ 200 mls/hr IV Q24H [facility] Last Admin: 11/29/18 21:47 Dose: 200 mls/hr Metronidazole 500 mg/ Premix 100 mls @ 100 mls/hr IV Q8H [facility] Last Admin: 11/28/18 07:35 Dose: 100 mls/hr Insulin Human Lispro (Humalog) 0 unit SUBCUT BIDAC [facility]; Protocol Insulin Human Lispro (Humalog) 0 unit SUBCUT BIDAC [facility]; Protocol Last Admin: 11/28/18 18:13 Dose: 8 units Insulin Human Lispro (Humalog) 15 unit SUBCUT ONETIME ONE Stop: 11/29/18 17:00 Last Admin: 11/29/18 17:49 Dose: 15 units Insulin Human NPH (Humulin N) 20 unit SQ ONETIME ONE Stop: 11/28/18 19:31 Last Admin: 11/28/18 20:36 Dose: 20 unit Methylprednisolone Sodium Succinate (Solu-Medrol) 80 mg IVPUSH ONETIME ONE Stop: 11/28/18 11:11 Last Admin: 11/28/18 11:23 Dose: 80 mg Metoprolol Tartrate (Lopressor) 25 mg PO BID [facility] Last Admin: 11/26/18 17:25 Dose: 25 mg Metronidazole (Flagyl) 500 mg PO TID@0800,1400,2000 [facility] Last Admin: 11/30/18 13:42 Dose: 500 mg Potassium Chloride (Klor-Con M20) 20 meq PO TID [facility] Last Admin: 11/26/18 17:25 Dose: 20 meq Sodium Chloride (Saline Flush) 10 ml FLUSH ASDIRECTED PRN PRN Reason: Keep Vein Open Sodium Chloride (Saline Flush) 10 ml FLUSH Q12HR PRN PRN Reason: Keep Vein Open Last Admin: 11/26/18 20:04 Dose: 10 ml - Exam Quality Assessment: Supplemental Oxygen, DVT Prophylaxis General: Alert, Oriented, Cooperative, No Acute Distress HEENT: Pupils Equal, Pupils Reactive, EOMI, Mucous Membr. Moist/[place] Neck: Supple Lungs: Decreased Breath Sounds (throughut), Wheezing (mild, bilateral). No: Crackles, Rales, Rhonchi, Rub, Stridor Cardiovascular: Regular Rate, Regular Rhythm GI/Abdominal Exam: Normal Bowel Sounds, Soft, Non-Tender, No Distention (Female) Exam: Deferred Back Exam: No: CVA Tenderness (L), CVA Tenderness (R), Muscle Spasm Extremities: Non-Tender, Normal Capillary Refill Skin: Warm, Dry Neurological: No New Focal Deficit Psy/Mental Status: Alert, Normal Affect, Normal Mood - Problem List & Annotations (1) Acute exacerbation of chronic obstructive pulmonary disease (COPD) SNOMED Code(s): 790524959 Code(s): J44.1 - CHRONIC OBSTRUCTIVE PULMONARY DISEASE W (ACUTE) EXACERBATION Status: Acute Priority: High Current Visit: Yes Annotation/ Comment:: Continues to experience shortness of breath. Continue neb treatments/ supportive care. (2) CKD (chronic kidney disease) SNOMED Code(s): 270690939 Code(s): N18.9 - CHRONIC KIDNEY DISEASE, UNSPECIFIED Status: Chronic Priority: Low Current Visit: No Qualifiers: Chronic kidney disease stage: unspecified stage Qualified Code(s): N18.9 - Chronic kidney disease, unspecified (3) Comfort measures only status SNOMED Code(s): 77806128531556 Code(s): Z51.5 - ENCOUNTER FOR PALLIATIVE CARE Status: Acute Priority: High Current Visit: No Annotation/Comment:: No code/no transfer status confirmed with the patient today. 11/26/18 She confirms she is DNR/DNI/Comfort Measures and she says absolutely NO when asked if she wants to be transferred to [place]. I told her family members want her transferred to [facility] and she says absolutely NO. (4) Congestive heart failure (CHF) SNOMED Code(s): 03014398 Code(s): I50.9 - HEART FAILURE, UNSPECIFIED Status: Chronic Priority: Medium Current Visit: Yes Onset Date: ~11/23/18 Qualifiers: Heart failure type: unspecified Heart failure chronicity: chronic Qualified Code(s): I50.9 - Heart failure, unspecified Annotation/Comment:: Does not appear to have component of acute CHF exacerbation clinically/of chest xray at this time. ProBNP minimally elevated. (5) D-dimer, elevated SNOMED Code(s): 991829893 Code(s): R79.89 - OTHER SPECIFIED ABNORMAL FINDINGS OF BLOOD CHEMISTRY Status: Acute Priority: Medium Current Visit: Yes Onset Date: 11/06/18 Annotation/Comment:: History of d-dimer elevation with negative workup on as above. D-dimer elevation stable at this time. No clinical evidence of DVT or PE. Observe for now. (6) Hypermagnesemia SNOMED Code(s): 37293687 Code(s): E83.41 - HYPERMAGNESEMIA Status: Acute Priority: Medium Current Visit: No Onset Date: 11/25/18 Annotation/Comment:: Minimal elevation noted. (7) Hyperuricemia SNOMED Code(s): 94602352 Code(s): E79.0 - HYPERURICEMIA W/O SIGNS OF INFLAM ARTHRIT AND TOPHACEOUS DIS Status: Acute Priority: Medium Current Visit: No Onset Date: Annotation/Comment:: Mild to moderately elevated uric acid level today with no gout type symptoms. Observe for now. Note Bumex therapy prior to admission with initiation of IV Lasix with caution as above. (8) Hypoalbuminemia SNOMED Code(s): 509163242 Code(s): E88.09 - [facility] DISORDERS OF PLASMA-PROTEIN METABOLISM, NEC Status: Chronic Priority: Medium Current Visit: Yes Onset Date: 11/06/18 Annotation/Comment:: Initiate high-protein Glucerna supplements on a twice a day basis as snacks secondary to her hypoglycemic episodes. Otherwise close follow-up by her regular provider. (9) Hypothyroidism SNOMED Code(s): 86080559 Code(s): E03.9 - HYPOTHYROIDISM, UNSPECIFIED Status: Chronic Priority: Medium Current Visit: Yes Qualifiers: Hypothyroidism type: acquired Qualified Code(s): E03.9 - Hypothyroidism, unspecified Annotation/Comment:: TSH somewhat elevated on 11/06/18 with her Synthroid supplementation increased at that time. TSH still elevated today. Consider further medication adjustments by admitting physician. (10) Coronary artery disease SNOMED Code(s): 33852350 Code(s): I25.10 - ATHSCL HEART DISEASE OF [place] CORONARY ARTERY W/O ANG PCTRS Status: Chronic Priority: Medium Current Visit: No Qualifiers: Coronary Disease-Associated Artery/Lesion type: [place] artery [place] vs. transplanted heart: [place] heart Associated angina: without angina Qualified Code(s): I25.10 - Atherosclerotic heart disease of [place] coronary artery without angina pectoris (11) Hypertension SNOMED Code(s): 38457370 Code(s): I10 - ESSENTIAL (PRIMARY) HYPERTENSION Status: Chronic Priority : Medium Current Visit: No Qualifiers: Hypertension type: essential hypertension Qualified Code(s): I10 - Essential (primary) hypertension (12) IDDM (insulin dependent diabetes mellitus) SNOMED Code(s): 99670440 Code(s): E11.9 - TYPE 2 DIABETES MELLITUS WITHOUT COMPLICATIONS; Z79.4 - CORRECTION (CURRENT) USE OF INSULIN Status: Chronic Priority: Medium Current Visit: No Annotation/Comment:: Observe trends (13) Mixed anxiety depressive disorder SNOMED Code(s): 117419147 Code(s): F41.8 - OTHER SPECIFIED ANXIETY DISORDERS Status: Chronic Priority: Medium Current Visit: No Annotation/Comment:: Stable by history. Continue to observe closely by regular provider. (14) Osteoarthritis SNOMED Code(s): 697387625 Code(s): M19.90 - UNSPECIFIED OSTEOARTHRITIS, UNSPECIFIED SITE Status: Chronic Priority: Medium Current Visit: No Qualifiers: Osteoarthritis location: multiple joints Osteoarthritis type: primary Qualified Code(s): M15.0 - Primary generalized (osteo)arthritis Annotation/Comment:: Stable by history with history of hyperuricemia as above. (15) Palliative care patient SNOMED Code(s): 044679829 Code(s): Z51.5 - ENCOUNTER FOR PALLIATIVE CARE Status: Chronic Priority: Medium Current Visit: Yes Annotation/Comment:: As above - Problem List Review Problem List Initiated/Reviewed/Updated: Yes - My Orders Last 24 Hours: My Active Orders 12/01/18 14:08 Chest 2V [CR] Routine - Assessment Assessment:: as above - Plan Plan:: 11/26/18 Rosie Quintana MD Still short of breath. Wanting nebulizer. Son and grand-daughter demanding that she be transferred to [place]. I asked Dyana and she says absolutely NO to transfer to [place]. Will check CRP. 11/27/18 Rosie Quintana MD She does feel better today. Less short of breath. Continue medical regiment. I did talk to her son Vamshi. Dayna is again saying she does not want to go to [place] ,. 11/28/18 (late entry) Rosie Quintana MD Now short of breath and wheezing. IV lasix and IV solumedrol given and prn nebulizers. Continue Rx. 11/29/18 Rosie Quintana MD Feels much better today. No audible wheeze. Good appetite. CRP did increase so she needs continued inpatient status for IV antibiotics and blood sugar monitoring and insulin adjustment. 11/30/18 Rosie Quintana MD Doesn't feel as good today. Still weak. Barely able to walk to bathroom and back. Audible wheeze. Loose stools probably from antibiotics. Mycoplasma negative so stop zithromax. CRP decreasing but still elevated. Needs inpatient status to continue IV antibiotics, monitor blood sugars, and improve her strength. 12/01/18 Emmett SHERMAN Continues to feel weak. Unable to walk without assist. Unable to perform ADLs. Continues to have audible wheezing and increased baseline respiratory effort. Unable to have patient return to assisted living at this time. Prolonged inpatient stay due to the above in addition to this being a weekend. Case management is involved. Need to consider recheck with PT and OT tomorrow to see if patient can qualify for swing bed. Otherwise case management will need to be involved to explore other options for patient.
[2018-12-01] MEDS: Albuterol/Ipratropium 3.0-0.5 MG/3 ML Neb Soln NEB PRN (17:35)
[2018-12-01] MEDS: cefTRIAXone 1 GM in Sodium Chloride 0.9% 100 ML IV SCH (17:36)
[2018-12-01] MEDS: INSULIN DETEMIR 20 UNIT SUBCUT SCH (19:37)
[2018-12-01] MEDS: Simvastatin 20 MG Tab PO SCH (19:40)
[2018-12-01] MEDS: Enoxaparin 30 MG/0.3 ML Syringe SUBCUT SCH (19:41)
[2018-12-01] MEDS: Temazepam 15 MG Cap PO PRN (21:25)
[2018-12-02] MEDS: Albuterol/Ipratropium 3.0-0.5 MG/3 ML Neb Soln NEB SCH ×3 (02:50→14:26)
[2018-12-02] MEDS: Metoprolol Tartrate 25 MG Tab PO SCH (07:25)
[2018-12-02] MEDS: Levothyroxine 75 MCG Tab PO SCH (07:25)
[2018-12-02] MEDS: amLODIPine 5 MG Tab PO SCH (07:25)
[2018-12-02] MEDS: Furosemide 40 MG/4 ML VIAL IVPUSH SCH (07:25)
[2018-12-02] MEDS: Sodium Chloride 0.9% 10 ML Syringe FLUSH SCH (07:26)
[2018-12-02] MEDS: NEO EYELF SCH (08:02)
[2018-12-02] MEDS: DEXAMETH EYELF SCH (08:02)
[2018-12-02] MEDS: POLYMYX B SULF EYELF SCH (08:02)
[2018-12-02] MEDS: Albuterol 0.083% 2.5 MG/3 ML Neb Soln INH PRN (11:27)
--- NOTE | 2018-12-02 23:07 | PCM.PN ---
- General Info Date of Service: 12/02/18 Admission Dx/Problem (Free Text): Patient admitted for treatment of COPD exacerbation/increased SOB. Subjective Update: Patient still feels weak. Unable to perform ADLs without assistance. Functional Status: Reports: Tolerating Diet, Urinating - Review of Systems General: Reports: Weakness HEENT: Reports: No Symptoms Pulmonary: Reports: Shortness of Breath Cardiovascular: Reports: No Symptoms Gastrointestinal: Reports: No Symptoms Genitourinary: Reports: No Symptoms Musculoskeletal: Reports: No Symptoms Skin: Reports: Bruising Neurological: Reports: Weakness Psychiatric: Reports: No Symptoms - Patient Data Vitals - Most Recent: Last Vital Signs Temp 97.8 F 12/02/18 12:00 Pulse 88 12/02/18 12:00 Resp 22 H 12/02/18 12:00 BP 131/70 12/02/18 12:00 Pulse Ox 98 12/02/18 12:00 Weight - Most Recent: 132 lb 8 oz I&O - Last 24 Hours: Intake & Output 12/02/18 12/02/18 12/02/18 06:59 14:59 22:59 Intake Total 100 340 Balance 100 340 Lab Results Last 24 Hours: Laboratory Results - last 24 hr 12/02/18 12/02/18 12/02/18 Range/Units 07:14 07:15 07:15 WBC 7.2 (4.0-10.2) K/uL RBC 4.20 (3.77-5.09) M/uL Hgb 12.0 (11.7-15.5) g/dL Hct 39.1 (34.0-46.0) % MCV 93.1 (84.0-98.0) fL MCH 28.6 (28.2-33.3) pg MCHC 30.7 L (31.7-36.0) g/dL RDW 14.9 H (11.2-14.1) % Plt Count 314 (150-350) K/uL Neut % (Auto) 63.6 (45.0-80.0) % Lymph % (Auto) 19.7 (10.0-50.0) % [place] % (Auto) 11.4 (2.0-14.0) % Eos % (Auto) 4.7 (0.0-5.0) % Baso % (Auto) 0.6 (0.0-2.0) % Neut # (Auto) 4.59 (1.40-7.00) K/uL Lymph # (Auto) 1.42 (0.50-3.50) K/uL [place] # (Auto) 0.82 (0.00-1.00) K/uL Eos # (Auto) 0.34 (0.00-0.50) K/uL Baso # (Auto) 0.04 (0.00-0.20) K/uL POC Glucose 49 L* (65-110) mg/dl C-Reactive Protein 2.5 H (<=0.9) mg/dL 12/02/18 12/02/18 Range/Units 08:22 11:24 WBC (4.0-10.2) K/uL RBC (3.77-5.09) M/uL Hgb (11.7-15.5) g/dL Hct (34.0-46.0) % MCV (84.0-98.0) fL MCH (28.2-33.3) pg MCHC (31.7-36.0) g/dL RDW (11.2-14.1) % Plt Count (150-350) K/uL Neut % (Auto) (45.0-80.0) % Lymph % (Auto) (10.0-50.0) % [place] % (Auto) (2.0-14.0) % Eos % (Auto) (0.0-5.0) % Baso % (Auto) (0.0-2.0) % Neut # (Auto) (1.40-7.00) K/uL Lymph # (Auto) (0.50-3.50) K/uL [place] # (Auto) (0.00-1.00) K/uL Eos # (Auto) (0.00-0.50) K/uL Baso # (Auto) (0.00-0.20) K/uL POC Glucose 105 109 (65-110) mg/dl C-Reactive Protein (<=0.9) mg/dL Med Orders - Current: Current Medications Discontinued Medications Acetaminophen (Tylenol) 650 mg PO Q4H PRN PRN Reason: Pain Last Admin: 12/01/18 21:26 Dose: 650 mg Albuterol (Proventil Neb Soln) 2.5 mg INH Q2H PRN PRN Reason: SHORTNESS OF BREATH Last Admin: 12/02/18 11:27 Dose: 2.5 mg Albuterol/Ipratropium (Duoneb 3.0-0.5 Mg/3 Ml) 3 ml NEB Q4HRRT PRN PRN Reason: Dyspnea Last Admin: 12/01/18 17:35 Dose: 3 ml Albuterol/Ipratropium (Duoneb 3.0-0.5 Mg/3 Ml) 3 ml NEB Q6HRRT [facility] Last Admin: 12/02/18 14:26 Dose: 3 ml Amlodipine Besylate (Norvasc) 5 mg PO DAILY [facility] Last Admin: 12/02/18 07:25 Dose: 5 mg Azithromycin (Zithromax) 500 mg PO DAILY [facility] Last Admin: 11/30/18 08:13 Dose: 500 mg Enoxaparin Sodium (Lovenox) 30 mg SUBCUT Q24H [facility] Last Admin: 12/01/18 19:41 Dose: 30 mg Furosemide (Lasix) 40 mg IVPUSH Q8H [facility] Last Admin: 11/26/18 20:04 Dose: 40 mg Furosemide (Lasix) 40 mg IVPUSH NOW [facility] Stop: 11/28/18 11:11 Last Admin: 11/28/18 11:23 Dose: 40 mg Furosemide (Lasix) 40 mg IVPUSH DAILY [facility] Last Admin: 12/02/18 07:25 Dose: 40 mg Azithromycin 500 mg/ Sodium (Chloride) 250 mls @ 250 mls/hr IV Q24H [facility] Stop: 11/28/18 23:59 Last Admin: 11/28/18 22:31 Dose: 250 mls/hr Ceftriaxone Sodium 1 gm/ (Sodium Chloride) 100 mls @ 200 mls/hr IV Q24H [facility] Last Admin: 11/29/18 21:47 Dose: 200 mls/hr Metronidazole 500 mg/ Premix 100 mls @ 100 mls/hr IV Q8H [facility] Last Admin: 11/28/18 07:35 Dose: 100 mls/hr Ceftriaxone Sodium 1 gm/ (Sodium Chloride) 100 mls @ 200 mls/hr IV DAILY@1800 [facility] Last Admin: 12/01/18 17:36 Dose: 200 mls/hr Insulin Human Lispro (Humalog) 0 unit SUBCUT BIDAC [facility]; Protocol Insulin Human Lispro (Humalog) 0 unit SUBCUT BIDAC [facility]; Protocol Last Admin: 11/28/18 18:13 Dose: 8 units Insulin Human Lispro (Humalog) 15 unit SUBCUT ONETIME ONE Stop: 11/29/18 17:00 Last Admin: 11/29/18 17:49 Dose: 15 units Insulin Human NPH (Humulin N) 20 unit SQ ONETIME ONE Stop: 11/28/18 19:31 Last Admin: 11/28/18 20:36 Dose: 20 unit Levothyroxine Sodium (Levothyroxine) 75 mcg PO ACBREAKFAST [facility] Last Admin: 12/02/18 07:25 Dose: 75 mcg Methylprednisolone Sodium Succinate (Solu-Medrol) 80 mg IVPUSH ONETIME ONE Stop: 11/28/18 11:11 Last Admin: 11/28/18 11:23 Dose: 80 mg Metoprolol Tartrate (Lopressor) 25 mg PO BID [facility] Last Admin: 11/26/18 17:25 Dose: 25 mg Metoprolol Tartrate (Lopressor) 25 mg PO Q12HR [facility] Last Admin: 12/02/18 07:25 Dose: 25 mg Metronidazole (Flagyl) 500 mg PO TID@0800,1400,2000 [facility] Last Admin: 11/30/18 13:42 Dose: 500 mg Insulin Detemir [ Levemir] 20 Unit # Patients Own Med# 20 unit SUBCUT BEDTIME [facility] Last Admin: 12/01/18 19:37 Dose: 20 unit Naldo/Polymyx B Sulf/Dexameth [Neomyc- Polym-Dexamet Eye OinOwn Med 1 applic EYELF BID [facility] Last Admin: 12/02/18 08:02 Dose: 1 applic Potassium Chloride (Klor-Con M20) 20 meq PO TID [facility] Last Admin: 11/26/18 17:25 Dose: 20 meq Simvastatin (Zocor) 20 mg PO BEDTIME [facility] Last Admin: 12/01/18 19:40 Dose: 20 mg Sodium Chloride (Saline Flush) 10 ml FLUSH ASDIRECTED PRN PRN Reason: Keep Vein Open Sodium Chloride (Saline Flush) 10 ml FLUSH Q12HR PRN PRN Reason: Keep Vein Open Last Admin: 11/26/18 20:04 Dose: 10 ml Sodium Chloride (Saline Flush) 10 ml FLUSH Q12HR [facility] Last Admin: 12/02/18 07:26 Dose: 10 ml Sodium Chloride (Saline Flush) 10 ml FLUSH ASDIRECTED PRN PRN Reason: Keep Vein Open Last Admin: 11/28/18 22:30 Dose: 10 ml Temazepam (Restoril) 15 mg PO BEDTIME PRN PRN Reason: Insomnia Last Admin: 12/01/18 21:25 Dose: 15 mg - Exam Quality Assessment: Supplemental Oxygen, DVT Prophylaxis General: Alert, Cooperative, No Acute Distress HEENT: Mucous Membr. Moist/[place] Neck: Trachea Midline, No JVD Lungs: Normal Respiratory Effort, Decreased Breath Sounds, Rhonchi Cardiovascular: Regular Rate, Regular Rhythm GI/Abdominal Exam: Soft, Non-Tender, No Distention (Female) Exam: Deferred Back Exam: Decreased Range of Motion, Other (kyphosis) Extremities: Normal Inspection, Non-Tender, No Pedal Edema Skin: Warm, Dry, Intact, Ecchymosis Neurological: No New Focal Deficit Psy/Mental Status: Alert, Normal Affect, Normal Mood - Problem List & Annotations (1) Acute exacerbation of chronic obstructive pulmonary disease (COPD) SNOMED Code(s): 798187329 Code(s): J44.1 - CHRONIC OBSTRUCTIVE PULMONARY DISEASE W (ACUTE) EXACERBATION Status: Acute Priority: High Annotation/Comment:: Continues to experience shortness of breath. Continue neb treatments/supportive care. (2) CKD (chronic kidney disease) SNOMED Code(s): 058673309 Code(s): N18.9 - CHRONIC KIDNEY DISEASE, UNSPECIFIED Status: Chronic Priority: Low Qualifiers: Chronic kidney disease stage: unspecified stage Qualified Code(s): N18.9 - Chronic kidney disease, unspecified (3) Comfort measures only status SNOMED Code(s): 83052415307791 Code(s): Z51.5 - ENCOUNTER FOR PALLIATIVE CARE Status: Acute Priority: High Annotation/Comment:: No code/no transfer status confirmed with the patient today. 11/26/18 She confirms she is DNR/DNI/Comfort Measures and she says absolutely NO when asked if she wants to be transferred to [place]. I told her family members want her transferred to [facility] and she says absolutely NO. (4) Congestive heart failure (CHF) SNOMED Code(s): 15120152 Code(s): I50.9 - HEART FAILURE, UNSPECIFIED Status: Chronic Priority: Medium Onset Date: ~11/23/18 Qualifiers: Heart failure type: unspecified Heart failure chronicity: chronic Qualified Code(s): I50.9 - Heart failure, unspecified Annotation/Comment:: Does not appear to have component of acute CHF exacerbation clinically/of chest xray at this time. ProBNP minimally elevated. (5) D-dimer, elevated SNOMED Code(s): 167316267 Code(s): R79.89 - OTHER SPECIFIED ABNORMAL FINDINGS OF BLOOD CHEMISTRY Status: Acute Priority: Medium Onset Date: 11/06/18 Annotation/Comment:: History of d-dimer elevation with negative workup on 11/06/18 as above. D-dimer elevation stable at this time. No clinical evidence of DVT or PE. Observe for now. (6) Hypermagnesemia SNOMED Code(s): 63539561 Code(s): E83.41 - HYPERMAGNESEMIA Status: Acute Priority: Medium Onset Date: 11/25/18 Annotation/Comment:: Minimal elevation noted. (7) Hyperuricemia SNOMED Code(s): 98776561 Code(s): E79.0 - HYPERURICEMIA W/O SIGNS OF INFLAM ARTHRIT AND TOPHACEOUS DIS Status: Acute Priority: Medium Onset Date: 11/06/18 Annotation/ Comment:: Mild to moderately elevated uric acid level today with no gout type symptoms. Observe for now. Note Bumex therapy prior to admission with initiation of IV Lasix with caution as above. (8) Hypoalbuminemia SNOMED Code(s): 220585753 Code(s): E88.09 - [facility] DISORDERS OF PLASMA-PROTEIN METABOLISM, NEC Status: Chronic Priority: Medium Onset Date: 11/06/18 Annotation/Comment:: Initiate high-protein Glucerna supplements on a twice a day basis as snacks secondary to her hypoglycemic episodes. Otherwise close follow-up by her regular provider. (9) Hypothyroidism SNOMED Code(s): 72992691 Code(s): E03.9 - HYPOTHYROIDISM, UNSPECIFIED Status: Chronic Priority: Medium Qualifiers: Hypothyroidism type: acquired Qualified Code(s): E03.9 - Hypothyroidism, unspecified Annotation/Comment:: TSH somewhat elevated on 11/06/18 with her Synthroid supplementation increased at that time. TSH still elevated today. Consider further medication adjustments by admitting physician. (10) COPD (chronic obstructive pulmonary disease) SNOMED Code(s): 59794991 Code(s): J44.9 - CHRONIC OBSTRUCTIVE PULMONARY DISEASE, UNSPECIFIED Status : Chronic Priority: Medium Qualifiers: COPD type: emphysema Emphysema type: panlobular Qualified Code(s): J43.1 - Panlobular emphysema Annotation/Comment:: No recent fever or bronchitic type symptoms. DuoNeb nebulizer treatment taken by the patient on her own prior to paramedics arrival as above. No WBC elevation, fever, etc. at this time. No evidence of pneumonia or bronchitis by today's chest x-ray. (11) Coronary artery disease SNOMED Code(s): 89069647 Code(s): I25.10 - ATHSCL HEART DISEASE OF [place] CORONARY ARTERY W/O ANG PCTRS Status: Chronic Priority: Medium Qualifiers: Coronary Disease-Associated Artery/Lesion type: [place] artery [place] vs. transplanted heart: [place] heart Associated angina: without angina Qualified Code(s): I25.10 - Atherosclerotic heart disease of [place] coronary artery without angina pectoris (12) Hypertension SNOMED Code(s): 69548628 Code(s): I10 - ESSENTIAL (PRIMARY) HYPERTENSION Status: Chronic Priority : Medium Qualifiers: Hypertension type: essential hypertension Qualified Code(s): I10 - Essential (primary) hypertension (13) IDDM (insulin dependent diabetes mellitus) SNOMED Code(s): 93595570 Code(s): E11.9 - TYPE 2 DIABETES MELLITUS WITHOUT COMPLICATIONS; Z79.4 - OUTPATIENT COORDINATOR (CURRENT) USE OF INSULIN Status: Chronic Priority: Medium Annotation/Comment:: Observe trends (14) Mixed anxiety depressive disorder SNOMED Code(s): 723747937 Code(s): F41.8 - OTHER SPECIFIED ANXIETY DISORDERS Status: Chronic Priority: Medium Annotation/Comment:: Stable by history. Continue to observe closely by regular provider. (15) Osteoarthritis SNOMED Code(s): 580964443 Code(s): M19.90 - UNSPECIFIED OSTEOARTHRITIS, UNSPECIFIED SITE Status: Chronic Priority: Medium Qualifiers: Osteoarthritis location: multiple joints Osteoarthritis type: primary Qualified Code(s): M15.0 - Primary generalized (osteo)arthritis Annotation/Comment:: Stable by history with history of hyperuricemia as above. (16) Palliative care patient SNOMED Code(s): 918808570 Code(s): Z51.5 - ENCOUNTER FOR PALLIATIVE CARE Status: Chronic Priority: Medium Annotation/Comment:: As above - Problem List Review Problem List Initiated/Reviewed/Updated: Yes - My Orders Last 24 Hours: My Active Orders 12/02/18 16:07 Ready for Discharge [RC] PER UNIT ROUTINE - Assessment Assessment:: as above - Plan Plan:: 11/26/18 Rosie Quintana MD Still short of breath. Wanting nebulizer. Son and grand-daughter demanding that she be transferred to [place]. I asked Dayna and she says absolutely NO to transfer to [place]. Will check CRP. 11/27/18 Rosie Quintana MD She does feel better today. Less short of breath. Continue medical regiment. I did talk to her son Vamshi. Dayna is again saying she does not want to go to [place] ,. 11/28/18 (late entry) Rosie Quintana MD Now short of breath and wheezing. IV lasix and IV solumedrol given and prn nebulizers. Continue Rx. 11/29/18 Rosie Quintana MD Feels much better today. No audible wheeze. Good appetite. CRP did increase so she needs continued inpatient status for IV antibiotics and blood sugar monitoring and insulin adjustment. 11/30/18 Rosie Quintana MD Doesn't feel as good today. Still weak. Barely able to walk to bathroom and back. Audible wheeze. Loose stools probably from antibiotics. Mycoplasma negative so stop zithromax. CRP decreasing but still elevated. Needs inpatient status to continue IV antibiotics, monitor blood sugars, and improve her strength. 12/01/18 Emmett SHERMAN Continues to feel weak. Unable to walk without assist. Unable to perform ADLs. Continues to have audible wheezing and increased baseline respiratory effort. Unable to have patient return to assisted living at this time. Prolonged inpatient stay due to the above in addition to this being a weekend. Case management is involved. Need to consider recheck with PT and OT tomorrow to see if patient can qualify for swing bed. Otherwise case management will need to be involved to explore other options for patient. 12/02/18 Rosie Quintana MD Slow clinical improvement. Still weak. Blood sugar low this AM. Stable for transfer into swing bed to complete antibiotics, monitor blood sugar, and PT-OT.
--- NOTE | 2018-12-02 23:08 | PCM.DCSUM1 ---
Discharge Summary - Hospital Course Diagnosis: Stroke: No - Discharge Data Discharge Date: 12/02/18 Discharge Disposition: DC/Tfer W/I Hosp To [facility] Condition: Fair - Referral to Home Health Primary Care Physician: Kalee Edwards NP - Discharge Diagnosis/Problem(s) (1) Acute exacerbation of chronic obstructive pulmonary disease (COPD) SNOMED Code(s): 110908879 ICD Code: J44.1 - CHRONIC OBSTRUCTIVE PULMONARY DISEASE W (ACUTE) EXACERBATION Status: Acute Priority: High Problem Details: Continues to experience shortness of breath. Continue neb treatments/supportive care. (2) CKD (chronic kidney disease) SNOMED Code(s): 478809908 ICD Code: N18.9 - CHRONIC KIDNEY DISEASE, UNSPECIFIED Status: Chronic Priority: Low Qualifiers: Chronic kidney disease stage: unspecified stage Qualified Code(s): N18.9 - Chronic kidney disease, unspecified (3) Comfort measures only status SNOMED Code(s): 27559237138045 ICD Code: Z51.5 - ENCOUNTER FOR PALLIATIVE CARE Status: Acute Priority: High Problem Details: No code/no transfer status confirmed with the patient today. 11/26/18 She confirms she is DNR/DNI/Comfort Measures and she says absolutely NO when asked if she wants to be transferred to [place]. I told her family members want her transferred to [facility] and she says absolutely NO. (4) Congestive heart failure (CHF) SNOMED Code(s): 55069597 ICD Code: I50.9 - HEART FAILURE, UNSPECIFIED Status: Chronic Priority: Medium Onset Date: ~11/23/18 Problem Details: Does not appear to have component of acute CHF exacerbation clinically/of chest xray at this time. ProBNP minimally elevated. Qualifiers: Heart failure type: unspecified Heart failure chronicity: chronic Qualified Code(s): I50.9 - Heart failure, unspecified (5) D-dimer, elevated SNOMED Code(s): 292475677 ICD Code: R79.89 - OTHER SPECIFIED ABNORMAL FINDINGS OF BLOOD CHEMISTRY Status: Acute Priority: Medium Onset Date: 11/06/18 Problem Details: History of d-dimer elevation with negative workup on 11/06/18 as above. D-dimer elevation stable at this time. No clinical evidence of DVT or PE. Observe for now. (6) Hypermagnesemia SNOMED Code(s): 76184088 ICD Code: E83.41 - HYPERMAGNESEMIA Status: Acute Priority: Medium Onset Date: 11/25/18 Problem Details: Minimal elevation noted. (7) Hyperuricemia SNOMED Code(s): 80619157 ICD Code: E79.0 - HYPERURICEMIA W/O SIGNS OF INFLAM ARTHRIT AND TOPHACEOUS DIS Status: Acute Priority: Medium Onset Date: 11/06/18 Problem Details : Mild to moderately elevated uric acid level today with no gout type symptoms. Observe for now. Note Bumex therapy prior to admission with initiation of IV Lasix with caution as above. (8) Hypoalbuminemia SNOMED Code(s): 988635942 ICD Code: E88.09 - OTH DISORDERS OF PLASMA-PROTEIN METABOLISM, NEC Status: Chronic Priority: Medium Onset Date: 11/06/18 Problem Details: Initiate high-protein Glucerna supplements on a twice a day basis as snacks secondary to her hypoglycemic episodes. Otherwise close follow-up by her regular provider. (9) Hypothyroidism SNOMED Code(s): 80018545 ICD Code: E03.9 - HYPOTHYROIDISM, UNSPECIFIED Status: Chronic Priority: Medium Problem Details: TSH somewhat elevated on 11/06/18 with her Synthroid supplementation increased at that time. TSH still elevated today. Consider further medication adjustments by admitting physician. Qualifiers: Hypothyroidism type: acquired Qualified Code(s): E03.9 - Hypothyroidism, unspecified (10) COPD (chronic obstructive pulmonary disease) SNOMED Code(s): 18026333 ICD Code: J44.9 - CHRONIC OBSTRUCTIVE PULMONARY DISEASE, UNSPECIFIED Status : Chronic Priority: Medium Problem Details: No recent fever or bronchitic type symptoms. DuoNeb nebulizer treatment taken by the patient on her own prior to paramedics arrival as above. No WBC elevation, fever, etc. at this time. No evidence of pneumonia or bronchitis by today's chest x-ray. Qualifiers: COPD type: emphysema Emphysema type: panlobular Qualified Code(s): J43.1 - Panlobular emphysema (11) Coronary artery disease SNOMED Code(s): 42117880 ICD Code: I25.10 - ATHSCL HEART DISEASE OF [place] CORONARY ARTERY W/O ANG PCTRS Status: Chronic Priority: Medium Qualifiers: Coronary Disease-Associated Artery/Lesion type: [place] artery [place] vs. transplanted heart: [place] heart Associated angina: without angina Qualified Code(s): I25.10 - Atherosclerotic heart disease of [place] coronary artery without angina pectoris (12) Hypertension SNOMED Code(s): 71430061 ICD Code: I10 - ESSENTIAL (PRIMARY) HYPERTENSION Status: Chronic Priority : Medium Qualifiers: Hypertension type: essential hypertension Qualified Code(s): I10 - Essential (primary) hypertension (13) IDDM (insulin dependent diabetes mellitus) SNOMED Code(s): 96884193 ICD Code: E11.9 - TYPE 2 DIABETES MELLITUS WITHOUT COMPLICATIONS; Z79.4 - DETENTION (CURRENT) USE OF INSULIN Status: Chronic Priority: Medium Problem Details: Observe trends (14) Mixed anxiety depressive disorder SNOMED Code(s): 493646036 ICD Code: F41.8 - OTHER SPECIFIED ANXIETY DISORDERS Status: Chronic Priority: Medium Problem Details: Stable by history. Continue to observe closely by regular provider. (15) Osteoarthritis SNOMED Code(s): 083070537 ICD Code: M19.90 - UNSPECIFIED OSTEOARTHRITIS, UNSPECIFIED SITE Status: Chronic Priority: Medium Problem Details: Stable by history with history of hyperuricemia as above. Qualifiers: Osteoarthritis location: multiple joints Osteoarthritis type: primary Qualified Code(s): M15.0 - Primary generalized (osteo)arthritis (16) Palliative care patient SNOMED Code(s): 027502836 ICD Code: Z51.5 - ENCOUNTER FOR PALLIATIVE CARE Status: Chronic Priority : Medium Problem Details: As above - Patient Summary/Data Consults: Consultations 11/28/18 08:00 Consult to Case Management/Music Rehabilitation Therapist [CONS] Routine Consult to Occupational Therapy [OT Evaluation and Treatment] [CONS] Routine PT Evaluation and Treatment [CONS] Routine - Patient Instructions Diet: Diabetic Diet Activity: As Tolerated Driving: Do Not Drive Showering/Bathing: May Shower - Discharge Plan *PRESCRIPTION DRUG MONITORING PROGRAM REVIEWED*: Not Applicable *COPY OF PRESCRIPTION DRUG MONITORING REPORT IN PATIENT PATRICIO: Not Applicable Home Medications: Home Meds Albuterol/Ipratropium [DuoNeb 3.0-0.5 MG/3 ML] 1 applic INH QID 05/03/17 [ History] Metoprolol Tartrate 25 mg PO BID 05/03/17 [History] Simvastatin 20 mg PO BEDTIME 05/03/17 [History] Bumetanide [Bumex] 1 mg PO DAILY 11/06/18 [History] Levothyroxine Sodium [Synthroid] 75 mcg PO ACBREAKFAST #30 tab 11/06/18 [Rx] Insulin Detemir [Levemir] 20 unit SUBCUT BEDTIME 11/25/18 [History] amLODIPine [Norvasc] 5 mg PO DAILY 11/25/18 [History] Albuterol/Ipratropium [DuoNeb 3.0-0.5 MG/3 ML] 3 ml INH Q4H PRN 11/26/18 [ History] Naldo/Polymyx B Sulf/Dexameth [Qnfczo-Piwbb-Tmxkhlt Eye Ointm] 1 applic EYELF BID 11/26/18 [History] Acetaminophen [Tylenol] 650 mg PO Q4H PRN tablet 12/02/18 [Rx] Albuterol [Proventil Neb Soln] 2.5 mg INH Q2H PRN neb 12/02/18 [Rx] Albuterol/Ipratropium [DuoNeb 3.0-0.5 MG/3 ML] 3 ml NEB Q6HRRT neb 12/02/18 [Rx ] Enoxaparin [Lovenox] 30 mg SUBCUT Q24H syringe 12/02/18 [Rx] Sodium Chloride 0.9% [Normal Saline] 100 ml IV DAILY@1800 bag 12/02/18 [Rx] Sodium Chloride 0.9% [Saline Flush] 10 ml FLUSH ASDIRECTED PRN syringe [Rx] Sodium Chloride 0.9% [Saline Flush] 10 ml FLUSH Q12HR syringe 12/02/18 [Rx] Temazepam [Restoril] 15 mg PO BEDTIME PRN cap 12/02/18 [Rx] cefTRIAXone [Rocephin] 1 gm IV DAILY@1800 vial 12/02/18 [Rx] Oxygen Therapy Mode: Nasal Cannula Oxygen Flow Rate (L/min): 2 Forms: ED Department Discharge Referrals: Kalee Edwards NP [Primary Care Provider] - - Discharge Summary/Plan Comment DC Time >30 min.: No - Patient Data Vitals - Most Recent: Last Vital Signs Temp 97.8 F 12/02/18 12:00 Pulse 88 12/02/18 12:00 Resp 22 H 12/02/18 12:00 BP 131/70 12/02/18 12:00 Pulse Ox 98 12/02/18 12:00 Weight - Most Recent: 132 lb 8 oz I&O - Last 24 hours: Intake & Output 12/02/18 12/02/18 12/03/18 14:59 22:59 06:59 Intake Total 340 Balance 340 Lab Results - Last 24 hrs: Laboratory Results - last 24 hr 12/02/18 12/02/18 12/02/18 Range/Units 07:14 07:15 07:15 WBC 7.2 (4.0-10.2) K/uL RBC 4.20 (3.77-5.09) M/uL Hgb 12.0 (11.7-15.5) g/dL Hct 39.1 (34.0-46.0) % MCV 93.1 (84.0-98.0) fL MCH 28.6 (28.2-33.3) pg MCHC 30.7 L (31.7-36.0) g/dL RDW 14.9 H (11.2-14.1) % Plt Count 314 (150-350) K/uL Neut % (Auto) 63.6 (45.0-80.0) % Lymph % (Auto) 19.7 (10.0-50.0) % [place] % (Auto) 11.4 (2.0-14.0) % Eos % (Auto) 4.7 (0.0-5.0) % Baso % (Auto) 0.6 (0.0-2.0) % Neut # (Auto) 4.59 (1.40-7.00) K/uL Lymph # (Auto) 1.42 (0.50-3.50) K/uL [place] # (Auto) 0.82 (0.00-1.00) K/uL Eos # (Auto) 0.34 (0.00-0.50) K/uL Baso # (Auto) 0.04 (0.00-0.20) K/uL POC Glucose 49 L* (65-110) mg/dl C-Reactive Protein 2.5 H (<=0.9) mg/dL 12/02/18 12/02/18 Range/Units 08:22 11:24 WBC (4.0-10.2) K/uL RBC (3.77-5.09) M/uL Hgb (11.7-15.5) g/dL Hct (34.0-46.0) % MCV (84.0-98.0) fL MCH (28.2-33.3) pg MCHC (31.7-36.0) g/dL RDW (11.2-14.1) % Plt Count (150-350) K/uL Neut % (Auto) (45.0-80.0) % Lymph % (Auto) (10.0-50.0) % [place] % (Auto) (2.0-14.0) % Eos % (Auto) (0.0-5.0) % Baso % (Auto) (0.0-2.0) % Neut # (Auto) (1.40-7.00) K/uL Lymph # (Auto) (0.50-3.50) K/uL [place] # (Auto) (0.00-1.00) K/uL Eos # (Auto) (0.00-0.50) K/uL Baso # (Auto) (0.00-0.20) K/uL POC Glucose 105 109 (65-110) mg/dl C-Reactive Protein (<=0.9) mg/dL Med Orders - Current: Current Medications Discontinued Medications Acetaminophen (Tylenol) 650 mg PO Q4H PRN PRN Reason: Pain Last Admin: 12/01/18 21:26 Dose: 650 mg Albuterol (Proventil Neb Soln) 2.5 mg INH Q2H PRN PRN Reason: SHORTNESS OF BREATH Last Admin: 12/02/18 11:27 Dose: 2.5 mg Albuterol/Ipratropium (Duoneb 3.0-0.5 Mg/3 Ml) 3 ml NEB Q4HRRT PRN PRN Reason: Dyspnea Last Admin: 12/01/18 17:35 Dose: 3 ml Albuterol/Ipratropium (Duoneb 3.0-0.5 Mg/3 Ml) 3 ml NEB Q6HRRT MAURICIO Last Admin: 12/02/18 14:26 Dose: 3 ml Amlodipine Besylate (Norvasc) 5 mg PO DAILY MAURICIO Last Admin: 12/02/18 07:25 Dose: 5 mg Azithromycin (Zithromax) 500 mg PO DAILY COUNTS INCLUDE 234 BEDS AT THE [facility] Last Admin: 11/30/18 08:13 Dose: 500 mg Enoxaparin Sodium (Lovenox) 30 mg SUBCUT Q24H MAURICIO Last Admin: 12/01/18 19:41 Dose: 30 mg Furosemide (Lasix) 40 mg IVPUSH Q8H MAURICIO Last Admin: 11/26/18 20:04 Dose: 40 mg Furosemide (Lasix) 40 mg IVPUSH NOW STA Stop: 11/28/18 11:11 Last Admin: 11/28/18 11:23 Dose: 40 mg Furosemide (Lasix) 40 mg IVPUSH DAILY COUNTS INCLUDE 234 BEDS AT THE [facility] Last Admin: 12/02/18 07:25 Dose: 40 mg Azithromycin 500 mg/ Sodium (Chloride) 250 mls @ 250 mls/hr IV Q24H MAURICIO Stop: 11/28/18 23:59 Last Admin: 11/28/18 22:31 Dose: 250 mls/hr Ceftriaxone Sodium 1 gm/ (Sodium Chloride) 100 mls @ 200 mls/hr IV Q24H COUNTS INCLUDE 234 BEDS AT THE [facility] Last Admin: 11/29/18 21:47 Dose: 200 mls/hr Metronidazole 500 mg/ Premix 100 mls @ 100 mls/hr IV Q8H COUNTS INCLUDE 234 BEDS AT THE [facility] Last Admin: 11/28/18 07:35 Dose: 100 mls/hr Ceftriaxone Sodium 1 gm/ (Sodium Chloride) 100 mls @ 200 mls/hr IV DAILY@1800 MAURICIO Last Admin: 12/01/18 17:36 Dose: 200 mls/hr Insulin Human Lispro (Humalog) 0 unit SUBCUT BIDAC COUNTS INCLUDE 234 BEDS AT THE [facility]; Protocol Insulin Human Lispro (Humalog) 0 unit SUBCUT BIDAC COUNTS INCLUDE 234 BEDS AT THE [facility]; Protocol Last Admin: 11/28/18 18:13 Dose: 8 units Insulin Human Lispro (Humalog) 15 unit SUBCUT ONETIME ONE Stop: 11/29/18 17:00 Last Admin: 11/29/18 17:49 Dose: 15 units Insulin Human NPH (Humulin N) 20 unit SQ ONETIME ONE Stop: 11/28/18 19:31 Last Admin: 11/28/18 20:36 Dose: 20 unit Levothyroxine Sodium (Levothyroxine) 75 mcg PO ACBREAKFAST COUNTS INCLUDE 234 BEDS AT THE [facility] Last Admin: 12/02/18 07:25 Dose: 75 mcg Methylprednisolone Sodium Succinate (Solu-Medrol) 80 mg IVPUSH ONETIME ONE Stop: 11/28/18 11:11 Last Admin: 11/28/18 11:23 Dose: 80 mg Metoprolol Tartrate (Lopressor) 25 mg PO BID COUNTS INCLUDE 234 BEDS AT THE [facility] Last Admin: 11/26/18 17:25 Dose: 25 mg Metoprolol Tartrate (Lopressor) 25 mg PO Q12HR COUNTS INCLUDE 234 BEDS AT THE [facility] Last Admin: 12/02/18 07:25 Dose: 25 mg Metronidazole (Flagyl) 500 mg PO TID@0800,1400,2000 COUNTS INCLUDE 234 BEDS AT THE [facility] Last Admin: 11/30/18 13:42 Dose: 500 mg Insulin Detemir [ Levemir] 20 Unit # Patients Own Med# 20 unit SUBCUT BEDTIME COUNTS INCLUDE 234 BEDS AT THE [facility] Last Admin: 12/01/18 19:37 Dose: 20 unit Naldo/Polymyx B Sulf/Dexameth [Neomyc- Polym-Dexamet Eye OinOwn Med 1 applic EYELF BID COUNTS INCLUDE 234 BEDS AT THE [facility] Last Admin: 12/02/18 08:02 Dose: 1 applic Potassium Chloride (Klor-Con M20) 20 meq PO TID COUNTS INCLUDE 234 BEDS AT THE [facility] Last Admin: 11/26/18 17:25 Dose: 20 meq Simvastatin (Zocor) 20 mg PO BEDTIME COUNTS INCLUDE 234 BEDS AT THE [facility] Last Admin: 12/01/18 19:40 Dose: 20 mg Sodium Chloride (Saline Flush) 10 ml FLUSH ASDIRECTED PRN PRN Reason: Keep Vein Open Sodium Chloride (Saline Flush) 10 ml FLUSH Q12HR PRN PRN Reason: Keep Vein Open Last Admin: 11/26/18 20:04 Dose: 10 ml Sodium Chloride (Saline Flush) 10 ml FLUSH Q12HR COUNTS INCLUDE 234 BEDS AT THE [facility] Last Admin: 12/02/18 07:26 Dose: 10 ml Sodium Chloride (Saline Flush) 10 ml FLUSH ASDIRECTED PRN PRN Reason: Keep Vein Open Last Admin: 11/28/18 22:30 Dose: 10 ml Temazepam (Restoril) 15 mg PO BEDTIME PRN PRN Reason: Insomnia Last Admin: 12/01/18 21:25 Dose: 15 mg
== END 2018-12-02 16:20 | disposition swing bed (61) | DRG 191 ==
LOC: LL.ED 16:53 → LL.MS 18:59
PROVIDERS: ADMIT Family Medicine; ATTEND Family Medicine
DX: J44.1 Chronic obstructive pulmonary disease with (acute) exacerbation (principal); J43.9 Emphysema, unspecified; I13.0 Hypertensive heart and chronic kidney disease with heart failure and stage 1 through stage 4 chronic kidney disease, or unspecified chronic kidney disease; I42.9 Cardiomyopathy, unspecified; I50.9 Heart failure, unspecified; N18.9 Chronic kidney disease, unspecified; Z51.5 Encounter for palliative care; Z66 Do not resuscitate; E83.41 Hypermagnesemia; R06.02 Shortness of breath; E03.9 Hypothyroidism, unspecified; E11.40 Type 2 diabetes mellitus with diabetic neuropathy, unspecified; I49.3 Ventricular premature depolarization; I25.10 Atherosclerotic heart disease of native coronary artery without angina pectoris; K21.9 Gastro-esophageal reflux disease without esophagitis; F41.8 Other specified anxiety disorders; M15.0 Primary generalized (osteo)arthritis; H54.7 Unspecified visual loss; H35.30 Unspecified macular degeneration; H91.10 Presbycusis, unspecified ear; E78.00 Pure hypercholesterolemia, unspecified; I73.9 Peripheral vascular disease, unspecified; G89.29 Other chronic pain; M54.9 Dorsalgia, unspecified; E11.22 Type 2 diabetes mellitus with diabetic chronic kidney disease; M10.9 Gout, unspecified; M81.0 Age-related osteoporosis without current pathological fracture; E11.42 Type 2 diabetes mellitus with diabetic polyneuropathy; M85.80 Other specified disorders of bone density and structure, unspecified site; I45.10 Unspecified right bundle-branch block; Z79.4 Long term (current) use of insulin; Z79.899 Other long term (current) drug therapy; Z88.8 Allergy status to other drugs, medicaments and biological substances; Z88.2 Allergy status to sulfonamides; Z87.01 Personal history of pneumonia (recurrent); Z98.49 Cataract extraction status, unspecified eye; Z90.89 Acquired absence of other organs
CPT/HCPCS: 36000; 36415; 71045; 71046; 80048; 80053; 80061; 82272; 82550; 82553; 82803; 82962; 83036; 83605; 83735; 83880; 84443; 84484; 84550; 85025; 85379; 85610; 85730; 86140; 86738; 93005; 94640; 97110-GP; 97116-GP; 97161-GP; 97530-GP; 99285-25; A9270-GY; J0456; J0696; J1650; J1815; J1940; J2930; J3490; J7050; J7613-GY; J7620-GY

== ENCOUNTER 2018-12-02 14:32 | Inpatient (IN) | payer MEDICARE, OTHER ==
[2018-12-02] MEDS ORDERED: Acetaminophen 325 MG Tab PO PRN (16:00)
[2018-12-02] MEDS ORDERED: Sodium Chloride 0.9% 10 ML Syringe FLUSH PRN (16:03)
[2018-12-02] MEDS: POLYMYX B SULF EYELF SCH (18:07)
[2018-12-02] MEDS: DEXAMETH EYELF SCH (18:07)
[2018-12-02] MEDS: NEO EYELF SCH (18:07)
[2018-12-02] MEDS ORDERED: cefTRIAXone 1 GM Vial ONE (18:09)
[2018-12-02] MEDS: cefTRIAXone 1 GM in Sodium Chloride 0.9% 100 ML IV SCH (18:11)
[2018-12-02] MEDS: Albuterol/Ipratropium 3.0-0.5 MG/3 ML Neb Soln NEB SCH (19:01)
[2018-12-02] MEDS: Sodium Chloride 0.9% 10 ML Syringe FLUSH SCH (19:01)
[2018-12-02] MEDS: Metoprolol Tartrate 25 MG Tab PO SCH (19:07)
[2018-12-02] MEDS: Simvastatin 20 MG Tab PO SCH (19:08)
[2018-12-02] MEDS: Enoxaparin 30 MG/0.3 ML Syringe SUBCUT SCH (19:09)
[2018-12-02] MEDS ORDERED: INSULIN DETEMIR 20 UNIT SUBCUT SCH (20:00)
[2018-12-02] MEDS: Albuterol 0.083% 2.5 MG/3 ML Neb Soln INH PRN (22:52)
--- NOTE | 2018-12-02 23:20 | PCM.HP.2 ---
H&P History of Present Illness - General Date of Service: 12/02/18 Admit Problem/Dx: Admission Diagnosis/Problem Admission Diagnosis/Problem CHF, Congestive heart failure Source of Information: Patient, Old Records History Limitations: Reports: No Limitations - Related Data Allergies/Adverse Reactions: Allergies Allergy/AdvReac Type Severity Reaction Status Date / Time MARCOS Inhibitors Allergy Unknown unknown Verified 11/25/18 17:20 budesonide [From Pulmicort] Allergy Unknown unknown Verified 11/25/18 17:20 gabapentin Allergy Unknown Diarrhea Verified 11/25/18 17:20 Sulfa (Sulfonamide Allergy Unknown unknown Verified 11/25/18 17:20 Antibiotics) ketorolac [From Toradol] Allergy Rash Verified 11/25/18 17:20 Home Medications: Home Meds Albuterol/Ipratropium [DuoNeb 3.0-0.5 MG/3 ML] 1 applic INH QID 05/03/17 [ History] Metoprolol Tartrate 25 mg PO BID 05/03/17 [History] Simvastatin 20 mg PO BEDTIME 05/03/17 [History] Bumetanide [Bumex] 1 mg PO DAILY 11/06/18 [History] Levothyroxine Sodium [Synthroid] 75 mcg PO ACBREAKFAST #30 tab 11/06/18 [Rx] Insulin Detemir [Levemir] 20 unit SUBCUT BEDTIME 11/25/18 [History] amLODIPine [Norvasc] 5 mg PO DAILY 11/25/18 [History] Albuterol/Ipratropium [DuoNeb 3.0-0.5 MG/3 ML] 3 ml INH Q4H PRN 11/26/18 [ History] Naldo/Polymyx B Sulf/Dexameth [Dphugg-Aidek-Hrwdvjd Eye Ointm] 1 applic EYELF BID 11/26/18 [History] Acetaminophen [Tylenol] 650 mg PO Q4H PRN tablet 12/02/18 [Rx] Albuterol [Proventil Neb Soln] 2.5 mg INH Q2H PRN neb 12/02/18 [Rx] Albuterol/Ipratropium [DuoNeb 3.0-0.5 MG/3 ML] 3 ml NEB Q6HRRT neb 12/02/18 [Rx ] Enoxaparin [Lovenox] 30 mg SUBCUT Q24H syringe 12/02/18 [Rx] Sodium Chloride 0.9% [Normal Saline] 100 ml IV DAILY@1800 bag 12/02/18 [Rx] Sodium Chloride 0.9% [Saline Flush] 10 ml FLUSH ASDIRECTED PRN syringe [Rx] Sodium Chloride 0.9% [Saline Flush] 10 ml FLUSH Q12HR syringe 12/02/18 [Rx] Temazepam [Restoril] 15 mg PO BEDTIME PRN cap 12/02/18 [Rx] cefTRIAXone [Rocephin] 1 gm IV DAILY@1800 vial 12/02/18 [Rx] Past Medical History HEENT History: Reports: Cataract, Hard of Hearing, Impaired Vision, Other (See Below) Other HEENT History: Patient wears glasses. Mild bilateral presbycusis with no current therapy. Recurrent nasal polyps requiring surgery as below. Cardiovascular History: Reports: Arrhythmia, CAD, Cardiomyopathy, Heart Failure , High Cholesterol, Hypertension, PVD, Other (See Below) Other Cardiovascular History: Cardiomegaly by chest x-ray with history of CHF and chronic dependent edema. Dyslipidemia. Aortic Valve calcification. Borderline left ventricular enlargement/hypertrophy. PACs versus PACs with apparent conduction and mild incomplete right bundle branch block diagnosed by EKG on 11/06/18. History of d-dimer elevation on 11/06/18 with negative workup as below. Respiratory History: Reports: Bronchitis, Recurrent, COPD, Intubation, Previous , Pneumonia, Recurrent, Pulmonary Fibrosis Gastrointestinal History: Reports: Diverticulosis Genitourinary History: Reports: Chronic Renal Insuffiency, Diabetic Nephropathy , Retention, Urinary [employer] History: Reports: Other OB/BYN History: Menopause in her 50s. One delivery at about 34 weeks gestation with otherwise normal spontaneous delivery without complications. Musculoskeletal History: Reports: Arthritis, Back Pain, Chronic, Fracture, Gout , Neck Pain, Chronic, Osteoarthritis, Osteoporosis, Other (See Below) Other Musculoskeletal History: Scoliosis with history of multiple thoracic vertebral body compression fractures. 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 Neurological History: Reports: Neuropathy, Diabetic, Neuropathy, Peripheral, Other (See Below) Other Neuro History: Postherpetic neuralgia. Benign familial resting tremor. Psychiatric History: Reports: Anxiety, Depression Endocrine/Metabolic History: Reports: Diabetes, Type II, Hypothyroidism, IDDM, Osteopenia, Osteoporosis, Other (See Below) Other Endocrine/Metabolic History: Recurrent hypoglycemic episodes. Hypoalbuminemia. Hyponatremia possibly secondary to chronic CHF. Hematologic History: Reports: None Immunologic History: Reports: None Oncologic (Cancer) History: Reports: None Dermatologic History: Reports: Seborrheic Dermatitis - Infectious Disease History Infectious Disease History: Reports: Measles - Past Surgical History Head Surgeries/Procedures: Reports: None HEENT Surgical History: Reports: Cataract Surgery, Oral Surgery Other HEENT Surgeries/Procedures: 3 previous surgeries for excision of nasal polyps. Bilateral cataract surgery in about 2004. Multiple teeth extractions. Cardiovascular Surgical History: Reports: None Respiratory Surgical History: Reports: None GI Surgical History: Reports: None, Hernia, Inguinal, Other (See Below) Other GI Surgeries/Procedures: Right inguinal hernia repair in her 20s. Female Surgical History: Reports: None Endocrine Surgical History: Reports: None Neurological Surgical History: Reports: Discectomy, Lumbar Spine, Other (See Below) Other Neurological Surgeries/Procedures: L3-L5 decompression in the early Musculoskeletal Surgical History: Reports: None Oncologic Surgical History: Reports: None Dermatological Surgical History: Reports: None - Past Imaging History Past Imaging History: Reports: Cardiac Echo (11/03/11 with findings as above and ejection fraction of 50%.), CAT Scan (Negative CTA of the chest on 11/06/18 and .), MRI (Lumbar spine on 11/04/13), Venous Doppler (Negative venous Doppler studies of the lower extremities on 11/06/18 and 10/15/17.) Social & Family History - Family History HEENT: Reports: None Cardiac: Reports: CAD, Heart Failure, [place], Other (See Below) Other Cardiac Family History: Mother with recurrent [place] initially in her late 50s with CHF and fatal [place] at age 62. Brother with fatal [place] at age 68. Respiratory: Reports: Asthma, Other (See Below) Other Respiratory Family Hisory: Father and daughter with asthma. GI: Reports: None : Reports: None OBGYN: Reports: None Musculoskeletal: Reports: None Neurological: Reports: Alzheimers Disease Endocrine/Metabolic: Reports: Diabetes, type II, Other (See Below) Other Endocrine/Metabolic Family History: Multiple paternal family members with apparent AODM per previous medical records, however patient is not aware of this today. Hematologic: Reports: Anemia, Other (See Below) Other Hematologic Family History: Father with anemia of unknown etiology history of blood transfusions without problems. Immunologic: Reports: None Dermatologic: Reports: None Oncologic: Reports: Lung, Other (See Below) Other Oncologic Family History: Daughter with fatal lung cancer at age 50 with no history of tobacco use. - Tobacco Use Smoking Status *Q: Never Smoker Second Hand Smoke Exposure: No - Caffeine Use Caffeine Use: Reports: Coffee - Recreational Drug Use Recreational Drug Use: No - Living Situation & Occupation Living situation: Reports: (December 2017.), Extended Care Facility ( [facility] living [facility]) Occupation: Retired (Retired [employer] ) H&P Review of Systems - Review of Systems: Review Of Systems: See Below General: Reports: Weakness HEENT: Reports: No Symptoms Pulmonary: Reports: Shortness of Breath, Wheezing Cardiovascular: Reports: No Symptoms Gastrointestinal: Reports: No Symptoms Genitourinary: Reports: No Symptoms Musculoskeletal: Reports: No Symptoms Skin: Reports: Bruising Psychiatric: Reports: No Symptoms Neurological: Reports: Weakness Hematologic/Lymphatic: Reports: No Symptoms Immunologic: Reports: No Symptoms Exam - Exam Exam: See Below - Vital Signs Vital Signs: Last Vital Signs Temp 99 F 12/02/18 19:10 Pulse 97 12/02/18 19:10 Resp 24 H 12/02/18 19:10 BP 139/73 12/02/18 19:10 Pulse Ox 97 12/02/18 19:10 Weight: 132 lb 8 oz - Exam Quality Assessment: Supplemental Oxygen, DVT Prophylaxis General: Alert, Cooperative HEENT: Hearing Intact, Nares Patent Neck: Trachea Midline Lungs: Normal Respiratory Effort, Decreased Breath Sounds, Rhonchi Cardiovascular: Regular Rate, Regular Rhythm GI/Abdominal Exam: Soft, Non-Tender, No Distention (Female) Exam: Deferred Rectal (Female) Exam: Deferred Back Exam: Decreased Range of Motion, Other (kyphosis) Extremities: Normal Inspection, Non-Tender, No Pedal Edema Skin: Warm, Dry, Intact, Ecchymosis Neurological: Strength Equal Bilateral Neuro Extensive - Mental Status: Alert, Normal Mood/Affect, Normal Cognition Psychiatric: Alert, Normal Affect, Normal Mood - Problem List (1) Acute exacerbation of chronic obstructive pulmonary disease (COPD) SNOMED Code(s): 155995183 ICD Code: J44.1 - CHRONIC OBSTRUCTIVE PULMONARY DISEASE W (ACUTE) EXACERBATION Status: Acute Priority: High Current Visit: No Problem Details: Continues to experience shortness of breath. Continue neb treatments/ supportive care. (2) Comfort measures only status SNOMED Code(s): 34720804447037 ICD Code: Z51.5 - ENCOUNTER FOR PALLIATIVE CARE Status: Acute Priority: High Current Visit: No Problem Details: No code/no transfer status confirmed with the patient today. 11/26/18 She confirms she is DNR/DNI/Comfort Measures and she says absolutely NO when asked if she wants to be transferred to [place]. I told her family members want her transferred to [facility] and she says absolutely NO. (3) D-dimer, elevated SNOMED Code(s): 458662016 ICD Code: R79.89 - OTHER SPECIFIED ABNORMAL FINDINGS OF BLOOD CHEMISTRY Status: Acute Priority: Medium Current Visit: No Onset Date: 11/06/18 Problem Details: History of d-dimer elevation with negative workup on 11/06/18 as above. D-dimer elevation stable at this time. No clinical evidence of DVT or PE. Observe for now. (4) Hyperuricemia SNOMED Code(s): 36825112 ICD Code: E79.0 - HYPERURICEMIA W/O SIGNS OF INFLAM ARTHRIT AND TOPHACEOUS DIS Status: Acute Priority: Medium Current Visit: No Onset Date: Problem Details: Mild to moderately elevated uric acid level today with no gout type symptoms. Observe for now. Note Bumex therapy prior to admission with initiation of IV Lasix with caution as above. (5) Hypoglycemia SNOMED Code(s): 545407239 ICD Code: E16.2 - HYPOGLYCEMIA, UNSPECIFIED Status: Acute Priority: High Current Visit: No Onset Date: 11/06/18 Problem Details: As above (6) CKD (chronic kidney disease) SNOMED Code(s): 199475757 ICD Code: N18.9 - CHRONIC KIDNEY DISEASE, UNSPECIFIED Status: Chronic Priority: Low Current Visit: No Qualifiers: (7) COPD (chronic obstructive pulmonary disease) SNOMED Code(s): 58447170 ICD Code: J44.9 - CHRONIC OBSTRUCTIVE PULMONARY DISEASE, UNSPECIFIED Status : Chronic Priority: Medium Current Visit: No Problem Details: No recent fever or bronchitic type symptoms. DuoNeb nebulizer treatment taken by the patient on her own prior to paramedics arrival as above. No WBC elevation, fever , etc. at this time. No evidence of pneumonia or bronchitis by today's chest x- ray. (8) Congestive heart failure (CHF) SNOMED Code(s): 59033538 ICD Code: I50.9 - HEART FAILURE, UNSPECIFIED Status: Chronic Priority: Medium Current Visit: No Onset Date: ~11/23/18 Problem Details: Does not appear to have component of acute CHF exacerbation clinically/of chest xray at this time. ProBNP minimally elevated. Qualifiers: (9) Coronary artery disease SNOMED Code(s): 24718502 ICD Code: I25.10 - ATHSCL HEART DISEASE OF [place] CORONARY ARTERY W/O ANG PCTRS Status: Chronic Priority: Medium Current Visit: No Qualifiers: (10) Diabetes mellitus SNOMED Code(s): 90600777 ICD Code: E11.9 - TYPE 2 DIABETES MELLITUS WITHOUT COMPLICATIONS Status: Chronic Priority: Medium Current Visit: No Problem Details: Stable by history. Glycosylated hemoglobin and lipid profile in the a.m. Qualifiers: (11) Hypertension SNOMED Code(s): 52789168 ICD Code: I10 - ESSENTIAL (PRIMARY) HYPERTENSION Status: Chronic Priority : Medium Current Visit: No Qualifiers: (12) Hypoalbuminemia SNOMED Code(s): 283701422 ICD Code: E88.09 - OTH DISORDERS OF PLASMA-PROTEIN METABOLISM, NEC Status: Chronic Priority: Medium Current Visit: No Onset Date: 11/06/18 Problem Details: Initiate high-protein Glucerna supplements on a twice a day basis as snacks secondary to her hypoglycemic episodes. Otherwise close follow-up by her regular provider. (13) Hypothyroidism SNOMED Code(s): 95682769 ICD Code: E03.9 - HYPOTHYROIDISM, UNSPECIFIED Status: Chronic Priority: Medium Current Visit: No Problem Details: TSH somewhat elevated on 11/06/18 with her Synthroid supplementation increased at that time. TSH still elevated today. Consider further medication adjustments by admitting physician. Qualifiers: (14) IDDM (insulin dependent diabetes mellitus) SNOMED Code(s): 71741949 ICD Code: E11.9 - TYPE 2 DIABETES MELLITUS WITHOUT COMPLICATIONS; Z79.4 - SENIOR LIVING (CURRENT) USE OF INSULIN Status: Chronic Priority: Medium Current Visit: No Problem Details: Observe trends (15) Mixed anxiety depressive disorder SNOMED Code(s): 785217861 ICD Code: F41.8 - OTHER SPECIFIED ANXIETY DISORDERS Status: Chronic Priority: Medium Current Visit: No Problem Details: Stable by history. Continue to observe closely by regular provider. (16) Osteoarthritis SNOMED Code(s): 734571222 ICD Code: M19.90 - UNSPECIFIED OSTEOARTHRITIS, UNSPECIFIED SITE Status: Chronic Priority: Medium Current Visit: No Problem Details: Stable by history with history of hyperuricemia as above. (17) Palliative care patient SNOMED Code(s): 423677182 ICD Code: Z51.5 - ENCOUNTER FOR PALLIATIVE CARE Status: Chronic Priority : Medium Current Visit: No Problem Details: As above Problem List Initiated/Reviewed/Updated: Yes Orders Last 24hrs: Active Orders 24 hr Category Date Time Status Patient Status [ADT] Routine ADT 12/02/18 16:05 Active Antiembolic Devices [RC] 08,20 Care 12/02/18 16:03 Active Antiembolic Devices [RC] PER UNIT ROUTINE Care 12/02/18 16:03 Active Antiembolic Devices [RC] PER UNIT ROUTINE Care 12/02/18 16:03 Active Blood Glucose Check, Bedside [RC] BIDAC Care 12/02/18 16:03 Active Communication Order [RC] ROUTINE Care 12/02/18 16:03 Active Oxygen Therapy [RC] 2300 Care 12/02/18 16:03 Active Peripheral IV Care [RC] . DIRECTED Care 12/02/18 16:03 Active Peripheral IV Care [RC] . DIRECTED Care 12/02/18 16:03 Inactive Pulse Oximetry [RC] .PRN Care 12/02/18 16:03 Active RT Aerosol Therapy [RC] .PRN Care 12/02/18 16:03 Active RT Aerosol Therapy [RC] 02,08,14,20 Care 12/02/18 16:03 Active RT Aerosol Therapy [RC] ASDIRECTED Care 12/02/18 16:03 Active Up With Assistance [RC] ASDIRECTED Care 12/02/18 16:03 Active Vital Signs [RC] DAILY Care 12/03/18 08:00 Active Consult to Case Management/Greens Keeper [CONS] Cons 12/02/18 16:03 Active Routine Consult to Occupational Therapy [OT Evaluation and Cons 12/02/18 16:03 Active Treatment] [CONS] Routine PT Evaluation and Treatment [CONS] Routine Cons 12/02/18 16:03 Active [employer] Diet [DIET] Diet 12/02/18 Dinner Active Acetaminophen [Tylenol] Med 12/02/18 16:00 Active 650 mg PO Q4H PRN Albuterol [Proventil Neb Soln] Med 12/02/18 16:00 Active 2.5 mg INH Q2H PRN Albuterol/Ipratropium [DuoNeb 3.0-0.5 MG/3 ML] Med 12/02/18 16:03 Active 3 ml NEB Q4HRRT PRN Albuterol/Ipratropium [DuoNeb 3.0-0.5 MG/3 ML] Med 12/02/18 20:00 Active 3 ml NEB Q6HRRT Enoxaparin [Lovenox] Med 12/02/18 20:00 Active 30 mg SUBCUT Q24H Insulin Detemir [Levemir] Med 12/03/18 08:00 Active 10 unit SUBCUT DAILY@0800 Levothyroxine Med 12/03/18 07:30 Active 75 mcg PO ACBREAKFAST Metoprolol Tartrate [Lopressor] Med 12/02/18 20:00 Active 25 mg PO Q12HR Naldo/Polymyx B Sulf/Dexameth [Ctbbgb-Cafdu-Scowabp Eye Med 12/02/18 18:00 Active Ointm] 1 applic EYELF BID Simvastatin [Zocor] Med 12/02/18 20:00 Active 20 mg PO BEDTIME Sodium Chloride 0.9% [Saline Flush] Med 12/02/18 16:03 Active 10 ml FLUSH ASDIRECTED PRN Sodium Chloride 0.9% [Saline Flush] Med 12/02/18 16:03 Active 10 ml FLUSH ASDIRECTED PRN Sodium Chloride 0.9% [Saline Flush] Med 12/02/18 20:00 Active 10 ml FLUSH Q12HR Temazepam [Restoril] Med 12/02/18 16:03 Active 15 mg PO BEDTIME PRN amLODIPine [Norvasc] Med 12/03/18 08:00 Active 5 mg PO DAILY cefTRIAXone [Rocephin] 1 gm Med 12/02/18 18:00 Active Sodium Chloride 0.9% [Normal Saline] 100 ml IV DAILY@1800 Antiembolic Hose [OM.PC] Routine Ot 12/02/18 16:03 Ordered CHF Questionnaire [COMM] Routine Oth 12/02/18 16:03 Ordered Comfort Measures [OM.PC] Routine Oth 12/02/18 16:03 Ordered DVT/VTE Prophylaxis Reflex [OM.PC] Routine Oth 12/02/18 16:03 Ordered GM Immunization Reflex [OM.PC] Click To Edit Ot 12/02/18 16:03 Ordered Peripheral IV Insertion Adult [OM.PC] Stat Ot 12/02/18 16:03 Ordered Code Status [Resuscitation Status] Routine Resus Stat 12/02/18 16:06 Ordered Medication Orders Acetaminophen (Tylenol) 650 mg PO Q4H PRN PRN Reason: Pain Albuterol (Proventil Neb Soln) 2.5 mg INH Q2H PRN PRN Reason: SHORTNESS OF BREATH Last Admin: 12/02/18 22:52 Dose: 2.5 mg Albuterol/Ipratropium (Duoneb 3.0-0.5 Mg/3 Ml) 3 ml NEB Q4HRRT PRN PRN Reason: Dyspnea Albuterol/Ipratropium (Duoneb 3.0-0.5 Mg/3 Ml) 3 ml NEB Q6HRRT [facility] Last Admin: 12/02/18 19:01 Dose: 3 ml Amlodipine Besylate (Norvasc) 5 mg PO DAILY [facility] Enoxaparin Sodium (Lovenox) 30 mg SUBCUT Q24H [facility] Last Admin: 12/02/18 19:09 Dose: 30 mg Ceftriaxone Sodium 1 gm/ (Sodium Chloride) 100 mls @ 200 mls/hr IV DAILY@1800 [facility] Last Admin: 12/02/18 18:11 Dose: 200 mls/hr Levothyroxine Sodium (Levothyroxine) 75 mcg PO ACBREAKFAST [facility] Metoprolol Tartrate (Lopressor) 25 mg PO Q12HR [facility] Last Admin: 12/02/18 19:07 Dose: 25 mg Naldo/Polymyx B Sulf/Dexameth [Neomyc- Polym-Dexamet Eye Oin 1 applic EYELF BID [facility] Last Admin: 12/02/18 18:07 Dose: 1 applic Insulin Detemir [ (Levemir]) 10 unit SUBCUT DAILY@0800 [facility] Simvastatin (Zocor) 20 mg PO BEDTIME [facility] Last Admin: 12/02/18 19:08 Dose: 20 mg Sodium Chloride (Saline Flush) 10 ml FLUSH Q12HR [facility] Last Admin: 12/02/18 19:01 Dose: 10 ml Sodium Chloride (Saline Flush) 10 ml FLUSH ASDIRECTED PRN PRN Reason: Keep Vein Open Sodium Chloride (Saline Flush) 10 ml FLUSH ASDIRECTED PRN PRN Reason: Keep Vein Open Temazepam (Restoril) 15 mg PO BEDTIME PRN PRN Reason: Insomnia Assessment/Plan Comment:: 12/02/18 Rosie Quintana MD Need for swing bed status for continued PT-OT, and monitoring blood sugar and insulin dose changed. - Mortality Measure Prognosis:: Good
[2018-12-03] MEDS: Albuterol/Ipratropium 3.0-0.5 MG/3 ML Neb Soln NEB SCH ×4 (03:09→19:45)
[2018-12-03] MEDS: Metoprolol Tartrate 25 MG Tab PO SCH ×2 (07:53→19:44)
[2018-12-03] MEDS: Levothyroxine 75 MCG Tab PO SCH (07:53)
[2018-12-03] MEDS: POLYMYX B SULF EYELF SCH ×2 (07:54→17:38)
[2018-12-03] MEDS: NEO EYELF SCH ×2 (07:54→17:38)
[2018-12-03] MEDS: amLODIPine 5 MG Tab PO SCH (07:54)
[2018-12-03] MEDS: DEXAMETH EYELF SCH ×2 (07:54→17:38)
[2018-12-03] MEDS: Sodium Chloride 0.9% 10 ML Syringe FLUSH SCH ×2 (07:56→19:45)
[2018-12-03] MEDS: Albuterol 0.083% 2.5 MG/3 ML Neb Soln INH PRN ×2 (10:44→19:06)
[2018-12-03] MEDS: Sodium Chloride 0.9% 10 ML Syringe FLUSH PRN (17:38)
[2018-12-03] MEDS: cefTRIAXone 1 GM in Sodium Chloride 0.9% 100 ML IV SCH (17:38)
[2018-12-03] MEDS: Simvastatin 20 MG Tab PO SCH (19:44)
[2018-12-03] MEDS: Enoxaparin 30 MG/0.3 ML Syringe SUBCUT SCH (19:45)
[2018-12-03] MEDS: Temazepam 15 MG Cap PO PRN (21:06)
[2018-12-04] MEDS: Albuterol/Ipratropium 3.0-0.5 MG/3 ML Neb Soln NEB SCH ×4 (02:01→19:27)
[2018-12-04] MEDS: amLODIPine 5 MG Tab PO SCH (07:29)
[2018-12-04] MEDS: Metoprolol Tartrate 25 MG Tab PO SCH ×2 (07:31→19:24)
[2018-12-04] MEDS: Levothyroxine 75 MCG Tab PO SCH (07:32)
[2018-12-04] MEDS: POLYMYX B SULF EYELF SCH ×2 (07:33→17:54)
[2018-12-04] MEDS: DEXAMETH EYELF SCH ×2 (07:33→17:54)
[2018-12-04] MEDS: NEO EYELF SCH ×2 (07:33→17:54)
[2018-12-04] MEDS: Sodium Chloride 0.9% 10 ML Syringe FLUSH SCH ×2 (07:37→19:27)
[2018-12-04] MEDS: Albuterol 0.083% 2.5 MG/3 ML Neb Soln INH PRN (11:14)
[2018-12-04] MEDS: Albuterol/Ipratropium 3.0-0.5 MG/3 ML Neb Soln NEB PRN (17:52)
[2018-12-04] MEDS: cefTRIAXone 1 GM in Sodium Chloride 0.9% 100 ML IV SCH (17:54)
[2018-12-04] MEDS: Sodium Chloride 0.9% 10 ML Syringe FLUSH PRN ×2 (17:55→17:57)
[2018-12-04] MEDS: Simvastatin 20 MG Tab PO SCH (19:24)
[2018-12-04] MEDS: Enoxaparin 30 MG/0.3 ML Syringe SUBCUT SCH (19:25)
[2018-12-04] MEDS: Temazepam 15 MG Cap PO PRN (20:40)
[2018-12-05] MEDS: Albuterol/Ipratropium 3.0-0.5 MG/3 ML Neb Soln NEB SCH ×4 (01:34→20:00)
[2018-12-05] MEDS: Albuterol 0.083% 2.5 MG/3 ML Neb Soln INH PRN ×2 (05:38→18:15)
[2018-12-05] MEDS: Metoprolol Tartrate 25 MG Tab PO SCH ×2 (07:17→19:59)
[2018-12-05] MEDS: amLODIPine 5 MG Tab PO SCH (07:17)
[2018-12-05] MEDS: Levothyroxine 75 MCG Tab PO SCH (07:17)
[2018-12-05] MEDS: Sodium Chloride 0.9% 10 ML Syringe FLUSH SCH (07:23)
[2018-12-05] MEDS: DEXAMETH EYELF SCH ×2 (07:23→17:21)
[2018-12-05] MEDS: POLYMYX B SULF EYELF SCH ×2 (07:23→17:21)
[2018-12-05] MEDS: NEO EYELF SCH ×2 (07:23→17:21)
[2018-12-05] MEDS ORDERED: INSULIN DETEMIR 15 UNIT SUBCUT SCH (08:00)
[2018-12-05] MEDS: Albuterol/Ipratropium 3.0-0.5 MG/3 ML Neb Soln NEB PRN (12:16)
[2018-12-05] MEDS: Simvastatin 20 MG Tab PO SCH (19:59)
[2018-12-05] MEDS: Enoxaparin 30 MG/0.3 ML Syringe SUBCUT SCH (20:00)
[2018-12-05] MEDS: Temazepam 15 MG Cap PO PRN (21:04)
[2018-12-06] MEDS: Albuterol 0.083% 2.5 MG/3 ML Neb Soln INH PRN ×4 (00:08→17:14)
[2018-12-06] MEDS: Albuterol/Ipratropium 3.0-0.5 MG/3 ML Neb Soln NEB SCH ×4 (02:09→19:36)
[2018-12-06] MEDS: Levothyroxine 75 MCG Tab PO SCH (07:39)
[2018-12-06] MEDS: Metoprolol Tartrate 25 MG Tab PO SCH ×2 (07:40→19:36)
[2018-12-06] MEDS: amLODIPine 5 MG Tab PO SCH (07:40)
[2018-12-06] MEDS: INSULIN DETEMIR 18 UNIT SUBCUT SCH (07:40)
[2018-12-06] MEDS: DEXAMETH EYELF SCH ×2 (07:41→17:14)
[2018-12-06] MEDS: NEO EYELF SCH ×2 (07:41→17:14)
[2018-12-06] MEDS: POLYMYX B SULF EYELF SCH ×2 (07:41→17:14)
[2018-12-06] MEDS ORDERED: Insulin Lispro 100 Units/ML 3 ML Vial SUBCUT SCH (12:00)
[2018-12-06 12:12] LABS: O2 DELIVERY DEVICE NASAL CANNULA
[2018-12-06 12:13] LABS: BASE EXCESS VENOUS 2 mmol/L ((-2)-3); BICARBONATE,VENOUS 27 mmol/L (23-28); O2 SATURATION VENOUS 88 %; PCO2 VENOUS 45 mmHG (41-51); PO2 VENOUS 55 mmHG
--- NOTE | 2018-12-06 22:31 | PCM.PN ---
- General Info Date of Service: 12/06/18 Admission Dx/Problem (Free Text): Admission Diagnosis/Problem Admission Diagnosis/Problem CHF, Congestive heart failure Functional Status: Reports: Other (mental confusion) - Review of Systems General: Reports: Appetite (emesis) HEENT: Reports: No Symptoms Pulmonary: Reports: Shortness of Breath, Cough Cardiovascular: Reports: No Symptoms Gastrointestinal: Reports: Diarrhea, Vomiting Genitourinary: Reports: No Symptoms Musculoskeletal: Reports: No Symptoms Skin: Reports: Bruising Neurological: Reports: Confusion, Weakness Psychiatric: Reports: Confusion - Patient Data Vitals - Most Recent: Last Vital Signs Temp 97.2 F 12/06/18 08:00 Pulse 100 12/06/18 19:36 Resp 18 12/06/18 08:00 BP 138/70 12/06/18 19:36 Pulse Ox 97 12/06/18 08:00 Weight - Most Recent: 132 lb 8 oz I&O - Last 24 Hours: Intake & Output 12/06/18 12/06/18 12/06/18 06:59 14:59 22:59 Intake Total 300 200 Balance 300 200 Lab Results Last 24 Hours: Laboratory Results - last 24 hr 12/05/18 12/06/18 12/06/18 Range/Units 17:09 05:47 12:05 WBC 8.7 (4.0-10.2) K/uL RBC 4.46 (3.77-5.09) M/uL Hgb 12.8 (11.7-15.5) g/dL Hct 42.3 (34.0-46.0) % MCV 94.8 (84.0-98.0) fL MCH 28.7 (28.2-33.3) pg MCHC 30.3 L (31.7-36.0) g/dL RDW 15.3 H (11.2-14.1) % Plt Count 347 (150-350) K/uL Neut % (Auto) 86.8 H (45.0-80.0) % Lymph % (Auto) 3.2 L (10.0-50.0) % Mclennan % (Auto) 7.5 (2.0-14.0) % Eos % (Auto) 2.4 (0.0-5.0) % Baso % (Auto) 0.1 (0.0-2.0) % Neut # (Auto) 7.50 H (1.40-7.00) K/uL Lymph # (Auto) 0.28 L (0.50-3.50) K/uL [place]clennan # (Auto) 0.65 (0.00-1.00) K/uL Eos # (Auto) 0.21 (0.00-0.50) K/uL Baso # (Auto) 0.01 (0.00-0.20) K/uL VBG pH (7.31-7.41) VBG pCO2 (41-51) mmHG VBG pO2 mmHG VBG HCO3 (23-28) mmol/L VBG Total CO2 mmol/L VBG O2 Saturation % VBG Base Excess ((-2)-3) mmol/L O2 Delivery Device Sodium (136-145) mmol/L Potassium (3.5-5.1) mmol/L Chloride (98-107) mmol/L Carbon Dioxide (21.0-32.0) mmol/L BUN (7-18) mg/dL Creatinine (0.51-1.17) mg/dL Est Cr Clr Drug Dosing mL/min Estimated GFR (MDRD) mL/min Glucose (74-106) mg/dL POC Glucose 242 H 212 H (65-110) mg/dl Calcium (8.5-10.1) mg/dL Total Bilirubin (0.2-1.0) mg/dL AST (15-37) U/L ALT (12-78) U/L Alkaline Phosphatase (46-116) IU/L Ammonia (11-32) umol/L C-Reactive Protein (<=0.9) mg/dL Total Protein (6.4-8.2) g/dL Albumin (3.4-5.0) g/dL 12/06/18 12/06/18 12/06/18 Range/Units 12:05 12:05 12:05 WBC (4.0-10.2) K/uL RBC (3.77-5.09) M/uL Hgb (11.7-15.5) g/dL Hct (34.0-46.0) % MCV (84.0-98.0) fL MCH (28.2-33.3) pg MCHC (31.7-36.0) g/dL RDW (11.2-14.1) % Plt Count (150-350) K/uL Neut % (Auto) (45.0-80.0) % Lymph % (Auto) (10.0-50.0) % Mclennan % (Auto) (2.0-14.0) % Eos % (Auto) (0.0-5.0) % Baso % (Auto) (0.0-2.0) % Neut # (Auto) (1.40-7.00) K/uL Lymph # (Auto) (0.50-3.50) K/uL Mclennan # (Auto) (0.00-1.00) K/uL Eos # (Auto) (0.00-0.50) K/uL Baso # (Auto) (0.00-0.20) K/uL VBG pH 7.40 (7.31-7.41) VBG pCO2 45 (41-51) mmHG VBG pO2 55 mmHG VBG HCO3 27 (23-28) mmol/L VBG Total CO2 29 mmol/L VBG O2 Saturation 88 % VBG Base Excess 2 ((-2)-3) mmol/L O2 Delivery Device Nasal cannula Sodium 144 (136-145) mmol/L Potassium 5.4 H D (3.5-5.1) mmol/L Chloride 109 H (98-107) mmol/L Carbon Dioxide 26.8 (21.0-32.0) mmol/L BUN 28 H (7-18) mg/dL Creatinine 1.03 (0.51-1.17) mg/dL Est Cr Clr Drug Dosing 33.03 mL/min Estimated GFR (MDRD) 51 mL/min Glucose 221 H (74-106) mg/dL POC Glucose (65-110) mg/dl Calcium 9.1 (8.5-10.1) mg/dL Total Bilirubin 0.3 (0.2-1.0) mg/dL AST 26 (15-37) U/L ALT 40 (12-78) U/L Alkaline Phosphatase 97 (46-116) IU/L Ammonia 10 L (11-32) umol/L C-Reactive Protein 1.3 H (<=0.9) mg/dL Total Protein 6.3 L (6.4-8.2) g/dL Albumin 2.7 L (3.4-5.0) g/dL 12/06/18 Range/Units 17:00 WBC (4.0-10.2) K/uL RBC (3.77-5.09) M/uL Hgb (11.7-15.5) g/dL Hct (34.0-46.0) % MCV (84.0-98.0) fL MCH (28.2-33.3) pg MCHC (31.7-36.0) g/dL RDW (11.2-14.1) % Plt Count (150-350) K/uL Neut % (Auto) (45.0-80.0) % Lymph % (Auto) (10.0-50.0) % Mclennan % (Auto) (2.0-14.0) % Eos % (Auto) (0.0-5.0) % Baso % (Auto) (0.0-2.0) % Neut # (Auto) (1.40-7.00) K/uL Lymph # (Auto) (0.50-3.50) K/uL [place]an # (Auto) (0.00-1.00) K/uL Eos # (Auto) (0.00-0.50) K/uL Baso # (Auto) (0.00-0.20) K/uL VBG pH (7.31-7.41) VBG pCO2 (41-51) mmHG VBG pO2 mmHG VBG HCO3 (23-28) mmol/L VBG Total CO2 mmol/L VBG O2 Saturation % VBG Base Excess ((-2)-3) mmol/L O2 Delivery Device Sodium (136-145) mmol/L Potassium (3.5-5.1) mmol/L Chloride (98-107) mmol/L Carbon Dioxide (21.0-32.0) mmol/L BUN (7-18) mg/dL Creatinine (0.51-1.17) mg/dL Est Cr Clr Drug Dosing mL/min Estimated GFR (MDRD) mL/min Glucose (74-106) mg/dL POC Glucose 142 H (65-110) mg/dl Calcium (8.5-10.1) mg/dL Total Bilirubin (0.2-1.0) mg/dL AST (15-37) U/L ALT (12-78) U/L Alkaline Phosphatase (46-116) IU/L Ammonia (11-32) umol/L C-Reactive Protein (<=0.9) mg/dL Total Protein (6.4-8.2) g/dL Albumin (3.4-5.0) g/dL Med Orders - Current: Current Medications Acetaminophen (Tylenol) 650 mg PO Q4H PRN PRN Reason: Pain Albuterol (Proventil Neb Soln) 2.5 mg INH Q2H PRN PRN Reason: SHORTNESS OF BREATH Last Admin: 12/06/18 17:14 Dose: 2.5 mg Albuterol/Ipratropium (Duoneb 3.0-0.5 Mg/3 Ml) 3 ml NEB Q4HRRT PRN PRN Reason: Dyspnea Last Admin: 12/05/18 12:16 Dose: 3 ml Albuterol/Ipratropium (Duoneb 3.0-0.5 Mg/3 Ml) 3 ml NEB Q6HRRT [facility] Last Admin: 12/06/18 19:36 Dose: 3 ml Amlodipine Besylate (Norvasc) 5 mg PO DAILY [facility] Last Admin: 12/06/18 07:40 Dose: 5 mg Insulin Human Lispro (Humalog) 4 unit SUBCUT DAILY@1200 [facility] Last Admin: 12/06/18 12:18 Dose: Not Given Levothyroxine Sodium (Levothyroxine) 75 mcg PO ACBREAKFAST [facility] Last Admin: 12/06/18 07:39 Dose: 75 mcg Metoprolol Tartrate (Lopressor) 25 mg PO Q12HR [facility] Last Admin: 12/06/18 19:36 Dose: 25 mg Naldo/Polymyx B Sulf/Dexameth [Neomyc- Polym-Dexamet Eye Oin 1 applic EYELF BID [facility] Last Admin: 12/06/18 17:14 Dose: 1 applic Non-Formulary Medication (Insulin Detemir [Levemir]) 18 unit SUBCUT DAILY@0800 [facility] Last Admin: 12/06/18 07:40 Dose: 18 unit Temazepam (Restoril) 15 mg PO BEDTIME PRN PRN Reason: Insomnia Last Admin: 12/05/18 21:04 Dose: 15 mg Discontinued Medications Cefprozil (Cefzil) 500 mg PO Q12HR [facility] Last Admin: 12/06/18 07:40 Dose: 500 mg Ceftriaxone Sodium (Rocephin) Confirm Administered Dose 1 gm .ROUTE .K-MED ONE Stop: 12/02/18 18:10 Last Admin: 12/02/18 18:12 Dose: Not Given Enoxaparin Sodium (Lovenox) 30 mg SUBCUT Q24H [facility] Last Admin: 12/05/18 20:00 Dose: 30 mg Ceftriaxone Sodium 1 gm/ (Sodium Chloride) 100 mls @ 200 mls/hr IV DAILY@1800 [facility] Last Admin: 12/04/18 17:54 Dose: 200 mls/hr Non-Formulary Medication (Insulin Detemir [Levemir]) 20 unit SUBCUT BEDTIME [facility] Insulin Detemir [ (Levemir]) 10 unit SUBCUT DAILY@0800 [facility] Last Admin: 12/04/18 07:38 Dose: 10 unit Non-Formulary Medication (Insulin Detemir [Levemir]) 15 unit SUBCUT DAILY@0800 [facility] Last Admin: 12/05/18 07:21 Dose: 15 unit Simvastatin (Zocor) 20 mg PO BEDTIME [facility] Last Admin: 12/05/18 19:59 Dose: 20 mg Sodium Chloride (Saline Flush) 10 ml FLUSH Q12HR [facility] Last Admin: 12/05/18 07:23 Dose: Not Given Sodium Chloride (Saline Flush) 10 ml FLUSH ASDIRECTED PRN PRN Reason: Keep Vein Open Last Admin: 12/04/18 17:57 Dose: 10 ml Sodium Chloride (Saline Flush) 10 ml FLUSH ASDIRECTED PRN PRN Reason: Keep Vein Open - Exam Quality Assessment: Supplemental Oxygen General: Cooperative, Mild Distress HEENT: Mucous Membr. Moist/[place] Neck: Trachea Midline, No JVD Lungs: Normal Respiratory Effort, Decreased Breath Sounds, Rhonchi Cardiovascular: Regular Rate, Regular Rhythm GI/Abdominal Exam: Soft, Non-Tender, No Mass (Female) Exam: Deferred Back Exam: Other (kyphosis) Extremities: Normal Inspection, Non-Tender, No Pedal Edema Skin: Warm, Dry, Intact, Ecchymosis Neurological: No New Focal Deficit Psy/Mental Status: Alert, Normal Affect, Normal Mood - Problem List & Annotations (1) Acute exacerbation of chronic obstructive pulmonary disease (COPD) SNOMED Code(s): 827992560 Code(s): J44.1 - CHRONIC OBSTRUCTIVE PULMONARY DISEASE W (ACUTE) EXACERBATION Status: Acute Priority: High Current Visit: No Annotation/ Comment:: Continues to experience shortness of breath. Continue neb treatments/ supportive care. (2) Comfort measures only status SNOMED Code(s): 47391186774573 Code(s): Z51.5 - ENCOUNTER FOR PALLIATIVE CARE Status: Acute Priority: High Current Visit: No Annotation/Comment:: No code/no transfer status confirmed with the patient today. 11/26/18 She confirms she is DNR/DNI/Comfort Measures and she says absolutely NO when asked if she wants to be transferred to [place]. I told her family members want her transferred to [facility] and she says absolutely NO. (3) D-dimer, elevated SNOMED Code(s): 568473146 Code(s): R79.89 - OTHER SPECIFIED ABNORMAL FINDINGS OF BLOOD CHEMISTRY Status: Acute Priority: Medium Current Visit: No Onset Date: 11/06/18 Annotation/Comment:: History of d-dimer elevation with negative workup on as above. D-dimer elevation stable at this time. No clinical evidence of DVT or PE. Observe for now. (4) Hyperuricemia SNOMED Code(s): 07744688 Code(s): E79.0 - HYPERURICEMIA W/O SIGNS OF INFLAM ARTHRIT AND TOPHACEOUS DIS Status: Acute Priority: Medium Current Visit: No Onset Date: Annotation/Comment:: Mild to moderately elevated uric acid level today with no gout type symptoms. Observe for now. Note Bumex therapy prior to admission with initiation of IV Lasix with caution as above. (5) Hypoglycemia SNOMED Code(s): 540225978 Code(s): E16.2 - HYPOGLYCEMIA, UNSPECIFIED Status: Acute Priority: High Current Visit: No Onset Date: 11/06/18 Annotation/Comment:: As above (6) CKD (chronic kidney disease) SNOMED Code(s): 081267107 Code(s): N18.9 - CHRONIC KIDNEY DISEASE, UNSPECIFIED Status: Chronic Priority: Low Current Visit: No Qualifiers: (7) COPD (chronic obstructive pulmonary disease) SNOMED Code(s): 90141152 Code(s): J44.9 - CHRONIC OBSTRUCTIVE PULMONARY DISEASE, UNSPECIFIED Status : Chronic Priority: Medium Current Visit: No Annotation/Comment:: No recent fever or bronchitic type symptoms. DuoNeb nebulizer treatment taken by the patient on her own prior to paramedics arrival as above. No WBC elevation, fever, etc. at this time. No evidence of pneumonia or bronchitis by today's chest x-ray. (8) Congestive heart failure (CHF) SNOMED Code(s): 00790347 Code(s): I50.9 - HEART FAILURE, UNSPECIFIED Status: Chronic Priority: Medium Current Visit: No Onset Date: ~11/23/18 Qualifiers: Annotation/Comment:: Does not appear to have component of acute CHF exacerbation clinically/of chest xray at this time. ProBNP minimally elevated. (9) Coronary artery disease SNOMED Code(s): 85883130 Code(s): I25.10 - ATHSCL HEART DISEASE OF [place] CORONARY ARTERY W/O ANG PCTRS Status: Chronic Priority: Medium Current Visit: No Qualifiers: (10) Diabetes mellitus SNOMED Code(s): 51301998 Code(s): E11.9 - TYPE 2 DIABETES MELLITUS WITHOUT COMPLICATIONS Status: Chronic Priority: Medium Current Visit: No Qualifiers: Annotation/Comment:: Stable by history. Glycosylated hemoglobin and lipid profile in the a.m. (11) Hypertension SNOMED Code(s): 72592609 Code(s): I10 - ESSENTIAL (PRIMARY) HYPERTENSION Status: Chronic Priority : Medium Current Visit: No Qualifiers: (12) Hypoalbuminemia SNOMED Code(s): 841697226 Code(s): E88.09 - OTH DISORDERS OF PLASMA-PROTEIN METABOLISM, NEC Status: Chronic Priority: Medium Current Visit: No Onset Date: 11/06/18 Annotation/Comment:: Initiate high-protein Glucerna supplements on a twice a day basis as snacks secondary to her hypoglycemic episodes. Otherwise close follow-up by her regular provider. (13) Hypothyroidism SNOMED Code(s): 52391702 Code(s): E03.9 - HYPOTHYROIDISM, UNSPECIFIED Status: Chronic Priority: Medium Current Visit: No Qualifiers: Annotation/Comment:: TSH somewhat elevated on 11/06/18 with her Synthroid supplementation increased at that time. TSH still elevated today. Consider further medication adjustments by admitting physician. (14) IDDM (insulin dependent diabetes mellitus) SNOMED Code(s): 41526964 Code(s): E11.9 - TYPE 2 DIABETES MELLITUS WITHOUT COMPLICATIONS; Z79.4 - CUSTODIAL (CURRENT) USE OF INSULIN Status: Chronic Priority: Medium Current Visit: No Annotation/Comment:: Observe trends (15) Mixed anxiety depressive disorder SNOMED Code(s): 986915599 Code(s): F41.8 - OTHER SPECIFIED ANXIETY DISORDERS Status: Chronic Priority: Medium Current Visit: No Annotation/Comment:: Stable by history. Continue to observe closely by regular provider. (16) Osteoarthritis SNOMED Code(s): 503430699 Code(s): M19.90 - UNSPECIFIED OSTEOARTHRITIS, UNSPECIFIED SITE Status: Chronic Priority: Medium Current Visit: No Annotation/Comment:: Stable by history with history of hyperuricemia as above. (17) Palliative care patient SNOMED Code(s): 078847718 Code(s): Z51.5 - ENCOUNTER FOR PALLIATIVE CARE Status: Chronic Priority: Medium Current Visit: No Annotation/Comment:: As above - Problem List Review Problem List Initiated/Reviewed/Updated: Yes - My Orders Last 24 Hours: My Active Orders 12/06/18 08:00 Insulin Detemir [Levemir] 18 unit SUBCUT DAILY@0800 12/06/18 11:49 Chest 2V [CR] Routine 12/06/18 11:50 Abdomen 2V AP Flat Upright [CR] Routine 12/06/18 12:00 Insulin Lispro [HumaLOG] 4 unit SUBCUT DAILY@1200 - Plan Plan:: 12/02/18 Rosie Quintana MD Need for swing bed status for continued PT-OT, and monitoring blood sugar and insulin dose changed. 12/06/18 Rosie Quintana MD She had been clinically improving and gaining strength. Today she had emesis, diarrheal stool, and mental confusion. Labs, x-ray done. She needs continued swing bed status at this time.
[2018-12-07] MEDS: Albuterol/Ipratropium 3.0-0.5 MG/3 ML Neb Soln NEB SCH ×4 (01:18→19:27)
[2018-12-07] MEDS: amLODIPine 5 MG Tab PO SCH (07:23)
[2018-12-07] MEDS: Metoprolol Tartrate 25 MG Tab PO SCH ×2 (07:23→19:28)
[2018-12-07] MEDS: Levothyroxine 75 MCG Tab PO SCH (07:23)
[2018-12-07] MEDS: POLYMYX B SULF EYELF SCH ×2 (07:29→18:06)
[2018-12-07] MEDS: DEXAMETH EYELF SCH ×2 (07:29→18:06)
[2018-12-07] MEDS: NEO EYELF SCH ×2 (07:29→18:06)
[2018-12-07] MEDS: INSULIN DETEMIR 18 UNIT SUBCUT SCH (07:29)
[2018-12-07] MEDS: Albuterol/Ipratropium 3.0-0.5 MG/3 ML Neb Soln NEB PRN (11:41)
[2018-12-07] MEDS: Insulin Lispro 100 Units/ML 3 ML Vial SUBCUT SCH (11:41)
[2018-12-08] MEDS: Albuterol/Ipratropium 3.0-0.5 MG/3 ML Neb Soln NEB SCH ×5 (01:06→20:30)
[2018-12-08] MEDS: Albuterol 0.083% 2.5 MG/3 ML Neb Soln INH PRN ×2 (04:58→16:41)
[2018-12-08] MEDS: Metoprolol Tartrate 25 MG Tab PO SCH ×2 (07:27→20:28)
[2018-12-08] MEDS: Levothyroxine 75 MCG Tab PO SCH (07:27)
[2018-12-08] MEDS: amLODIPine 5 MG Tab PO SCH (07:27)
[2018-12-08] MEDS: NEO EYELF SCH ×2 (07:28→20:29)
[2018-12-08] MEDS: DEXAMETH EYELF SCH ×2 (07:28→20:29)
[2018-12-08] MEDS: POLYMYX B SULF EYELF SCH ×2 (07:28→20:29)
[2018-12-08] MEDS: Insulin Glarg,Human.Rec.Analog 100 UNIT/ML ML SUBCUT SCH (07:58)
[2018-12-08] MEDS: Insulin Lispro 100 Units/ML 3 ML Vial SUBCUT SCH (11:40)
[2018-12-08] MEDS: Albuterol/Ipratropium 3.0-0.5 MG/3 ML Neb Soln NEB PRN (12:28)
[2018-12-08] MEDS: Temazepam 15 MG Cap PO PRN (20:28)
[2018-12-09] MEDS: Albuterol/Ipratropium 3.0-0.5 MG/3 ML Neb Soln NEB SCH ×3 (01:56→13:12)
[2018-12-09] MEDS: Albuterol 0.083% 2.5 MG/3 ML Neb Soln INH PRN ×2 (06:26→09:35)
[2018-12-09] MEDS: POLYMYX B SULF EYELF SCH (07:37)
[2018-12-09] MEDS: NEO EYELF SCH (07:37)
[2018-12-09] MEDS: DEXAMETH EYELF SCH (07:37)
[2018-12-09] MEDS: amLODIPine 5 MG Tab PO SCH (07:38)
[2018-12-09] MEDS: Levothyroxine 75 MCG Tab PO SCH (07:38)
[2018-12-09] MEDS: Insulin Glarg,Human.Rec.Analog 100 UNIT/ML ML SUBCUT SCH (07:39)
[2018-12-09] MEDS: Metoprolol Tartrate 25 MG Tab PO SCH (07:39)
[2018-12-09] MEDS: Insulin Lispro 100 Units/ML 3 ML Vial SUBCUT SCH (12:12)
--- NOTE | 2018-12-11 10:46 | PCM.DCSUM1 ---
Discharge Summary - Hospital Course Diagnosis: Stroke: No - Discharge Data Discharge Date: 12/09/18 Discharge Disposition: Home, W Home Health Agency 06 Condition: Good - Referral to Home Health Date of Face to Face Encounter: 12/02/18 Reason for Homebound Status: COPD, hypoxia, weakness Primary Care Physician: Kylah Arce MD Skilled Need: nursing for vital sign checks, O2 sats, lung evaluation - Discharge Diagnosis/Problem(s) (1) Acute exacerbation of chronic obstructive pulmonary disease (COPD) SNOMED Code(s): 809470138 ICD Code: J44.1 - CHRONIC OBSTRUCTIVE PULMONARY DISEASE W (ACUTE) EXACERBATION Status: Acute Priority: High Problem Details: (2) Comfort measures only status SNOMED Code(s): 67413638297017 ICD Code: Z51.5 - ENCOUNTER FOR PALLIATIVE CARE Status: Acute Priority: High Problem Details: No code/no transfer status confirmed with the patient today. 11/26/18 She confirms she is DNR/DNI/Comfort Measures and she says absolutely NO when asked if she wants to be transferred to [place]. I told her family members want her transferred to [facility] and she says absolutely NO. (3) D-dimer, elevated SNOMED Code(s): 848082944 ICD Code: R79.89 - OTHER SPECIFIED ABNORMAL FINDINGS OF BLOOD CHEMISTRY Status: Acute Priority: Medium Onset Date: 11/06/18 (4) Hyperuricemia SNOMED Code(s): 62112748 ICD Code: E79.0 - HYPERURICEMIA W/O SIGNS OF INFLAM ARTHRIT AND TOPHACEOUS DIS Status: Acute Priority: Medium Onset Date: 11/06/18 (5) Hypoglycemia SNOMED Code(s): 738888456 ICD Code: E16.2 - HYPOGLYCEMIA, UNSPECIFIED Status: Acute Priority: High Onset Date: 11/06/18 Problem Details: As above (6) CKD (chronic kidney disease) SNOMED Code(s): 981997425 ICD Code: N18.9 - CHRONIC KIDNEY DISEASE, UNSPECIFIED Status: Chronic Priority: Low Qualifiers: (7) COPD (chronic obstructive pulmonary disease) SNOMED Code(s): 63229697 ICD Code: J44.9 - CHRONIC OBSTRUCTIVE PULMONARY DISEASE, UNSPECIFIED Status : Chronic Priority: Medium Qualifiers: 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 Glycosylated hemoglobin and lipid profile in the a.m. Qualifiers: (11) Hypertension SNOMED Code(s): 90669509 ICD Code: I10 - ESSENTIAL (PRIMARY) HYPERTENSION Status: Chronic Priority : Medium Qualifiers: (12) Hypoalbuminemia SNOMED Code(s): 270749652 ICD Code: E88.09 - OTH DISORDERS OF PLASMA-PROTEIN METABOLISM, NEC Status: Chronic Priority: Medium Onset Date: 11/06/18 (13) Hypothyroidism SNOMED Code(s): 55692894 ICD Code: E03.9 - HYPOTHYROIDISM, UNSPECIFIED Status: Chronic Priority: Medium Problem Details: TSH somewhat elevated on 11/06/18 with her Synthroid supplementation increased at that time. TSH still elevated today. Consider further medication adjustments by admitting physician. 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 Continue to observe closely by regular provider. (16) Osteoarthritis SNOMED Code(s): 583340416 ICD Code: M19.90 - UNSPECIFIED OSTEOARTHRITIS, UNSPECIFIED SITE Status: Chronic Priority: Medium Problem Details: Stable by history with history of hyperuricemia as above. (17) Palliative care patient SNOMED Code(s): 862030537 ICD Code: Z51.5 - ENCOUNTER FOR PALLIATIVE CARE Status: Chronic Priority : Medium Problem Details: As above - Patient Summary/Data Consults: Consultations 12/02/18 16:03 Consult to Case Management/[employer] Operator [CONS] Routine Consult to Occupational Therapy [OT Evaluation and Treatment] [CONS] Routine PT Evaluation and Treatment [CONS] Routine 12/09/18 13:03 Consult to Home Care [Consult to Home Health] [CONS] Routine - Patient Instructions Diet: Diabetic Diet Activity: As Tolerated Driving: Do Not Drive Showering/Bathing: May Shower Other/Special Instructions: Out patient PT-OT. accuchecks BID 3x a week on MON- WED-FRI. Follow up with DR. Velez at [facility]. - Discharge Plan *PRESCRIPTION DRUG MONITORING PROGRAM REVIEWED*: Not Applicable *COPY OF PRESCRIPTION DRUG MONITORING REPORT IN PATIENT PATRICIO: Not Applicable Prescriptions/Med Rec: Insulin Aspart [NovoLOG] 2 unit SQ DAILY@1200 #1 pen Insulin Detemir [Levemir] 18 unit SUBCUT DAILY@0800 #1 box Home Medications: Home Meds Albuterol/Ipratropium [DuoNeb 3.0-0.5 MG/3 ML] 1 applic INH QID 05/03/17 [ History] Metoprolol Tartrate 25 mg PO BID 05/03/17 [History] Simvastatin 20 mg PO BEDTIME 05/03/17 [History] Bumetanide [Bumex] 1 mg PO DAILY 11/06/18 [History] Levothyroxine Sodium [Synthroid] 75 mcg PO ACBREAKFAST #30 tab 11/06/18 [Rx] amLODIPine [Norvasc] 5 mg PO DAILY 11/25/18 [History] Albuterol/Ipratropium [DuoNeb 3.0-0.5 MG/3 ML] 3 ml INH Q4H PRN 11/26/18 [ History] Naldo/Polymyx B Sulf/Dexameth [Ioasgb-Baeoj-Bylkeka Eye Ointm] 1 applic EYELF BID 11/26/18 [History] Acetaminophen [Tylenol] 650 mg PO Q4H PRN tablet 12/02/18 [Rx] Albuterol [Proventil Neb Soln] 2.5 mg INH Q2H PRN neb 12/02/18 [Rx] Temazepam [Restoril] 15 mg PO BEDTIME PRN cap 12/02/18 [Rx] Insulin Aspart [NovoLOG] 2 unit SQ DAILY@1200 #1 pen 12/09/18 [Rx] Insulin Detemir [Levemir] 18 unit SUBCUT DAILY@0800 #1 box 12/09/18 [Rx] Oxygen Therapy Mode: Nasal Cannula Oxygen Flow Rate (L/min): 2 - Discharge Summary/Plan Comment DC Time >30 min.: No - Patient Data Vitals - Most Recent: Last Vital Signs Temp 97.4 F 12/09/18 07:30 Pulse 88 12/09/18 07:39 Resp 22 H 12/09/18 07:30 BP 137/58 L 12/09/18 07:39 Pulse Ox 95 12/09/18 07:30 Weight - Most Recent: 134 lb 4.8 oz Med Orders - Current: Current Medications Discontinued Medications Acetaminophen (Tylenol) 650 mg PO Q4H PRN PRN Reason: Pain Albuterol (Proventil Neb Soln) 2.5 mg INH Q2H PRN PRN Reason: SHORTNESS OF BREATH Last Admin: 12/09/18 09:35 Dose: 2.5 mg Albuterol/Ipratropium (Duoneb 3.0-0.5 Mg/3 Ml) 3 ml NEB Q4HRRT PRN PRN Reason: Dyspnea Last Admin: 12/08/18 12:28 Dose: 3 ml Albuterol/Ipratropium (Duoneb 3.0-0.5 Mg/3 Ml) 3 ml NEB Q6HRRT [facility] Last Admin: 12/09/18 13:12 Dose: 3 ml Amlodipine Besylate (Norvasc) 5 mg PO DAILY [facility] Last Admin: 12/09/18 07:38 Dose: 5 mg Cefprozil (Cefzil) 500 mg PO Q12HR [facility] Last Admin: 12/06/18 07:40 Dose: 500 mg Ceftriaxone Sodium (Rocephin) Confirm Administered Dose 1 gm .ROUTE .STK-MED ONE Stop: 12/02/18 18:10 Last Admin: 12/02/18 18:12 Dose: Not Given Enoxaparin Sodium (Lovenox) 30 mg SUBCUT Q24H [facility] Last Admin: 12/05/18 20:00 Dose: 30 mg Ceftriaxone Sodium 1 gm/ (Sodium Chloride) 100 mls @ 200 mls/hr IV DAILY@1800 [facility] Last Admin: 12/04/18 17:54 Dose: 200 mls/hr Insulin Glargine (Lantus) 18 unit SUBCUT DAILY [facility] Last Admin: 12/09/18 07:39 Dose: 18 units Insulin Human Lispro (Humalog) 4 unit SUBCUT DAILY@1200 [facility] Last Admin: 12/06/18 12:18 Dose: Not Given Insulin Human Lispro (Humalog) 2 unit SUBCUT DAILY@1200 [facility] Last Admin: 12/09/18 12:12 Dose: 2 units Levothyroxine Sodium (Levothyroxine) 75 mcg PO ACBREAKFAST [facility] Last Admin: 12/09/18 07:38 Dose: 75 mcg Metoprolol Tartrate (Lopressor) 25 mg PO Q12HR [facility] [place] Last Admin: 12/09/18 07:39 Dose: 25 mg Non-Formulary Medication (Insulin Detemir [Levemir]) 20 unit SUBCUT BEDTIME [facility] [place] Naldo/Polymyx B Sulf/Dexameth [Neomyc- Polym-Dexamet Eye Oin 1 applic EYELF BID [facility] [place] Last Admin: 12/09/18 07:37 Dose: 1 applic Insulin Detemir [ (Levemir]) 10 unit SUBCUT DAILY@0800 [facility] [place] Last Admin: 12/04/18 07:38 Dose: 10 unit Non-Formulary Medication (Insulin Detemir [Levemir]) 15 unit SUBCUT DAILY@0800 [facility] [place] Last Admin: 12/05/18 07:21 Dose: 15 unit Non-Formulary Medication (Insulin Detemir [Levemir]) 18 unit SUBCUT DAILY@0800 [facility] [place] Last Admin: 12/07/18 07:29 Dose: 18 unit Simvastatin (Zocor) 20 mg PO BEDTIME [facility] [place] Last Admin: 12/05/18 19:59 Dose: 20 mg Sodium Chloride (Saline Flush) 10 ml FLUSH Q12HR [facility] [place] Last Admin: 12/05/18 07:23 Dose: Not Given Sodium Chloride (Saline Flush) 10 ml FLUSH ASDIRECTED PRN PRN Reason: Keep Vein Open Last Admin: 12/04/18 17:57 Dose: 10 ml Sodium Chloride (Saline Flush) 10 ml FLUSH ASDIRECTED PRN PRN Reason: Keep Vein Open Temazepam (Restoril) 15 mg PO BEDTIME PRN PRN Reason: Insomnia Last Admin: 12/08/18 20:28 Dose: 15 mg
== END 2018-12-09 13:40 | disposition home health service (06) | DRG 951 ==
LOC: LL.MS 16:22
PROVIDERS: ADMIT Family Medicine; ATTEND Family Medicine
DX: Z51.5 Encounter for palliative care (principal); I13.0 Hypertensive heart and chronic kidney disease with heart failure and stage 1 through stage 4 chronic kidney disease, or unspecified chronic kidney disease; J44.1 Chronic obstructive pulmonary disease with (acute) exacerbation; E11.649 Type 2 diabetes mellitus with hypoglycemia without coma; Z66 Do not resuscitate; R79.89 Other specified abnormal findings of blood chemistry; N18.9 Chronic kidney disease, unspecified; I50.9 Heart failure, unspecified; E11.51 Type 2 diabetes mellitus with diabetic peripheral angiopathy without gangrene; E11.22 Type 2 diabetes mellitus with diabetic chronic kidney disease; E11.21 Type 2 diabetes mellitus with diabetic nephropathy; E11.42 Type 2 diabetes mellitus with diabetic polyneuropathy; I25.10 Atherosclerotic heart disease of native coronary artery without angina pectoris; E03.9 Hypothyroidism, unspecified; F41.8 Other specified anxiety disorders; M19.90 Unspecified osteoarthritis, unspecified site; E78.00 Pure hypercholesterolemia, unspecified; Z88.2 Allergy status to sulfonamides; Z88.5 Allergy status to narcotic agent; Z88.8 Allergy status to other drugs, medicaments and biological substances; Z79.890 Hormone replacement therapy; Z79.4 Long term (current) use of insulin; Z79.899 Other long term (current) drug therapy; Z90.49 Acquired absence of other specified parts of digestive tract; Z87.01 Personal history of pneumonia (recurrent); Z98.41 Cataract extraction status, right eye; Z98.42 Cataract extraction status, left eye
CPT/HCPCS: 36415; 71046; 74019; 80048; 80053; 82140; 82803; 82962; 85025; 86140; 94640; 97110-GO; 97110-GP; 97116-GP; 97161-GP; 97165-GO; 97530-GO; 97530-GP; 97535-GO; A9270-GY; J0696; J1650; J1815; J1815-GY; J7050; J7613-GY; J7620-GY

== ENCOUNTER 2018-12-11 16:03 | Inpatient (IN) | payer MEDICARE, OTHER ==
[2018-12-11] MEDS ORDERED: Ondansetron 4 MG Tab.DIS PO PRN (16:36)
[2018-12-11] MEDS ORDERED: Ondansetron 4 MG/2 ML SDV IVPUSH PRN (16:36)
[2018-12-11] MEDS ORDERED: Acetaminophen 325 MG Tab PO PRN (16:59)
[2018-12-11] MEDS: metroNIDAZOLE/Normal Saline 500 MG in Premix Bag 1 BAG IV SCH (17:44)
[2018-12-11] MEDS: Sodium Chloride 0.9% 10 ML Syringe FLUSH PRN ×2 (17:44→19:30)
[2018-12-11] MEDS: Albuterol 0.083% 2.5 MG/3 ML Neb Soln NEB PRN (17:47)
[2018-12-11] MEDS ORDERED: NEO EYELF SCH (18:00)
[2018-12-11] MEDS ORDERED: [UNRECOGNIZED DRUG - OTHER] EYELF SCH (18:00)
[2018-12-11] MEDS ORDERED: POLYMYX B SULF EYELF SCH (18:00)
[2018-12-11] MEDS ORDERED: DEXAMETH EYELF SCH (18:00)
--- NOTE | 2018-12-11 18:50 | PCM.HP.2 ---
H&P History of Present Illness - General Date of Service: 12/11/18 Admit Problem/Dx: Admission Diagnosis/Problem Admission Diagnosis/Problem COPD with acute lower respiratory infection Source of Information: Patient, Old Records History Limitations: Reports: No Limitations - History of Present Illness Onset of Symptoms: Reports: Unknown/Unsure Duration of Symptoms: Reports: Chronic Location: Reports: Chest Improves with: Reports: Immobilization Worsens with: Reports: Movement Context: Reports: Exertion Associated Symptoms: Reports: Shortness of Breath - Related Data Allergies/Adverse Reactions: Allergies Allergy/AdvReac Type Severity Reaction Status Date / Time MARCOS Inhibitors Allergy Unknown unknown Verified 11/25/18 17:20 budesonide [From Pulmicort] Allergy Unknown unknown Verified 11/25/18 17:20 gabapentin Allergy Unknown Diarrhea Verified 11/25/18 17:20 Sulfa (Sulfonamide Allergy Unknown unknown Verified 11/25/18 17:20 Antibiotics) ketorolac [From Toradol] Allergy Rash Verified 11/25/18 17:20 Home Medications: Home Meds Albuterol/Ipratropium [DuoNeb 3.0-0.5 MG/3 ML] 1 applic INH QID 05/03/17 [ History] Metoprolol Tartrate 25 mg PO BID 05/03/17 [History] Simvastatin 20 mg PO BEDTIME 05/03/17 [History] Bumetanide [Bumex] 1 mg PO DAILY 11/06/18 [History] Levothyroxine Sodium [Synthroid] 75 mcg PO ACBREAKFAST #30 tab 11/06/18 [Rx] amLODIPine [Norvasc] 5 mg PO DAILY 11/25/18 [History] Albuterol/Ipratropium [DuoNeb 3.0-0.5 MG/3 ML] 3 ml INH Q4H PRN 11/26/18 [ History] Naldo/Polymyx B Sulf/Dexameth [Kzgilh-Mpuyj-Frjuxba Eye Ointm] 1 applic EYELF BID 11/26/18 [History] Acetaminophen [Tylenol] 650 mg PO Q4H PRN tablet 12/02/18 [Rx] Albuterol [Proventil Neb Soln] 2.5 mg INH Q2H PRN neb 12/02/18 [Rx] Temazepam [Restoril] 15 mg PO BEDTIME PRN cap 12/02/18 [Rx] Insulin Aspart [NovoLOG] 2 unit SQ DAILY@1200 #1 pen 12/09/18 [Rx] Insulin Detemir [Levemir] 18 unit SUBCUT DAILY@0800 #1 box 12/09/18 [Rx] Past Medical History HEENT History: Reports: Cataract, Hard of Hearing, Impaired Vision, Other (See Below) Other HEENT History: Patient wears glasses. Mild bilateral presbycusis with no current therapy. Recurrent nasal polyps requiring surgery as below. Cardiovascular History: Reports: Arrhythmia, CAD, Cardiomyopathy, Heart Failure , High Cholesterol, Hypertension, PVD, Other (See Below) Other Cardiovascular History: Cardiomegaly by chest x-ray with history of CHF and chronic dependent edema. Dyslipidemia. Aortic Valve calcification. Borderline left ventricular enlargement/hypertrophy. PACs versus PACs with apparent conduction and mild incomplete right bundle branch block diagnosed by EKG on 11/06/18. History of d-dimer elevation on 11/06/18 with negative workup as below. 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 One delivery at about 34 weeks gestation with otherwise normal spontaneous delivery without complications. Musculoskeletal History: Reports: Arthritis, Back Pain, Chronic, Fracture, Gout , Neck Pain, Chronic, Osteoarthritis, Osteoporosis, Other (See Below) Other Musculoskeletal History: Scoliosis with history of multiple thoracic vertebral body compression fractures. 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 Neurological History: Reports: Neuropathy, Diabetic, Neuropathy, Peripheral, Other (See Below) Other Neuro History: Postherpetic neuralgia. Benign familial resting tremor. Psychiatric History: Reports: Anxiety, Depression Endocrine/Metabolic History: Reports: Diabetes, Type II, Hypothyroidism, IDDM, Osteopenia, Osteoporosis, Other (See Below) Other Endocrine/Metabolic History: Recurrent hypoglycemic episodes. Hypoalbuminemia. Hyponatremia possibly secondary to chronic CHF. Hematologic History: Reports: None Immunologic History: Reports: None Oncologic (Cancer) History: Reports: None Dermatologic History: Reports: Seborrheic Dermatitis - Infectious Disease History Infectious Disease History: Reports: Measles - Past Surgical History Head Surgeries/Procedures: Reports: None HEENT Surgical History: Reports: Cataract Surgery, Oral Surgery Other HEENT Surgeries/Procedures: 3 previous surgeries for excision of nasal polyps. Bilateral cataract surgery in about 2004. Multiple teeth extractions. Cardiovascular Surgical History: Reports: None Respiratory Surgical History: Reports: None GI Surgical History: Reports: None, Hernia, Inguinal, Other (See Below) Other GI Surgeries/Procedures: Right inguinal hernia repair in her 20s. Female Surgical History: Reports: None Endocrine Surgical History: Reports: None Neurological Surgical History: Reports: Discectomy, Lumbar Spine, Other (See Below) Other Neurological Surgeries/Procedures: L3-L5 decompression in the early Musculoskeletal Surgical History: Reports: None Oncologic Surgical History: Reports: None Dermatological Surgical History: Reports: None - Past Imaging History Past Imaging History: Reports: Cardiac Echo (11/03/11 with findings as above and ejection fraction of 50%.), CAT Scan (Negative CTA of the chest on 11/06/18 and .), MRI (Lumbar spine on 11/04/13), Venous Doppler (Negative venous Doppler studies of the lower extremities on 11/06/18 and 10/15/17.) Social & Family History - Family History HEENT: Reports: None Cardiac: Reports: CAD, Heart Failure, PR, Other (See Below) Other Cardiac Family History: Mother with recurrent PR initially in her late 50s with CHF and fatal PR at age 62. Brother with fatal PR at age 68. Respiratory: Reports: Asthma, Other (See Below) Other Respiratory Family Hisory: Father and daughter with asthma. GI: Reports: None : Reports: None OBGYN: Reports: None Musculoskeletal: Reports: None Neurological: Reports: Alzheimers Disease Endocrine/Metabolic: Reports: Diabetes, type II, Other (See Below) Other Endocrine/Metabolic Family History: Multiple paternal family members with apparent AODM per previous medical records, however patient is not aware of this today. Hematologic: Reports: Anemia, Other (See Below) Other Hematologic Family History: Father with anemia of unknown etiology history of blood transfusions without problems. Immunologic: Reports: None Dermatologic: Reports: None Oncologic: Reports: Lung, Other (See Below) Other Oncologic Family History: Daughter with fatal lung cancer at age 50 with no history of tobacco use. - Tobacco Use Smoking Status *Q: Never Smoker Second Hand Smoke Exposure: No - Caffeine Use Caffeine Use: Reports: None - Recreational Drug Use Recreational Drug Use: No - Living Situation & Occupation Living situation: Reports: (December 2017.), Extended Care Facility ( [facility]) Occupation: Retired (Retired [employer] ) H&P Review of Systems - Review of Systems: Review Of Systems: See Below General: Reports: Weakness HEENT: Reports: No Symptoms Pulmonary: Reports: Shortness of Breath, Wheezing, Cough Cardiovascular: Reports: No Symptoms Gastrointestinal: Reports: No Symptoms Genitourinary: Reports: No Symptoms Musculoskeletal: Reports: No Symptoms Skin: Reports: No Symptoms Psychiatric: Reports: No Symptoms Neurological: Reports: Weakness Hematologic/Lymphatic: Reports: No Symptoms Immunologic: Reports: No Symptoms Exam - Exam Exam: See Below - Vital Signs Vital Signs: Last Vital Signs Temp 98.3 F 12/11/18 16:16 Pulse 96 12/11/18 16:16 Resp 19 12/11/18 16:16 BP 147/83 H 12/11/18 16:16 Pulse Ox 95 12/11/18 16:38 Weight: 134 lb 14.4 oz - Exam General: Alert, Cooperative, Mild Distress HEENT: Hearing Intact Neck: Trachea Midline Lungs: Decreased Breath Sounds, Rhonchi, Wheezing Cardiovascular: Regular Rate, Regular Rhythm GI/Abdominal Exam: Soft, Non-Tender, No Distention (Female) Exam: Deferred Rectal (Female) Exam: Deferred Back Exam: Other (kyphosis) Extremities: Non-Tender, Pedal Edema Skin: Warm, Dry, Intact, Ecchymosis Neurological: Strength Equal Bilateral Neuro Extensive - Mental Status: Alert, Normal Mood/Affect, Normal Cognition Psychiatric: Alert, Normal Affect, Normal Mood - Patient Data Lab Results Last 24 hrs: Laboratory Results - last 24 hr 12/11/18 12/11/18 12/11/18 Range/Units 17:15 17:15 17:15 WBC 9.1 (4.0-10.2) K/uL RBC 4.28 (3.77-5.09) M/uL Hgb 12.5 (11.7-15.5) g/dL Hct 39.6 (34.0-46.0) % MCV 92.5 (84.0-98.0) fL MCH 29.2 (28.2-33.3) pg MCHC 31.6 L (31.7-36.0) g/dL RDW 15.8 H (11.2-14.1) % Plt Count 370 H (150-350) K/uL Neut % (Auto) 69.1 (45.0-80.0) % Lymph % (Auto) 18.2 (10.0-50.0) % Will % (Auto) 9.2 (2.0-14.0) % Eos % (Auto) 2.9 (0.0-5.0) % Baso % (Auto) 0.6 (0.0-2.0) % Neut # (Auto) 6.27 (1.40-7.00) K/uL Lymph # (Auto) 1.65 (0.50-3.50) K/uL Will # (Auto) 0.83 (0.00-1.00) K/uL Eos # (Auto) 0.26 (0.00-0.50) K/uL Baso # (Auto) 0.05 (0.00-0.20) K/uL PT 10.7 (9.5-12.0) SEC INR 1.0 Sodium 142 (136-145) mmol/L Potassium 4.5 (3.5-5.1) mmol/L Chloride 103 (98-107) mmol/L Carbon Dioxide 28.4 (21.0-32.0) mmol/L BUN 30 H (7-18) mg/dL Creatinine 1.25 H (0.51-1.17) mg/dL Est Cr Clr Drug Dosing 28.41 mL/min Estimated GFR (MDRD) 41 mL/min Glucose 101 (74-106) mg/dL Calcium 9.1 (8.5-10.1) mg/dL Total Bilirubin 0.3 (0.2-1.0) mg/dL AST 20 (15-37) U/L ALT 35 (12-78) U/L Alkaline Phosphatase 95 (46-116) IU/L C-Reactive Protein 1.8 H (<=0.9) mg/dL Total Protein 6.5 (6.4-8.2) g/dL Albumin 3.0 L (3.4-5.0) g/dL Result Diagrams: 12/11/18 17:15 12/11/18 17:15 *Q Meaningful Use (ADM) - VTE *Q VTE Mechanical Contraindications *Q: At Risk for Falls - Problem List (1) Acute exacerbation of chronic obstructive pulmonary disease (COPD) SNOMED Code(s): 127037630 ICD Code: J44.1 - CHRONIC OBSTRUCTIVE PULMONARY DISEASE W (ACUTE) EXACERBATION Status: Acute Priority: High Current Visit: No Problem Details: (2) Comfort measures only status SNOMED Code(s): 73200997314937 ICD Code: Z51.5 - ENCOUNTER FOR PALLIATIVE CARE Status: Acute Priority: High Current Visit: No Problem Details: No code/no transfer status confirmed with the patient today. 11/26/18 She confirms she is DNR/DNI/Comfort Measures and she says absolutely NO when asked if she wants to be transferred to [place]. I told her family members want her transferred to [facility] and she says absolutely NO. (3) Hyperuricemia SNOMED Code(s): 73541587 ICD Code: E79.0 - HYPERURICEMIA W/O SIGNS OF INFLAM ARTHRIT AND TOPHACEOUS DIS Status: Acute Priority: Medium Current Visit: No Onset Date: (4) Incomplete right bundle branch block SNOMED Code(s): 700216260 ICD Code: I45.10 - UNSPECIFIED RIGHT BUNDLE-BRANCH BLOCK Status: Acute Priority: Medium Current Visit: No Onset Date: 11/06/18 Problem Details: Observe for now as above. (5) PVCs (premature ventricular contractions) SNOMED Code(s): 06862057 ICD Code: I49.3 - VENTRICULAR PREMATURE DEPOLARIZATION Status: Acute Priority: Medium Current Visit: No Onset Date: 11/06/18 Problem Details: Observe for now as above. (6) CKD (chronic kidney disease) SNOMED Code(s): 195895208 ICD Code: N18.9 - CHRONIC KIDNEY DISEASE, UNSPECIFIED Status: Chronic Priority: Low Current Visit: No Qualifiers: (7) COPD (chronic obstructive pulmonary disease) SNOMED Code(s): 63868692 ICD Code: J44.9 - CHRONIC OBSTRUCTIVE PULMONARY DISEASE, UNSPECIFIED Status : Chronic Priority: Medium Current Visit: No Qualifiers: COPD type: emphysema Emphysema type: centrilobular Qualified Code(s): J43.2 - Centrilobular emphysema (8) Congestive heart failure (CHF) SNOMED Code(s): 71401248 ICD Code: I50.9 - HEART FAILURE, UNSPECIFIED Status: Chronic Priority: Medium Current Visit: No Onset Date: ~11/23/18 Problem Details: Qualifiers: (9) Coronary artery disease SNOMED Code(s): 76955184 ICD Code: I25.10 - ATHSCL HEART DISEASE OF [place] CORONARY ARTERY W/O ANG PCTRS Status: Chronic Priority: Medium Current Visit: No Qualifiers: (10) Diabetes mellitus SNOMED Code(s): 16731367 ICD Code: E11.9 - TYPE 2 DIABETES MELLITUS WITHOUT COMPLICATIONS Status: Chronic Priority: Medium Current Visit: No Problem Details: Stable by history. Glycosylated hemoglobin and lipid profile in the a.m. Qualifiers: (11) Hypertension SNOMED Code(s): 04312687 ICD Code: I10 - ESSENTIAL (PRIMARY) HYPERTENSION Status: Chronic Priority : Medium Current Visit: No Qualifiers: (12) Hypoalbuminemia SNOMED Code(s): 674017457 ICD Code: E88.09 - OTH DISORDERS OF PLASMA-PROTEIN METABOLISM, NEC Status: Chronic Priority: Medium Current Visit: No Onset Date: 11/06/18 (13) Hypothyroidism SNOMED Code(s): 90497065 ICD Code: E03.9 - HYPOTHYROIDISM, UNSPECIFIED Status: Chronic Priority: Medium Current Visit: No Problem Details: TSH somewhat elevated on 11/06/18 with her Synthroid supplementation increased at that time. TSH still elevated today. Consider further medication adjustments by admitting physician. Qualifiers: (14) IDDM (insulin dependent diabetes mellitus) SNOMED Code(s): 31834468 ICD Code: E11.9 - TYPE 2 DIABETES MELLITUS WITHOUT COMPLICATIONS; Z79.4 - FPC (CURRENT) USE OF INSULIN Status: Chronic Priority: Medium Current Visit: No (15) Mixed anxiety depressive disorder SNOMED Code(s): 299082537 ICD Code: F41.8 - OTHER SPECIFIED ANXIETY DISORDERS Status: Chronic Priority: Medium Current Visit: No Problem Details: Stable by history. Continue to observe closely by regular provider. (16) Osteoarthritis SNOMED Code(s): 209168726 ICD Code: M19.90 - UNSPECIFIED OSTEOARTHRITIS, UNSPECIFIED SITE Status: Chronic Priority: Medium Current Visit: No Problem Details: Stable by history with history of hyperuricemia as above. (17) Palliative care patient SNOMED Code(s): 327682973 ICD Code: Z51.5 - ENCOUNTER FOR PALLIATIVE CARE Status: Chronic Priority : Medium Current Visit: No Problem Details: As above Problem List Initiated/Reviewed/Updated: Yes Orders Last 24hrs: Active Orders 24 hr Category Date Time Status Patient Status [ADT] Routine ADT 12/11/18 16:36 Active Blood Glucose Check, Bedside [RC] TIDMEALS Care 12/11/18 16:36 Active EKG Documentation Completion [RC] ASDIRECTED Care 12/12/18 05:11 Active May Shower [RC] ASDIRECTED Care 12/11/18 16:36 Active Oxygen Therapy [RC] 2300 Care 12/11/18 16:36 Active Pulse Oximetry [RC] PRN Care 12/11/18 16:38 Active RT Aerosol Therapy [RC] 08,12,16,20 Care 12/11/18 16:42 Active RT Aerosol Therapy [RC] ASDIRECTED Care 12/11/18 20:00 Ordered Up With Assistance [RC] ASDIRECTED Care 12/11/18 16:36 Active VTE/DVT Education [RC] PER UNIT ROUTINE Care 12/11/18 16:36 Active Vital Signs [RC] QID Care 12/11/18 16:36 Active Consult to Case Management/Renal Medicine Specialist [CONS] Cons 12/11/18 16:36 Active Routine OT Evaluation and Treatment [CONS] Routine Cons 12/11/18 16:36 Active PT Evaluation and Treatment [CONS] Routine Cons 12/11/18 16:36 Active FISH CULTURIST Evaluation and Treatment [CONS] Routine Cons 12/11/18 16:36 Active [place] [employer] Diet [DIET] Diet 12/11/18 Dinner Active Chest 1V Frontal [CR] Routine Exams 12/11/18 16:36 Taken Swallowing Function w Video [CR] Routine Exams 12/12/18 09:00 Ordered CBC WITH AUTO DIFF [HEME] DAILY Lab 12/12/18 05:11 Ordered CBC WITH AUTO DIFF [HEME] DAILY Lab 12/13/18 05:11 Ordered CBC WITH AUTO DIFF [HEME] DAILY Lab 12/14/18 05:11 Ordered CMP [COMPREHENSIVE METABOLIC PN,CMP] [CHEM] DAILY Lab 12/12/18 05:11 Ordered CMP [COMPREHENSIVE METABOLIC PN,CMP] [CHEM] DAILY Lab 12/13/18 05:11 Ordered CMP [COMPREHENSIVE METABOLIC PN,CMP] [CHEM] DAILY Lab 12/14/18 05:11 Ordered CRP [C-REACTIVE PROTEIN] [CHEM] DAILY Lab 12/12/18 05:11 Ordered CRP [C-REACTIVE PROTEIN] [CHEM] DAILY Lab 12/13/18 05:11 Ordered CRP [C-REACTIVE PROTEIN] [CHEM] DAILY Lab 12/14/18 05:11 Ordered CULTURE SPUTUM + SMEAR [RM] Stat Lab 12/11/18 16:36 Ordered LACTIC ACID [CHEM] Routine Lab 12/12/18 05:11 Ordered MYCOPLASMA IGM RAPID [MREF] Routine Lab 12/12/18 05:11 Ordered PRO B-TYPE NATRIUR PEPT,BNPPRO [CHEM] Routine Lab 12/12/18 05:11 Ordered SEDIMENTATION RATE AUTO [HEME] Routine Lab 12/12/18 05:11 Ordered TROPONIN I [CHEM] Routine Lab 12/12/18 05:11 Ordered Acetaminophen [Tylenol] Med 12/11/18 16:59 Active 650 mg PO Q4H PRN Albuterol [Proventil Neb Soln] Med 12/11/18 16:36 Active 2.5 mg NEB Q2H PRN Albuterol/Ipratropium [DuoNeb 3.0-0.5 MG/3 ML] Med 12/11/18 20:00 Active 3 ml NEB QID Arformoterol [Brovana] Med 12/11/18 20:00 Ordered 15 mcg NEB BIDRT Bumetanide [Bumex] Med 12/12/18 12:00 Active 1 mg PO DAILY@1200 Insulin Glarg,Human.Rec.Analog [LantUS] Med 12/12/18 08:00 Active 18 unit SUBCUT DAILY@0800 Insulin Lispro [HumaLOG] Med 12/12/18 12:00 Active 2 unit SUBCUT DAILY@1200 Levothyroxine Med 12/12/18 07:30 Active 75 mcg PO ACBREAKFAST Metoprolol Tartrate [Lopressor] Med 12/11/18 20:00 Active 25 mg PO Q12HR Naldo/Polymyx B Sulf/Dexameth [Edkpvd-Yscsm-Clzrolb Eye Med 12/11/18 18:00 Pending Ointm] 1 applic EYELF BID Ondansetron [Zofran ODT] Med 12/11/18 16:36 Active 4 mg PO Q6H PRN Ondansetron [Zofran] Med 12/11/18 16:36 Active 4 mg IVPUSH Q4H PRN Simvastatin [Zocor] Med 12/11/18 20:00 Active 20 mg PO BEDTIME Sodium Chloride 0.9% [Saline Flush] Med 12/11/18 16:36 Active 10 ml FLUSH ASDIRECTED PRN Temazepam [Restoril] Med 12/11/18 16:59 Active 15 mg PO BEDTIME PRN amLODIPine [Norvasc] Med 12/12/18 08:00 Active 5 mg PO DAILY cefTAZidime Pentahydrate [Fortaz] Med 12/11/18 20:00 Active 1 gm IVPUSH Q12HR metroNIDAZOLE/Normal Saline [Flagyl 500 MG in NS 100 ML Med 12/11/18 18:00 Active ] 500 mg Premix Bag 1 bag IV Q8H GM Immunization Reflex [OM.PC] Click To Edit Oth 12/11/18 16:36 Ordered Saline Lock Insert [OM.PC] Routine Oth 12/11/18 16:36 Ordered Resuscitation Status Routine Resus Stat 12/11/18 16:36 Ordered EKG 12 Lead [EK] AM Ther 12/12/18 05:11 Ordered Medication Orders Acetaminophen (Tylenol) 650 mg PO Q4H PRN PRN Reason: Pain Albuterol (Proventil Neb Soln) 2.5 mg NEB Q2H PRN PRN Reason: Shortness Of Breath/wheezing Last Admin: 12/11/18 17:47 Dose: 2.5 mg Albuterol/Ipratropium (Duoneb 3.0-0.5 Mg/3 Ml) 3 ml NEB QID [facility] Amlodipine Besylate (Norvasc) 5 mg PO DAILY [facility] Arformoterol Tartrate (Brovana) 15 mcg NEB BIDRT [facility] Bumetanide (Bumex) 1 mg PO DAILY@1200 [facility] Ceftazidime (Fortaz) 1 gm IVPUSH Q12HR [facility] Stop: 12/21/18 08:01 Metronidazole 500 mg/ Premix 100 mls @ 100 mls/hr IV Q8H [facility] Stop: 12/21/18 10:59 Last Admin: 12/11/18 17:44 Dose: 100 mls/hr Insulin Glargine (Lantus) 18 unit SUBCUT DAILY@0800 [facility] Insulin Human Lispro (Humalog) 2 unit SUBCUT DAILY@1200 [facility] Levothyroxine Sodium (Levothyroxine) 75 mcg PO ACBREAKFAST [facility] Metoprolol Tartrate (Lopressor) 25 mg PO Q12HR [facility] Non-Formulary Medication (Naldo/Polymyx B Sulf/Dexameth [Cnguts-Sqcuv-Pncrwbs Eye Ointm]) 1 applic EYELF BID [facility] Ondansetron HCl (Zofran Odt) 4 mg PO Q6H PRN PRN Reason: Nausea/Vomiting Ondansetron HCl (Zofran) 4 mg IVPUSH Q4H PRN PRN Reason: Nausea/Vomiting Simvastatin (Zocor) 20 mg PO BEDTIME [facility] Sodium Chloride (Saline Flush) 10 ml FLUSH ASDIRECTED PRN PRN Reason: Keep Vein Open Last Admin: 12/11/18 17:44 Dose: 10 ml Temazepam (Restoril) 15 mg PO BEDTIME PRN PRN Reason: Insomnia Assessment/Plan Comment:: 12/11/18 Rosie Quintana MD With significant shortness of breath, dyspnea on exertion. Medically qualifying for inpatient status for IV antibiotics, PT-OT-ST. - Mortality Measure Prognosis:: Good
[2018-12-11] MEDS: Metoprolol Tartrate 25 MG Tab PO SCH (19:30)
[2018-12-11] MEDS: cefTAZidime 1 GM Vial IVPUSH SCH (19:30)
[2018-12-11] MEDS: Arformoterol 15 MCG/2 ML Neb Soln NEB SCH (19:31)
[2018-12-11] MEDS: Simvastatin 20 MG Tab PO SCH (19:31)
[2018-12-11] MEDS: Albuterol/Ipratropium 3.0-0.5 MG/3 ML Neb Soln NEB SCH (19:31)
[2018-12-12] MEDS: metroNIDAZOLE/Normal Saline 500 MG in Premix Bag 1 BAG IV SCH ×3 (01:31→17:36)
[2018-12-12] MEDS: Albuterol 0.083% 2.5 MG/3 ML Neb Soln NEB PRN ×3 (01:31→14:22)
[2018-12-12] MEDS: Sodium Chloride 0.9% 10 ML Syringe FLUSH PRN ×6 (01:35→20:07)
[2018-12-12] MEDS: Metoprolol Tartrate 25 MG Tab PO SCH ×2 (07:17→20:02)
[2018-12-12] MEDS: amLODIPine 5 MG Tab PO SCH (07:17)
[2018-12-12] MEDS: cefTAZidime 1 GM Vial IVPUSH SCH ×2 (07:17→20:00)
[2018-12-12] MEDS: Levothyroxine 75 MCG Tab PO SCH (07:17)
[2018-12-12] MEDS: Albuterol/Ipratropium 3.0-0.5 MG/3 ML Neb Soln NEB SCH ×4 (07:17→20:00)
[2018-12-12] MEDS: Insulin Glarg,Human.Rec.Analog 100 UNIT/ML ML SUBCUT SCH (07:18)
[2018-12-12] MEDS: Arformoterol 15 MCG/2 ML Neb Soln NEB SCH ×2 (07:21→20:00)
[2018-12-12] MEDS: Bumetanide 1 MG Tab PO SCH (11:29)
[2018-12-12] MEDS: Insulin Lispro 100 Units/ML 3 ML Vial SUBCUT SCH (11:31)
[2018-12-12] MEDS: Simvastatin 20 MG Tab PO SCH (20:02)
[2018-12-12] MEDS: Temazepam 15 MG Cap PO PRN (20:02)
--- NOTE | 2018-12-12 23:47 | PCM.PN ---
- General Info Date of Service: 12/12/18 Admission Dx/Problem (Free Text): Admission Diagnosis/Problem Admission Diagnosis/Problem COPD with acute lower respiratory infection Functional Status: Reports: Pain Controlled, Tolerating Diet - Review of Systems General: Reports: Weakness HEENT: Reports: Headaches, Post Nasal Drip Pulmonary: Reports: Shortness of Breath, Pleuritic Chest Pain, Cough Cardiovascular: Reports: No Symptoms, Palpitations, Dyspnea on Exertion, Edema, Lightheadedness Gastrointestinal: Reports: Decreased Appetite, Difficulty Swallowing Genitourinary: Reports: Urgency, Incontinence Musculoskeletal: Reports: Neck Pain, Shoulder Pain Skin: Reports: Dryness Neurological: Reports: Confusion (at times), Difficulty Walking Psychiatric: Reports: Confusion - Patient Data Vitals - Most Recent: Last Vital Signs Temp 98.2 F 12/12/18 19:47 Pulse 98 12/12/18 20:02 Resp 18 12/12/18 19:47 BP 120/63 12/12/18 20:02 Pulse Ox 94 L 12/12/18 19:47 Weight - Most Recent: 134 lb 14.4 oz I&O - Last 24 Hours: Intake & Output 12/12/18 12/12/18 12/13/18 14:59 22:59 06:59 Intake Total 360 200 Balance 360 200 Lab Results Last 24 Hours: Laboratory Results - last 24 hr 12/12/18 12/12/18 12/12/18 Range/Units 07:04 07:15 07:15 WBC 11.3 H (4.0-10.2) K/uL RBC 4.21 (3.77-5.09) M/uL Hgb 12.1 (11.7-15.5) g/dL Hct 39.2 (34.0-46.0) % MCV 93.1 (84.0-98.0) fL MCH 28.7 (28.2-33.3) pg MCHC 30.9 L (31.7-36.0) g/dL RDW 16.2 H (11.2-14.1) % Plt Count 372 H (150-350) K/uL Neut % (Auto) 75.5 (45.0-80.0) % Lymph % (Auto) 12.5 (10.0-50.0) % [place] % (Auto) 9.2 (2.0-14.0) % Eos % (Auto) 2.4 (0.0-5.0) % Baso % (Auto) 0.4 (0.0-2.0) % Neut # (Auto) 8.49 H (1.40-7.00) K/uL Lymph # (Auto) 1.41 (0.50-3.50) K/uL [place] # (Auto) 1.03 H (0.00-1.00) K/uL Eos # (Auto) 0.27 (0.00-0.50) K/uL Baso # (Auto) 0.05 (0.00-0.20) K/uL ESR 41 (0-42) mm/hr Sodium 143 (136-145) mmol/L Potassium 4.2 (3.5-5.1) mmol/L Chloride 104 (98-107) mmol/L Carbon Dioxide 26.2 (21.0-32.0) mmol/L BUN 24 H (7-18) mg/dL Creatinine 1.13 (0.51-1.17) mg/dL Est Cr Clr Drug Dosing 31.43 mL/min Estimated GFR (MDRD) 46 mL/min Glucose 113 H (74-106) mg/dL POC Glucose 113 H (65-110) mg/dl Lactic Acid (0.4-2.0) mmol/L Calcium 9.1 (8.5-10.1) mg/dL Total Bilirubin 0.5 (0.2-1.0) mg/dL AST 20 (15-37) U/L ALT 34 (12-78) U/L Alkaline Phosphatase 92 (46-116) IU/L Troponin I 0.000 (0.000-0.056) ng/mL C-Reactive Protein 2.1 H (<=0.9) mg/dL NT-Pro-B Natriuret Pep 343 H (0-125) pg/mL Total Protein 6.4 (6.4-8.2) g/dL Albumin 2.9 L (3.4-5.0) g/dL 12/12/18 12/12/18 12/12/18 Range/Units 07:15 10:33 16:54 WBC (4.0-10.2) K/uL RBC (3.77-5.09) M/uL Hgb (11.7-15.5) g/dL Hct (34.0-46.0) % MCV (84.0-98.0) fL MCH (28.2-33.3) pg MCHC (31.7-36.0) g/dL RDW (11.2-14.1) % Plt Count (150-350) K/uL Neut % (Auto) (45.0-80.0) % Lymph % (Auto) (10.0-50.0) % [place] % (Auto) (2.0-14.0) % Eos % (Auto) (0.0-5.0) % Baso % (Auto) (0.0-2.0) % Neut # (Auto) (1.40-7.00) K/uL Lymph # (Auto) (0.50-3.50) K/uL [place] # (Auto) (0.00-1.00) K/uL Eos # (Auto) (0.00-0.50) K/uL Baso # (Auto) (0.00-0.20) K/uL ESR (0-42) mm/hr Sodium (136-145) mmol/L Potassium (3.5-5.1) mmol/L Chloride (98-107) mmol/L Carbon Dioxide (21.0-32.0) mmol/L BUN (7-18) mg/dL Creatinine (0.51-1.17) mg/dL Est Cr Clr Drug Dosing mL/min Estimated GFR (MDRD) mL/min Glucose (74-106) mg/dL POC Glucose 181 H 125 H (65-110) mg/dl Lactic Acid 1.3 (0.4-2.0) mmol/L Calcium (8.5-10.1) mg/dL Total Bilirubin (0.2-1.0) mg/dL AST (15-37) U/L ALT (12-78) U/L Alkaline Phosphatase (46-116) IU/L Troponin I (0.000-0.056) ng/mL C-Reactive Protein (<=0.9) mg/dL NT-Pro-B Natriuret Pep (0-125) pg/mL Total Protein (6.4-8.2) g/dL Albumin (3.4-5.0) g/dL Shyam Results Last 24 Hours: Microbiology 12/12/18 01:47 Gram Stain - Final Sputum - Expectorated Med Orders - Current: Current Medications Acetaminophen (Tylenol) 650 mg PO Q4H PRN PRN Reason: Pain Albuterol (Proventil Neb Soln) 2.5 mg NEB Q2H PRN PRN Reason: Shortness Of Breath/wheezing Last Admin: 12/12/18 14:22 Dose: 2.5 mg Albuterol/Ipratropium (Duoneb 3.0-0.5 Mg/3 Ml) 3 ml NEB QID [facility] Last Admin: 12/12/18 20:00 Dose: 3 ml Amlodipine Besylate (Norvasc) 5 mg PO DAILY [facility] Last Admin: 12/12/18 07:17 Dose: 5 mg Arformoterol Tartrate (Brovana) 15 mcg NEB BIDRT [facility] Last Admin: 12/12/18 20:00 Dose: 15 mcg Bumetanide (Bumex) 1 mg PO DAILY@1200 [facility] Last Admin: 12/12/18 11:29 Dose: 1 mg Ceftazidime (Fortaz) 1 gm IVPUSH Q12HR [facility] Stop: 12/21/18 08:01 Last Admin: 12/12/18 20:00 Dose: 1 gm Metronidazole 500 mg/ Premix 100 mls @ 100 mls/hr IV Q8H [facility] Stop: 12/21/18 10:59 Last Admin: 12/12/18 17:36 Dose: 100 mls/hr Insulin Glargine (Lantus) 18 unit SUBCUT DAILY@0800 [facility] Last Admin: 12/12/18 07:18 Dose: 18 unit Insulin Human Lispro (Humalog) 2 unit SUBCUT DAILY@1200 [facility] Last Admin: 12/12/18 11:31 Dose: 2 unit Levothyroxine Sodium (Levothyroxine) 75 mcg PO ACBREAKFAST [facility] Last Admin: 12/12/18 07:17 Dose: 75 mcg Metoprolol Tartrate (Lopressor) 25 mg PO Q12HR [facility] Last Admin: 12/12/18 20:02 Dose: 25 mg Non-Formulary Medication (Naldo/Polymyx B Sulf/Dexameth [Bdwxhs-Lrxmv-Hjlavkq Eye Ointm]) 1 applic EYELF BID [facility] Ondansetron HCl (Zofran Odt) 4 mg PO Q6H PRN PRN Reason: Nausea/Vomiting Ondansetron HCl (Zofran) 4 mg IVPUSH Q4H PRN PRN Reason: Nausea/Vomiting Simvastatin (Zocor) 20 mg PO BEDTIME [facility] Last Admin: 12/12/18 20:02 Dose: 20 mg Sodium Chloride (Saline Flush) 10 ml FLUSH ASDIRECTED PRN PRN Reason: Keep Vein Open Last Admin: 12/12/18 20:07 Dose: 10 ml Temazepam (Restoril) 15 mg PO BEDTIME PRN PRN Reason: Insomnia Last Admin: 12/12/18 20:02 Dose: 15 mg - Exam Quality Assessment: Supplemental Oxygen General: Alert, Oriented, Cooperative, Mild Distress HEENT: Mucous Membr. Moist/[place] Neck: Trachea Midline, No JVD, No Thyromegaly Lungs: Normal Respiratory Effort, Decreased Breath Sounds Back Exam: Other (kyphosis) Extremities: Non-Tender, Pedal Edema Skin: Warm, Dry, Intact, Ecchymosis Psy/Mental Status: Alert - Problem List & Annotations (1) Acute exacerbation of chronic obstructive pulmonary disease (COPD) SNOMED Code(s): 690707452 Code(s): J44.1 - CHRONIC OBSTRUCTIVE PULMONARY DISEASE W (ACUTE) EXACERBATION Status: Acute Priority: High Current Visit: No Annotation/ Comment:: (2) Comfort measures only status SNOMED Code(s): 16272529355619 Code(s): Z51.5 - ENCOUNTER FOR PALLIATIVE CARE Status: Acute Priority: High Current Visit: No Annotation/Comment:: No code/no transfer status confirmed with the patient today. 11/26/18 She confirms she is DNR/DNI/Comfort Measures and she says absolutely NO when asked if she wants to be transferred to [place]. I told her family members want her transferred to [facility] and she says absolutely NO. (3) Hyperuricemia SNOMED Code(s): 52817959 Code(s): E79.0 - HYPERURICEMIA W/O SIGNS OF INFLAM ARTHRIT AND TOPHACEOUS DIS Status: Acute Priority: Medium Current Visit: No Onset Date: (4) Incomplete right bundle branch block SNOMED Code(s): 869631847 Code(s): I45.10 - UNSPECIFIED RIGHT BUNDLE-BRANCH BLOCK Status: Acute Priority: Medium Current Visit: No Onset Date: 11/06/18 Annotation/Comment :: Observe for now as above. (5) PVCs (premature ventricular contractions) SNOMED Code(s): 73400786 Code(s): I49.3 - VENTRICULAR PREMATURE DEPOLARIZATION Status: Acute Priority: Medium Current Visit: No Onset Date: 11/06/18 Annotation/Comment :: Observe for now as above. (6) CKD (chronic kidney disease) SNOMED Code(s): 301623815 Code(s): N18.9 - CHRONIC KIDNEY DISEASE, UNSPECIFIED Status: Chronic Priority: Low Current Visit: No Qualifiers: (7) COPD (chronic obstructive pulmonary disease) SNOMED Code(s): 72045527 Code(s): J44.9 - CHRONIC OBSTRUCTIVE PULMONARY DISEASE, UNSPECIFIED Status : Chronic Priority: Medium Current Visit: No Qualifiers: COPD type: emphysema Emphysema type: centrilobular Qualified Code(s): J43.2 - Centrilobular emphysema (8) Congestive heart failure (CHF) SNOMED Code(s): 45758049 Code(s): I50.9 - HEART FAILURE, UNSPECIFIED Status: Chronic Priority: Medium Current Visit: No Onset Date: ~11/23/18 Qualifiers: Annotation/Comment:: (9) Coronary artery disease SNOMED Code(s): 99074515 Code(s): I25.10 - ATHSCL HEART DISEASE OF [place] CORONARY ARTERY W/O ANG PCTRS Status: Chronic Priority: Medium Current Visit: No Qualifiers: (10) Diabetes mellitus SNOMED Code(s): 33778289 Code(s): E11.9 - TYPE 2 DIABETES MELLITUS WITHOUT COMPLICATIONS Status: Chronic Priority: Medium Current Visit: No Qualifiers: Annotation/Comment:: Stable by history. Glycosylated hemoglobin and lipid profile in the a.m. (11) Hypertension SNOMED Code(s): 70545521 Code(s): I10 - ESSENTIAL (PRIMARY) HYPERTENSION Status: Chronic Priority : Medium Current Visit: No Qualifiers: (12) Hypoalbuminemia SNOMED Code(s): 842382648 Code(s): E88.09 - OTH DISORDERS OF PLASMA-PROTEIN METABOLISM, NEC Status: Chronic Priority: Medium Current Visit: No Onset Date: 11/06/18 (13) Hypothyroidism SNOMED Code(s): 79945484 Code(s): E03.9 - HYPOTHYROIDISM, UNSPECIFIED Status: Chronic Priority: Medium Current Visit: No Qualifiers: Annotation/Comment:: TSH somewhat elevated on 11/06/18 with her Synthroid supplementation increased at that time. TSH still elevated today. Consider further medication adjustments by admitting physician. (14) IDDM (insulin dependent diabetes mellitus) SNOMED Code(s): 52675158 Code(s): E11.9 - TYPE 2 DIABETES MELLITUS WITHOUT COMPLICATIONS; Z79.4 - [facility] (CURRENT) USE OF INSULIN Status: Chronic Priority: Medium Current Visit: No (15) Mixed anxiety depressive disorder SNOMED Code(s): 121463547 Code(s): F41.8 - OTHER SPECIFIED ANXIETY DISORDERS Status: Chronic Priority: Medium Current Visit: No Annotation/Comment:: Stable by history. Continue to observe closely by regular provider. (16) Osteoarthritis SNOMED Code(s): 511846580 Code(s): M19.90 - UNSPECIFIED OSTEOARTHRITIS, UNSPECIFIED SITE Status: Chronic Priority: Medium Current Visit: No Annotation/Comment:: Stable by history with history of hyperuricemia as above. (17) Palliative care patient SNOMED Code(s): 355447718 Code(s): Z51.5 - ENCOUNTER FOR PALLIATIVE CARE Status: Chronic Priority: Medium Current Visit: No Annotation/Comment:: As above - Problem List Review Problem List Initiated/Reviewed/Updated: Yes - My Orders Last 24 Hours: My Active Orders 12/12/18 01:47 CULTURE SPUTUM + SMEAR [RM] Stat 12/12/18 05:11 EKG Documentation Completion [RC] ASDIRECTED 12/12/18 07:15 MYCOPLASMA IGM RAPID [MREF] Routine 12/12/18 07:30 Levothyroxine 75 mcg PO ACBREAKFAST 12/12/18 08:00 Insulin Glarg,Human.Rec.Analog [LantUS] 18 unit SUBCUT DAILY@0800 amLODIPine [Norvasc] 5 mg PO DAILY 12/12/18 09:00 Swallowing Function w Video [CR] Routine 12/12/18 12:00 Bumetanide [Bumex] 1 mg PO DAILY@1200 Insulin Lispro [HumaLOG] 2 unit SUBCUT DAILY@1200 12/13/18 05:11 CBC WITH AUTO DIFF [HEME] DAILY CMP [COMPREHENSIVE METABOLIC PN,CMP] [CHEM] DAILY CRP [C-REACTIVE PROTEIN] [CHEM] DAILY 12/14/18 05:11 CBC WITH AUTO DIFF [HEME] DAILY CMP [COMPREHENSIVE METABOLIC PN,CMP] [CHEM] DAILY CRP [C-REACTIVE PROTEIN] [CHEM] DAILY - Plan Plan:: 12/11/18 Rosie Quintana MD With significant shortness of breath, dyspnea on exertion. Medically qualifying for inpatient status for IV antibiotics, PT-OT-ST. 12/12/18 Augusto SHERMAN Feels less short of breath today since Gamalielvanna started. Continue medicallly plan.
[2018-12-13] MEDS: metroNIDAZOLE/Normal Saline 500 MG in Premix Bag 1 BAG IV SCH ×2 (02:19→10:44)
[2018-12-13] MEDS: Sodium Chloride 0.9% 10 ML Syringe FLUSH PRN ×2 (02:19→08:05)
[2018-12-13] MEDS: Albuterol 0.083% 2.5 MG/3 ML Neb Soln NEB PRN ×2 (04:28→13:50)
[2018-12-13] MEDS: Albuterol/Ipratropium 3.0-0.5 MG/3 ML Neb Soln NEB SCH ×4 (08:03→20:48)
[2018-12-13] MEDS: Arformoterol 15 MCG/2 ML Neb Soln NEB SCH ×2 (08:03→20:48)
[2018-12-13] MEDS: amLODIPine 5 MG Tab PO SCH (08:04)
[2018-12-13] MEDS: cefTAZidime 1 GM Vial IVPUSH SCH ×2 (08:04→09:59)
[2018-12-13] MEDS: Metoprolol Tartrate 25 MG Tab PO SCH ×2 (08:04→20:48)
[2018-12-13] MEDS: Levothyroxine 75 MCG Tab PO SCH (08:04)
[2018-12-13] MEDS: Insulin Glarg,Human.Rec.Analog 100 UNIT/ML ML SUBCUT SCH (08:04)
[2018-12-13] MEDS: Insulin Lispro 100 Units/ML 3 ML Vial SUBCUT SCH (11:04)
[2018-12-13] MEDS: Bumetanide 1 MG Tab PO SCH (11:04)
--- NOTE | 2018-12-13 19:12 | PCM.PN ---
- General Info Date of Service: 12/13/18 Admission Dx/Problem (Free Text): Admission Diagnosis/Problem Admission Diagnosis/Problem COPD with acute lower respiratory infection Functional Status: Reports: Pain Controlled, Tolerating Diet, Ambulating - Review of Systems General: Reports: Weakness HEENT: Reports: No Symptoms Pulmonary: Reports: Shortness of Breath, Cough (chronic) Cardiovascular: Reports: No Symptoms Gastrointestinal: Reports: No Symptoms Genitourinary: Reports: No Symptoms Musculoskeletal: Reports: No Symptoms Skin: Reports: Bruising Neurological: Reports: Weakness Psychiatric: Reports: No Symptoms - Patient Data Vitals - Most Recent: Last Vital Signs Temp 99.9 F 12/13/18 16:00 Pulse 98 12/13/18 16:00 Resp 17 12/13/18 16:00 BP 133/69 12/13/18 16:00 Pulse Ox 91 L 12/13/18 16:00 Weight - Most Recent: 134 lb 14.4 oz I&O - Last 24 Hours: Intake & Output 12/13/18 12/13/18 12/13/18 06:59 14:59 22:59 Intake Total 150 540 500 Balance 150 540 500 Lab Results Last 24 Hours: Laboratory Results - last 24 hr 12/13/18 12/13/18 12/13/18 Range/Units 02:21 07:05 07:05 WBC 10.6 H (4.0-10.2) K/uL RBC 4.05 (3.77-5.09) M/uL Hgb 11.7 (11.7-15.5) g/dL Hct 37.9 (34.0-46.0) % MCV 93.6 (84.0-98.0) fL MCH 28.9 (28.2-33.3) pg MCHC 30.9 L (31.7-36.0) g/dL RDW 16.3 H (11.2-14.1) % Plt Count 343 (150-350) K/uL Neut % (Auto) 71.7 (45.0-80.0) % Lymph % (Auto) 14.0 (10.0-50.0) % [place] % (Auto) 12.1 (2.0-14.0) % Eos % (Auto) 1.7 (0.0-5.0) % Baso % (Auto) 0.5 (0.0-2.0) % Neut # (Auto) 7.62 H (1.40-7.00) K/uL Lymph # (Auto) 1.49 (0.50-3.50) K/uL [place] # (Auto) 1.28 H (0.00-1.00) K/uL Eos # (Auto) 0.18 (0.00-0.50) K/uL Baso # (Auto) 0.05 (0.00-0.20) K/uL Sodium 144 (136-145) mmol/L Potassium 4.1 (3.5-5.1) mmol/L Chloride 105 (98-107) mmol/L Carbon Dioxide 26.8 (21.0-32.0) mmol/L BUN 26 H (7-18) mg/dL Creatinine 1.29 H (0.51-1.17) mg/dL Est Cr Clr Drug Dosing 27.53 mL/min Estimated GFR (MDRD) 39 mL/min Glucose 130 H (74-106) mg/dL POC Glucose 123 H (65-110) mg/dl Calcium 8.8 (8.5-10.1) mg/dL Total Bilirubin 0.5 (0.2-1.0) mg/dL AST 17 (15-37) U/L ALT 27 (12-78) U/L Alkaline Phosphatase 86 (46-116) IU/L C-Reactive Protein 4.5 H (<=0.9) mg/dL Total Protein 6.0 L (6.4-8.2) g/dL Albumin 2.6 L (3.4-5.0) g/dL 12/13/18 12/13/18 12/13/18 Range/Units 07:05 11:00 16:50 WBC (4.0-10.2) K/uL RBC (3.77-5.09) M/uL Hgb (11.7-15.5) g/dL Hct (34.0-46.0) % MCV (84.0-98.0) fL MCH (28.2-33.3) pg MCHC (31.7-36.0) g/dL RDW (11.2-14.1) % Plt Count (150-350) K/uL Neut % (Auto) (45.0-80.0) % Lymph % (Auto) (10.0-50.0) % [place] % (Auto) (2.0-14.0) % Eos % (Auto) (0.0-5.0) % Baso % (Auto) (0.0-2.0) % Neut # (Auto) (1.40-7.00) K/uL Lymph # (Auto) (0.50-3.50) K/uL [place] # (Auto) (0.00-1.00) K/uL Eos # (Auto) (0.00-0.50) K/uL Baso # (Auto) (0.00-0.20) K/uL Sodium (136-145) mmol/L Potassium (3.5-5.1) mmol/L Chloride (98-107) mmol/L Carbon Dioxide (21.0-32.0) mmol/L BUN (7-18) mg/dL Creatinine (0.51-1.17) mg/dL Est Cr Clr Drug Dosing mL/min Estimated GFR (MDRD) mL/min Glucose (74-106) mg/dL POC Glucose 122 H 144 H 104 (65-110) mg/dl Calcium (8.5-10.1) mg/dL Total Bilirubin (0.2-1.0) mg/dL AST (15-37) U/L ALT (12-78) U/L Alkaline Phosphatase (46-116) IU/L C-Reactive Protein (<=0.9) mg/dL Total Protein (6.4-8.2) g/dL Albumin (3.4-5.0) g/dL Shyam Results Last 24 Hours: Microbiology 12/12/18 07:15 Mycoplasma Serology - Final Blood Med Orders - Current: Current Medications Acetaminophen (Tylenol) 650 mg PO Q4H PRN PRN Reason: Pain Last Admin: 12/13/18 16:50 Dose: 650 mg Albuterol (Proventil Neb Soln) 2.5 mg NEB Q2H PRN PRN Reason: Shortness Of Breath/wheezing Last Admin: 12/13/18 13:50 Dose: 2.5 mg Albuterol/Ipratropium (Duoneb 3.0-0.5 Mg/3 Ml) 3 ml NEB QID [facility] Last Admin: 12/13/18 16:16 Dose: 3 ml Amlodipine Besylate (Norvasc) 5 mg PO DAILY [facility] Last Admin: 12/13/18 08:04 Dose: 5 mg Arformoterol Tartrate (Brovana) 15 mcg NEB BIDRT [facility] Last Admin: 12/13/18 08:03 Dose: 15 mcg Bumetanide (Bumex) 1 mg PO DAILY@1200 [facility] Last Admin: 12/13/18 11:04 Dose: 1 mg Insulin Glargine (Lantus) 18 unit SUBCUT DAILY@0800 [facility] Last Admin: 12/13/18 08:04 Dose: 18 unit Insulin Human Lispro (Humalog) 2 unit SUBCUT DAILY@1200 [facility] Last Admin: 12/13/18 11:04 Dose: 2 unit Levothyroxine Sodium (Levothyroxine) 75 mcg PO ACBREAKFAST [facility] Last Admin: 12/13/18 08:04 Dose: 75 mcg Metoprolol Tartrate (Lopressor) 25 mg PO Q12HR [facility] Last Admin: 12/13/18 08:04 Dose: 25 mg Non-Formulary Medication (Naldo/Polymyx B Sulf/Dexameth [Ybrocq-Ilhpl-Zjchmcr Eye Ointm]) 1 applic EYELF BID [facility] Ondansetron HCl (Zofran Odt) 4 mg PO Q6H PRN PRN Reason: Nausea/Vomiting Simvastatin (Zocor) 20 mg PO BEDTIME [facility] Last Admin: 12/12/18 20:02 Dose: 20 mg Temazepam (Restoril) 15 mg PO BEDTIME PRN PRN Reason: Insomnia Last Admin: 12/12/18 20:02 Dose: 15 mg Discontinued Medications Ceftazidime (Fortaz) 1 gm IVPUSH Q12HR [facility] Stop: 12/21/18 08:01 Last Admin: 12/13/18 09:59 Dose: Not Given Metronidazole 500 mg/ Premix 100 mls @ 100 mls/hr IV Q8H [facility] Stop: 12/21/18 10:59 Last Admin: 12/13/18 10:44 Dose: Not Given Ondansetron HCl (Zofran) 4 mg IVPUSH Q4H PRN PRN Reason: Nausea/Vomiting Sodium Chloride (Saline Flush) 10 ml FLUSH ASDIRECTED PRN PRN Reason: Keep Vein Open Last Admin: 12/13/18 08:05 Dose: 10 ml - Exam Quality Assessment: Supplemental Oxygen General: Alert, Cooperative, No Acute Distress HEENT: Mucous Membr. Moist/[place] Neck: Trachea Midline, No JVD Lungs: Normal Respiratory Effort, Decreased Breath Sounds, Rhonchi Cardiovascular: Regular Rate, Regular Rhythm GI/Abdominal Exam: Soft, Non-Tender, No Distention (Female) Exam: Deferred Back Exam: Other (kyphosis) Extremities: Non-Tender, Pedal Edema Skin: Warm, Dry, Intact, Ecchymosis Neurological: No New Focal Deficit, Other (tremors L>R hands) Psy/Mental Status: Alert, Normal Affect, Normal Mood - Problem List & Annotations (1) Acute exacerbation of chronic obstructive pulmonary disease (COPD) SNOMED Code(s): 876670527 Code(s): J44.1 - CHRONIC OBSTRUCTIVE PULMONARY DISEASE W (ACUTE) EXACERBATION Status: Acute Priority: High Current Visit: No Annotation/ Comment:: (2) Comfort measures only status SNOMED Code(s): 37803175084571 Code(s): Z51.5 - ENCOUNTER FOR PALLIATIVE CARE Status: Acute Priority: High Current Visit: No Annotation/Comment:: No code/no transfer status confirmed with the patient today. 11/26/18 She confirms she is DNR/DNI/Comfort Measures and she says absolutely NO when asked if she wants to be transferred to [place]. I told her family members want her transferred to [facility] and she says absolutely NO. (3) Hyperuricemia SNOMED Code(s): 85194138 Code(s): E79.0 - HYPERURICEMIA W/O SIGNS OF INFLAM ARTHRIT AND TOPHACEOUS DIS Status: Acute Priority: Medium Current Visit: No Onset Date: (4) Incomplete right bundle branch block SNOMED Code(s): 145046037 Code(s): I45.10 - UNSPECIFIED RIGHT BUNDLE-BRANCH BLOCK Status: Acute Priority: Medium Current Visit: No Onset Date: 11/06/18 Annotation/Comment :: Observe for now as above. (5) PVCs (premature ventricular contractions) SNOMED Code(s): 28269192 Code(s): I49.3 - VENTRICULAR PREMATURE DEPOLARIZATION Status: Acute Priority: Medium Current Visit: No Onset Date: 11/06/18 Annotation/Comment :: Observe for now as above. (6) CKD (chronic kidney disease) SNOMED Code(s): 717876379 Code(s): N18.9 - CHRONIC KIDNEY DISEASE, UNSPECIFIED Status: Chronic Priority: Low Current Visit: No Qualifiers: (7) COPD (chronic obstructive pulmonary disease) SNOMED Code(s): 15016252 Code(s): J44.9 - CHRONIC OBSTRUCTIVE PULMONARY DISEASE, UNSPECIFIED Status : Chronic Priority: Medium Current Visit: No Qualifiers: COPD type: emphysema Emphysema type: centrilobular Qualified Code(s): J43.2 - Centrilobular emphysema (8) Congestive heart failure (CHF) SNOMED Code(s): 36762787 Code(s): I50.9 - HEART FAILURE, UNSPECIFIED Status: Chronic Priority: Medium Current Visit: No Onset Date: ~11/23/18 Qualifiers: Annotation/Comment:: (9) Coronary artery disease SNOMED Code(s): 42298921 Code(s): I25.10 - ATHSCL HEART DISEASE OF [place] CORONARY ARTERY W/O ANG PCTRS Status: Chronic Priority: Medium Current Visit: No Qualifiers: (10) Diabetes mellitus SNOMED Code(s): 51351150 Code(s): E11.9 - TYPE 2 DIABETES MELLITUS WITHOUT COMPLICATIONS Status: Chronic Priority: Medium Current Visit: No Qualifiers: Annotation/Comment:: Stable by history. Glycosylated hemoglobin and lipid profile in the a.m. (11) Hypertension SNOMED Code(s): 89877512 Code(s): I10 - ESSENTIAL (PRIMARY) HYPERTENSION Status: Chronic Priority : Medium Current Visit: No Qualifiers: (12) Hypoalbuminemia SNOMED Code(s): 487982476 Code(s): E88.09 - OTH DISORDERS OF PLASMA-PROTEIN METABOLISM, NEC Status: Chronic Priority: Medium Current Visit: No Onset Date: 11/06/18 (13) Hypothyroidism SNOMED Code(s): 02506761 Code(s): E03.9 - HYPOTHYROIDISM, UNSPECIFIED Status: Chronic Priority: Medium Current Visit: No Qualifiers: Annotation/Comment:: TSH somewhat elevated on 11/06/18 with her Synthroid supplementation increased at that time. TSH still elevated today. Consider further medication adjustments by admitting physician. (14) IDDM (insulin dependent diabetes mellitus) SNOMED Code(s): 21343376 Code(s): E11.9 - TYPE 2 DIABETES MELLITUS WITHOUT COMPLICATIONS; Z79.4 - [facility] ([facility] USE OF [facility]ULIN Status: Chronic Priority: Medium Current Visit: No (15) Mixed anxiety depressive disorder SNOMED Code(s): 911268207 Code(s): F41.8 - OTHER SPECIFIED ANXIETY DISORDERS Status: Chronic Priority: Medium Current Visit: No Annotation/Comment:: Stable by history. Continue to observe closely by regular provider. (16) Osteoarthritis SNOMED Code(s): 014576767 Code(s): M19.90 - UNSPECIFIED OSTEOARTHRITIS, UNSPECIFIED SITE Status: Chronic Priority: Medium Current Visit: No Annotation/Comment:: Stable by history with history of hyperuricemia as above. (17) Palliative care patient SNOMED Code(s): 893706062 Code(s): Z51.5 - ENCOUNTER FOR PALLIATIVE CARE Status: Chronic Priority: Medium Current Visit: No Annotation/Comment:: As above - Problem List Review Problem List Initiated/Reviewed/Updated: Yes - My Orders Last 24 Hours: My Active Orders 12/14/18 05:11 CBC WITH AUTO DIFF [HEME] DAILY CMP [COMPREHENSIVE METABOLIC PN,CMP] [CHEM] DAILY CRP [C-REACTIVE PROTEIN] [CHEM] DAILY - Plan Plan:: 12/11/18 Rosie Quintana MD With significant shortness of breath, dyspnea on exertion. Medically qualifying for inpatient status for IV antibiotics, PT-OT-ST. 12/12/18 Augusto SHERMAN Feels less short of breath today since Brovanna started. Continue medical plan. 12/13/18 Rosie Quintana MD She continues slow gradual improvement. Notes tremors. Will change albuteral to xopenex. Discharge planning discussed.
[2018-12-13] MEDS ORDERED: Levalbuterol HCl 0.63 MG/3 ML Neb NEB PRN (19:15)
[2018-12-13] MEDS: Temazepam 15 MG Cap PO PRN (20:48)
[2018-12-13] MEDS: Simvastatin 20 MG Tab PO SCH (20:48)
[2018-12-14] MEDS: Arformoterol 15 MCG/2 ML Neb Soln NEB SCH (07:40)
[2018-12-14] MEDS: Albuterol/Ipratropium 3.0-0.5 MG/3 ML Neb Soln NEB SCH ×2 (07:41→13:39)
[2018-12-14] MEDS: Metoprolol Tartrate 25 MG Tab PO SCH (07:41)
[2018-12-14] MEDS: amLODIPine 5 MG Tab PO SCH (07:41)
[2018-12-14] MEDS: Levothyroxine 75 MCG Tab PO SCH (07:41)
[2018-12-14] MEDS: Bumetanide 1 MG Tab PO SCH ×2 (07:41→13:39)
[2018-12-14] MEDS ORDERED: Insulin Glarg,Human.Rec.Analog 100 UNIT/ML ML SUBCUT SCH (08:00)
--- NOTE | 2018-12-14 13:19 | PCM.PN ---
- General Info Date of Service: 12/14/18 - Review of Systems General: Reports: Weakness HEENT: Reports: No Symptoms Pulmonary: Reports: No Symptoms Cardiovascular: Reports: No Symptoms Gastrointestinal: Reports: No Symptoms Genitourinary: Reports: No Symptoms Musculoskeletal: Reports: No Symptoms Skin: Reports: No Symptoms Neurological: Reports: No Symptoms Psychiatric: Reports: No Symptoms - Patient Data Vitals - Most Recent: Last Vital Signs Temp 99.0 F 12/14/18 07:49 Pulse 94 12/14/18 07:49 Resp 20 12/14/18 07:49 BP 127/67 12/14/18 07:49 Pulse Ox 91 L 12/14/18 07:49 Weight - Most Recent: 134 lb 14.4 oz I&O - Last 24 Hours: Intake & Output 12/13/18 12/14/18 12/14/18 22:59 06:59 14:59 Intake Total 500 100 Balance 500 100 Lab Results Last 24 Hours: Laboratory Results - last 24 hr 12/13/18 12/14/18 12/14/18 Range/Units 16:50 06:56 06:56 WBC 9.0 (4.0-10.2) K/uL RBC 4.03 (3.77-5.09) M/uL Hgb 11.7 (11.7-15.5) g/dL Hct 37.9 (34.0-46.0) % MCV 94.0 (84.0-98.0) fL MCH 29.0 (28.2-33.3) pg MCHC 30.9 L (31.7-36.0) g/dL RDW 16.2 H (11.2-14.1) % Plt Count 346 (150-350) K/uL Neut % (Auto) 69.0 (45.0-80.0) % Lymph % (Auto) 14.4 (10.0-50.0) % [place] % (Auto) 13.7 (2.0-14.0) % Eos % (Auto) 2.1 (0.0-5.0) % Baso % (Auto) 0.8 (0.0-2.0) % Neut # (Auto) 6.18 (1.40-7.00) K/uL Lymph # (Auto) 1.29 (0.50-3.50) K/uL [place] # (Auto) 1.23 H (0.00-1.00) K/uL Eos # (Auto) 0.19 (0.00-0.50) K/uL Baso # (Auto) 0.07 (0.00-0.20) K/uL Sodium 145 (136-145) mmol/L Potassium 4.0 (3.5-5.1) mmol/L Chloride 105 (98-107) mmol/L Carbon Dioxide 28.8 (21.0-32.0) mmol/L BUN 24 H (7-18) mg/dL Creatinine 1.38 H (0.51-1.17) mg/dL Est Cr Clr Drug Dosing 25.74 mL/min Estimated GFR (MDRD) 36 mL/min Glucose 88 (74-106) mg/dL POC Glucose 104 (65-110) mg/dl Calcium 9.0 (8.5-10.1) mg/dL Total Bilirubin 0.5 (0.2-1.0) mg/dL AST 15 (15-37) U/L ALT 24 (12-78) U/L Alkaline Phosphatase 80 (46-116) IU/L C-Reactive Protein 6.6 H (<=0.9) mg/dL Total Protein 6.2 L (6.4-8.2) g/dL Albumin 2.6 L (3.4-5.0) g/dL 12/14/18 12/14/18 Range/Units 07:16 11:35 WBC (4.0-10.2) K/uL RBC (3.77-5.09) M/uL Hgb (11.7-15.5) g/dL Hct (34.0-46.0) % MCV (84.0-98.0) fL MCH (28.2-33.3) pg MCHC (31.7-36.0) g/dL RDW (11.2-14.1) % Plt Count (150-350) K/uL Neut % (Auto) (45.0-80.0) % Lymph % (Auto) (10.0-50.0) % [place] % (Auto) (2.0-14.0) % Eos % (Auto) (0.0-5.0) % Baso % (Auto) (0.0-2.0) % Neut # (Auto) (1.40-7.00) K/uL Lymph # (Auto) (0.50-3.50) K/uL [place] # (Auto) (0.00-1.00) K/uL Eos # (Auto) (0.00-0.50) K/uL Baso # (Auto) (0.00-0.20) K/uL Sodium (136-145) mmol/L Potassium (3.5-5.1) mmol/L Chloride (98-107) mmol/L Carbon Dioxide (21.0-32.0) mmol/L BUN (7-18) mg/dL Creatinine (0.51-1.17) mg/dL Est Cr Clr Drug Dosing mL/min Estimated GFR (MDRD) mL/min Glucose (74-106) mg/dL POC Glucose 78 139 H (65-110) mg/dl Calcium (8.5-10.1) mg/dL Total Bilirubin (0.2-1.0) mg/dL AST (15-37) U/L ALT (12-78) U/L Alkaline Phosphatase (46-116) IU/L C-Reactive Protein (<=0.9) mg/dL Total Protein (6.4-8.2) g/dL Albumin (3.4-5.0) g/dL Hsyam Results Last 24 Hours: Microbiology 12/12/18 01:47 Gram Stain - Final Sputum - Expectorated Sputum Culture - Final Normal Melyssa Yeast Isolated 12/12/18 07:15 Mycoplasma Serology - Final Blood Med Orders - Current: Current Medications Acetaminophen (Tylenol) 650 mg PO Q4H PRN PRN Reason: Pain Last Admin: 12/13/18 16:50 Dose: 650 mg Albuterol/Ipratropium (Duoneb 3.0-0.5 Mg/3 Ml) 3 ml NEB QID [facility] Last Admin: 12/14/18 07:41 Dose: 3 ml Amlodipine Besylate (Norvasc) 5 mg PO DAILY [facility] Last Admin: 12/14/18 07:41 Dose: 5 mg Arformoterol Tartrate (Brovana) 15 mcg NEB BIDRT [facility] Last Admin: 12/14/18 07:40 Dose: 15 mcg Bumetanide (Bumex) 1 mg PO BID@0800,1200 [facility] Last Admin: 12/14/18 07:41 Dose: 1 mg Insulin Glargine (Lantus) 14 unit SUBCUT DAILY@0800 [facility] Last Admin: 12/14/18 07:42 Dose: 14 units Insulin Human Lispro (Humalog) 2 unit SUBCUT DAILY@1200 [facility] Last Admin: 12/13/18 11:04 Dose: 2 unit Levalbuterol HCl (Xopenex) 0.63 mg NEB Q2H PRN PRN Reason: Dyspnea Last Admin: 12/14/18 03:16 Dose: 0.63 mg Levothyroxine Sodium (Levothyroxine) 75 mcg PO ACBREAKFAST [facility] Last Admin: 12/14/18 07:41 Dose: 75 mcg Metoprolol Tartrate (Lopressor) 25 mg PO Q12HR [facility] Last Admin: 12/14/18 07:41 Dose: 25 mg Non-Formulary Medication (Naldo/Polymyx B Sulf/Dexameth [Vzovec-Juizc-Sylncof Eye Ointm]) 1 applic EYELF BID [facility] Ondansetron HCl (Zofran Odt) 4 mg PO Q6H PRN PRN Reason: Nausea/Vomiting Simvastatin (Zocor) 20 mg PO BEDTIME [facility] Last Admin: 12/13/18 20:48 Dose: 20 mg Temazepam (Restoril) 15 mg PO BEDTIME PRN PRN Reason: Insomnia Last Admin: 12/13/18 20:48 Dose: 15 mg Discontinued Medications Albuterol (Proventil Neb Soln) 2.5 mg NEB Q2H PRN PRN Reason: Shortness Of Breath/wheezing Last Admin: 12/13/18 13:50 Dose: 2.5 mg Bumetanide (Bumex) 1 mg PO DAILY@1200 [facility] Last Admin: 12/13/18 11:04 Dose: 1 mg Ceftazidime (Fortaz) 1 gm IVPUSH Q12HR [facility] Stop: 12/21/18 08:01 Last Admin: 12/13/18 09:59 Dose: Not Given Metronidazole 500 mg/ Premix 100 mls @ 100 mls/hr IV Q8H [facility] Stop: 12/21/18 10:59 Last Admin: 12/13/18 10:44 Dose: Not Given Insulin Glargine (Lantus) 18 unit SUBCUT DAILY@0800 [facility] Last Admin: 12/13/18 08:04 Dose: 18 unit Ondansetron HCl (Zofran) 4 mg IVPUSH Q4H PRN PRN Reason: Nausea/Vomiting Sodium Chloride (Saline Flush) 10 ml FLUSH ASDIRECTED PRN PRN Reason: Keep Vein Open Last Admin: 12/13/18 08:05 Dose: 10 ml - Exam General: Alert, Oriented HEENT: Pupils Equal, Pupils Reactive, EOMI, Mucous Membr. Moist/[place] Neck: Supple Lungs: Decreased Breath Sounds Cardiovascular: Regular Rate, Regular Rhythm GI/Abdominal Exam: Normal Bowel Sounds, Soft, Non-Tender, No Organomegaly, No Distention, No Abnormal Bruit, No Mass, Pelvis Stable Back Exam: Normal Inspection, Full Range of Motion Extremities: Normal Inspection, Normal Range of Motion, Non-Tender, No Pedal Edema, Normal Capillary Refill Skin: Warm Neurological: No New Focal Deficit Psy/Mental Status: Alert, Normal Affect, Normal Mood Physical Findings Comments:: Patient seen stable we will transfer to swing bed Dr. potter's service thank you - Problem List & Annotations (1) Acute exacerbation of chronic obstructive pulmonary disease (COPD) SNOMED Code(s): 573941588 Code(s): J44.1 - CHRONIC OBSTRUCTIVE PULMONARY DISEASE W (ACUTE) EXACERBATION Status: Acute Priority: High Current Visit: No Annotation/ Comment:: - Problem List Review Problem List Initiated/Reviewed/Updated: Yes - Plan Plan:: 12/11/18 Rosei Quintana MD With significant shortness of breath, dyspnea on exertion. Medically qualifying for inpatient status for IV antibiotics, PT-OT-ST. 12/12/18 Augusto SHERMAN Feels less short of breath today since Brovanna started. Continue medical plan. 12/13/18 Rosie Quintana MD She continues slow gradual improvement. Notes tremors. Will change albuteral to xopenex. Discharge planning discussed.
[2018-12-14] MEDS: Insulin Lispro 100 Units/ML 3 ML Vial SUBCUT SCH (13:40)
--- NOTE | 2018-12-14 23:43 | PCM.DCSUM1 ---
Discharge Summary - Hospital Course Diagnosis: Stroke: No - Discharge Data Discharge Date: 12/14/18 Discharge Disposition: DC/Tfer W/I Hosp To Swing 61 Condition: Fair - Referral to Home Health Primary Care Physician: Kylah Arce MD - Discharge Diagnosis/Problem(s) (1) Acute exacerbation of chronic obstructive pulmonary disease (COPD) SNOMED Code(s): 656744982 ICD Code: J44.1 - CHRONIC OBSTRUCTIVE PULMONARY DISEASE W (ACUTE) EXACERBATION Status: Acute Priority: High Problem Details: (2) Comfort measures only status SNOMED Code(s): 02463525201315 ICD Code: Z51.5 - ENCOUNTER FOR PALLIATIVE CARE Status: Acute Priority: High Problem Details: No code/no transfer status confirmed with the patient today. 11/26/18 She confirms she is DNR/DNI/Comfort Measures and she says absolutely NO when asked if she wants to be transferred to [place]. I told her family members want her transferred to [facility] and she says absolutely NO. (3) Hyperuricemia SNOMED Code(s): 48135468 ICD Code: E79.0 - HYPERURICEMIA W/O SIGNS OF INFLAM ARTHRIT AND TOPHACEOUS DIS Status: Acute Priority: Medium Onset Date: 11/06/18 (4) Incomplete right bundle branch block SNOMED Code(s): 522077451 ICD Code: I45.10 - UNSPECIFIED RIGHT BUNDLE-BRANCH BLOCK Status: Acute Priority: Medium Onset Date: 11/06/18 Problem Details: Observe for now as above. (5) PVCs (premature ventricular contractions) SNOMED Code(s): 74171933 ICD Code: I49.3 - VENTRICULAR PREMATURE DEPOLARIZATION Status: Acute Priority: Medium Onset Date: 11/06/18 Problem Details: Observe for now as above. 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 Code(s): J43.2 - Centrilobular emphysema (8) Congestive heart failure (CHF) SNOMED Code(s): 25380027 ICD Code: I50.9 - HEART FAILURE, UNSPECIFIED Status: Chronic Priority: Medium Onset Date: ~11/23/18 Problem Details: Qualifiers: (9) Coronary artery disease SNOMED Code(s): 58791857 ICD Code: I25.10 - ATHSCL HEART DISEASE OF [place] CORONARY ARTERY W/O ANG PCTRS Status: Chronic Priority: Medium Qualifiers: (10) Diabetes mellitus SNOMED Code(s): 97475148 ICD Code: E11.9 - TYPE 2 DIABETES MELLITUS WITHOUT COMPLICATIONS Status: Chronic Priority: Medium Problem Details: Stable by history. Glycosylated hemoglobin and lipid profile in the a.m. Qualifiers: (11) Hypertension SNOMED Code(s): 97411784 ICD Code: I10 - ESSENTIAL (PRIMARY) HYPERTENSION Status: Chronic Priority : Medium Qualifiers: (12) Hypoalbuminemia SNOMED Code(s): 121521067 ICD Code: E88.09 - OTH DISORDERS OF PLASMA-PROTEIN METABOLISM, NEC Status: Chronic Priority: Medium Onset Date: 11/06/18 (13) Hypothyroidism SNOMED Code(s): 74310282 ICD Code: E03.9 - HYPOTHYROIDISM, UNSPECIFIED Status: Chronic Priority: Medium Problem Details: TSH somewhat elevated on 11/06/18 with her Synthroid supplementation increased at that time. TSH still elevated today. Consider further medication adjustments by admitting physician. Qualifiers: (14) IDDM (insulin dependent diabetes mellitus) SNOMED Code(s): 90081106 ICD Code: E11.9 - TYPE 2 DIABETES MELLITUS WITHOUT COMPLICATIONS; Z79.4 - NURSING HOME (CURRENT) USE OF INSULIN Status: Chronic Priority: Medium (15) Mixed anxiety depressive disorder SNOMED Code(s): 415465505 ICD Code: F41.8 - OTHER SPECIFIED ANXIETY DISORDERS Status: Chronic Priority: Medium Problem Details: Stable by history. Continue to observe closely by regular provider. (16) Osteoarthritis SNOMED Code(s): 162484368 ICD Code: M19.90 - UNSPECIFIED OSTEOARTHRITIS, UNSPECIFIED SITE Status: Chronic Priority: Medium Problem Details: Stable by history with history of hyperuricemia as above. (17) Palliative care patient SNOMED Code(s): 214614971 ICD Code: Z51.5 - ENCOUNTER FOR PALLIATIVE CARE Status: Chronic Priority : Medium Problem Details: As above - Patient Summary/Data Consults: Consultations 12/11/18 16:36 Consult to Case Management/Net Software Developer [CONS] Routine OT Evaluation and Treatment [CONS] Routine PT Evaluation and Treatment [CONS] Routine NURSING ATTENDANT Evaluation and Treatment [CONS] Routine - Patient Instructions Diet: Diabetic Diet Activity: As Tolerated Driving: Do Not Drive Showering/Bathing: May Shower - Discharge Plan *PRESCRIPTION DRUG MONITORING PROGRAM REVIEWED*: Not Applicable *COPY OF PRESCRIPTION DRUG MONITORING REPORT IN PATIENT PATRICIO: Not Applicable Home Medications: Home Meds Albuterol/Ipratropium [DuoNeb 3.0-0.5 MG/3 ML] 1 applic INH QID 05/03/17 [ History] Metoprolol Tartrate 25 mg PO BID 05/03/17 [History] Simvastatin 20 mg PO BEDTIME 05/03/17 [History] Bumetanide [Bumex] 1 mg PO DAILY 11/06/18 [History] Levothyroxine Sodium [Synthroid] 75 mcg PO ACBREAKFAST #30 tab 11/06/18 [Rx] amLODIPine [Norvasc] 5 mg PO DAILY 11/25/18 [History] Albuterol/Ipratropium [DuoNeb 3.0-0.5 MG/3 ML] 3 ml INH Q4H PRN 11/26/18 [ History] Naldo/Polymyx B Sulf/Dexameth [Vnufxm-Fnzlk-Aagepav Eye Ointm] 1 applic EYELF BID 11/26/18 [History] Acetaminophen [Tylenol] 650 mg PO Q4H PRN tablet 12/02/18 [Rx] Albuterol [Proventil Neb Soln] 2.5 mg INH Q2H PRN neb 12/02/18 [Rx] Temazepam [Restoril] 15 mg PO BEDTIME PRN cap 12/02/18 [Rx] Insulin Aspart [NovoLOG] 2 unit SQ DAILY@1200 #1 pen 12/09/18 [Rx] Insulin Detemir [Levemir] 18 unit SUBCUT DAILY@0800 #1 box 12/09/18 [Rx] Oxygen Therapy Mode: Nasal Cannula Oxygen Flow Rate (L/min): 2 - Discharge Summary/Plan Comment DC Time >30 min.: No Discharge Summary/Plan Comment: 12/14/18 Rosie Quintana MD Recent hospitalization for acute exacerbation of COPD. She has improved and now requires admission into swing bed for PT-OT to improve weakness from her acute illness. - Patient Data Vitals - Most Recent: Last Vital Signs Temp 98.2 F 12/14/18 12:00 Pulse 91 12/14/18 12:00 Resp 20 12/14/18 12:00 BP 119/79 12/14/18 12:00 Pulse Ox 91 L 12/14/18 12:00 Weight - Most Recent: 134 lb 14.4 oz I&O - Last 24 hours: Intake & Output 12/14/18 12/14/18 12/15/18 14:59 22:59 05:59 Intake Total 300 Balance 300 Lab Results - Last 24 hrs: Laboratory Results - last 24 hr 12/14/18 12/14/18 12/14/18 Range/Units 06:56 06:56 07:16 WBC 9.0 (4.0-10.2) K/uL RBC 4.03 (3.77-5.09) M/uL Hgb 11.7 (11.7-15.5) g/dL Hct 37.9 (34.0-46.0) % MCV 94.0 (84.0-98.0) fL MCH 29.0 (28.2-33.3) pg MCHC 30.9 L (31.7-36.0) g/dL RDW 16.2 H (11.2-14.1) % Plt Count 346 (150-350) K/uL Neut % (Auto) 69.0 (45.0-80.0) % Lymph % (Auto) 14.4 (10.0-50.0) % [place] % (Auto) 13.7 (2.0-14.0) % Eos % (Auto) 2.1 (0.0-5.0) % Baso % (Auto) 0.8 (0.0-2.0) % Neut # (Auto) 6.18 (1.40-7.00) K/uL Lymph # (Auto) 1.29 (0.50-3.50) K/uL [place] # (Auto) 1.23 H (0.00-1.00) K/uL Eos # (Auto) 0.19 (0.00-0.50) K/uL Baso # (Auto) 0.07 (0.00-0.20) K/uL Sodium 145 (136-145) mmol/L Potassium 4.0 (3.5-5.1) mmol/L Chloride 105 (98-107) mmol/L Carbon Dioxide 28.8 (21.0-32.0) mmol/L BUN 24 H (7-18) mg/dL Creatinine 1.38 H (0.51-1.17) mg/dL Est Cr Clr Drug Dosing 25.74 mL/min Estimated GFR (MDRD) 36 mL/min Glucose 88 (74-106) mg/dL POC Glucose 78 (65-110) mg/dl Calcium 9.0 (8.5-10.1) mg/dL Total Bilirubin 0.5 (0.2-1.0) mg/dL AST 15 (15-37) U/L ALT 24 (12-78) U/L Alkaline Phosphatase 80 (46-116) IU/L C-Reactive Protein 6.6 H (<=0.9) mg/dL Total Protein 6.2 L (6.4-8.2) g/dL Albumin 2.6 L (3.4-5.0) g/dL 12/14/18 Range/Units 11:35 WBC (4.0-10.2) K/uL RBC (3.77-5.09) M/uL Hgb (11.7-15.5) g/dL Hct (34.0-46.0) % MCV (84.0-98.0) fL MCH (28.2-33.3) pg MCHC (31.7-36.0) g/dL RDW (11.2-14.1) % Plt Count (150-350) K/uL Neut % (Auto) (45.0-80.0) % Lymph % (Auto) (10.0-50.0) % [place] % (Auto) (2.0-14.0) % Eos % (Auto) (0.0-5.0) % Baso % (Auto) (0.0-2.0) % Neut # (Auto) (1.40-7.00) K/uL Lymph # (Auto) (0.50-3.50) K/uL [place] # (Auto) (0.00-1.00) K/uL Eos # (Auto) (0.00-0.50) K/uL Baso # (Auto) (0.00-0.20) K/uL Sodium (136-145) mmol/L Potassium (3.5-5.1) mmol/L Chloride (98-107) mmol/L Carbon Dioxide (21.0-32.0) mmol/L BUN (7-18) mg/dL Creatinine (0.51-1.17) mg/dL Est Cr Clr Drug Dosing mL/min Estimated GFR (MDRD) mL/min Glucose (74-106) mg/dL POC Glucose 139 H (65-110) mg/dl Calcium (8.5-10.1) mg/dL Total Bilirubin (0.2-1.0) mg/dL AST (15-37) U/L ALT (12-78) U/L Alkaline Phosphatase (46-116) IU/L C-Reactive Protein (<=0.9) mg/dL Total Protein (6.4-8.2) g/dL Albumin (3.4-5.0) g/dL MIN Results - Last 24 hrs: Microbiology 12/12/18 01:47 Gram Stain - Final Sputum - Expectorated Sputum Culture - Final Normal Melyssa Yeast Isolated Med Orders - Current: Current Medications Discontinued Medications Acetaminophen (Tylenol) 650 mg PO Q4H PRN PRN Reason: Pain Last Admin: 12/13/18 16:50 Dose: 650 mg Albuterol (Proventil Neb Soln) 2.5 mg NEB Q2H PRN PRN Reason: Shortness Of Breath/wheezing Last Admin: 12/13/18 13:50 Dose: 2.5 mg Albuterol/Ipratropium (Duoneb 3.0-0.5 Mg/3 Ml) [address] [facility] Last Admin: 12/14/18 13:39 Dose: 3 ml Amlodipine Besylate (Norvasc) [address] [facility] Last Admin: 12/14/18 07:41 Dose: 5 mg Arformoterol Tartrate (Brovana) [address] [facility] Last Admin: 12/14/18 07:40 Dose: 15 mcg Bumetanide (Bumex) 1 mg PO DAILY@1200 [facility] Last Admin: 12/13/18 11:04 Dose: 1 mg Bumetanide (Bumex) 1 mg PO BID@0800,1200 [facility] Last Admin: 12/14/18 13:39 Dose: 1 mg Ceftazidime (Fortaz) [address] [facility] Stop: 12/21/18 08:01 Last Admin: 12/13/18 09:59 Dose: Not Given Metronidazole 500 mg/ Premix 100 mls @ 100 mls/hr IV Q8H [facility] Stop: 12/21/18 10:59 Last Admin: 12/13/18 10:44 Dose: Not Given Insulin Glargine (Lantus) 18 unit SUBCUT DAILY@0800 [facility] Last Admin: 12/13/18 08:04 Dose: 18 unit Insulin Glargine (Lantus) 14 unit SUBCUT DAILY@0800 [facility] Last Admin: 12/14/18 07:42 Dose: 14 units Insulin Human Lispro (Humalog) 2 unit SUBCUT DAILY@1200 [facility] Last Admin: 12/14/18 13:40 Dose: Not Given Levalbuterol HCl (Xopenex) 0.63 mg NEB Q2H PRN PRN Reason: Dyspnea Last Admin: 12/14/18 03:16 Dose: 0.63 mg Levothyroxine Sodium (Levothyroxine) [address] [facility] Last Admin: 12/14/18 07:41 Dose: 75 mcg Metoprolol Tartrate (Lopressor) [address] [facility] Last Admin: 12/14/18 07:41 Dose: 25 mg Non-Formulary Medication (Naldo/Polymyx B Sulf/Dexameth [Klcnxs-Nzoxx-Fuogsqc Eye Ointm]) [address] [facility] Last Admin: 12/14/18 17:50 Dose: Not Given Ondansetron HCl (Zofran Odt) 4 mg PO Q6H PRN PRN Reason: Nausea/Vomiting Ondansetron HCl (Zofran) 4 mg IVPUSH Q4H PRN PRN Reason: Nausea/Vomiting Simvastatin (Zocor) [address] [facility] Last Admin: 12/13/18 20:48 Dose: 20 mg Sodium Chloride (Saline Flush) 10 ml FLUSH ASDIRECTED PRN PRN Reason: Keep Vein Open Last Admin: 12/13/18 08:05 Dose: 10 ml Temazepam (Restoril) 15 mg PO BEDTIME PRN PRN Reason: Insomnia Last Admin: 12/13/18 20:48 Dose: 15 mg *Q Meaningful Use (DIS) - VTE *Q VTE Mechanical Contraindications *Q: At Risk for Falls
== END 2018-12-14 14:21 | disposition swing bed (61) | DRG 191 ==
LOC: LL.MS 16:03
PROVIDERS: ADMIT Family Medicine; ATTEND Family Medicine
DX: J43.2 Centrilobular emphysema (principal); I13.0 Hypertensive heart and chronic kidney disease with heart failure and stage 1 through stage 4 chronic kidney disease, or unspecified chronic kidney disease; Z51.5 Encounter for palliative care; Z66 Do not resuscitate; E79.0 Hyperuricemia without signs of inflammatory arthritis and tophaceous disease; I45.10 Unspecified right bundle-branch block; I49.3 Ventricular premature depolarization; N18.9 Chronic kidney disease, unspecified; I50.9 Heart failure, unspecified; I25.10 Atherosclerotic heart disease of native coronary artery without angina pectoris; E11.9 Type 2 diabetes mellitus without complications; E03.9 Hypothyroidism, unspecified; E88.09 Other disorders of plasma-protein metabolism, not elsewhere classified; E11.22 Type 2 diabetes mellitus with diabetic chronic kidney disease; F41.8 Other specified anxiety disorders; M19.90 Unspecified osteoarthritis, unspecified site; E78.00 Pure hypercholesterolemia, unspecified; E11.51 Type 2 diabetes mellitus with diabetic peripheral angiopathy without gangrene; E78.5 Hyperlipidemia, unspecified; E11.42 Type 2 diabetes mellitus with diabetic polyneuropathy; M81.0 Age-related osteoporosis without current pathological fracture; G89.29 Other chronic pain; M54.2 Cervicalgia; Z88.2 Allergy status to sulfonamides; Z88.5 Allergy status to narcotic agent; Z88.8 Allergy status to other drugs, medicaments and biological substances; Z79.890 Hormone replacement therapy; Z79.4 Long term (current) use of insulin; Z79.899 Other long term (current) drug therapy; Z90.49 Acquired absence of other specified parts of digestive tract; Z87.01 Personal history of pneumonia (recurrent)
CPT/HCPCS: 36415; 71045; 74230; 80053; 82962; 83605; 83880; 84484; 85025; 85610; 85652; 86140; 86738; 87070; 87205; 92526-GN; 92611-GN; 93005; 94640; 97161-GP; 97530-GP; A9270-GY; J0713; J1815; J1815-GY; J3490; J7613-GY; J7620-GY

== ENCOUNTER 2018-12-14 11:10 | Inpatient (IN) | payer MEDICARE, OTHER ==
[~2018-12-14 11:10] MED LIST: Acetaminophen 325 MG Tab PO PRN
[2018-12-14] MEDS ORDERED: Insulin Lispro 100 Units/ML 3 ML Vial SUBCUT SCH (12:00)
[2018-12-14] MEDS ORDERED: Ondansetron 4 MG Tab.DIS PO PRN (15:15)
[2018-12-14] MEDS: Bumetanide 1 MG Tab PO SCH ×2 (16:04→16:05)
[2018-12-14] MEDS: Albuterol/Ipratropium 3.0-0.5 MG/3 ML Neb Soln NEB SCH ×3 (16:04→19:42)
[2018-12-14] MEDS: Arformoterol 15 MCG/2 ML Neb Soln NEB SCH ×2 (17:13→19:42)
[2018-12-14] MEDS: Temazepam 15 MG Cap PO PRN (19:42)
[2018-12-14] MEDS: Acetaminophen 325 MG Tab PO PRN (19:42)
[2018-12-14] MEDS: Simvastatin 20 MG Tab PO SCH (19:44)
[2018-12-14] MEDS: Metoprolol Tartrate 25 MG Tab PO SCH (19:56)
[2018-12-15] MEDS: Levalbuterol HCl 0.63 MG/3 ML Neb NEB PRN ×3 (01:42→17:37)
[2018-12-15] MEDS: Arformoterol 15 MCG/2 ML Neb Soln NEB SCH ×2 (07:23→20:15)
[2018-12-15] MEDS: Levothyroxine 75 MCG Tab PO SCH (07:25)
[2018-12-15] MEDS: Albuterol/Ipratropium 3.0-0.5 MG/3 ML Neb Soln NEB SCH ×4 (07:25→20:15)
[2018-12-15] MEDS: Bumetanide 1 MG Tab PO SCH ×2 (07:25→11:48)
[2018-12-15] MEDS: Insulin Glarg,Human.Rec.Analog 100 UNIT/ML ML SUBCUT SCH (07:25)
[2018-12-15] MEDS: amLODIPine 5 MG Tab PO SCH (07:32)
[2018-12-15] MEDS: Metoprolol Tartrate 25 MG Tab PO SCH ×2 (07:32→20:12)
[2018-12-15] MEDS: Acetaminophen 325 MG Tab PO PRN (20:12)
[2018-12-15] MEDS: Temazepam 15 MG Cap PO PRN (20:14)
[2018-12-15] MEDS: Simvastatin 20 MG Tab PO SCH (20:14)
[2018-12-16] MEDS: Levalbuterol HCl 0.63 MG/3 ML Neb NEB PRN ×2 (03:59→10:08)
[2018-12-16] MEDS: Bumetanide 1 MG Tab PO SCH ×2 (07:15→11:58)
[2018-12-16] MEDS: amLODIPine 5 MG Tab PO SCH (07:15)
[2018-12-16] MEDS: Levothyroxine 75 MCG Tab PO SCH (07:16)
[2018-12-16] MEDS: Metoprolol Tartrate 25 MG Tab PO SCH ×2 (07:16→19:44)
[2018-12-16] MEDS: Albuterol/Ipratropium 3.0-0.5 MG/3 ML Neb Soln NEB SCH ×4 (07:17→19:42)
[2018-12-16] MEDS: Insulin Glarg,Human.Rec.Analog 100 UNIT/ML ML SUBCUT SCH (07:18)
[2018-12-16] MEDS: Arformoterol 15 MCG/2 ML Neb Soln NEB SCH ×2 (07:18→19:42)
[2018-12-16] MEDS: Acetaminophen 325 MG Tab PO PRN (19:42)
[2018-12-16] MEDS: Temazepam 15 MG Cap PO PRN (19:43)
[2018-12-16] MEDS: Simvastatin 20 MG Tab PO SCH (19:44)
[2018-12-17] MEDS: Levalbuterol HCl 0.63 MG/3 ML Neb NEB PRN ×3 (00:44→10:05)
[2018-12-17] MEDS: Albuterol/Ipratropium 3.0-0.5 MG/3 ML Neb Soln NEB SCH ×4 (07:26→19:04)
[2018-12-17] MEDS: Levothyroxine 75 MCG Tab PO SCH (07:31)
[2018-12-17] MEDS: Arformoterol 15 MCG/2 ML Neb Soln NEB SCH ×2 (07:31→19:00)
[2018-12-17] MEDS: Bumetanide 1 MG Tab PO SCH ×2 (07:32→11:32)
[2018-12-17] MEDS: Insulin Glarg,Human.Rec.Analog 100 UNIT/ML ML SUBCUT SCH (07:32)
[2018-12-17] MEDS: Metoprolol Tartrate 25 MG Tab PO SCH ×2 (07:33→19:03)
[2018-12-17] MEDS: amLODIPine 5 MG Tab PO SCH (07:34)
[2018-12-17] MEDS: Insulin Lispro 100 Units/ML 3 ML Vial SUBCUT SCH (11:32)
[2018-12-17] MEDS: Simvastatin 20 MG Tab PO SCH (19:03)
[2018-12-17] MEDS: Acetaminophen 325 MG Tab PO PRN (20:23)
[2018-12-17] MEDS: Temazepam 15 MG Cap PO PRN (20:23)
[2018-12-18] MEDS: Levalbuterol HCl 0.63 MG/3 ML Neb NEB PRN ×5 (01:06→23:56)
[2018-12-18] MEDS: Albuterol/Ipratropium 3.0-0.5 MG/3 ML Neb Soln NEB SCH ×4 (07:13→19:32)
[2018-12-18] MEDS: Levothyroxine 75 MCG Tab PO SCH (07:14)
[2018-12-18] MEDS: amLODIPine 5 MG Tab PO SCH (07:14)
[2018-12-18] MEDS: Arformoterol 15 MCG/2 ML Neb Soln NEB SCH ×2 (07:14→19:32)
[2018-12-18] MEDS: Metoprolol Tartrate 25 MG Tab PO SCH ×2 (07:14→19:31)
[2018-12-18] MEDS: Bumetanide 1 MG Tab PO SCH ×2 (07:14→11:26)
[2018-12-18] MEDS: Insulin Glarg,Human.Rec.Analog 100 UNIT/ML ML SUBCUT SCH (07:15)
[2018-12-18] MEDS: Insulin Lispro 100 Units/ML 3 ML Vial SUBCUT SCH (11:27)
[2018-12-18] MEDS: Simvastatin 20 MG Tab PO SCH (19:31)
[2018-12-18] MEDS: Temazepam 15 MG Cap PO PRN (19:32)
[2018-12-18] MEDS: Acetaminophen 325 MG Tab PO PRN (19:32)
[2018-12-19] MEDS: Levalbuterol HCl 0.63 MG/3 ML Neb NEB PRN ×2 (03:33→06:25)
[2018-12-19] MEDS: Metoprolol Tartrate 25 MG Tab PO SCH ×2 (07:29→19:48)
[2018-12-19] MEDS: Levothyroxine 75 MCG Tab PO SCH (07:29)
[2018-12-19] MEDS: amLODIPine 5 MG Tab PO SCH (07:29)
[2018-12-19] MEDS: Bumetanide 1 MG Tab PO SCH ×2 (07:29→11:25)
[2018-12-19] MEDS: Albuterol/Ipratropium 3.0-0.5 MG/3 ML Neb Soln NEB SCH ×4 (07:33→19:07)
[2018-12-19] MEDS: Arformoterol 15 MCG/2 ML Neb Soln NEB SCH ×2 (07:33→19:48)
[2018-12-19] MEDS: Insulin Glarg,Human.Rec.Analog 100 UNIT/ML ML SUBCUT SCH (07:34)
[2018-12-19] MEDS: Insulin Lispro 100 Units/ML 3 ML Vial SUBCUT SCH (11:26)
[2018-12-19] MEDS: Temazepam 15 MG Cap PO PRN (19:50)
[2018-12-19] MEDS: Acetaminophen 325 MG Tab PO PRN (19:50)
[2018-12-19] MEDS ORDERED: methylPREDNISolone Acetate 40 MG/ML SDV IM ONE (20:50)
[2018-12-19] MEDS ORDERED: Triamcinolone Acetonide 40 MG/ML 1 ML MDV INJECT ONE (20:50)
--- NOTE | 2018-12-19 21:29 | PCM.PN ---
- General Info Date of Service: 12/19/18 Functional Status: Reports: Pain Controlled, Tolerating Diet, Ambulating - Review of Systems General: Reports: Weakness (improved) HEENT: Reports: No Symptoms Pulmonary: Reports: Shortness of Breath, Cough Cardiovascular: Reports: No Symptoms Gastrointestinal: Reports: No Symptoms Genitourinary: Reports: No Symptoms Musculoskeletal: Reports: No Symptoms Skin: Reports: No Symptoms Neurological: Reports: No Symptoms Psychiatric: Reports: No Symptoms - Patient Data Vitals - Most Recent: Last Vital Signs Temp 97.8 F 12/19/18 07:49 Pulse 85 12/19/18 19:48 Resp 20 12/19/18 07:49 BP 132/76 12/19/18 19:48 Pulse Ox 92 L 12/19/18 07:49 Weight - Most Recent: 134 lb I&O - Last 24 Hours: Intake & Output 12/19/18 12/19/18 12/19/18 06:59 14:59 22:59 Intake Total 50 120 240 Balance 50 120 240 Lab Results Last 24 Hours: Laboratory Results - last 24 hr 12/19/18 12/19/18 12/19/18 Range/Units 07:02 07:02 07:19 WBC 6.2 (4.0-10.2) K/uL RBC 4.29 (3.77-5.09) M/uL Hgb 12.2 (11.7-15.5) g/dL Hct 40.3 (34.0-46.0) % MCV 93.9 (84.0-98.0) fL MCH 28.4 (28.2-33.3) pg MCHC 30.3 L (31.7-36.0) g/dL RDW 15.5 H (11.2-14.1) % Plt Count 382 H (150-350) K/uL Neut % (Auto) 62.6 (45.0-80.0) % Lymph % (Auto) 21.0 (10.0-50.0) % [place] % (Auto) 11.8 (2.0-14.0) % Eos % (Auto) 4.0 (0.0-5.0) % Baso % (Auto) 0.6 (0.0-2.0) % Neut # (Auto) 3.86 (1.40-7.00) K/uL Lymph # (Auto) 1.30 (0.50-3.50) K/uL [place] # (Auto) 0.73 (0.00-1.00) K/uL Eos # (Auto) 0.25 (0.00-0.50) K/uL Baso # (Auto) 0.04 (0.00-0.20) K/uL Sodium 144 (136-145) mmol/L Potassium 3.9 (3.5-5.1) mmol/L Chloride 102 (98-107) mmol/L Carbon Dioxide 33.6 H (21.0-32.0) mmol/L BUN 27 H (7-18) mg/dL Creatinine 1.40 H (0.51-1.17) mg/dL Est Cr Clr Drug Dosing 24.30 mL/min Estimated GFR (MDRD) 36 mL/min Glucose 172 H (74-106) mg/dL POC Glucose 163 H (65-110) mg/dl Calcium 9.1 (8.5-10.1) mg/dL Total Bilirubin 0.4 (0.2-1.0) mg/dL AST 19 (15-37) U/L ALT 24 (12-78) U/L Alkaline Phosphatase 94 (46-116) IU/L C-Reactive Protein 1.9 H (<=0.9) mg/dL NT-Pro-B Natriuret Pep 310 H (0-125) pg/mL Total Protein 6.5 (6.4-8.2) g/dL Albumin 2.8 L (3.4-5.0) g/dL 12/19/18 12/19/18 Range/Units 11:25 16:54 WBC (4.0-10.2) K/uL RBC (3.77-5.09) M/uL Hgb (11.7-15.5) g/dL Hct (34.0-46.0) % MCV (84.0-98.0) fL MCH (28.2-33.3) pg MCHC (31.7-36.0) g/dL RDW (11.2-14.1) % Plt Count (150-350) K/uL Neut % (Auto) (45.0-80.0) % Lymph % (Auto) (10.0-50.0) % [place] % (Auto) (2.0-14.0) % Eos % (Auto) (0.0-5.0) % Baso % (Auto) (0.0-2.0) % Neut # (Auto) (1.40-7.00) K/uL Lymph # (Auto) (0.50-3.50) K/uL [place] # (Auto) (0.00-1.00) K/uL Eos # (Auto) (0.00-0.50) K/uL Baso # (Auto) (0.00-0.20) K/uL Sodium (136-145) mmol/L Potassium (3.5-5.1) mmol/L Chloride (98-107) mmol/L Carbon Dioxide (21.0-32.0) mmol/L BUN (7-18) mg/dL Creatinine (0.51-1.17) mg/dL Est Cr Clr Drug Dosing mL/min Estimated GFR (MDRD) mL/min Glucose (74-106) mg/dL POC Glucose 253 H* 170 H (65-110) mg/dl Calcium (8.5-10.1) mg/dL Total Bilirubin (0.2-1.0) mg/dL AST (15-37) U/L ALT (12-78) U/L Alkaline Phosphatase (46-116) IU/L C-Reactive Protein (<=0.9) mg/dL NT-Pro-B Natriuret Pep (0-125) pg/mL Total Protein (6.4-8.2) g/dL Albumin (3.4-5.0) g/dL Med Orders - Current: Current Medications Acetaminophen (Tylenol) 650 mg PO Q4H PRN PRN Reason: Pain Last Admin: 12/19/18 19:50 Dose: 650 mg Albuterol/Ipratropium (Duoneb 3.0-0.5 Mg/3 Ml) 3 ml NEB QID [facility] Last Admin: 12/19/18 19:07 Dose: 3 ml Amlodipine Besylate (Norvasc) 5 mg PO DAILY [facility] Last Admin: 12/19/18 07:29 Dose: 5 mg Arformoterol Tartrate (Brovana) 15 mcg NEB BIDRT [facility] Last Admin: 12/19/18 19:48 Dose: 15 mcg Bumetanide (Bumex) 1 mg PO BID@0800,1200 [facility] Last Admin: 12/19/18 11:25 Dose: 1 mg Insulin Glargine (Lantus) 14 unit SUBCUT DAILY@0800 [facility] Last Admin: 12/19/18 07:34 Dose: 14 units Insulin Human Lispro (Humalog) 2 unit SUBCUT DAILY@1200 [facility] Last Admin: 12/19/18 11:26 Dose: 2 units Levalbuterol HCl (Xopenex) 0.63 mg NEB Q2H PRN PRN Reason: Dyspnea Last Admin: 12/19/18 06:25 Dose: 0.63 mg Levothyroxine Sodium (Levothyroxine) 75 mcg PO ACBREAKFAST [facility] Last Admin: 12/19/18 07:29 Dose: 75 mcg Metoprolol Tartrate (Lopressor) 25 mg PO Q12HR [facility] Last Admin: 12/19/18 19:48 Dose: 25 mg (Naldo/Polymyx B Sulf/Dexameth [Neomyc- Polym-Dexamet Eye Oin 1 applic EYELF BID [facility] Last Admin: 12/19/18 19:48 Dose: 1 applic Ondansetron HCl (Zofran Odt) 4 mg PO Q6H PRN PRN Reason: Nausea/Vomiting Temazepam (Restoril) 15 mg PO BEDTIME PRN PRN Reason: Insomnia Last Admin: 12/19/18 19:50 Dose: 15 mg Discontinued Medications Acetaminophen (Tylenol) 650 mg PO Q4H PRN PRN Reason: Pain Albuterol/Ipratropium (Duoneb 3.0-0.5 Mg/3 Ml) 3 ml NEB QID [facility] Last Admin: 12/14/18 17:14 Dose: Not Given Arformoterol Tartrate (Brovana) 15 mcg NEB BIDRT [facility] Last Admin: 12/14/18 17:13 Dose: Not Given Insulin Human Lispro (Humalog) 2 unit SUBCUT DAILY@1200 [facility] Methylprednisolone Acetate (Depo-Medrol) 40 mg IM ONETIME ONE Stop: 12/19/18 20:51 Simvastatin (Zocor) 20 mg PO BEDTIME [facility] Last Admin: 12/18/18 19:31 Dose: 20 mg Triamcinolone Acetonide (Kenalog-40) 40 mg INJECT ONETIME ONE Stop: 12/19/18 20:51 - Exam Quality Assessment: Supplemental Oxygen (prn) General: Alert, Cooperative, No Acute Distress HEENT: Mucous Membr. Moist/[place] Neck: Trachea Midline, No JVD Lungs: Normal Respiratory Effort, Decreased Breath Sounds Cardiovascular: Regular Rate, Regular Rhythm GI/Abdominal Exam: Soft, Non-Tender, No Distention (Female) Exam: Deferred Back Exam: Other (kyphosis) Extremities: Non-Tender, Pedal Edema (R>L) Skin: Warm, Dry, Intact, Ecchymosis Neurological: No New Focal Deficit Psy/Mental Status: Alert, Normal Affect, Normal Mood - Problem List & Annotations (1) Acute exacerbation of chronic obstructive pulmonary disease (COPD) SNOMED Code(s): 620318015 Code(s): J44.1 - CHRONIC OBSTRUCTIVE PULMONARY DISEASE W (ACUTE) EXACERBATION Status: Acute Priority: High Current Visit: No Annotation/ Comment:: (2) Comfort measures only status SNOMED Code(s): 79600243101223 Code(s): Z51.5 - ENCOUNTER FOR PALLIATIVE CARE Status: Acute Priority: High Current Visit: No (3) Hyperuricemia SNOMED Code(s): 70152413 Code(s): E79.0 - HYPERURICEMIA W/O SIGNS OF INFLAM ARTHRIT AND TOPHACEOUS DIS Status: Acute Priority: Medium Current Visit: No Onset Date: (4) CKD (chronic kidney disease) SNOMED Code(s): 301684597 Code(s): N18.9 - CHRONIC KIDNEY DISEASE, UNSPECIFIED Status: Chronic Priority: Low Current Visit: No Qualifiers: (5) Congestive heart failure (CHF) SNOMED Code(s): 99811246 Code(s): I50.9 - HEART FAILURE, UNSPECIFIED Status: Chronic Priority: Medium Current Visit: No Onset Date: ~11/23/18 Qualifiers: Annotation/Comment:: (6) Coronary artery disease SNOMED Code(s): 20148626 Code(s): I25.10 - ATHSCL HEART DISEASE OF [place] CORONARY ARTERY W/O ANG PCTRS Status: Chronic Priority: Medium Current Visit: No Qualifiers: (7) Hypertension SNOMED Code(s): 60887515 Code(s): I10 - ESSENTIAL (PRIMARY) HYPERTENSION Status: Chronic Priority : Medium Current Visit: No Qualifiers: (8) Hypoalbuminemia SNOMED Code(s): 276094311 Code(s): E88.09 - OTH DISORDERS OF PLASMA-PROTEIN METABOLISM, NEC Status: Chronic Priority: Medium Current Visit: No Onset Date: 11/06/18 (9) Hypothyroidism SNOMED Code(s): 30672358 Code(s): E03.9 - HYPOTHYROIDISM, UNSPECIFIED Status: Chronic Priority: Medium Current Visit: No Qualifiers: Annotation/Comment:: TSH somewhat elevated on 11/06/18 with her Synthroid supplementation increased at that time. TSH still elevated today. Consider further medication adjustments by admitting physician. 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 Continue to observe closely by regular provider. (12) Osteoarthritis SNOMED Code(s): 564714289 Code(s): M19.90 - UNSPECIFIED OSTEOARTHRITIS, UNSPECIFIED SITE Status: Chronic Priority: Medium Current Visit: No Annotation/Comment:: Stable by history with history of hyperuricemia as above. (13) Palliative care patient SNOMED Code(s): 471901044 Code(s): Z51.5 - ENCOUNTER FOR PALLIATIVE CARE Status: Chronic Priority: Medium Current Visit: No Annotation/Comment:: As above - Problem List Review Problem List Initiated/Reviewed/Updated: Yes - My Orders Last 24 Hours: My Active Orders 12/19/18 21:20 Ready for Discharge [RC] PER UNIT ROUTINE - Plan Plan:: 12/19/18 Rosei Quintana MD She has improved and is ready for discharge back to [facility]. She has been evaluated for oxygen need today. SpO2 at rest is 91%. SpO2 with ambulation without oxygen is 85%. SpO2 with ambulation with oxygen is 91%. Physician oxygen orders for treatment completed. She qualifies and agrees to home health with in home PT-OT.
[2018-12-20] MEDS: Levalbuterol HCl 0.63 MG/3 ML Neb NEB PRN ×2 (02:14→06:19)
[2018-12-20] MEDS: Bumetanide 1 MG Tab PO SCH (07:25)
[2018-12-20] MEDS: amLODIPine 5 MG Tab PO SCH (07:25)
[2018-12-20] MEDS: Albuterol/Ipratropium 3.0-0.5 MG/3 ML Neb Soln NEB SCH (07:25)
[2018-12-20] MEDS: Metoprolol Tartrate 25 MG Tab PO SCH (07:26)
[2018-12-20] MEDS: Levothyroxine 75 MCG Tab PO SCH (07:26)
[2018-12-20 07:28] VITALS: BP 134/76; PULSE 90
[2018-12-20] MEDS: Insulin Glarg,Human.Rec.Analog 100 UNIT/ML ML SUBCUT SCH (07:28)
[2018-12-20] MEDS: Arformoterol 15 MCG/2 ML Neb Soln NEB SCH (07:28)
== END 2018-12-20 09:20 | disposition home health service (06) | DRG 948 ==
LOC: LL.MS 12:00 → UNDOADMIN 14:35 → LL.MS 14:35
PROVIDERS: ADMIT Family Medicine; ATTEND Family Medicine
DX: R53.1 Weakness (principal); I13.0 Hypertensive heart and chronic kidney disease with heart failure and stage 1 through stage 4 chronic kidney disease, or unspecified chronic kidney disease; J43.2 Centrilobular emphysema; Z51.5 Encounter for palliative care; Z66 Do not resuscitate; E79.0 Hyperuricemia without signs of inflammatory arthritis and tophaceous disease; I45.10 Unspecified right bundle-branch block; I49.3 Ventricular premature depolarization; N18.9 Chronic kidney disease, unspecified; I50.9 Heart failure, unspecified; I25.10 Atherosclerotic heart disease of native coronary artery without angina pectoris; E11.22 Type 2 diabetes mellitus with diabetic chronic kidney disease; E88.09 Other disorders of plasma-protein metabolism, not elsewhere classified; E03.9 Hypothyroidism, unspecified; F41.8 Other specified anxiety disorders; M19.90 Unspecified osteoarthritis, unspecified site; Z79.899 Other long term (current) drug therapy; Z79.4 Long term (current) use of insulin; Z79.51 Long term (current) use of inhaled steroids
CPT/HCPCS: 36415; 80053; 82962; 83880; 85025; 86140; 94640; 97110-GO; 97161-GP; 97165-GO; 97530-GO; 97530-GP; 97535-GO; A9270-GY; J1030; J3301; J7620-GY

== ENCOUNTER 2019-02-20 08:27 | Inpatient (IN) | payer MEDICARE, OTHER ==
[2019-02-20] MEDS ORDERED: Budesonide 0.5 MG/2 ML Neb Susp NEB ONE (08:31)
--- NOTE | 2019-02-20 08:31 | EDM.PDOC ---
ED HPI GENERAL MEDICAL PROBLEM - General Chief Complaint: Cardiovascular Problem Stated Complaint: shortness of breath,hypoxia Time Seen by Provider: 02/20/19 08:30 Source of Information: Reports: Patient, EMS, Old Records ([facility] chart/EMR). Denies: EMS Notes Reviewed (Not available at time of dictation) History Limitations: Reports: No Limitations - History of Present Illness INITIAL COMMENTS - FREE TEXT/NARRATIVE: The patient was brought to the emergency room via ambulance with plant guide accompaniment with patient's O2 increased from baseline 2 L/m by nasal cannula to 4 L/m by nasal cannula with O2 sats in the 98-100th percentile at time of arrival to this facility. Per history from home health and the paramedics the patient apparently had moderate hypoxia with O2 sat of only 70% with her concentrator at home. Note that the patient has been having increasing dyspnea since 02/14 and was seen by her regular provider, BREANA Armenta at the [facility], on 02/18 with increase of her nebulizer treatments and additional initiation of short course of oral prednisone. She has had her influenza booster this season and denies any recent known exposure to infection. The patient was hospitalized in this facility on 12/02/18 for CHF and 12/11/18 for COPD exacerbation. She did take her DuoNeb nebulizer treatment prior to arrival to this facility. The patient denies any chest pain/pressure, heart flutter, dizziness, orthostasis, orthopnea, diaphoresis, paresthesias, recent decreased exercise tolerance, or any other anginal-type symptoms, although her overall activity level is low secondary to her cardiac and pulmonary disease. No recent history of abdominal pain, heartburn, nausea, diarrhea, melena, gross hematochezia, or any food intolerance, including fatty foods, etc.. She denies any gross hematuria, colic, UTI symptoms. The patient also denies any recent fever, cough, etc.. She denies any current pain or discomfort. Onset: Gradual Onset Date: 02/14/19 Duration: Constant, Getting Worse Location: Reports: Other (No pain) Quality: Reports: Same as Previous Episode Severity: Severe Improves with: Reports: None Worsens with: Reports: None Context: Reports: Other (As above). Denies: Sick Contact, Trauma Associated Symptoms: Reports: Shortness of Breath. Denies: Confusion, Chest Pain, Cough, Diaphoresis, Fever/Chills, Headaches, Loss of Appetite, Malaise, Nausea/Vomiting, Rash, Weakness Treatments PUBLIC HEALTH SANITARIAN: Reports: Breathing Treatments, Oxygen - Related Data Allergies Allergy/AdvReac Type Severity Reaction Status Date / Time MARCOS Inhibitors Allergy Unknown unknown Verified 02/20/19 08:33 budesonide [From Pulmicort] Allergy Unknown unknown Verified 02/20/19 08:33 gabapentin Allergy Unknown Diarrhea Verified 02/20/19 08:33 Sulfa (Sulfonamide Allergy Unknown unknown Verified 02/20/19 08:33 Antibiotics) ketorolac [From Toradol] Allergy Rash Verified 02/20/19 08:33 Home Meds: Home Meds Albuterol/Ipratropium [DuoNeb 3.0-0.5 MG/3 ML] 3 ml INH QID 05/03/17 [History] Metoprolol Tartrate 25 mg PO BID 05/03/17 [History] Levothyroxine Sodium [Synthroid] 75 mcg PO ACBREAKFAST #30 tab 11/06/18 [Rx] amLODIPine [Norvasc] 5 mg PO DAILY 11/25/18 [History] Naldo/Polymyx B Sulf/Dexameth [Xgyjiq-Gkbnp-Nugkswj Eye Ointm] 1 applic EYELF BID 11/26/18 [History] Acetaminophen [Tylenol] 650 mg PO Q4H PRN tablet 12/02/18 [Rx] Insulin Aspart [NovoLOG] 2 unit SQ DAILY@1200 #1 pen 12/09/18 [Rx] Arformoterol [Brovana] 15 mcg NEB Q12HR #1 box 12/19/18 [Rx] Bumetanide [Bumex] 1 mg PO BID@0800,1200 #180 tablet 12/19/18 [Rx] Insulin Detemir [Levemir Flextouch] 14 unit SQ DAILY #1 box 12/19/18 [Rx] Levalbuterol HCl [Xopenex] 0.63 mg NEB Q2H PRN #30 neb 12/19/18 [Rx] Arformoterol [Brovana] 1 ml INH BID 02/20/19 [History] Fish Oil/Elrama-3 Fatty Acids [Fish Oil 1,000 MG] 1 cap PO DAILY 02/20/19 [ History] Multivitamin [Multivitamins] 1 cap PO DAILY 02/20/19 [History] guaiFENesin/D-Methorphan Hb/Pe [Robitussin Cough-Cold Cf Liq] 1 tsp PO TID 02/20 [History] predniSONE [Prednisone] 1 tab PO DAILY 02/20/19 [History] Past Medical History HEENT History: Reports: Cataract, Hard of Hearing, Impaired Vision, Other (See Below). Denies: Allergic Rhinitis, Glaucoma, Macular Degeneration, Otitis Media , Retinal Detachment Other HEENT History: Patient wears glasses. Mild bilateral presbycusis with no current therapy. Recurrent nasal polyps requiring surgery as below. Cardiovascular History: Reports: Arrhythmia, CAD, Cardiomyopathy, Heart Failure , High Cholesterol, Hypertension, PVD, Other (See Below). Denies: Afib, Aneurysm, Blood Clots/VTE/DVT, Bypass, Heart Murmur, RI, Pacemaker, Syncope Other Cardiovascular History: Cardiomegaly by chest x-ray with history of CHF and chronic dependent edema. Dyslipidemia. Aortic Valve calcification. Borderline left ventricular enlargement/hypertrophy. PVCs versus PACs with apparent conduction and mild incomplete right bundle branch block diagnosed by EKG on 11/06/18. History of D-dimer elevation on 11/06/18 with negative workup as below. Respiratory History: Reports: Bronchitis, Recurrent, COPD, Intubation, Previous , Pneumonia, Recurrent, Pulmonary Fibrosis. Denies: Asthma, Intubation, Difficult, PE, Pneumothorax, Sleep Apnea, TB Gastrointestinal History: Reports: Diverticulosis. Denies: Bowel Obstruction, Celiac Disease, Cholelithiasis, Chronic Constipation, Chronic Diarrhea, Colon Polyp, Fatty Liver, Fecal Incontinence, Gastritis, GI Bleed, Hepatitis, Hiatal Hernia, Inflammatory Bowel Disease, Irritable Bowel Syndrome, Jaundice, Pancreatitis, PUD Genitourinary History: Reports: Chronic Renal Insuffiency, Diabetic Nephropathy , Retention, Urinary. Denies: Acute Renal Failure, Renal Calculus, STD, Urinary Incontinence, UTI, Recurrent SPORTS COMMENTATOR History: Reports: . Denies: Dysfunctional Uterine Bleeding, Endometriosis, Fibroids, Spontaneous : 2 Para: 2 LMP (Approximate): Other (See Below) Other SPORTS COMMENTATOR History: Menopause in her 50s. One delivery at about 34 weeks gestation with otherwise normal spontaneous delivery without complications. Musculoskeletal History: Reports: Arthritis, Back Pain, Chronic, Fracture, Gout , Neck Pain, Chronic, Osteoarthritis, Osteoporosis, Other (See Below). Denies: Amputation, RA, SLE Other Musculoskeletal History: Scoliosis with history of multiple thoracic vertebral body compression fractures. 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 Neurological History: Reports: Neuropathy, Diabetic, Neuropathy, Peripheral, Other (See Below). Denies: Alzheimers Disease, Cerebral Aneurysms, Concussion, CVA, Headaches, Chronic, Head Trauma, Migraines, MS, Parkinson's, Seizure, TIA Other Neuro History: Postherpetic neuralgia. Benign familial resting tremor. Psychiatric History: Reports: Anxiety, Depression. Denies: Abuse, Victim of, ADD, ADHD, Addiction, Alzheimers Disease, Dementia, Psych Hospitalization(s), PTSD, Suicide Attempt, Suicidal Ideation Endocrine/Metabolic History: Reports: Diabetes, Type II, Hypothyroidism, IDDM, Osteopenia, Osteoporosis, Other (See Below). Denies: Diabetes, Gestational, Diabetes, Type I, Diabetes Mellitus, Type 3c, Obesity/BMI 30+ Other Endocrine/Metabolic History: Recurrent hypoglycemic episodes. Hypoalbuminemia. Hyponatremia possibly secondary to chronic CHF. Hematologic History: Reports: None. Denies: Anemia, B12 Deficiency, Blood Transfusion(s), Iron Deficiency Immunologic History: Reports: None. Denies: AIDS, HIV, SLE Oncologic (Cancer) History: Reports: None. Denies: Basal Cell Carcinoma, Breast , Cervix, Colon, Hodgkin's Lymphoma, Leukemia, Lymphoma, Malignant Melanoma, Non -Hodgkin's Lymphoma, Ovarian, Squamous Cell Carcinoma, Uterine Dermatologic History: Reports: Seborrheic Dermatitis. Denies: Eczema, Psoriasis - Infectious Disease History Infectious Disease History: Reports: Chicken Pox, Measles. Denies: C-Difficile , Meningitis, Mononucleosis, MRSA, Mumps, Pertussis (Whooping Cough), Rheumatic Fever, Rubella, Scarlet Fever, Shingles, TB, VRE - Past Surgical History Head Surgeries/Procedures: Reports: None HEENT Surgical History: Reports: Cataract Surgery, Naso-Sinus Surgery, Oral Surgery. Denies: Adenoidectomy, Eye Surgery, Laser Surgery, LASIK, Myringotomy w Tube(s), Tonsillectomy Other HEENT Surgeries/Procedures: 3 previous surgeries for excision of nasal polyps. Bilateral cataract surgery in about 2004. Multiple teeth extractions. Cardiovascular Surgical History: Reports: None. Denies: Varicose Respiratory Surgical History: Reports: None. Denies: Thoracentesis GI Surgical History: Reports: None, Hernia, Inguinal, Other (See Below). Denies : Appendectomy, Cholecystectomy, Colonoscopy, EGD, Hernia, Abdominal, Hernia Repair/Other, Polypectomy Other GI Surgeries/Procedures: Right inguinal hernia repair in her 20s. Female Surgical History: Reports: None. Denies: Breast Biopsy, Section, D&C, Hysterectomy, Salpingo-Oophorectomy, Tubal Ligation Endocrine Surgical History: Reports: None Neurological Surgical History: Reports: Discectomy, Lumbar Spine, Other (See Below). Denies: C-Spine, Intracranial, Laminectomy, Sacral Spine, Spinal Fusion , Thoracic Spine Other Neurological Surgeries/Procedures: L3-L5 decompression in the early Musculoskeletal Surgical History: Reports: None. Denies: Arthroscopic Procedure , Carpal Tunnel, Ganglion Cyst, Joint Replacement, ORIF, Shoulder Surgery Oncologic Surgical History: Reports: None Dermatological Surgical History: Reports: None - Past Imaging History Past Imaging History: Reports: Cardiac Echo (11/03/11 with findings as above and ejection fraction of 50%.), CAT Scan (Negative CTA of the chest on 11/06/18 and .), MRI (Lumbar spine on 11/04/13), Swallow Study (Negative barium swallow study on 12/11/18.), Venous Doppler (Negative venous Doppler studies of the lower extremities on 11/06/18 and 10/15/17.) Social & Family History - Family History HEENT: Reports: None. Denies: Glaucoma, Macular Degeneration, Retinal Detachment Cardiac: Reports: CAD, Cardiomyopathy, Heart Failure, RI, Other (See Below). Denies: Afib, Aneurysm, Arrhythmia, Blood Clots/VTE/DVT, Bypass, Heart Murmur, High Cholesterol, Hypertension, Pacemaker, PVD/COD, Stent Other Cardiac Family History: Mother with recurrent RI initially in her late 50s with CHF and fatal RI at age 62. Brother with fatal RI at age 68. Respiratory: Reports: Asthma, Other (See Below). Denies: COPD, PE, Pneumothorax , Sleep Apnea Other Respiratory Family Hisory: Father and daughter with asthma. GI: Reports: None. Denies: Celiac Disease, Cholelithiasis, Colon Polyps, GERD, GI bleed, Inflammatory Bowel Disease, Irritable Bowel Syndrome, PUD : Reports: None. Denies: Renal Calculus, Renal Disease/Insufficiency OBGYN: Reports: None. Denies: Endometriosis, Recurrent Spontaneous Musculoskeletal: Reports: None. Denies: Arthritis, Gout, RA, SLE Neurological: Reports: Alzheimers Disease Psychiatric: Reports: None. Denies: Abuse, Victim of, ADD, ADHD, Anxiety, Depression, Psych Hospitalization(s), PTSD, Suicide Attempt Endocrine/Metabolic: Reports: Diabetes, type II, Other (See Below). Denies: Diabetes, Type I, Hypothyroidism, IDDM Other Endocrine/Metabolic Family History: Multiple paternal family members with apparent AODM per previous medical records, however patient is not aware of this today. Hematologic: Reports: Anemia, Other (See Below). Denies: SLE Other Hematologic Family History: Father with anemia of unknown etiology history of blood transfusions without problems. Immunologic: Reports: None. Denies: AIDS, HIV, SLE Dermatologic: Reports: None. Denies: Eczema, Psoriasis Oncologic: Reports: Lung, Other (See Below). Denies: Breast, Cervix, Colon, Hodgkin's Lymphoma, Leukemia, Lymphoma, Non-Hodgkin's Lymphoma, Ovarian, Skin, Uterine Other Oncologic Family History: Daughter with fatal lung cancer at age 50 with no history of tobacco use. - Tobacco Use Smoking Status *Q: Never Smoker Tobacco Use Within Last Twelve Months: No Used Tobacco, but Quit: No Smoking Cessation Information Provided To Patient: No Second Hand Smoke Exposure: No Second Hand Smoke Education Provided: No - Caffeine Use Caffeine Use: Reports: Coffee (Half cup per day). Denies: Energy Drinks, Soda, Tea - Alcohol Use Alcohol Use History: No Days Per Week of Alcohol Use: 0 Number of Drinks Per Day: 0 Number of Drinks Per Day Comment: No previous DWIs, problems with alcohol abuse , etc. Total Drinks Per Week: 0 Alcohol Use in Last Twelve Months: No - Recreational Drug Use Recreational Drug Use: No Drug Use in Last 12 Months: No Recreational Drug Type: Denies: Amphetamines (Speed), Cocaine, Heroin, Inhalants (Glues, Solvents, Aerosols), LSD (Acid), Marijuana/Hashish, Methamphetamine, Morphine, Oxycodone - Living Situation & Occupation Living situation: Reports: (December 2017.), Extended Care Facility ( [facility]) Occupation: Retired (Retired [employer] ) ED ROS GENERAL - Review of Systems Review Of Systems: Comprehensive ROS is negative, except as noted in HPI. ED EXAM, GENERAL - Physical Exam Exam: See Below Exam Limited By: No Limitations General Appearance: Alert, WD/WN, Mild Distress (Secondary to dyspnea) Eye Exam: Bilateral Eye: EOMI, Normal Inspection (No nystagmus, patient has brought her glasses), PERRL Ears: Normal External Exam, Normal Canal, Hearing Grossly Normal, Normal TMs Nose: Normal Mucosa, No Blood, Clear Rhinorrhea (Mild) Throat/Mouth: Normal Inspection, Normal Lips, Normal Teeth (Multiple missing teeth), Normal Gums, Normal Oropharynx, Normal Voice, No Airway Compromise. No : Dysphagia, Perioral Cyanosis Head: Atraumatic, Normocephalic. No: Facial Swelling, Facial Tenderness, Sinus Tenderness Neck: Supple, Non-Tender, Full Range of Motion, Carotid Bruit (Mild bilateral carotid bruits). No: Lymphadenopathy (L), Lymphadenopathy (R), Thyromegaly Respiratory/Chest: Chest Non-Tender, Respiratory Distress (Mild), Rales ( Moderate diffuse), Rhonchi (Mild bilateral), Wheezing (Mild to moderate bilateral) Cardiovascular: Normal Peripheral Pulses, Regular Rate, Rhythm, No JVD, No Murmur, No Rub. No: No Edema (Dependent edema as below), Gallop/S3, Gallop/S4, Friction Rub Peripheral Pulses: 1+: Dorsalis Pedis (L), Dorsalis Pedis (R), 2+: Radial (L), Radial (R) GI/Abdominal: Normal Bowel Sounds, Soft, Non-Tender, No Organomegaly, No Distention, No Abnormal Bruit, No Mass, Other (Obese). No: Guarding (Female) Exam: Deferred Rectal (Female) Exam: Deferred Back Exam: Full Range of Motion, Other (Mild scoliosis). No: CVA Tenderness (L) , CVA Tenderness (R), Muscle Spasm, Paraspinal Tenderness, Vertebral Tenderness Extremities: Normal Range of Motion, Non-Tender, Normal Capillary Refill, Pedal Edema (+2 bilateral pitting pedal/pretibial edema). No: Lowell's Sign Neurological: Alert, Oriented, CN II-XII Intact, Normal Cognition, Normal Gait, Normal Reflexes (Negative Babinski's), No Motor/Sensory Deficits Psychiatric: Normal Affect, Normal Mood Skin Exam: Warm, Dry, Intact, Normal Color, No Rash. No: Diaphoretic, Wound/ Incision Lymphatic: No Adenopathy EKG INTERPRETATION EKG Date: 02/20/19 Time: 08:48 Rhythm: NSR Rate (Beats/Min): 81 [place]: Normal (Left cardiac axis) P-Wave: Enlarged (Moderate diffuse biphasic P waves with extreme poor R-wave progression in the anterior leads) QRS: Other (0.09 seconds representing repolarization changes with resolution of previous T-wave inversion in lead 3) ST-T: Normal QT: Normal VT/PQ Interval: 0.15 seconds representing a stable short VT interval with no delta waves noted. Comparison: Change From Previous EKG (As above since 12/12/18) EKG Interpretation Comments: 1. No acute ischemic changes 2. Left atrial enlargement 3. Repolarization changes Course - Vital Signs Last Recorded V/S: Last Vital Signs Temp 36.2 C 02/20/19 09:04 Pulse 71 02/20/19 10:26 Resp 20 02/20/19 10:26 BP 138/71 02/20/19 10:26 Pulse Ox 100 02/20/19 10:26 Vital Signs - 24 hr 02/20/19 02/20/19 02/20/19 09:04 09:11 09:27 Temperature [ 36.2 C Temporal] Pulse, 86 77 70 Peripheral [ Pulse Oximetry] Respiratory 22 H 20 14 Rate Blood Pressure 153/72 H 162/83 H 145/73 H [Right Arm] O2 Sat by Pulse 98 95 82 L Oximetry - Orders/Labs/Meds Orders: Active Orders 24 hr Category Date Time Status Cardiac Monitoring [RC] CONTINUOUS Care 02/20/19 08:31 Active Communication Order [RC] ROUTINE Care 02/20/19 08:31 Active EKG Documentation Completion [RC] ASDIRECTED Care 02/20/19 08:32 Active Oxygen Therapy, ED [RC] CONTINUOUS Care 02/20/19 08:31 Active Peripheral IV Care [RC] . DIRECTED Care 02/20/19 08:32 Active Pulse Oximetry [RC] CONTINUOUS Care 02/20/19 08:31 Active RT Aerosol Therapy [RC] ASDIRECTED Care 02/20/19 08:35 Active RT Aerosol Therapy [RC] ASDIRECTED Care 02/20/19 09:18 Active Up With Assistance [RC] ASDIRECTED Care 02/20/19 08:31 Active Nothing Per Oral Diet [DIET] Diet 02/20/19 Breakfast Active Chest 1V Frontal [CR] Stat Exams 02/20/19 08:31 Taken CULTURE BLOOD [BC] Stat Lab 02/20/19 09:20 Received CULTURE SPUTUM + SMEAR [] Urgent Lab 02/20/19 08:31 Ordered CULTURE STREP A CONFIRMATION [] Stat Lab 02/20/19 09:00 Results STREP SCRN A RAPID W CULT CONF [] Stat Lab 02/20/19 09:00 Results Sodium Chloride 0.9% Med 02/20/19 09:17 Active 3 ml INH ASDIRECTED PRN Sodium Chloride 0.9% [Saline Flush] Med 02/20/19 08:31 Active 10 ml FLUSH ASDIRECTED PRN Blood Culture x2 Reflex Set [OM.PC] Stat Oth 02/20/19 08:31 Ordered Obtain Past Medical Record [OM.PC] Stat Oth 02/20/19 08:31 Active Peripheral IV Insertion Adult [OM.PC] Stat Oth 02/20/19 08:31 Ordered Resuscitation Status Routine Resus Stat 02/20/19 08:31 Ordered Medication Orders Sodium Chloride (Saline Flush) 10 ml FLUSH ASDIRECTED PRN PRN Reason: Keep Vein Open Last Admin: 02/20/19 09:15 Dose: 10 ml Sodium Chloride (Sodium Chloride 0.9%) 3 ml INH ASDIRECTED PRN PRN Reason: mix with racepinephrine neb Labs: Laboratory Tests 02/20/19 02/20/19 02/20/19 Range/Units 09:00 09:00 09:00 WBC 9.5 (4.0-10.2) K/uL RBC 5.17 H (3.77-5.09) M/uL Hgb 14.7 D (11.7-15.5) g/dL Hct 48.6 H (34.0-46.0) % MCV 94.0 (84.0-98.0) fL MCH 28.4 (28.2-33.3) pg MCHC 30.2 L (31.7-36.0) g/dL RDW 15.0 H (11.2-14.1) % Plt Count 403 H (150-350) K/uL Neut % (Auto) 81.1 H (45.0-80.0) % Lymph % (Auto) 8.8 L (10.0-50.0) % [place] % (Auto) 9.8 (2.0-14.0) % Eos % (Auto) 0.0 (0.0-5.0) % Baso % (Auto) 0.3 (0.0-2.0) % Neut # (Auto) 7.66 H (1.40-7.00) K/uL Lymph # (Auto) 0.83 (0.50-3.50) K/uL [place] # (Auto) 0.93 (0.00-1.00) K/uL Eos # (Auto) 0.00 (0.00-0.50) K/uL Baso # (Auto) 0.03 (0.00-0.20) K/uL PT (9.5-12.0) SEC INR APTT (21.0-31.3) SEC D-Dimer, Quantitative 903 H (0-400) ng/mL Sodium 140 (136-145) mmol/L Potassium 5.1 (3.5-5.1) mmol/L Chloride 101 (98-107) mmol/L Carbon Dioxide 34.4 H (21.0-32.0) mmol/L BUN 57 H D (7-18) mg/dL Creatinine 1.50 H (0.51-1.17) mg/dL Est Cr Clr Drug Dosing TNP Estimated GFR (MDRD) 33 mL/min Glucose 309 H (74-106) mg/dL Lactic Acid (0.4-2.0) mmol/L Calcium 9.3 (8.5-10.1) mg/dL Magnesium 2.4 (1.8-2.4) mg/dL Total Bilirubin 0.3 (0.2-1.0) mg/dL AST 29 (15-37) U/L ALT 41 (12-78) U/L Alkaline Phosphatase 140 H (46-116) IU/L Creatine Kinase 86 (26-308) U/L Creatine Kinase Index 6.3 H (0.0-2.5) % CK-MB (CK-2) 5.40 H* (0.00-3.60) ng/mL Troponin I 0.000 (0.000-0.056) ng/mL NT-Pro-B Natriuret Pep 1029 H (0-125) pg/mL Total Protein 7.6 (6.4-8.2) g/dL Albumin 3.6 (3.4-5.0) g/dL TSH, Ultra Sensitive 2.365 (0.358-3.740) mIU/mL 02/20/19 02/20/19 Range/Units 09:20 09:20 WBC (4.0-10.2) K/uL RBC (3.77-5.09) M/uL Hgb (11.7-15.5) g/dL Hct (34.0-46.0) % MCV (84.0-98.0) fL MCH (28.2-33.3) pg MCHC (31.7-36.0) g/dL RDW (11.2-14.1) % Plt Count (150-350) K/uL Neut % (Auto) (45.0-80.0) % Lymph % (Auto) (10.0-50.0) % [place] % (Auto) (2.0-14.0) % Eos % (Auto) (0.0-5.0) % Baso % (Auto) (0.0-2.0) % Neut # (Auto) (1.40-7.00) K/uL Lymph # (Auto) (0.50-3.50) K/uL [place] # (Auto) (0.00-1.00) K/uL Eos # (Auto) (0.00-0.50) K/uL Baso # (Auto) (0.00-0.20) K/uL PT 10.6 (9.5-12.0) SEC INR 1.0 APTT 25.9 (21.0-31.3) SEC D-Dimer, Quantitative (0-400) ng/mL Sodium (136-145) mmol/L Potassium (3.5-5.1) mmol/L Chloride (98-107) mmol/L Carbon Dioxide (21.0-32.0) mmol/L BUN (7-18) mg/dL Creatinine (0.51-1.17) mg/dL Est Cr Clr Drug Dosing Estimated GFR (MDRD) mL/min Glucose (74-106) mg/dL Lactic Acid 1.2 (0.4-2.0) mmol/L Calcium (8.5-10.1) mg/dL Magnesium (1.8-2.4) mg/dL Total Bilirubin (0.2-1.0) mg/dL AST (15-37) U/L ALT (12-78) U/L Alkaline Phosphatase (46-116) IU/L Creatine Kinase (26-308) U/L Creatine Kinase Index (0.0-2.5) % CK-MB (CK-2) (0.00-3.60) ng/mL Troponin I (0.000-0.056) ng/mL NT-Pro-B Natriuret Pep (0-125) pg/mL Total Protein (6.4-8.2) g/dL Albumin (3.4-5.0) g/dL TSH, Ultra Sensitive (0.358-3.740) mIU/mL Blood Cultures 2 were collected. Microbiology 02/20/19 09:00 Influenza Type A Antigen Screen - Final Nasal, Left NEGATIVE INFLUENZA A VIRUS AG REFERENCE RANGE: NEGATIVE Influenza Type B Antigen Screen - Final Positive Influenza B Ag 02/20/19 09:00 Group A Streptococcus Rapid Screen - Final Throat NEGATIVE STREP A SCREEN REFERENCE RANGE: NEGATIVE Meds: Medications Generic Name Dose Route Start Last Admin Trade Name Freq PRN Reason Stop Dose Admin Sodium Chloride 10 ml 02/20/19 08:31 02/20/19 09:15 Saline Flush FLUSH 10 ml ASDIRECTED PRN Administration Keep Vein Open Sodium Chloride 3 ml 02/20/19 09:17 Sodium Chloride 0.9% INH ASDIRECTED PRN mix with racepinephrine neb Discontinued Medications Generic Name Dose Route Start Last Admin Trade Name Freq PRN Reason Stop Dose Admin Albuterol 2.5 mg 02/20/19 08:35 02/20/19 09:03 Proventil Neb Soln INH 02/20/19 08:36 2.5 mg ONETIME ONE Administration Budesonide 0.5 mg 02/20/19 08:31 02/20/19 08:55 Pulmicort NEB 02/20/19 08:32 0.5 mg ONETIME ONE Administration Furosemide 60 mg 02/20/19 08:35 02/20/19 09:14 Lasix IVPUSH 02/20/19 08:36 60 mg NOW ONE Administration Morphine Sulfate 2 mg 02/20/19 09:34 02/20/19 09:38 Morphine .XX 02/20/19 09:35 2 mg ONETIME ONE Administration Racepinephrine 0.5 ml 02/20/19 09:17 02/20/19 09:20 S-2 2.25% NEB 02/20/19 09:18 0.5 ml ONETIME ONE Administration - Radiology Interpretation Free Text/Narrative:: Design Draftsman shows normal sinus rhythm with heart rate in the 80s with no ectopy or arrhythmia. Chest x-ray, portable, shows evidence of moderate cardiomegaly with additional moderate CHF with somewhat prominent aortic arch and mild aortic valve calcification. Moderate to severe COPD changes noted including possible bullous formation in the right lower lobe. No pneumothorax. Probable fine diffuse pulmonary infiltrates especially in the right lower lobe. Departure - Departure Time of Disposition: 10:30 Disposition: Admitted As Inpatient 64 Condition: Poor Clinical Impression: COPD (chronic obstructive pulmonary disease), Congestive heart failure (CHF), IDDM (insulin dependent diabetes mellitus), Hypertension, Osteoarthritis, Mixed anxiety depressive disorder, Palliative care patient, Hypothyroidism, Influenza B, D-dimer, elevated, CKD (chronic kidney disease), Coronary artery disease Sepsis Event Note - Focused Exam Vital Signs: Vital Signs Temp Pulse Resp BP Pulse Ox 02/20/19 09:27 70 14 145/73 H 82 L 02/20/19 09:11 77 20 162/83 H 95 02/20/19 09:04 36.2 C 86 22 H 153/72 H 98 Date Exam was Performed: 02/20/19 Time Exam was Performed: 10:50 - Problem List & Annotations (1) Influenza B SNOMED Code(s): 64891130 Code(s): J10.1 - FLU DUE TO OTH IDENT INFLUENZA VIRUS W OTH RESP MANIFEST Status: Acute Priority: High Current Visit: Yes Onset Date: ~02/20/19 Annotation/Comment:: Initiate isolation precautions. Initiate Tamiflu dosed by her age and renal status with Darlyn from pharmacy consulted prior to admission. She did receive her influenza booster this season by her history, which will be confirmed after admission (2) Pneumonia SNOMED Code(s): 816131916 Code(s): J18.9 - PNEUMONIA, UNSPECIFIED ORGANISM Status: Acute Priority: High Current Visit: Yes Onset Date: ~02/20/19 Annotation/Comment:: Likely secondary to influenza A. Continue aggressive nebulizer treatments as above. Additional IV Rocephin and Claforan as a prophylactic measure. Attempt to obtain sputum specimen IMELDA. Blood cultures 2 were collected. Qualifiers: Pneumonia type: due to unspecified organism Laterality: bilateral Lung location: unspecified part of lung Qualified Code(s): J18.9 - Pneumonia, unspecified organism (3) COPD (chronic obstructive pulmonary disease) SNOMED Code(s): 21429637 Code(s): J44.9 - CHRONIC OBSTRUCTIVE PULMONARY DISEASE, UNSPECIFIED Status : Acute Priority: High Current Visit: Yes Annotation/Comment:: Dear COPD exacerbation likely secondary to her influenza B infection. Aggressive nebulizer therapy required in the emergency room as above including additional racemic epinephrine and morphine nebulizer treatments. Prognosis is extremely poor as below with improved patient's sedation and distress prior to admission. Qualifiers: COPD type: emphysema Emphysema type: centrilobular Qualified Code(s): J43.2 - Centrilobular emphysema (4) Congestive heart failure (CHF) SNOMED Code(s): 89322453 Code(s): I50.9 - HEART FAILURE, UNSPECIFIED Status: Chronic Priority: Medium Current Visit: Yes Onset Date: 02/14/19 Annotation/Comment:: Probable exacerbation of her CHF since 02/14. High-dose IV Lasix given in the emergency room and will be continued during this hospitalization. Note comfort care status with no further cardiac workup, including echocardiogram, etc. No chest pain or anginal type symptoms with chest pain protocol not initiated in the emergency room. Initiate standard rule out RI orders. Qualifiers: Heart failure type: unspecified Heart failure chronicity: acute on chronic Qualified Code(s): I50.9 - Heart failure, unspecified (5) Palliative care patient SNOMED Code(s): 161767672 Code(s): Z51.5 - ENCOUNTER FOR PALLIATIVE CARE Status: Chronic Priority: Medium Current Visit: Yes Annotation/Comment:: Prognosis is extremely poor with some evidence of sedation and significant distress during emergency room care. Aggressive nebulizer therapy was required as above. Patient may not survive this hospitalization. Emergency room nurse did contact the patient's son and informed him of patient's condition. (6) Coronary artery disease SNOMED Code(s): 97071276 Code(s): I25.10 - ATHSCL HEART DISEASE OF [place] CORONARY ARTERY W/O ANG PCTRS Status: Chronic Priority: Medium Current Visit: Yes Annotation/ Comment:: As above. Note positive CK MB and CK index with normal total CK and Troponin I. EKG showed no acute ischemic changes. Qualifiers: Coronary Disease-Associated Artery/Lesion type: [place] artery [place] vs. transplanted heart: [place] heart Associated angina: without angina Qualified Code(s): I25.10 - Atherosclerotic heart disease of [place] coronary artery without angina pectoris (7) Hypertension SNOMED Code(s): 31872823 Code(s): I10 - ESSENTIAL (PRIMARY) HYPERTENSION Status: Chronic Priority : Medium Current Visit: Yes Annotation/Comment:: Blood pressures somewhat elevated in the emergency room with continued close observation during this hospitalization. Qualifiers: Hypertension type: essential hypertension Qualified Code(s): I10 - Essential (primary) hypertension (8) Hypothyroidism SNOMED Code(s): 29169393 Code(s): E03.9 - HYPOTHYROIDISM, UNSPECIFIED Status: Chronic Priority: Medium Current Visit: Yes Annotation/Comment:: TSH normal today Qualifiers: Hypothyroidism type: acquired Qualified Code(s): E03.9 - Hypothyroidism, unspecified (9) IDDM (insulin dependent diabetes mellitus) SNOMED Code(s): 69762804 Code(s): E11.9 - TYPE 2 DIABETES MELLITUS WITHOUT COMPLICATIONS; Z79.4 - AUDIT DIRECTOR (CURRENT) USE OF INSULIN Status: Chronic Priority: Medium Current Visit: Yes Annotation/Comment:: Random glucose elevated today. Glycosylated hemoglobin with next set of blood work. (10) Mixed anxiety depressive disorder SNOMED Code(s): 401886990 Code(s): F41.8 - OTHER SPECIFIED ANXIETY DISORDERS Status: Chronic Priority: Medium Current Visit: Yes Annotation/Comment:: Stable by history. Continue to observe closely by regular provider. (11) Osteoarthritis SNOMED Code(s): 343771885 Code(s): M19.90 - UNSPECIFIED OSTEOARTHRITIS, UNSPECIFIED SITE Status: Chronic Priority: Medium Current Visit: Yes Annotation/Comment:: Stable by history with history of hyperuricemia as above. Qualifiers: Osteoarthritis location: multiple joints Osteoarthritis type: primary Qualified Code(s): M15.0 - Primary generalized (osteo)arthritis (12) D-dimer, elevated SNOMED Code(s): 285625494 Code(s): R79.89 - OTHER SPECIFIED ABNORMAL FINDINGS OF BLOOD CHEMISTRY Status: Chronic Priority: Medium Current Visit: Yes Onset Date: 11/06/18 Annotation/Comment:: Negative previous workup for DVT and PE on 11/06/18 as above with no clinical evidence of DVT or PE today. Continue Comfort care. Subcutaneous Lovenox on admission at DVT preventive dosage (13) CKD (chronic kidney disease) SNOMED Code(s): 047736024 Code(s): N18.9 - CHRONIC KIDNEY DISEASE, UNSPECIFIED Status: Chronic Priority: High Current Visit: Yes Annotation/Comment:: Continue to observe renal status closely especially in light of IV Lasix therapy. Qualifiers: Chronic kidney disease stage: stage 3 (moderate) Qualified Code(s): N18.3 - Chronic kidney disease, stage 3 (moderate) - Problem List Review Problem List Initiated/Reviewed/Updated: Yes - My Orders Last 24 Hours: My Active Orders 02/20/19 08:31 Cardiac Monitoring [RC] CONTINUOUS Communication Order [RC] ROUTINE Oxygen Therapy, ED [RC] CONTINUOUS Pulse Oximetry [RC] CONTINUOUS Up With Assistance [RC] ASDIRECTED Chest 1V Frontal [CR] Stat CULTURE SPUTUM + SMEAR [RM] Urgent Sodium Chloride 0.9% [Saline Flush] 10 ml FLUSH ASDIRECTED PRN Blood Culture x2 Reflex Set [OM.PC] Stat Obtain Past Medical Record [OM.PC] Stat Peripheral IV Insertion Adult [OM.PC] Stat Resuscitation Status Routine 02/20/19 08:32 EKG Documentation Completion [RC] ASDIRECTED Peripheral IV Care [RC] . DIRECTED 02/20/19 08:35 RT Aerosol Therapy [RC] ASDIRECTED 02/20/19 09:00 CULTURE STREP A CONFIRMATION [RM] Stat STREP SCRN A RAPID W CULT CONF [RM] Stat 02/20/19 09:17 Sodium Chloride 0.9% 3 ml INH ASDIRECTED PRN 02/20/19 09:18 RT Aerosol Therapy [RC] ASDIRECTED 02/20/19 09:20 CULTURE BLOOD [BC] Stat 02/20/19 Breakfast Nothing Per Oral Diet [DIET] - Assessment/Plan Admission H&P: Please use this note as an admission H&P Last 24 Hours: My Active Orders 02/20/19 08:31 Cardiac Monitoring [RC] CONTINUOUS Communication Order [RC] ROUTINE Oxygen Therapy, ED [RC] CONTINUOUS Pulse Oximetry [RC] CONTINUOUS Up With Assistance [RC] ASDIRECTED Chest 1V Frontal [CR] Stat CULTURE SPUTUM + SMEAR [RM] Urgent Sodium Chloride 0.9% [Saline Flush] 10 ml FLUSH ASDIRECTED PRN Blood Culture x2 Reflex Set [OM.PC] Stat Obtain Past Medical Record [OM.PC] Stat Peripheral IV Insertion Adult [OM.PC] Stat Resuscitation Status Routine 02/20/19 08:32 EKG Documentation Completion [RC] ASDIRECTED Peripheral IV Care [RC] . DIRECTED 02/20/19 08:35 RT Aerosol Therapy [RC] ASDIRECTED 02/20/19 09:00 CULTURE STREP A CONFIRMATION [RM] Stat STREP SCRN A RAPID W CULT CONF [RM] Stat 02/20/19 09:17 Sodium Chloride 0.9% 3 ml INH ASDIRECTED PRN 02/20/19 09:18 RT Aerosol Therapy [RC] ASDIRECTED 02/20/19 09:20 CULTURE BLOOD [BC] Stat 02/20/19 Breakfast Nothing Per Oral Diet [DIET] Assessment:: As above Plan: As above. Extensive precautions were given to the patient, who is in agreement with the treatment plan. The patient will require about 3-4 days of inpatient/ acute care secondary to multiple health problems as above. [facility] physician assumes care in the a.m.
[2019-02-20] MEDS ORDERED: Albuterol 0.083% 2.5 MG/3 ML Neb Soln INH ONE (08:35)
[2019-02-20] MEDS ORDERED: Furosemide 40 MG/4 ML VIAL IVPUSH ONE (08:35)
[2019-02-20] MEDS: Sodium Chloride 0.9% 10 ML Syringe FLUSH PRN ×2 (09:15→15:39)
[2019-02-20] MEDS ORDERED: Racepinephrine 2.25% 0.5 ML Neb Soln NEB ONE (09:17)
[2019-02-20] MEDS ORDERED: Morphine 2 MG/ML Syringe ONE (09:34)
[2019-02-20 09:37] LABS: CHLORIDE,CL 101 mmol/L (98-107); SODIUM,NA 140 mmol/L (136-145)
[2019-02-20] MEDS ORDERED: Temazepam 15 MG Cap PO PRN (11:35)
[2019-02-20] MEDS ORDERED: Albuterol/Ipratropium 3.0-0.5 MG/3 ML Neb Soln NEB PRN (11:35)
[2019-02-20] MEDS ORDERED: Levofloxacin/Dextrose 5%-Water 500 MG in Premix Bag 1 BAG IV SCH (12:00)
[2019-02-20] MEDS ORDERED: Albuterol 0.083% 2.5 MG/3 ML Neb Soln NEB PRN (12:00)
[2019-02-20] MEDS ORDERED: Acetaminophen 325 MG Tab PO PRN (12:00)
[2019-02-20] MEDS: Sodium Chloride 0.9% 10 ML Syringe FLUSH SCH ×2 (12:06→23:59)
[2019-02-20] MEDS ORDERED: Enoxaparin 30 MG/0.3 ML Syringe SUBCUT SCH (13:00)
[2019-02-20] MEDS: Oseltamivir 30 MG Cap PO SCH ×2 (13:03→19:42)
[2019-02-20] MEDS: cefTRIAXone 1 GM in Sodium Chloride 0.9% 100 ML IV SCH ×2 (13:03→23:59)
[2019-02-20] MEDS: Albuterol/Ipratropium 3.0-0.5 MG/3 ML Neb Soln NEB SCH ×2 (15:39→20:21)
[2019-02-20] MEDS: Furosemide 40 MG/4 ML VIAL IVPUSH SCH (15:39)
[2019-02-20] MEDS: Insulin Lispro 100 Units/ML 3 ML Vial SUBCUT SCH ×2 (19:40→21:13)
[2019-02-20] MEDS: Insulin Glarg,Human.Rec.Analog 100 Unit/ML SUBCUT SCH (19:41)
[2019-02-20] MEDS: Potassium Chloride 20 MEQ Tab.ER PO SCH (19:41)
[2019-02-20] MEDS: Metoprolol Tartrate 25 MG Tab PO SCH (19:41)
[2019-02-20] MEDS: Dextromethorphan/guaiFENesin 600-30 MG Tab.ER PO SCH (19:42)
[2019-02-20] MEDS: Arformoterol 15 MCG/2 ML Neb Soln NEB SCH (20:21)
[2019-02-20] MEDS: Morphine 2 MG/ML Syringe PRN ×2 (21:12→23:58)
[2019-02-20] MEDS ORDERED: Sodium Chloride 0.9% Inhalation Soln 3 ML Neb INH PRN (22:19)
[2019-02-20] MEDS ORDERED: Racepinephrine 2.25% 0.5 ML Neb Soln NEB PRN (22:19)
--- NOTE | 2019-02-20 22:19 | PCM.SN ---
- Free Text/Narrative Note: Family consultation held in the patient's room with her son and other multiple other family members. Patient is sedated and not taking oral medications, including her Tamiflu. 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 Family was informed on current treatment and likelihood that the patient would not survive this illness. Emotional and spiritual support were provided. They are still in agreement with comfort care only status.
[2019-02-20] MEDS: Sodium Chloride 0.9% Inhalation Soln 3 ML Neb INH PRN (23:58)
[2019-02-21] MEDS: Furosemide 40 MG/4 ML VIAL IVPUSH SCH ×2 (01:34→08:47)
[2019-02-21] MEDS: Albuterol/Ipratropium 3.0-0.5 MG/3 ML Neb Soln NEB SCH ×2 (01:59→08:47)
[2019-02-21] MEDS: Morphine 2 MG/ML Syringe PRN (05:42)
[2019-02-21] MEDS: Sodium Chloride 0.9% Inhalation Soln 3 ML Neb INH PRN (05:42)
[2019-02-21] MEDS ORDERED: Morphine 2 MG/ML Syringe IVPUSH PRN (05:53)
[2019-02-21] MEDS ORDERED: LORazepam 2 MG/ML SDV IVPUSH PRN (05:54)
[2019-02-21] MEDS ORDERED: Ondansetron 4 MG/2 ML SDV IVPUSH PRN (05:55)
[2019-02-21] MEDS: Sodium Chloride 0.9% 10 ML Syringe FLUSH PRN (06:17)
[2019-02-21] MEDS ORDERED: amLODIPine 5 MG Tab PO SCH (08:00)
[2019-02-21] MEDS: Insulin Lispro 100 Units/ML 3 ML Vial SUBCUT SCH (08:46)
[2019-02-21] MEDS: Metoprolol Tartrate 25 MG Tab PO SCH (08:47)
[2019-02-21] MEDS: Potassium Chloride 20 MEQ Tab.ER PO SCH (08:47)
[2019-02-21] MEDS: Arformoterol 15 MCG/2 ML Neb Soln NEB SCH (08:47)
[2019-02-21] MEDS: Insulin Glarg,Human.Rec.Analog 100 Unit/ML SUBCUT SCH (08:47)
[2019-02-21] MEDS: Dextromethorphan/guaiFENesin 600-30 MG Tab.ER PO SCH (08:47)
[2019-02-21] MEDS: Oseltamivir 30 MG Cap PO SCH (08:48)
--- NOTE | 2019-02-21 09:11 | PCM.DCSUM1 ---
Discharge Summary - Hospital Course HPI Initial Comments: See emergency room note/admission H&P Brief History: See emergency room note/admission H&P Diagnosis: Stroke: No Modified [place] Scale: No Symptoms at All Modified [place] Scale Score: 0 - Discharge Data Discharge Date: 02/21/19 Discharge Disposition: 20 Preliminary Cause of *Q: Respiratory Failure (Secondary to influenza B and COPD exacerbation) Condition: Good - Referral to Home Health Primary Care Physician: Kalee Edwards NP - Discharge Diagnosis/Problem(s) (1) Influenza B SNOMED Code(s): 90136589 ICD Code: J10.1 - FLU DUE TO OTH IDENT INFLUENZA VIRUS W OTH RESP MANIFEST Status: Acute Priority: High Current Visit: Yes Onset Date: ~02/20/19 Problem Details: Patient failed to respond to aggressive medical therapy in the emergency room room and during inpatient care. She remained sedated during the majority of the hospitalization and was not able to take previously ordered Tamiflu therapy. She did require aggressive nebulizer treatments, including when necessary morphine nebulizer and racemic epinephrine treatments with no improvement. O2 saturations did remain in the mid 90th percentile, however. Secondary to progressive respiratory failure the patient was given additional IV Ativan and IV morphine for comfort care. The family was counseled extensively during this hospitalization concerning patient's probable end-stage disease. The patient was pronounced at 08:45 AM this morning with secondary to her influenza B, COPD exacerbation, and concurrent CHF. Emotional support was was again provided to multiple family members this morning after the patient's . Initiated isolation precautions on admission. Tamiflu dosed by her age and renal status with Darlyn from pharmacy consulted prior to admission. She did receive her influenza booster this season by her history, which was confirmed after admission. (2) Pneumonia SNOMED Code(s): 540132150 ICD Code: J18.9 - PNEUMONIA, UNSPECIFIED ORGANISM Status: Acute Priority : High Current Visit: Yes Onset Date: ~02/20/19 Problem Details: Likely secondary to influenza A. Aggressive DuoNeb nebulizer treatments during this hospitalization with additional racemic epinephrine and morphine nebulizer treatments as above. Additional IV Rocephin and Claforan as a prophylactic measure were also given during this hospitalization. Sputum specimen could not be obtained during this hospitalization. Blood cultures 2 were collected in the emergency room. Qualifiers: Pneumonia type: due to unspecified organism Laterality: bilateral Lung location: unspecified part of lung Qualified Code(s): J18.9 - Pneumonia, unspecified organism (3) COPD (chronic obstructive pulmonary disease) SNOMED Code(s): 61344271 ICD Code: J44.9 - CHRONIC OBSTRUCTIVE PULMONARY DISEASE, UNSPECIFIED Status : Acute Priority: High Current Visit: Yes Problem Details: Severe COPD exacerbation likely secondary to her influenza B infection. Aggressive nebulizer therapy required in the emergency room as above, including additional racemic epinephrine and morphine nebulizer treatments. Prognosis was extremely poor on admission as above, although the patient's sedation and distress improved somewhat prior to admission. Qualifiers: COPD type: emphysema Emphysema type: centrilobular Qualified Code(s): J43.2 - Centrilobular emphysema (4) Congestive heart failure (CHF) SNOMED Code(s): 04895319 ICD Code: I50.9 - HEART FAILURE, UNSPECIFIED Status: Chronic Priority: Medium Current Visit: Yes Onset Date: 02/14/19 Problem Details: Probable exacerbation of her CHF since 02/14. High-dose IV Lasix given in the emergency room and was continued during this hospitalization. Note comfort care status with no further cardiac workup, including echocardiogram, etc. No chest pain or anginal type symptoms with chest pain protocol not initiated in the emergency room. Standard rule out MA orders were initiated with results as below. Note troponin I remained negative with stable CK-MB elevation with mildly progressive CK index elevation secondary to low baseline CK levels. Qualifiers: Heart failure type: unspecified Heart failure chronicity: acute on chronic Qualified Code(s): I50.9 - Heart failure, unspecified (5) Palliative care patient SNOMED Code(s): 724986627 ICD Code: Z51.5 - ENCOUNTER FOR PALLIATIVE CARE Status: Chronic Priority : Medium Current Visit: Yes Problem Details: Prognosis was extremely poor with some evidence of sedation and significant distress during emergency room care. Aggressive nebulizer therapy was required as above. Patient did not survive this hospitalization. Emergency room nurse did contact the patient's son and informed him of patient's condition while he was being treated in the emergency room with subsequent update of family members by me later during this hospitalization as above. (6) Coronary artery disease SNOMED Code(s): 77352807 ICD Code: I25.10 - ATHSCL HEART DISEASE OF [place] CORONARY ARTERY W/O ANG PCTRS Status: Chronic Priority: Medium Current Visit: Yes Problem Details: As above. Note positive CK MB and CK index with normal total CK and Troponin I on admission. EKG showed no acute ischemic changes on admission. Qualifiers: Coronary Disease-Associated Artery/Lesion type: [place] artery [place] vs. transplanted heart: [place] heart Associated angina: without angina Qualified Code(s): I25.10 - Atherosclerotic heart disease of [place] coronary artery without angina pectoris (7) Hypertension SNOMED Code(s): 33713194 ICD Code: I10 - ESSENTIAL (PRIMARY) HYPERTENSION Status: Chronic Priority : Medium Current Visit: Yes Problem Details: Blood pressures somewhat elevated in the emergency room with continued close observation during this hospitalization. Qualifiers: Hypertension type: essential hypertension Qualified Code(s): I10 - Essential (primary) hypertension (8) Hypothyroidism SNOMED Code(s): 16990055 ICD Code: E03.9 - HYPOTHYROIDISM, UNSPECIFIED Status: Chronic Priority: Medium Current Visit: Yes Problem Details: TSH normal on admission. Qualifiers: Hypothyroidism type: acquired Qualified Code(s): E03.9 - Hypothyroidism, unspecified (9) IDDM (insulin dependent diabetes mellitus) SNOMED Code(s): 03362573 ICD Code: E11.9 - TYPE 2 DIABETES MELLITUS WITHOUT COMPLICATIONS; Z79.4 - FPC (CURRENT) USE OF INSULIN Status: Chronic Priority: Medium Current Visit: Yes Problem Details: Random glucose elevated on admission. The patient was an extremely difficult blood draw with ordered glycosylated hemoglobin and lipid panel not able to be performed during this hospitalization. (10) Mixed anxiety depressive disorder SNOMED Code(s): 674687930 ICD Code: F41.8 - OTHER SPECIFIED ANXIETY DISORDERS Status: Chronic Priority: Medium Current Visit: Yes Problem Details: Stable by previous history. Very supportive family during this hospitalization. (11) Osteoarthritis SNOMED Code(s): 760596060 ICD Code: M19.90 - UNSPECIFIED OSTEOARTHRITIS, UNSPECIFIED SITE Status: Chronic Priority: Medium Current Visit: Yes Problem Details: Stable by history with history of hyperuricemia. Qualifiers: Osteoarthritis location: multiple joints Osteoarthritis type: primary Qualified Code(s): M15.0 - Primary generalized (osteo)arthritis (12) D-dimer, elevated SNOMED Code(s): 655002725 ICD Code: R79.89 - OTHER SPECIFIED ABNORMAL FINDINGS OF BLOOD CHEMISTRY Status: Chronic Priority: Medium Current Visit: Yes Onset Date: 11/06/18 Problem Details: Negative previous workup for DVT and PE on 11/06/18 as above with no clinical evidence of DVT or PE during this hospitalization. Continue Comfort care. Subcutaneous Lovenox on admission at DVT preventive dosage (13) CKD (chronic kidney disease) SNOMED Code(s): 459341403 ICD Code: N18.9 - CHRONIC KIDNEY DISEASE, UNSPECIFIED Status: Chronic Priority: High Current Visit: Yes Problem Details: Continued to observe renal status closely especially in light of IV Lasix therapy. Qualifiers: Chronic kidney disease stage: stage 3 (moderate) Qualified Code(s): N18.3 - Chronic kidney disease, stage 3 (moderate) - Patient Summary/Data Operative Procedure(s) Performed: None Complications: Consults: None Labs Pending at D/C: Blood Cultures 2 Recommended Follow-up Testing/Procedures: None Planned Operative Procedure(s) after DC: None Hospital Course: She was admitted to inpatient/acute care on telemetry with aggressive treatment as above. Unfortunately patient did not survive her influenza B infection, etc. as was initially expected. - Discharge Plan *PRESCRIPTION DRUG MONITORING PROGRAM REVIEWED*: Not Applicable *COPY OF PRESCRIPTION DRUG MONITORING REPORT IN PATIENT PATRICIO: Not Applicable Home Medications: Home Meds Albuterol/Ipratropium [DuoNeb 3.0-0.5 MG/3 ML] 3 ml INH QID 05/03/17 [History] Metoprolol Tartrate 25 mg PO BID 05/03/17 [History] Levothyroxine Sodium [Synthroid] 75 mcg PO ACBREAKFAST #30 tab 11/06/18 [Rx] amLODIPine [Norvasc] 5 mg PO DAILY 11/25/18 [History] Naldo/Polymyx B Sulf/Dexameth [Xezrnh-Xzkcb-Ceevtzx Eye Ointm] 1 applic EYELF BID 11/26/18 [History] Acetaminophen [Tylenol] 650 mg PO Q4H PRN tablet 12/02/18 [Rx] Insulin Aspart [NovoLOG] 2 unit SQ DAILY@1200 #1 pen 12/09/18 [Rx] Arformoterol [Brovana] 15 mcg NEB Q12HR #1 box 12/19/18 [Rx] Bumetanide [Bumex] 1 mg PO BID@0800,1200 #180 tablet 12/19/18 [Rx] Insulin Detemir [Levemir Flextouch] 14 unit SQ DAILY #1 box 12/19/18 [Rx] Levalbuterol HCl [Xopenex] 0.63 mg NEB Q2H PRN #30 neb 12/19/18 [Rx] Arformoterol [Brovana] 1 ml INH BID 02/20/19 [History] Fish Oil/[place]-3 Fatty Acids [Fish Oil 1,000 MG] 1 cap PO DAILY 02/20/19 [ History] Multivitamin [Multivitamins] 1 cap PO DAILY 02/20/19 [History] guaiFENesin/D-Methorphan Hb/Pe [Robitussin Cough-Cold Cf Liq] 1 tsp PO TID 02/20 [History] predniSONE [Prednisone] 1 tab PO DAILY 02/20/19 [History] Forms: ED Department Discharge Referrals: Kalee Edwards NP [Primary Care Provider] - - Discharge Summary/Plan Comment DC Time >30 min.: Yes (Coordination of care and emotional support to the family) Discharge Summary/Plan Comment: As above. Her body was released to the mortuary of the family's choice. - General Info Date of Service: 02/21/19 Admission Dx/Problem (Free Text: 1. Influenza B infection/pneumonia 2. COPD exacerbation 3. CHF Subjective Update: Patient as above - Patient Data Vitals - Most Recent: Last Vital Signs Temp 35.9 C 02/21/19 04:00 Pulse 43 L 02/21/19 04:00 Resp 22 H 02/21/19 04:00 BP 80/47 L 02/21/19 04:00 Pulse Ox 99 02/21/19 04:00 Vital Signs - 24 hr 02/20/19 02/20/19 02/20/19 09:27 10:26 10:30 Temperature [ Axillary] Temperature [ 35.9 C Temporal] Pulse, 70 71 74 Peripheral [ Pulse Oximetry] Respiratory 14 20 17 Rate Blood Pressure 145/73 H 138/71 141/70 H [Right Arm] O2 Sat by Pulse 82 L 100 100 Oximetry O2 Sat by Pulse Oximetry [ Nasal Cannula] 02/20/19 02/20/19 02/20/19 11:35 11:59 14:00 Temperature [ Axillary] Temperature [ 35.8 C 36.3 C Temporal] Pulse, 92 104 H Peripheral [ Pulse Oximetry] Respiratory 21 H 22 H Rate Blood Pressure 130/68 117/64 [Right Arm] O2 Sat by Pulse 99 Oximetry O2 Sat by Pulse 96 Oximetry [ Nasal Cannula] 02/20/19 02/20/19 02/20/19 15:57 20:00 23:27 Temperature [ 35.8 C 36.1 C Axillary] Temperature [ 35.6 C Temporal] Pulse, 57 L 56 L 52 L Peripheral [ Pulse Oximetry] Respiratory 20 28 H 16 Rate Blood Pressure 104/50 L 104/53 L 79/36 L [Right Arm] O2 Sat by Pulse 96 99 100 Oximetry O2 Sat by Pulse Oximetry [ Nasal Cannula] 02/21/19 04:00 Temperature [ 35.9 C Axillary] Temperature [ Temporal] Pulse, 43 L Peripheral [ Pulse Oximetry] Respiratory 22 H Rate Blood Pressure 80/47 L [Right Arm] O2 Sat by Pulse 99 Oximetry O2 Sat by Pulse Oximetry [ Nasal Cannula] Weight - Most Recent: 58.967 kg Imaging Impressions - Last 24 hrs: surveillance system monitor showed sinus bradycardia in the 50s with very occasional PVCs. Chest x-ray, portable, on 02/20/19 shows evidence of moderate cardiomegaly with additional moderate CHF with somewhat prominent aortic arch and mild aortic valve calcification. Moderate to severe COPD changes noted including possible bullous formation in the right lower lobe. No pneumothorax. Probable fine diffuse pulmonary infiltrates especially in the right lower lobe. Lab Results - Last 24 hrs: Laboratory Results - last 24 hr 02/20/19 02/20/19 02/20/19 Range/Units 09:00 09:00 09:00 WBC 9.5 (4.0-10.2) K/uL RBC 5.17 H (3.77-5.09) M/uL Hgb 14.7 D (11.7-15.5) g/dL Hct 48.6 H (34.0-46.0) % MCV 94.0 (84.0-98.0) fL MCH 28.4 (28.2-33.3) pg MCHC 30.2 L (31.7-36.0) g/dL RDW 15.0 H (11.2-14.1) % Plt Count 403 H (150-350) K/uL Neut % (Auto) 81.1 H (45.0-80.0) % Lymph % (Auto) 8.8 L (10.0-50.0) % [place] % (Auto) 9.8 (2.0-14.0) % Eos % (Auto) 0.0 (0.0-5.0) % Baso % (Auto) 0.3 (0.0-2.0) % Neut # (Auto) 7.66 H (1.40-7.00) K/uL Lymph # (Auto) 0.83 (0.50-3.50) K/uL [place] # (Auto) 0.93 (0.00-1.00) K/uL Eos # (Auto) 0.00 (0.00-0.50) K/uL Baso # (Auto) 0.03 (0.00-0.20) K/uL PT (9.5-12.0) SEC INR APTT (21.0-31.3) SEC D-Dimer, Quantitative 903 H (0-400) ng/mL Sodium 140 (136-145) mmol/L Potassium 5.1 (3.5-5.1) mmol/L Chloride 101 (98-107) mmol/L Carbon Dioxide 34.4 H (21.0-32.0) mmol/L BUN 57 H D (7-18) mg/dL Creatinine 1.50 H (0.51-1.17) mg/dL Est Cr Clr Drug Dosing TNP Estimated GFR (MDRD) 33 mL/min Glucose 309 H (74-106) mg/dL Lactic Acid (0.4-2.0) mmol/L Calcium 9.3 (8.5-10.1) mg/dL Magnesium 2.4 (1.8-2.4) mg/dL Total Bilirubin 0.3 (0.2-1.0) mg/dL AST 29 (15-37) U/L ALT 41 (12-78) U/L Alkaline Phosphatase 140 H (46-116) IU/L Creatine Kinase 86 (26-308) U/L Creatine Kinase Index 6.3 H (0.0-2.5) % CK-MB (CK-2) 5.40 H* (0.00-3.60) ng/mL Troponin I 0.000 (0.000-0.056) ng/mL NT-Pro-B Natriuret Pep 1029 H (0-125) pg/mL Total Protein 7.6 (6.4-8.2) g/dL Albumin 3.6 (3.4-5.0) g/dL TSH, Ultra Sensitive 2.365 (0.358-3.740) mIU/mL 02/20/19 02/20/19 02/20/19 Range/Units 09:20 09:20 14:00 WBC (4.0-10.2) K/uL RBC (3.77-5.09) M/uL Hgb (11.7-15.5) g/dL Hct (34.0-46.0) % MCV (84.0-98.0) fL MCH (28.2-33.3) pg MCHC (31.7-36.0) g/dL RDW (11.2-14.1) % Plt Count (150-350) K/uL Neut % (Auto) (45.0-80.0) % Lymph % (Auto) (10.0-50.0) % [place] % (Auto) (2.0-14.0) % Eos % (Auto) (0.0-5.0) % Baso % (Auto) (0.0-2.0) % Neut # (Auto) (1.40-7.00) K/uL Lymph # (Auto) (0.50-3.50) K/uL [place] # (Auto) (0.00-1.00) K/uL Eos # (Auto) (0.00-0.50) K/uL Baso # (Auto) (0.00-0.20) K/uL PT 10.6 (9.5-12.0) SEC INR 1.0 APTT 25.9 (21.0-31.3) SEC D-Dimer, Quantitative (0-400) ng/mL Sodium (136-145) mmol/L Potassium (3.5-5.1) mmol/L Chloride (98-107) mmol/L Carbon Dioxide (21.0-32.0) mmol/L BUN (7-18) mg/dL Creatinine (0.51-1.17) mg/dL Est Cr Clr Drug Dosing Estimated GFR (MDRD) mL/min Glucose (74-106) mg/dL Lactic Acid 1.2 (0.4-2.0) mmol/L Calcium (8.5-10.1) mg/dL Magnesium (1.8-2.4) mg/dL Total Bilirubin (0.2-1.0) mg/dL AST (15-37) U/L ALT (12-78) U/L Alkaline Phosphatase (46-116) IU/L Creatine Kinase 75 (26-308) U/L Creatine Kinase Index 7.5 H (0.0-2.5) % CK-MB (CK-2) 5.60 H* (0.00-3.60) ng/mL Troponin I 0.000 (0.000-0.056) ng/mL NT-Pro-B Natriuret Pep (0-125) pg/mL Total Protein (6.4-8.2) g/dL Albumin (3.4-5.0) g/dL TSH, Ultra Sensitive (0.358-3.740) mIU/mL 02/20/19 Range/Units 19:48 WBC (4.0-10.2) K/uL RBC (3.77-5.09) M/uL Hgb (11.7-15.5) g/dL Hct (34.0-46.0) % MCV (84.0-98.0) fL MCH (28.2-33.3) pg MCHC (31.7-36.0) g/dL RDW (11.2-14.1) % Plt Count (150-350) K/uL Neut % (Auto) (45.0-80.0) % Lymph % (Auto) (10.0-50.0) % [place] % (Auto) (2.0-14.0) % Eos % (Auto) (0.0-5.0) % Baso % (Auto) (0.0-2.0) % Neut # (Auto) (1.40-7.00) K/uL Lymph # (Auto) (0.50-3.50) K/uL [place] # (Auto) (0.00-1.00) K/uL Eos # (Auto) (0.00-0.50) K/uL Baso # (Auto) (0.00-0.20) K/uL PT (9.5-12.0) SEC INR APTT (21.0-31.3) SEC D-Dimer, Quantitative (0-400) ng/mL Sodium (136-145) mmol/L Potassium (3.5-5.1) mmol/L Chloride (98-107) mmol/L Carbon Dioxide (21.0-32.0) mmol/L BUN (7-18) mg/dL Creatinine (0.51-1.17) mg/dL Est Cr Clr Drug Dosing Estimated GFR (MDRD) mL/min Glucose (74-106) mg/dL Lactic Acid (0.4-2.0) mmol/L Calcium (8.5-10.1) mg/dL Magnesium (1.8-2.4) mg/dL Total Bilirubin (0.2-1.0) mg/dL AST (15-37) U/L ALT (12-78) U/L Alkaline Phosphatase (46-116) IU/L Creatine Kinase 64 (26-308) U/L Creatine Kinase Index 8.8 H (0.0-2.5) % CK-MB (CK-2) 5.60 H* (0.00-3.60) ng/mL Troponin I 0.000 (0.000-0.056) ng/mL NT-Pro-B Natriuret Pep (0-125) pg/mL Total Protein (6.4-8.2) g/dL Albumin (3.4-5.0) g/dL TSH, Ultra Sensitive (0.358-3.740) mIU/mL Laboratory Tests 02/20/19 02/20/19 02/20/19 Range/Units 09:00 09:00 09:00 WBC 9.5 (4.0-10.2) K/uL RBC 5.17 H (3.77-5.09) M/uL Hgb 14.7 D (11.7-15.5) g/dL Hct 48.6 H (34.0-46.0) % MCV 94.0 (84.0-98.0) fL MCH 28.4 (28.2-33.3) pg MCHC 30.2 L (31.7-36.0) g/dL RDW 15.0 H (11.2-14.1) % Plt Count 403 H (150-350) K/uL Neut % (Auto) 81.1 H (45.0-80.0) % Lymph % (Auto) 8.8 L (10.0-50.0) % [place] % (Auto) 9.8 (2.0-14.0) % Eos % (Auto) 0.0 (0.0-5.0) % Baso % (Auto) 0.3 (0.0-2.0) % Neut # (Auto) 7.66 H (1.40-7.00) K/uL Lymph # (Auto) 0.83 (0.50-3.50) K/uL [place] # (Auto) 0.93 (0.00-1.00) K/uL Eos # (Auto) 0.00 (0.00-0.50) K/uL Baso # (Auto) 0.03 (0.00-0.20) K/uL PT (9.5-12.0) SEC INR APTT (21.0-31.3) SEC D-Dimer, Quantitative 903 H (0-400) ng/mL Sodium 140 (136-145) mmol/L Potassium 5.1 (3.5-5.1) mmol/L Chloride 101 (98-107) mmol/L Carbon Dioxide 34.4 H (21.0-32.0) mmol/L BUN 57 H D (7-18) mg/dL Creatinine 1.50 H (0.51-1.17) mg/dL Est Cr Clr Drug Dosing TNP Estimated GFR (MDRD) 33 mL/min Glucose 309 H (74-106) mg/dL Lactic Acid (0.4-2.0) mmol/L Calcium 9.3 (8.5-10.1) mg/dL Magnesium 2.4 (1.8-2.4) mg/dL Total Bilirubin 0.3 (0.2-1.0) mg/dL AST 29 (15-37) U/L ALT 41 (12-78) U/L Alkaline Phosphatase 140 H (46-116) IU/L Creatine Kinase 86 (26-308) U/L Creatine Kinase Index 6.3 H (0.0-2.5) % CK-MB (CK-2) 5.40 H* (0.00-3.60) ng/mL Troponin I 0.000 (0.000-0.056) ng/mL NT-Pro-B Natriuret Pep 1029 H (0-125) pg/mL Total Protein 7.6 (6.4-8.2) g/dL Albumin 3.6 (3.4-5.0) g/dL TSH, Ultra Sensitive 2.365 (0.358-3.740) mIU/mL 02/20/19 02/20/19 02/20/19 Range/Units 09:20 09:20 14:00 WBC (4.0-10.2) K/uL RBC (3.77-5.09) M/uL Hgb (11.7-15.5) g/dL Hct (34.0-46.0) % MCV (84.0-98.0) fL MCH (28.2-33.3) pg MCHC (31.7-36.0) g/dL RDW (11.2-14.1) % Plt Count (150-350) K/uL Neut % (Auto) (45.0-80.0) % Lymph % (Auto) (10.0-50.0) % [place] % (Auto) (2.0-14.0) % Eos % (Auto) (0.0-5.0) % Baso % (Auto) (0.0-2.0) % Neut # (Auto) (1.40-7.00) K/uL Lymph # (Auto) (0.50-3.50) K/uL [place] # (Auto) (0.00-1.00) K/uL Eos # (Auto) (0.00-0.50) K/uL Baso # (Auto) (0.00-0.20) K/uL PT 10.6 (9.5-12.0) SEC INR 1.0 APTT 25.9 (21.0-31.3) SEC D-Dimer, Quantitative (0-400) ng/mL Sodium (136-145) mmol/L Potassium (3.5-5.1) mmol/L Chloride (98-107) mmol/L Carbon Dioxide (21.0-32.0) mmol/L BUN (7-18) mg/dL Creatinine (0.51-1.17) mg/dL Est Cr Clr Drug Dosing Estimated GFR (MDRD) mL/min Glucose (74-106) mg/dL Lactic Acid 1.2 (0.4-2.0) mmol/L Calcium (8.5-10.1) mg/dL Magnesium (1.8-2.4) mg/dL Total Bilirubin (0.2-1.0) mg/dL AST (15-37) U/L ALT (12-78) U/L Alkaline Phosphatase (46-116) IU/L Creatine Kinase 75 (26-308) U/L Creatine Kinase Index 7.5 H (0.0-2.5) % CK-MB (CK-2) 5.60 H* (0.00-3.60) ng/mL Troponin I 0.000 (0.000-0.056) ng/mL NT-Pro-B Natriuret Pep (0-125) pg/mL Total Protein (6.4-8.2) g/dL Albumin (3.4-5.0) g/dL TSH, Ultra Sensitive (0.358-3.740) mIU/mL 02/20/19 Range/Units 19:48 WBC (4.0-10.2) K/uL RBC (3.77-5.09) M/uL Hgb (11.7-15.5) g/dL Hct (34.0-46.0) % MCV (84.0-98.0) fL MCH (28.2-33.3) pg MCHC (31.7-36.0) g/dL RDW (11.2-14.1) % Plt Count (150-350) K/uL Neut % (Auto) (45.0-80.0) % Lymph % (Auto) (10.0-50.0) % [place] % (Auto) (2.0-14.0) % Eos % (Auto) (0.0-5.0) % Baso % (Auto) (0.0-2.0) % Neut # (Auto) (1.40-7.00) K/uL Lymph # (Auto) (0.50-3.50) K/uL [place] # (Auto) (0.00-1.00) K/uL Eos # (Auto) (0.00-0.50) K/uL Baso # (Auto) (0.00-0.20) K/uL PT (9.5-12.0) SEC INR APTT (21.0-31.3) SEC D-Dimer, Quantitative (0-400) ng/mL Sodium (136-145) mmol/L Potassium (3.5-5.1) mmol/L Chloride (98-107) mmol/L Carbon Dioxide (21.0-32.0) mmol/L BUN (7-18) mg/dL Creatinine (0.51-1.17) mg/dL Est Cr Clr Drug Dosing Estimated GFR (MDRD) mL/min Glucose (74-106) mg/dL Lactic Acid (0.4-2.0) mmol/L Calcium (8.5-10.1) mg/dL Magnesium (1.8-2.4) mg/dL Total Bilirubin (0.2-1.0) mg/dL AST (15-37) U/L ALT (12-78) U/L Alkaline Phosphatase (46-116) IU/L Creatine Kinase 64 (26-308) U/L Creatine Kinase Index 8.8 H (0.0-2.5) % CK-MB (CK-2) 5.60 H* (0.00-3.60) ng/mL Troponin I 0.000 (0.000-0.056) ng/mL NT-Pro-B Natriuret Pep (0-125) pg/mL Total Protein (6.4-8.2) g/dL Albumin (3.4-5.0) g/dL TSH, Ultra Sensitive (0.358-3.740) mIU/mL MIN Results - Last 24 hrs: Microbiology 02/20/19 09:00 Quick Strep Confirmation Culture - Final Throat NO GROUP A STREP ISOLATED REFERENCE RANGE: NEGATIVE Group A Streptococcus Rapid Screen - Final NEGATIVE STREP A SCREEN REFERENCE RANGE: NEGATIVE 02/20/19 09:00 Influenza Type A Antigen Screen - Final Nasal, Left NEGATIVE INFLUENZA A VIRUS AG REFERENCE RANGE: NEGATIVE Influenza Type B Antigen Screen - Final Positive Influenza B Ag Med Orders - Current: Current Medications Acetaminophen (Tylenol) 650 mg PO Q4H PRN PRN Reason: Pain/Fever Albuterol (Proventil Neb Soln) 2.5 mg NEB Q2H PRN PRN Reason: Dyspnea Albuterol/Ipratropium (Duoneb 3.0-0.5 Mg/3 Ml) 3 ml NEB Q4HRRT PRN PRN Reason: Dyspnea Albuterol/Ipratropium (Duoneb 3.0-0.5 Mg/3 Ml) 3 ml NEB Q6HRRT [facility] Last Admin: 02/21/19 08:47 Dose: Not Given Amlodipine Besylate (Norvasc) 5 mg PO DAILY [facility] Last Admin: 02/21/19 08:48 Dose: Not Given Arformoterol Tartrate (Brovana) 15 mcg NEB Q12HR [facility] Last Admin: 02/21/19 08:47 Dose: Not Given Enoxaparin Sodium (Lovenox) 30 mg SUBCUT Q24H [facility] Last Admin: 02/20/19 13:03 Dose: 30 mg Furosemide (Lasix) 40 mg IVPUSH Q8H [facility] Last Admin: 02/21/19 08:47 Dose: Not Given Guaifenesin/Dextromethorphan (Mucinex Dm Er 600-30 Mg) 1 tab PO BID [facility] Last Admin: 02/21/19 08:47 Dose: Not Given Ceftriaxone Sodium 1 gm/ (Sodium Chloride) 100 mls @ 200 mls/hr IV Q12H [facility] Last Admin: 02/20/19 23:59 Dose: 200 mls/hr Levofloxacin/Dextrose 500 mg/ (Premix) 100 mls @ 100 mls/hr IV Q24H [facility] Last Admin: 02/20/19 12:06 Dose: 100 mls/hr Insulin Glargine (Lantus) 8 unit SUBCUT BID [facility] Last Admin: 02/21/19 08:47 Dose: Not Given Insulin Human Lispro (Humalog) 0 unit SUBCUT QIDACANDBED [facility]; Protocol Last Admin: 02/21/19 08:46 Dose: Not Given Lorazepam (Ativan) 1 mg IVPUSH Q4H PRN PRN Reason: Agitation Last Admin: 02/21/19 06:17 Dose: 1 mg Metoprolol Tartrate (Lopressor) 25 mg PO BID [facility] Last Admin: 02/21/19 08:47 Dose: Not Given Morphine Sulfate (Morphine) 2 mg .XX Q2H PRN PRN Reason: Dyspnea Last Admin: 02/21/19 05:42 Dose: 2 mg Morphine Sulfate (Morphine) 2 mg IVPUSH Q1H PRN PRN Reason: Dyspnea Ondansetron HCl (Zofran) 4 mg IVPUSH Q6H PRN PRN Reason: Nausea/Vomiting Oseltamivir Phosphate (Tamiflu) 30 mg PO BID [facility] Last Admin: 02/21/19 08:48 Dose: Not Given Potassium Chloride (Klor-Con M20) 20 meq PO BID [facility] Last Admin: 02/21/19 08:47 Dose: Not Given Racepinephrine (S-2 2.25%) 0.5 ml NEB Q2H PRN PRN Reason: Dyspnea Sodium Chloride (Saline Flush) 10 ml FLUSH ASDIRECTED PRN PRN Reason: Keep Vein Open Last Admin: 02/21/19 06:17 Dose: 10 ml Sodium Chloride (Sodium Chloride 0.9%) 3 ml INH ASDIRECTED PRN PRN Reason: mix with racepinephrine neb Last Admin: 02/21/19 05:42 Dose: 3 ml Sodium Chloride (Saline Flush) 10 ml FLUSH Q12H [facility] Last Admin: 02/20/19 23:59 Dose: 10 ml Sodium Chloride (Sodium Chloride 0.9%) 3 ml INH ASDIRECTED PRN PRN Reason: mix with racepinephrine neb Temazepam (Restoril) 15 mg PO BEDTIME PRN PRN Reason: Insomnia Discontinued Medications Albuterol (Proventil Neb Soln) 2.5 mg INH ONETIME ONE Stop: 02/20/19 08:36 Last Admin: 02/20/19 09:03 Dose: 2.5 mg Budesonide (Pulmicort) 0.5 mg NEB ONETIME ONE Stop: 02/20/19 08:32 Last Admin: 02/20/19 08:55 Dose: 0.5 mg Furosemide (Lasix) 60 mg IVPUSH NOW ONE Stop: 02/20/19 08:36 Last Admin: 02/20/19 09:14 Dose: 60 mg Morphine Sulfate (Morphine) 2 mg .XX ONETIME ONE Stop: 02/20/19 09:35 Last Admin: 02/20/19 09:38 Dose: 2 mg Racepinephrine (S-2 2.25%) 0.5 ml NEB ONETIME ONE Stop: 02/20/19 09:18 Last Admin: 02/20/19 09:20 Dose: 0.5 ml
== END 2019-02-21 11:45 | disposition expired | DRG 291 ==
LOC: LL.ED 08:27 → UNDOADMIN 10:14 → LL.MS 10:14
PROVIDERS: ADMIT Family Medicine; ATTEND Family Medicine
PROC: 3E033XZ Introduction of Vasopressor into Peripheral Vein, Percutaneous Approach (ICD-10-PCS; principal; 2019-02-21)
DX: I13.0 Hypertensive heart and chronic kidney disease with heart failure and stage 1 through stage 4 chronic kidney disease, or unspecified chronic kidney disease (principal); R09.02 Hypoxemia; J10.00 Influenza due to other identified influenza virus with unspecified type of pneumonia; J96.91 Respiratory failure, unspecified with hypoxia; Z51.5 Encounter for palliative care; I42.9 Cardiomyopathy, unspecified; J43.2 Centrilobular emphysema; H91.90 Unspecified hearing loss, unspecified ear; H54.7 Unspecified visual loss; I25.10 Atherosclerotic heart disease of native coronary artery without angina pectoris; E78.00 Pure hypercholesterolemia, unspecified; I50.9 Heart failure, unspecified; E78.5 Hyperlipidemia, unspecified; E11.40 Type 2 diabetes mellitus with diabetic neuropathy, unspecified; G89.29 Other chronic pain; N18.3 Chronic kidney disease, stage 3 (moderate); M10.9 Gout, unspecified; M41.9 Scoliosis, unspecified; M54.2 Cervicalgia; E11.51 Type 2 diabetes mellitus with diabetic peripheral angiopathy without gangrene; M15.0 Primary generalized (osteo)arthritis; J84.10 Pulmonary fibrosis, unspecified; M81.0 Age-related osteoporosis without current pathological fracture; E11.22 Type 2 diabetes mellitus with diabetic chronic kidney disease; E03.9 Hypothyroidism, unspecified; M85.80 Other specified disorders of bone density and structure, unspecified site; E11.21 Type 2 diabetes mellitus with diabetic nephropathy; R79.1 Abnormal coagulation profile; M79.2 Neuralgia and neuritis, unspecified; Z87.01 Personal history of pneumonia (recurrent); Z99.81 Dependence on supplemental oxygen; I45.10 Unspecified right bundle-branch block; F41.8 Other specified anxiety disorders; Z88.2 Allergy status to sulfonamides; Z88.8 Allergy status to other drugs, medicaments and biological substances; Z79.899 Other long term (current) drug therapy; Z79.51 Long term (current) use of inhaled steroids; Z79.890 Hormone replacement therapy; Z79.4 Long term (current) use of insulin; Z98.890 Other specified postprocedural states; Z98.41 Cataract extraction status, right eye; Z98.42 Cataract extraction status, left eye; Z80.1 Family history of malignant neoplasm of trachea, bronchus and lung
CPT/HCPCS: 36415; 71045; 80053; 82550; 82553; 83605; 83735; 83880; 84443; 84484; 85025; 85379; 85610; 85730; 87040; 87081; 87430; 87804; 93005; 94640; 96374; 99285-25; A9270-GY; J0696; J1650; J1940; J1956; J2060; J2270; J7050; J7613-GY; J7620-GY